=== PATIENT | female | born 1940 | race Caucasian/White ===

== ENCOUNTER → 2023-03-26 07:52 | Outpatient (REF) | payer MEDICARE, SELFPAY ==
[2023-03-26 10:21] LABS: ALT (SGPT) 13 U/L (0-35); AST (SGOT) 18 U/L (14-36); Albumin 3.9 g/dl (3.5-5.0); Alkaline Phosphatase 85 U/L (38-126); Blood Urea Nitrogen 24 mg/dl (7-17); Calcium 8.8 mg/dl (8.4-10.2); Carbon Dioxide 33 mmol/L (22-30); Chloride 98 mmol/L (98-107); Glucose 130 mg/dl (70-99); HDL Cholesterol 51 mg/dl; LDL Cholesterol, Calculated 50 mg/dl; Potassium 4.9 mmol/L (3.5-5.1); Sodium 137 mmol/L (135-145); Total Bilirubin 0.6 mg/dl (0.2-1.3); Total Cholesterol 125 mg/dl (50-199); Triglyceride 122 mg/dl (10-149); Very Low Density Lipoprotein 24 mg/dl (0-30); eGFR 45.48
[2023-03-26 11:03] LABS: Glycohemoglobin (HgbA1c) 6.5 % (4.0-5.6)
== END ==
LOC: REG 07:52
PROVIDERS: ATTENDING PHYSICIAN Family Medicine
DX: E11.59 Type 2 diabetes mellitus with other circulatory complications (principal); E78.2 Mixed hyperlipidemia
CPT/HCPCS: 36415; 80053; 80061; 83036

== ENCOUNTER → 2023-05-05 12:59 | Outpatient (REF) | payer MEDICARE, SELFPAY | LOC: WDC 12:59 | PROVIDERS: ATTENDING PHYSICIAN Family Medicine | DX: Z12.31 Encounter for screening mammogram for malignant neoplasm of breast (principal) | CPT/HCPCS: 77063; 77067 ==

== ENCOUNTER → 2023-08-13 08:18 | Outpatient (REF) | payer MEDICARE, SELFPAY ==
[2023-08-13 10:12] LABS: ALT (SGPT) 11 U/L (0-35); AST (SGOT) 15 U/L (14-36); Albumin 3.8 g/dl (3.5-5.0); Alkaline Phosphatase 75 U/L (38-126); Blood Urea Nitrogen 25 mg/dl (7-17); Calcium 9.4 mg/dl (8.4-10.2); Carbon Dioxide 33 mmol/L (22-30); Chloride 98 mmol/L (98-107); Glucose 112 mg/dl (70-99); Potassium 4.9 mmol/L (3.5-5.1); Sodium 140 mmol/L (135-145); Total Bilirubin 0.6 mg/dl (0.2-1.3); eGFR 41.31
[2023-08-13 12:00] LABS: Glycohemoglobin (HgbA1c) 6.6 % (4.0-5.6)
== END ==
LOC: REG 08:18
PROVIDERS: ATTENDING PHYSICIAN Family Medicine; REFERRING PHYSICIAN Internal Medicine Cardiovascular Disease
DX: E11.59 Type 2 diabetes mellitus with other circulatory complications (principal)
CPT/HCPCS: 36415; 80053; 83036

== ENCOUNTER → 2023-09-22 12:37 | Outpatient (REF) | payer MEDICARE, SELFPAY | LOC: WOUND 12:37 | PROVIDERS: ATTENDING PHYSICIAN Surgery; FAMILY PHYSICIAN Family Medicine | DX: L89.322 Pressure ulcer of left buttock, stage 2 (principal) | CPT/HCPCS: 99203 ==

== ENCOUNTER → 2023-09-29 13:23 | Outpatient (REF) | payer MEDICARE, SELFPAY | LOC: WOUND 13:23 | PROVIDERS: ATTENDING PHYSICIAN Surgery; FAMILY PHYSICIAN Family Medicine | DX: L89.322 Pressure ulcer of left buttock, stage 2 (principal); E11.59 Type 2 diabetes mellitus with other circulatory complications; N18.32 Chronic kidney disease, stage 3b; G89.4 Chronic pain syndrome; F11.20 Opioid dependence, uncomplicated; E66.01 Morbid (severe) obesity due to excess calories; I48.0 Paroxysmal atrial fibrillation; E11.29 Type 2 diabetes mellitus with other diabetic kidney complication | CPT/HCPCS: 97597 ==

== ENCOUNTER → 2023-10-06 13:24 | Outpatient (REF) | payer MEDICARE, SELFPAY | LOC: WOUND 13:24 | PROVIDERS: ATTENDING PHYSICIAN Surgery; FAMILY PHYSICIAN Family Medicine | DX: L89.322 Pressure ulcer of left buttock, stage 2 (principal); E11.59 Type 2 diabetes mellitus with other circulatory complications; N18.32 Chronic kidney disease, stage 3b; G89.4 Chronic pain syndrome; I50.32 Chronic diastolic (congestive) heart failure; F11.20 Opioid dependence, uncomplicated; E66.01 Morbid (severe) obesity due to excess calories; I48.0 Paroxysmal atrial fibrillation; E11.22 Type 2 diabetes mellitus with diabetic chronic kidney disease | CPT/HCPCS: 97597 ==

== ENCOUNTER → 2023-10-13 10:56 | Outpatient (REF) | payer MEDICARE, SELFPAY | LOC: WOUND 10:56 | PROVIDERS: ATTENDING PHYSICIAN Surgery; FAMILY PHYSICIAN Family Medicine | DX: L89.322 Pressure ulcer of left buttock, stage 2 (principal); E11.59 Type 2 diabetes mellitus with other circulatory complications; N18.32 Chronic kidney disease, stage 3b; G89.4 Chronic pain syndrome; I50.32 Chronic diastolic (congestive) heart failure; F11.20 Opioid dependence, uncomplicated; E66.01 Morbid (severe) obesity due to excess calories; I48.0 Paroxysmal atrial fibrillation | CPT/HCPCS: 97597 ==

== ENCOUNTER → 2023-10-27 13:24 | Outpatient (REF) | payer MEDICARE, SELFPAY | LOC: WOUND 13:24 | PROVIDERS: ATTENDING PHYSICIAN Surgery; FAMILY PHYSICIAN Family Medicine | DX: L89.322 Pressure ulcer of left buttock, stage 2 (principal); E11.59 Type 2 diabetes mellitus with other circulatory complications; N18.32 Chronic kidney disease, stage 3b; G89.4 Chronic pain syndrome; I50.32 Chronic diastolic (congestive) heart failure; F11.20 Opioid dependence, uncomplicated; E66.01 Morbid (severe) obesity due to excess calories; I48.0 Paroxysmal atrial fibrillation | CPT/HCPCS: 99212 ==

== ENCOUNTER 2023-12-08 21:40 | Inpatient (IN) | payer MEDICARE, SELFPAY ==
[2023-12-08 18:28] VITALS: BP 136/79
[2023-12-08 18:54] VITALS: BP 119/47
[2023-12-08 19:15] LABS: % Basophils 0.3 % (0-2); % Eosinophils 0.1 % (0-6); % Immature Granulocytes 0.3 % (0-0.5); % Lymphocytes 13.2 % (20.5-51.1); % Monocytes 13.2 % (1.7-9.3); % Neutrophils 72.9 % (42.2-75.2); Absolute Lymphocytes 1.2 10^3/uL (1.2-3.4); Absolute Monocytes 1.2 10^3/uL (0.1-0.6); Absolute Neutrophils 6.3 10^3/uL (1.4-6.5); Hematocrit 33.9 % (37.0-47.0); Mean Corp Hgb Conc. 32.4 g/dL (33.0-37.0); Mean Corpuscular Hgb 27.6 pg (27.0-31.0); Mean Platelet Volume 9.3 fL (7.4-10.4); Nucleated Red Blood Cells % 0 %; Platelet Count 228 10^3/uL (130-400); Red Blood Cell Count 3.99 10^6/uL (4.20-5.40); Red Cell Dist. Width 14.5 % (11.5-14.5); White Blood Cell Count 8.7 10^3/uL (4.8-10.8)
[2023-12-08 19:20] LABS: Urine Albumin Trace (Neg - Trace); Urine Bilirubin Negative (Negative); Urine Character Very Cloudy (Clear); Urine Color Yellow; Urine Glucose Negative (Negative); Urine Ketone Negative (Negative); Urine Leukocyte 2+ (Negative); Urine Nitrite Negative (Negative); Urine Occult Blood Trace (Negative); Urine Specific Gravity 1.005 (<1.030); Urine Urobilinogen 1+ (Neg - 1+)
[2023-12-08 19:30] LABS: Urine Bacteria Many (Negative); Urine Red Blood Cell 0-2 /HPF (0-2); Urine White Cell 21-25 /HPF (0-5)
--- NOTE | 2023-12-08 19:37 | ED.GENMED ---
History of Present Illness
General
Chief Complaint: Change in Mental Status
Source: patient, records, spouse and previous hospital records
Exam Limitations: none
Time Seen by Provider: 12/08/23 19:19
Nursing documentation reviewed up to this point in time: agreed with
History of Present Illness
History of Present Illness:
83-year-old female presents with agitation, urinary frequency, similar symptoms to when she had a UTI previously no fever no nausea vomiting she is a chronic pain syndrome, on fentanyl, oxycodone gabapentin immunosuppressed for dermatosis, followed
by dermatology uses oxygen at night, accompanied by her spouse
Past History
Past History
ED Past Medical History: CAD, CHF, COPD, GERD, HTN, Hypercholesterolemia, NIDDM, Psychiatric (Depression) and Other (DVT, morbid obesity, sleep apnea, iron deficiency anemia, spinal stenosis)
ED Past Surgical History: Appendectomy, Orthopedic, Tonsilectomy and Other (Cardiac catheterization with femoral arterial complications with both recent catheterization)
Social History
Tobacco: Former smoker
Alcohol: None
Drug: None
Personal:
Living: with family
Review of Systems
Review of Systems
All Other Systems: Not applicable
Constitutional: Reports sleep disturbance; Denies fever or fatigue
EENT: Reports no symptoms
Respiratory: Reports no symptoms
Cardiac: Reports no symptoms
ABD/GI: Denies abdominal pain or nausea
: Reports dysuria and frequency
Musculoskeletal: Reports muscle stiffness
Skin: Reports no symptoms
Neurological: Reports weakness
Hematologic/Lymphatic: Reports no symptoms
Psychiatric: Reports anxiety
Phy Exam
Physical Exam
Physical Exam:
Physical Exam
General: Agitated chronically ill female
Neck: Lips are dry
Heart: Regular
Lungs: no acute respiratory distress.
Abdomen: Nontender
Neuro: alert and oriented. no focal neurological deficits
Skin: no rash
Psychiatric: Agitated but cooperative
Extremities: no edema.
Course
Orders/Labs/Results
Orders:
Orders
12/08/23 18:57
CMP [Comprehensive Metabolic Panel] Urgent
Complete Blood Count/With Diff Urgent
Urinalysis Reflex To Culture Urgent
Date Specimen was Collected: 12/08/23
Time Specimen was Collected: 18:56
Urine Microscopic Reflex Cult Urgent
Urine Culture Urgent
JAMES Source: U
Specimen Description:
Date Specimen was Collected: 12/08/23
Time Specimen was Collected: 18:56
12/08/23 19:36
CefTRIAXone [Rocephin] 1,000 mg IV NOW STA
12/08/23 19:38
0.9% Sodium Chloride 1000 ml [Nss] 1,000 ml IV BOLUS
Oxycodone [Roxicodone] 20 mg PO NOW STA
Abnormal Lab Results
12/08/23
18:57
RBC 3.99 L 10^6/uL
(4.20-5.40)
Hgb 11.0 L g/dL
(12.0-16.0)
Hct 33.9 L %
(37.0-47.0)
MCHC 32.4 L g/dL
(33.0-37.0)
Absolute Monos (auto) 1.2 H 10^3/uL
(0.1-0.6)
Lymphocytes % 13.2 L %
(20.5-51.1)
Monocytes % 13.2 H %
(1.7-9.3)
Chloride 92 L mmol/L
(98-107)
Carbon Dioxide 34 H mmol/L
(22-30)
BUN 28 H mg/dl
(7-17)
Creatinine 1.1 H mg/dL
(0.6-1.0)
Glucose 130 H mg/dl
(70-99)
Ur Occult Blood Reflex Trace A
(Negative)
Leukocyte Esterase Rfl 2+ A
(Negative)
Urine WBC (Reflex) 21-25 A /HPF
(0-5)
Urine Bacteria (Reflex) Many A
(Negative)
12/08/23 18:57
12/08/23 18:57
Vital Signs
Initial and Last Documented VS:
Initial Vital Signs
Temp Pulse Resp BP Pulse Ox
98.3 F 81 16 136/79 92
12/08/23 18:28 12/08/23 18:28 12/08/23 18:28 12/08/23 18:28 12/08/23 18:28
Last Documented Vital Signs
Temp Pulse Resp BP Pulse Ox
98.3 F 81 16 119/47 96
12/08/23 18:28 12/08/23 18:28 12/08/23 18:28 12/08/23 18:54 12/08/23 19:15
MDM/Problems Addressed
Differential Diagnosis Includes:
UTI medication effect electrolyte abnormality
MDM/Problems Addressed:
Confusion agitation
Chronic conditions affecting care:
Immunosuppressed,
Acute Exacerbation and/or Progression of Chronic Illness:
Immunosuppressed chronic pain
*Pulse Oximetry
Patient hypoxic: no
*Utility Appraiser Interpretation
Rate: normal
Interpretation: normal
Heart Rate: 78
Rhythm: sinus
*Critical Care Note
Total Time (30-74mins, 75-104mins- exclusive of procedures): Not Applicable
Update Note
Update Note:
Update urine noted, patient is symptomatic prior culture noted prior records reviewed is allergic penicillin but tolerated cephalosporins previously reviewed this with nursing and patient and spouse, spouse was bonnie that he has been keeping care
for [place], think she needs to be admitted which is not unreasonable,
ED Attending Note
-
Portions of this chart may have been created with voice recognition software.� Occasional wrong word or��sound alike� substitutions may have occurred due to the inherent limitations of voice recognition software.
Discharge Plan
Departure
Patient Disposition: Admit
Date of Disposition: 12/08/23
Time of Disposition: 20:04
Presentation/result/management discussed w/ accepting MD/DO: Hospitalist
Patient with high blood pressure during this ER visit?: No
Condition: Fair
Discharge Problem:
Immunosuppressed status, Chronic pain syndrome, Toxic metabolic encephalopathy, Acute UTI
Prescriptions:
No Action
pantoprazole 40 MG tablet,delayed release (DR/EC)
40 mg PO HS
furosemide 40 MG tablet
40 mg PO DAILY
atorvastatin 40 MG tablet
80 mg PO HS
aspirin 81 MG tablet,delayed release (DR/EC)
81 mg PO DAILY
ketoconazole 1 APPLIC cream
1 applic topical BIDPRN PRN (Reason: groin/under breasts rash)
metformin 500 MG tablet extended release 24 hr
500 mg PO DAILY@0800
bupropion HCl 150 MG tablet extended release 24 hr
150 mg PO DAILY
duloxetine 60 MG capsule,delayed release(DR/EC)
60 mg PO DAILY
cholecalciferol (vitamin D3) 1,000 UNITS tablet
1,000 units PO DAILY
budesonide-formoterol [Symbicort] 1 PUFF HFA aerosol inhaler
2 puff inhalation R BID
gabapentin [Neurontin] 600 MG tablet
600 mg PO TID
albuterol sulfate 2.5 MG/3 ML solution for nebulization
2.5 mg inhalation R Q6HPRN PRN (Reason: sob/wheezing)
metoprolol succinate 25 MG tablet extended release 24 hr
25 mg PO DAILY
ticagrelor [Brilinta] 60 MG tablet
60 mg PO BID
oxycodone myristate [Xtampza ER] 13.5 MG cap,sprinkl,ER12hr(DONT CRUSH)
13.5 mg PO Q12H
Patient Comments:
07/10/2021: Taken w/ 36mg = 49.5mg; last filled 06/29/21, 60 tabs for 30 days from [facility]
oxycodone myristate [Xtampza ER] 36 MG cap,sprinkl,ER12hr(DONT CRUSH)
36 mg PO Q12H
Patient Comments:
07/10/2021: Taken w/ 13.5mg = 49.5mg; last filled 06/29/21, 60 tabs for 30 days from [facility]
oxycodone 10 MG tablet
20 mg PO Q6HPRN PRN (Reason: moderate pain)
Patient Comments:
07/10/2021: last filled 06/30/21, 240 tabs for 30 days from [facility]
polyethylene glycol 3350 17 GRAMS powder in packet
17 grams PO DAILY PRN (Reason: constipation) Qty: 30 0RF
cefdinir 300 MG capsule
300 mg PO Q12 Qty: 16 0RF
Interventions
Interventions:
*Risk Screen - Suicide Last Done: 12/08/23 19:11
*General Assessment Last Done: 12/08/23 19:10
*Neglect/Abuse Screening Last Done: 12/08/23 19:11
*ED COVID-19 Vaccine History Last Done: 12/08/23 19:10
ED- Neurological Assessment Last Done: 12/08/23 19:08
ED Swallowing Screen Last Done: 12/08/23 19:07
Discharge Date and Time
Print Language: PORTUGUESE
[2023-12-08 19:50] LABS: ALT (SGPT) 11 U/L (0-35); AST (SGOT) 19 U/L (14-36); Albumin 4.1 g/dl (3.5-5.0); Alkaline Phosphatase 91 U/L (38-126); Blood Urea Nitrogen 28 mg/dl (7-17); Calcium 9.2 mg/dl (8.4-10.2); Carbon Dioxide 34 mmol/L (22-30); Chloride 92 mmol/L (98-107); Glucose 130 mg/dl (70-99); Potassium 4.4 mmol/L (3.5-5.1); Sodium 137 mmol/L (135-145); Total Bilirubin 0.6 mg/dl (0.2-1.3); Total Protein 7.5 g/dl (6.3-8.2); eGFR 50.48
[2023-12-08] MEDS: ROXICODONE 20 MG PO (20:01)
[2023-12-08] MEDS: NSS 1000 IV (20:02)
[2023-12-08] MEDS: ROCEPHIN 1000 MG IV (20:03)
--- NOTE | 2023-12-08 20:30 | HPS.HSE ---
Addendum entered and electronically signed by Harley Mercer DO 12/08/23 21:44:
Patient seen and examined independently. Agree with findings and plan as set forth by Park Beckett PA-C.
Patient is an 83y F with PMH significant for HTN, DM and CAD who presents to ED for evaluation of increased confusion as reported by her . states that patient has seemed more confused than usual and has also been making 'strange
movements' mostly with her arms. These symptoms have been present for the past 2 days or so. states that she has had similar confusion in the past related to UTIs.
Ass:
Confusion / Acute TME
UTI
COPD
ASCVD
Chronic HFpEF
Benign Hypertension
Dyslipidemia
DM-II
CKD III
KEVAN not Tolerant of PAP Therapy
Lumbar Spinal Stenosis
Chronic Pain Syndrome
Chronic Opioid Dependence
Depression
Psoriasis
Plan:
Admit for further evaluation and treatment.
Continue IV abx for suspected UTI pending culture data.
Supportive care / follow for clinical improvement.
Continue current outpatient medication regimen.
Avoid new / increased sedating medications.
Efforts to decrease chronic narcotics would no doubt improve mental status.
Original Note:
Family Physician
-
Family Physician: Mir Estrada
Chief Complaint
-
Confusion
History of Present Illness
Patient is an 83 y/o female past medical history of CAD, HTN, DM, COPD, Chronic Pain and Psoriasis on immunosuppressive therapy who presents with confusion. Additional history is obtained from patient's at the bedside. He noted patient to
not quite be her usual self a few days ago, but today noted that she was more confused and she started making with odd movements with her arms. Patient herself complains of dysuria, and has noted frequency. Patient also reports cough that
is productive of green mucus which has been on going for a while, and notes she developed shortness of breath with activity. There are no reports of fevers, sweats or chills.
Medical History
Past Medical History
Past Medical History: Reports Other
Additional Past Medical History:
Coronary Artery Disease s/p Stent
Chronic HFpEF
Essential Hypertension
Hyperlipidemia
NIDDM
COPD
Sleep Apnea
Lumbar Stenosis
Chronic Pain with Opioid Dependence
GERD/PUD
Psoriasis
Depression
Past Surgical History: Reports Other
Additional Past Surgical History:
Laminectomy
Left Knee Arthroscopy
Appendectomy
Tonsillectomy
MOHs
Spinal Stimulator
Cardiac Stents
Social History
Tobacco: Former Smoker (Quit in 2000)
Alcohol: None
Personal:
Living: With Family
Family History
Family History: Not pertinent
Allergies / Home Medications
Allergies reflects when Allergies were last updated in [facility].
Home Medications with original date entered in [facility]
Allergy/Medication List:
Allergies
Allergy/AdvReac Type Severity Reaction Status Date / Time
Penicillins Allergy face Verified 10/18/22 11:43
swells,
pruritis,
difficulty,
anaphylaxis
Home Medications
pantoprazole 40 mg tablet,delayed release 40 mg PO HS Gastrointestinal issue 02/11/13
aspirin 81 mg tablet,delayed release 81 mg PO DAILY Blood clot prevention/tx 03/25/17
bupropion HCl 150 mg 24 hr tablet, extended release 150 mg PO DAILY Mental Health/Anxiety 03/25/17
duloxetine 60 mg capsule,delayed release 60 mg PO DAILY PAIN 03/25/17
furosemide 40 mg tablet 40 mg PO DAILY Fluid retention/Swelling 03/25/17
metformin 500 mg tablet,extended release 24 hr 500 mg PO QPM Diabetes 03/25/17
albuterol sulfate 2.5 mg/3 mL (0.083 %) solution for nebulization 2.5 mg inhalation R Q6HPRN PRN sob/wheezing 07/10/21
metoprolol succinate 25 mg tablet,extended release 24 hr 25 mg PO DAILY Heart disease/condition 07/10/21
oxycodone 10 mg tablet 10 - 20 mg PO Q6HPRN PRN moderate pain 07/10/21
ticagrelor 60 mg tablet (Brilinta) 60 mg PO BID Blood clot prevention/tx 07/10/21
Tremfya 1 dose SC Q8W 12/08/23
atorvastatin 80 mg tablet 80 mg PO HS 12/08/23
cholecalciferol (vitamin D3) 25 mcg (1,000 unit) tablet 25 mcg PO DAILY 12/08/23
fentanyl 100 mcg/hr transdermal patch 100 mcg transdermal Q3D 12/08/23
gabapentin 300 mg capsule 600 mg PO TID 12/08/23
Review of Systems
-
A 12 point ROS was completed and negative except as noted: Yes
Constitutional: Denies Fever or Chills
Respiratory: Reports Cough; Denies Trouble Breathing
Cardiac: Denies Chest Pain or Palpitations
Abdomen/GI: Reports See HPI
Physical Exam
Vital Signs
Vital Signs
Temp Pulse Resp BP Pulse Ox
98.3 F 81 16 119/47 97
12/08/23 18:28 12/08/23 18:28 12/08/23 18:28 12/08/23 18:54 12/08/23 20:00
Physical Exam
General: Comfortable and Conversant
HEENT: Anicteric, Moist mucous membranes and Oxygen (Nasal Cannula)
Respiratory: Non Labored Respirations and Other (Diffuse Wheezes / Rhonchi)
Cardiac: S1/S2 and Regular Rhythm
GI: Soft and Non Tender
Rectal: Deferred by Provider
Musculoskeletal: No Clubbing and No Cyanosis
Skin: Warm, Dry and Other (Dry scaly skin to bilateral lower extremities; Plaques noted on the right medical foot/ankle)
Neuro: Awake, Alert, Oriented (Correctly stated date as November 2023, location as [facility] and President as Chivo Arzola) and Other (Move all four extremities, but noted to be very restless with odd movements particular in the arms)
Psych: Calm
Laboratory Results
-
12/08/23 18:57
12/08/23 18:57
Laboratory Results
Total Bilirubin 0.6 mg/dl (0.2-1.3) 12/08/23 18:57
AST 19 U/L (14-36) 12/08/23 18:57
ALT 11 U/L (0-35) 12/08/23 18:57
Alkaline Phosphatase 91 U/L (38-126) 12/08/23 18:57
Impression/Plan
-
TME secondary to Urinary Tract Infection
-Continue Ceftriaxone
-Await urine culture
COPD
-Patient reports stopped Symbicort a while ago
-Check CXR and COVID in setting of diffuse wheeze
-Start Pulmicort Neb and DuoNeb
Coronary Artery Disease s/p Stent
-Continue Aspirin and Brilinta
Chronic HFpEF
-Continue furosemide
-Monitor Daily Weights
Essential Hypertension
-Continue Metoprolol
Hyperlipidemia
-Continue atorvastatin
NIDDM
-Hold metformin
-Monitor sugars and continue coverage insulin
CKD Stage IIIA
-Creatinine at baseline
Obstructive Sleep Apnea
-Patient is intolerable to CPAP
-Continue oxygen at bedtime
Lumbar Stenosis
Chronic Pain with Opioid Dependence
-Continue fentanyl patch and oxycodone as prior to admission
-Continue duloxetine and gabapentin
Depression
-Continue bupropion and duloxetine
GERD/PUD
-Continue Protonix
Psoriasis
-Patient maintained on Tremfya as outpatient
DVT proph: SC Heparin
Code Status: DNR
[2023-12-08 21:00] VITALS: BP 121/78
[2023-12-08 21:06] LABS: COVID-19 Antigen Negative (Negative)
[2023-12-08 22:00] VITALS: BP 114/69
[2023-12-08] MEDS: NEURONTIN PO (23:31)
[2023-12-08] MEDS: LIPITOR PO (23:31)
[2023-12-08] MEDS: PROTONIX PO (23:32)
[2023-12-09] MEDS: HEPARIN SC (01:07)
[2023-12-09 03:00] VITALS: BP 136/72
[2023-12-09] MEDS: ROXICODONE 20 MG PO ×3 (04:25→22:35)
[2023-12-09 05:41] LABS: Hematocrit 31.8 % (37.0-47.0); Hemoglobin 10.4 g/dL (12.0-16.0); Mean Corp Hgb Conc. 32.7 g/dL (33.0-37.0); Mean Corpuscular Hgb 27.6 pg (27.0-31.0); Mean Corpuscular Volume 84.4 fL (81.0-99.0); Mean Platelet Volume 9.4 fL (7.4-10.4); Platelet Count 200 10^3/uL (130-400); Red Blood Cell Count 3.77 10^6/uL (4.20-5.40); Red Cell Dist. Width 14.2 % (11.5-14.5)
[2023-12-09 06:00] LABS: Blood Urea Nitrogen 20 mg/dl (7-17); Calcium 8.9 mg/dl (8.4-10.2); Carbon Dioxide 31 mmol/L (22-30); Chloride 98 mmol/L (98-107); Estimated Creatinine Clearance 50 ml/min; Glucose 140 mg/dl (70-99); Sodium 140 mmol/L (135-145)
--- NOTE | 2023-12-09 08:11 | W.PN.HOSP.TC ---
Today's Communication/Plan
-
await Ur C&S
continue preadmit meds
Assessment / Plan
Assessment / Plan
TME secondary to Urinary Tract Infection
TME appears much improved when compared to presentation in ER
-Continue Ceftriaxone
-Await urine culture
In August 2022 had E.Coli, sens to Rocephin, resis to Amp
COPD
active wheeze, pt states has this all the time
-Patient reports stopped Symbicort a while ago
-Check CXR and COVID in setting of diffuse wheeze
-Start Pulmicort Neb and DuoNeb
Coronary Artery Disease s/p Stent
-Continue Aspirin and Brilinta
Chronic HFpEF
-Continue furosemide
-Monitor Daily Weights
Essential Hypertension
-Continue Metoprolol
Hyperlipidemia
-Continue atorvastatin
NIDDM
-Hold metformin
-Monitor sugars and continue coverage insulin
CKD Stage IIIA
-Creatinine at baseline
Obstructive Sleep Apnea
-Patient is intolerable to CPAP
-Continue oxygen at bedtime
Lumbar Stenosis
Chronic Pain with Opioid Dependence
-Continue fentanyl patch and oxycodone as prior to admission, pt is most concerned that she continue to receive
-Continue duloxetine and gabapentin
PT/OT
Depression
-Continue bupropion and duloxetine
GERD/PUD
-Continue Protonix
Psoriasis
-Patient maintained on Tremfya as outpatient
DVT proph: SC Heparin
Code Status: DNR
Anticipated Discharge: > 48 hours
Subjective/Interval History
-
Date of Service: December 09, 2023
Awake, alert, answering questions appropriately
Objective Data
-
Labs:
Laboratory Results
12/09/23
04:36
WBC 7.0
Hgb 10.4 L
Hct 31.8 L
Plt Count 200
Sodium 140
Potassium 4.0
Chloride 98
Carbon Dioxide 31 H
BUN 20 H
Creatinine 1.0
Glucose 140 H
Calcium 8.9
Vital Signs:
Vital Signs
Temp Pulse Resp BP Pulse Ox
97.7 F 77 18 136/72 95
12/09/23 03:00 12/09/23 03:00 12/09/23 03:00 12/09/23 03:00 12/09/23 03:00
Review of Systems
-
History Source: Patient and Coordinated Provider
Constitutional: Denies Fever
EENT: Reports No Symptoms Reported
Respiratory: Reports No Symptoms
Cardiac: Reports No Symptoms
Abdomen/GI: Reports No Symptoms
Genitourinary: Denies Dysuria
Physical Exam
-
General: Well Developed, Well Nourished and No Apparent Distress
HEENT: Normocephalic, Atraumatic and Moist Mucous Membranes
Respiratory: Wheezes (mid-end expiratory wheeze); Negative Rales or Rhonchi
Cardiac: Regular Rhythm and S1/S2
GI: Soft, Nontender and Nondistended
Genito-urinary: No Costovertebral Tender
Musculoskeletal: No Clubbing, No Cyanosis and No Edema
[2023-12-09] MEDS: DUONEB 3 ML INH ×4 (08:30→20:30)
[2023-12-09] MEDS: PULMICORT 0.5 MG INH ×2 (08:30→20:30)
[2023-12-09 08:39] LABS: Glucose - Point of Care 136 mg/dl (70-99)
[2023-12-09 09:00] VITALS: BP 123/51
[2023-12-09] MEDS: CYMBALTA DELAYED RELEASE 60 MG PO (09:06)
[2023-12-09] MEDS: NEURONTIN 600 MG PO ×3 (09:06→21:58)
[2023-12-09] MEDS: HEPARIN 5000 UNITS SC ×2 (09:06→15:36)
[2023-12-09] MEDS: WELLBUTRIN XL (24 hour extended release) 150 MG PO (09:07)
[2023-12-09] MEDS: VITAMIN D3 (cholecalciferol) 25 MCG PO (09:07)
[2023-12-09] MEDS: ASPIR LOW (ENTERIC COATED) 81 MG PO (09:07)
[2023-12-09] MEDS: TOPROL XL 25 MG PO (09:09)
[2023-12-09] MEDS: LASIX 40 MG PO (09:09)
[2023-12-09] MEDS: DURAGESIC 100 MCG/HR PATCH 1 PATCH TRANSDERM (09:50)
[2023-12-09 10:06] LABS: Glycohemoglobin (HgbA1c) 6.5 % (4.0-5.6)
--- NOTE | 2023-12-09 10:08 | WOUNDNOTE ---
LEFT LOWER LEG
--- NOTE | 2023-12-09 10:09 | WOUNDNOTE ---
LEFT BREAST FOLD
--- NOTE | 2023-12-09 10:09 | WOUNDNOTE ---
RIGHT BREAST FOLD
[2023-12-09] MEDS: BRILINTA 60 MG PO ×2 (10:16→22:00)
[2023-12-09] MEDS: ANTIFUNGAL CLEAR 1 APPLIC TOPICAL (11:46)
[2023-12-09] MEDS: DESENEX/MITRAZOL/ZEASORB 1 APPLIC TOPICAL (11:47)
--- NOTE | 2023-12-09 12:04 | WOUNDNOTE ---
[facility] RN note: Patient admitted with change in mental status
See H&P for complete history.
PMH: UTI,COPD, ASCVD, Chronic HFpEF, Benign Hypertension, Dyslipidemia, DM-II, CKD III, Lumbar Spinal Stenosis,Chronic Pain Syndrome
Chronic Opioid Dependence, Depression, Psoriasis
Wound Location and type/assessment: Patient admitted with friction appearing wound of left buttock, venous stasis changes to bilateral LE with venous appearing wounds to left posterior leg. Patient also has fungal appearing skin under breasts and
abdominal folds. Patient states she lives at home with her who helps with her care. She ambulates with walker at home. She denies wearing compression to LE. + palpable pulses. She said she was unaware of LE wounds. Her feet appear to have
fungal appearing skin vs psoriasis .
Appetite: States good appetite.
Pressure redistribution devices in place: Patient put on [employer] Accumax with static air overlay with assistance of PEYTON Moreno.
Plan: Local wound care as ordered to LE and areas of fungal appearing skin. Confirmed orders, including LE compression orders with Dr. Ivory. PEYTON Moreno given update. Care plan updated. Will follow as needed.
[2023-12-09 13:01] LABS: Glucose - Point of Care 182 mg/dl (70-99)
[2023-12-09 13:15] VITALS: BP 118/59
[2023-12-09 14:25] VITALS: BP 118/53
[2023-12-09 16:42] LABS: Glucose - Point of Care 124 mg/dl (70-99)
[2023-12-09 20:44] LABS: Glucose - Point of Care 161 mg/dl (70-99)
[2023-12-09] MEDS: ROCEPHIN 1000 MG IV (21:58)
[2023-12-09] MEDS: PROTONIX 40 MG PO (21:58)
[2023-12-09] MEDS: STERILE WATER FOR INJECTION 10 ML IV (21:59)
[2023-12-09] MEDS: LIPITOR 80 MG PO (22:00)
[2023-12-09 23:29] VITALS: BP 112/47
[2023-12-09] MEDS: DESENEX/MITRAZOL/ZEASORB TOPICAL (23:44)
[2023-12-10] MEDS: HEPARIN 5000 UNITS SC ×2 (01:04→09:21)
[2023-12-10 06:00] VITALS: BMI 43.2
[2023-12-10] MEDS: PULMICORT 0.5 MG INH (07:48)
[2023-12-10] MEDS: DUONEB 3 ML INH ×2 (07:48→11:15)
[2023-12-10 07:58] VITALS: BP 85/50
[2023-12-10 08:18] LABS: % Basophils 0.3 % (0-2); % Eosinophils 0.7 % (0-6); % Immature Granulocytes 0.5 % (0-0.5); % Lymphocytes 25.6 % (20.5-51.1); % Monocytes 12.2 % (1.7-9.3); % Neutrophils 60.7 % (42.2-75.2); Absolute Lymphocytes 1.5 10^3/uL (1.2-3.4); Absolute Monocytes 0.7 10^3/uL (0.1-0.6); Absolute Neutrophils 3.6 10^3/uL (1.4-6.5); Hematocrit 34.9 % (37.0-47.0); Hemoglobin 10.9 g/dL (12.0-16.0); Mean Corp Hgb Conc. 31.2 g/dL (33.0-37.0); Mean Corpuscular Hgb 27.3 pg (27.0-31.0); Mean Corpuscular Volume 87.5 fL (81.0-99.0); Mean Platelet Volume 8.8 fL (7.4-10.4); Nucleated Red Blood Cells % 0 %; Platelet Count 205 10^3/uL (130-400); Red Blood Cell Count 3.99 10^6/uL (4.20-5.40); Red Cell Dist. Width 14.6 % (11.5-14.5)
[2023-12-10 08:19] LABS: Glucose - Point of Care 143 mg/dl (70-99)
[2023-12-10 08:42] LABS: Blood Urea Nitrogen 19 mg/dl (7-17); Calcium 9.3 mg/dl (8.4-10.2); Carbon Dioxide 35 mmol/L (22-30); Chloride 95 mmol/L (98-107); Estimated Creatinine Clearance 45 ml/min; Glucose 154 mg/dl (70-99); Sodium 139 mmol/L (135-145); eGFR 50.48
[2023-12-10 09:06] VITALS: BP 117/63
[2023-12-10] MEDS: NEURONTIN 600 MG PO (09:20)
[2023-12-10] MEDS: VITAMIN D3 (cholecalciferol) 25 MCG PO (09:20)
[2023-12-10] MEDS: CYMBALTA DELAYED RELEASE 60 MG PO (09:20)
[2023-12-10] MEDS: WELLBUTRIN XL (24 hour extended release) 150 MG PO (09:20)
[2023-12-10] MEDS: BRILINTA 60 MG PO (09:20)
[2023-12-10] MEDS: ASPIR LOW (ENTERIC COATED) 81 MG PO (09:20)
[2023-12-10] MEDS: TOPROL XL PO (09:21)
[2023-12-10] MEDS: LASIX 40 MG PO (09:22)
[2023-12-10] MEDS: DESENEX/MITRAZOL/ZEASORB 1 APPLIC TOPICAL (09:54)
--- NOTE | 2023-12-10 10:01 | W.PN.HOSP.TC ---
Today's Communication/Plan
-
dc to home
Assessment / Plan
Assessment / Plan
TME secondary to Urinary Tract Infection
TME appears resolved when compared to presentation in ER
-Pt states had severe rxn to PCN years ago, will change to low dose Cipro at time of dc
-Await urine culture
In August 2022 had E.Coli, sens to Rocephin, resis to Amp
COPD
active wheeze, pt states has this all the time
-Patient reports stopped Symbicort a while ago
-CXR-NAPD and COVID-Neg
-Start Pulmicort Neb and DuoNeb
Coronary Artery Disease s/p Stent
-Continue Aspirin and Brilinta
Chronic HFpEF
-Continue furosemide
-Monitor Daily Weights
Essential Hypertension
-Continue Metoprolol
Hyperlipidemia
-Continue atorvastatin
NIDDM
-resume metformin
-Monitor sugars and continue coverage insulin
CKD Stage IIIA
-Creatinine at baseline
Obstructive Sleep Apnea
-Patient is intolerable to CPAP
-Continue oxygen at bedtime
Lumbar Stenosis
Chronic Pain with Opioid Dependence
-Continue fentanyl patch and oxycodone as prior to admission, pt is most concerned that she continue to receive
-Continue duloxetine and gabapentin
PT/OT
Depression
-Continue bupropion and duloxetine
GERD/PUD
-Continue Protonix
Psoriasis
-Patient maintained on Tremfya as outpatient
DVT proph: SC Heparin
Code Status: DNR
Anticipated Discharge: Today
Subjective/Interval History
-
Date of Service: December 10, 2023
Feels well, feels she can go home
Objective Data
-
Labs:
Laboratory Results
12/10/23
08:04
WBC 6.0
Hgb 10.9 L
Hct 34.9 L
Plt Count 205
Sodium 139
Potassium 4.0
Chloride 95 L
Carbon Dioxide 35 H
BUN 19 H
Creatinine 1.1 H
Glucose 154 H
Calcium 9.3
Vital Signs:
Vital Signs
Temp Pulse Resp BP Pulse Ox
98.6 F 83 16 117/63 96
12/10/23 07:58 12/10/23 07:58 12/10/23 07:58 12/10/23 09:06 12/10/23 09:06
I&O
12/09/23 12/10/23 12/11/23
06:59 06:59 06:59
Intake Total 720 / 720
Balance 720 / 720
Review of Systems
-
History Source: Patient and Coordinated Provider
Constitutional: Denies Fever
EENT: Reports No Symptoms Reported
Respiratory: Reports No Symptoms
Cardiac: Reports No Symptoms
Abdomen/GI: Reports No Symptoms
Genitourinary: Denies Dysuria
Physical Exam
-
General: Well Developed, Well Nourished and No Apparent Distress
HEENT: Normocephalic, Atraumatic and Moist Mucous Membranes
Respiratory: Wheezes (mid-end expiratory wheeze); Negative Rales or Rhonchi
Cardiac: Regular Rhythm and S1/S2
GI: Soft, Nontender and Nondistended
Genito-urinary: No Costovertebral Tender
Musculoskeletal: No Clubbing, No Cyanosis and No Edema
Neuro: Awake, Alert and Oriented (mentation is excellent)
--- NOTE | 2023-12-10 10:23 | W.DS.TRANS ---
DC Summary - Health Commissioner
-
Discharge Instructions:
Discharge Diagnosis/Procedures Toxic Metabolic Encephalopathy from UTI
Diet Low Sodium
Activity With assistance
Driving Restrictions No driving
Bathing Restrictions None
Blood Work CBC, BMP in 1-2 weeks
Other Services VN
Instructions:
Stand-Alone Forms:
Changes to Home Medications: Yes
Discharge Medications:
DC Medications w/original date entered in [employer]
pantoprazole 40 mg tablet,delayed release 40 mg PO HS Gastrointestinal issue 02/11/13
aspirin 81 mg tablet,delayed release 81 mg PO DAILY Blood clot prevention/tx 03/25/17
bupropion HCl 150 mg 24 hr tablet, extended release 150 mg PO DAILY Mental Health/Anxiety 03/25/17
duloxetine 60 mg capsule,delayed release 60 mg PO DAILY PAIN 03/25/17
furosemide 40 mg tablet 40 mg PO DAILY Fluid retention/Swelling 03/25/17
metformin 500 mg tablet,extended release 24 hr 500 mg PO QPM Diabetes 03/25/17
albuterol sulfate 2.5 mg/3 mL (0.083 %) solution for nebulization 2.5 mg inhalation R Q6HPRN PRN sob/wheezing 07/10/21
metoprolol succinate 25 mg tablet,extended release 24 hr 25 mg PO DAILY Heart disease/condition 07/10/21
oxycodone 10 mg tablet 10 - 20 mg PO Q6HPRN PRN moderate pain 07/10/21
ticagrelor 60 mg tablet (Brilinta) 60 mg PO BID Blood clot prevention/tx 07/10/21
Tremfya 1 dose SC Q8W 12/08/23
atorvastatin 80 mg tablet 80 mg PO HS 12/08/23
cholecalciferol (vitamin D3) 25 mcg (1,000 unit) tablet 25 mcg PO DAILY 12/08/23
fentanyl 100 mcg/hr transdermal patch 100 mcg transdermal Q3D 12/08/23
gabapentin 300 mg capsule 600 mg PO TID 12/08/23
cefuroxime axetil 250 mg tablet 250 mg PO BID 7 days #14 tabs 12/10/23
Home Medication Changes
Ceftin for 7 days
Pending Results: No
[2023-12-10 12:02] LABS: Glucose - Point of Care 171 mg/dl (70-99)
--- NOTE | 2023-12-10 12:23 | CM ---
met with patient who is stable for dc home with no needs.patient signed imm letter.family to transport home.
[2023-12-10 13:00] VITALS: BP 115/60
== END 2023-12-10 13:09 | disposition home or self-care (01) | DRG 689 ==
LOC: 3 WEST ACU 21:40
PROVIDERS: Emergency Medicine; Physician Assistant Medical; ADMITTING PHYSICIAN Hospitalist; ATTENDING PHYSICIAN Internal Medicine; EMERGENCY PHYSICIAN Emergency Medicine; FAMILY PHYSICIAN Family Medicine
DX: N39.0 Urinary tract infection, site not specified (principal); G92.8 Other toxic encephalopathy; F11.20 Opioid dependence, uncomplicated; I50.32 Chronic diastolic (congestive) heart failure; I13.0 Hypertensive heart and chronic kidney disease with heart failure and stage 1 through stage 4 chronic kidney disease, or unspecified chronic kidney disease; Z87.891 Personal history of nicotine dependence; J44.9 Chronic obstructive pulmonary disease, unspecified; I25.10 Atherosclerotic heart disease of native coronary artery without angina pectoris; N18.31 Chronic kidney disease, stage 3a; E11.22 Type 2 diabetes mellitus with diabetic chronic kidney disease; M48.061 Spinal stenosis, lumbar region without neurogenic claudication; G89.4 Chronic pain syndrome; F32.A Depression, unspecified; L40.9 Psoriasis, unspecified; E78.00 Pure hypercholesterolemia, unspecified; G47.33 Obstructive sleep apnea (adult) (pediatric); K21.9 Gastro-esophageal reflux disease without esophagitis; Z66 Do not resuscitate; K27.9 Peptic ulcer, site unspecified, unspecified as acute or chronic, without hemorrhage or perforation; Z11.52 Encounter for screening for COVID-19
CPT/HCPCS: 71046; 80048; 80053; 81003; 81015; 82962; 83036; 85025; 85027; 87071; 87086; 87186; 87811; 94640; 96361; 96374; 97162; 99285

== ENCOUNTER 2023-12-19 21:25 | Inpatient (IN) | payer MEDICARE, SELFPAY ==
[2023-12-19] VITALS (14 sets, daily range): BP systolic 81–115; BP diastolic 48–86; BMI 44.3; BMI 42.5
[2023-12-19 16:45] LABS: % Basophils 0.4 % (0-2); % Immature Granulocytes 0.4 % (0-0.5); % Lymphocytes 15.1 % (20.5-51.1); % Monocytes 7.6 % (1.7-9.3); % Neutrophils 76.5 % (42.2-75.2); Absolute Lymphocytes 1.6 10^3/uL (1.2-3.4); Absolute Monocytes 0.8 10^3/uL (0.1-0.6); Absolute Neutrophils 7.9 10^3/uL (1.4-6.5); Hematocrit 33.1 % (37.0-47.0); Hemoglobin 10.3 g/dL (12.0-16.0); Mean Corp Hgb Conc. 31.1 g/dL (33.0-37.0); Mean Corpuscular Hgb 27.8 pg (27.0-31.0); Mean Corpuscular Volume 89.2 fL (81.0-99.0); Mean Platelet Volume 9.3 fL (7.4-10.4); Nucleated Red Blood Cells % 0 %; Platelet Count 240 10^3/uL (130-400); Red Blood Cell Count 3.71 10^6/uL (4.20-5.40); Red Cell Dist. Width 14.9 % (11.5-14.5); White Blood Cell Count 10.3 10^3/uL (4.8-10.8)
--- NOTE | 2023-12-19 16:45 | ED.GENMED ---
History of Present Illness
General
Chief Complaint: Change in Mental Status
Source: patient, records and spouse
Time Seen by Provider: 12/19/23 16:30
History of Present Illness
History of Present Illness:
83yoF with a history of coronary artery disease, hypertension, hyperlipidemia, type 2 diabetes, CKD, COPD, chronic back pain presenting via EMS for evaluation of altered mental status. Patient was recently admitted for a UTI from 12/08/23-12/10/23.
She was discharged on Ceftin which she finished yesterday. She was previously maintained on fentanyl patches for chronic back pain. This was switched to morphine yesterday by her PCP due to a rash that was thought to be from the fentanyl patches.
states she was prescribed 4 tablets of 30mg morphine BID and she has had 3 doses thus far. She woke up this morning and was confused. states she was '[place]' and had difficulty responding to him. She also had a fall while
getting out of bed this morning and she is having difficulty walking today. states she is completely disoriented and he decided to call EMS. She denies any injuries from the fall. No fevers, vomiting, diarrhea, chest pain.
BP is 84/51 on arrival. states her blood pressure runs low but her systolic blood pressure is typically in the 110s.
Past History
Past History
ED Past Medical History: CAD, CHF, COPD, GERD, HTN, Hypercholesterolemia, NIDDM, Psychiatric (Depression) and Other (DVT, morbid obesity, sleep apnea, iron deficiency anemia, spinal stenosis)
ED Past Surgical History: Appendectomy, Orthopedic, Tonsilectomy and Other (Cardiac catheterization with femoral arterial complications with both recent catheterization)
Social History
Tobacco: Former smoker
Alcohol: None
Drug: None
Personal:
Living: with family
Phy Exam
General Physical Exam
General Presentation: no apparent distress
General age: appears stated age
General Skin: warm and dry
General Habitus: elderly
General Mental: alert
ENT Exam
ENT Exam: normocephalic
Eye Exam
Eye Exam: PERRL
Cardiovascular Exam
Cardiovascular Exam: regular rate/rhythm
Pulmonary Exam
Pulmonary Exam: no respiratory distress and generalized wheezing
Gastrointestinal Exam
Gastrointestinal Exam: soft, non distended and other (+Mild generalized tenderness. Abdomen soft, non-distended. No rebound or guarding.)
Neurological Exam
Neurological Exam: alert, no motor deficits and other (Patient is awake and fatigued. There is a delay in speech when responding to questions. She is able to state her and the year. Not oriented to place.)
Skin Exam
Skin Exam: normal color and warm/dry
Course
Orders/Labs/Results
Orders:
Orders
12/19/23 Dinner
1800 calorie (15 carb) Diabetic
At Your Request: Full Participation
Fluid Restriction: 1920 mL/day (64 oz)
12/19/23 16:25
Complete Blood Count/With Diff Urgent
Comprehensive Metabolic Panel Urgent
Lipase Urgent
Comment: LIPASE ADDED ON BY FLOOR 4:45PM 12-19-23
12/19/23 16:42
CT Cervical Spine W/o Iv Contr Urgent
Comment:
Reason For Exam: AMS, fall
CT Head W/o Iv Contrast Urgent
Comment:
Reason For Exam: AMS, fall
0.9% Sodium Chloride 500 ml [Nss] 500 ml IV BOLUS
12/19/23 16:43
Add On- LAB Urgent
Tests Added?: lipase
12/19/23 16:44
Electrocardiogram (*1) Urgent
Reason for Study: Fatigue / Weakness
EKG- Treatment ONCE
12/19/23 17:00
Lactate Level [Lactic Acid] Urgent
Troponin I Urgent
Albuterol Nebs [Ventolin Nebules] 5 mg INH R NOW STA
12/19/23 17:01
CT Abd/pel Without Iv Or Oral Urgent
Comment:
Reason For Exam: Abd pain, recent UTI, LISA
12/19/23 19:13
0.9% Sodium Chloride 500 ml [Nss] 500 ml IV BOLUS
12/19/23 20:45
Oxycodone [Roxicodone] 20 mg PO Q6HPRN PRN
12/19/23 20:47
Admit/Transfer Patient As Directed
Co-Sign Provider:
Level of Care: Inpatient admission
Assign to:: Telemetry
Physician / Group: Hospitalist
Diagnosis: Myocardial injury
Reason for Telemetry: Chest Pain syndromes
Date to Stop Telemetry: 12/21/23
Time to Stop Telemetry: 11:00
Reason for Hospitalization: Myocardial injury
Expected length of stay greater than two midnights?: Yes
ELOS- Estimated Length of Stay in days: 2
I certify the patient meets the requirements for IP care: Yes
PRN Pain Medication Management As Directed
May give lesser potent ordered pain med per pt: Yes
preference::
Protocol:: Medication orders for pain may be administered in a
manner that supports deferring to patient preference
when the pt is:
- Requesting an ordered lesser potent pain medication.
Least to most potent pain medications are defined
as: acetaminophen < NSAID < tramadol < opioids
(morphine, oxycodone, hydromorphone).
- Requesting a lesser dose of the same medication IF
ORDERED.
- Requesting a less intrusive route of administration
if both routes are prescribed by the provider (PO <
IV).
12/19/23 20:52
Code Status As Directed
Resuscitation Status: Do not resuscitate
Reached after discussion with pt or family/Healthcare POA: Yes
DNR Bracelet Application ONCE
12/19/23 20:59
Urinalysis Reflex To Culture Urgent
Date Specimen was Collected: 12/19/23
Time Specimen was Collected: 19:55
12/19/23 21:00
Albuterol Nebs [Ventolin Nebules] 2.5 mg INH R Q6HPRN PRN
12/19/23 21:03
Aspirin Chewable [Low Strength Aspirin] 162 mg PO NOW STA
12/19/23 21:04
Heparin Protocol- PTT Orders As Directed
PTT per Heparin protocol: -Obtain CBC and baseline PTT - if not already collected.
-Obtain PTT 6 hours from start of infusion. Then, every 6 hours until 2 consecutive
PTT's are therapeutic. Then, PTT Daily.
-With each rate change, obtain PTT every 6 hours until 2 consecutive PTT's are
therapeutic. Then, PTT Daily.
Notify MD As Directed
Notify physician if: PTT is greater than or equal to 200.
12/19/23 21:15
Heparin 67263 Units/250 ml 25,000 units in 250 ml IV PER PROTOCOL
Weight to be used for heparin protocol in kilograms (kg):: 106.2
Protocol:: Cardiac Tx/Acute Coronary
PTT Goal Range to be used:: PTT 73 to 111 seconds
Order type:: Initial
INITIAL Infusion Dose (UNITS/KG/hr) & then follow protocol:: 12 units/kg/hr
Infusion Dose in UNITS/hr & then follow protocol (UNITS/hr):: 1,000
INFUSION RATE in mL/hr & then follow protocol (mL/hr):: 10
PTT less than or equal to 64 seconds:: Increase rate by 200 units/hr (+ 2 mL/hr)
PTT 64.1 to 72.9 seconds:: Increase rate by 100 units/hr (+ 1 mL/hr)
PTT 73 to 111 seconds:: Target Range. No change in rate.
PTT 111.1 to 130.9 seconds:: Decrease rate by 100 units/hr (- 1 mL/hr)
PTT 131 to 199.9 seconds:: HOLD for 1 hr. Then decrease rate by 200 units/hr (- 2 mL/hr)
PTT greater than or equal to 200 seconds:: HOLD for 2 hrs & Notify Provider. Then decrease by 200 units/hr (-
2 mL/hr)
Lab follow-up:: Each change, PTT q6h until 2 consecutive are therapeutic. Then PTT
daily.
12/19/23 22:00
Atorvastatin [Lipitor] 80 mg PO HS
Gabapentin [Neurontin] 300 mg PO TID
Pantoprazole [Protonix] 40 mg PO HS
12/19/23 22:27
Complete Blood Count/No Diff Urgent
Comment: Obtain baseline before beginning heparin infusion if not already collected
PTT Urgent
Comment: Obtain baseline before beginning heparin infusion if not already collected
12/19/23 23:40
Troponin I Q3H
Comment: at admit & Q3H for 3 total including ED draws, obtain ECG with each level
Acetaminophen [Tylenol] 650 mg PO Q4HPRN PRN
Mag Hydrox/Al Hydrox/Simeth [Maalox] 30 ml PO Q4HPRN PRN
12/19/23 23:40
CARDIOLOGY CONSULT Routine
Consulting Provider: Johnathan Jaramillo
Was physician already notified: Yes
VTE Contraindication Routine
VTE Mechanical Device Contraindication: Medical Contraindication
Pharmocologic Contraindication: Medical Contraindication
Heparin Protocol- PTT Orders As Directed
PTT per Heparin protocol: -Obtain CBC and baseline PTT - if not already collected.
-Obtain PTT 6 hours from start of infusion. Then, every 6 hours until 2 consecutive
PTT's are therapeutic. Then, PTT Daily.
-With each rate change, obtain PTT every 6 hours until 2 consecutive PTT's are
therapeutic. Then, PTT Daily.
Activity As Directed
Activity Level: With Assistance
Bedside Glucose Monitoring As Directed
Frequency: AC&HS
INT (Intravenous Needle Therapy) As Directed
Comment: maintain peripheral IV access
Intake/ Output As Directed
Frequency: Per unit guidelines
Notify MD As Directed
Notify physician if: PTT is greater than or equal to 200.
Vital Signs As Directed
Frequency: q4h
Weight As Directed
Frequency: Daily
O2 Therapy [RESP] Routine
Nasal Cannula Liter Flow: 2 LPM
Titrate/Wean O2 to maintain O2 sat greater than (%): 90
Special Instructions: 2 liters/minute as needed for pulse oximetry less than 90%
12/20/23 04:10
Basic Metabolic Panel IN AM
Complete Blood Count/No Diff IN AM
Troponin I Q3H
Comment: at admit & Q3H for 3 total including ED draws, obtain ECG with each level
12/20/23 05:40
Electrocardiogram (*1) Q6H
Reason for Study: Chest Pain
Comment: at admission and Q3H for total of 3, to be done with each troponin
12/20/23 07:30
Insulin Aspart Corrective Low [Novolog Flexpen-Low Resistance] See Protocol SC AC
12/20/23 08:00
Aspirin Low Dose EC [Aspir Low (Enteric Coated)] 81 mg PO DAILY
Bupropion(24Hr)Extended Releas [WELLBUTRIN XL (24 hour extended release)] 150 mg PO DAILY
Duloxetine Delayed Release [Cymbalta Delayed Release] 60 mg PO DAILY
Famotidine [Pepcid] 10 mg PO DAILY
Metoprolol Xl [Toprol Xl] 50 mg PO DAILY
Ticagrelor [Brilinta] 60 mg PO BID
12/20/23 11:40
Electrocardiogram (*1) Q6H
Reason for Study: Chest Pain
Comment: at admission and Q3H for total of 3, to be done with each troponin
12/21/23 06:00
Complete Blood Count/No Diff Q2D
Comment: Notify MD if platelet count is <130,000 or decreases by 50% from baseline
12/23/23 06:00
Complete Blood Count/No Diff Q2D
Comment: Notify MD if platelet count is <130,000 or decreases by 50% from baseline
12/25/23 06:00
Complete Blood Count/No Diff Q2D
Comment: Notify MD if platelet count is <130,000 or decreases by 50% from baseline
12/27/23 06:00
Complete Blood Count/No Diff Q2D
Comment: Notify MD if platelet count is <130,000 or decreases by 50% from baseline
12/29/23 06:00
Complete Blood Count/No Diff Q2D
Comment: Notify MD if platelet count is <130,000 or decreases by 50% from baseline
12/31/23 06:00
Complete Blood Count/No Diff Q2D
Comment: Notify MD if platelet count is <130,000 or decreases by 50% from baseline
01/02/24 06:00
Complete Blood Count/No Diff Q2D
Comment: Notify MD if platelet count is <130,000 or decreases by 50% from baseline
01/04/24 06:00
Complete Blood Count/No Diff Q2D
Comment: Notify MD if platelet count is <130,000 or decreases by 50% from baseline
Abnormal Lab Results
12/19/23 12/19/23
16:25 17:00
RBC 3.71 L 10^6/uL
(4.20-5.40)
Hgb 10.3 L g/dL
(12.0-16.0)
Hct 33.1 L %
(37.0-47.0)
MCHC 31.1 L g/dL
(33.0-37.0)
RDW 14.9 H %
(11.5-14.5)
Absolute Neuts (auto) 7.9 H 10^3/uL
(1.4-6.5)
Absolute Monos (auto) 0.8 H 10^3/uL
(0.1-0.6)
Neutrophils % 76.5 H %
(42.2-75.2)
Lymphocytes % 15.1 L %
(20.5-51.1)
Potassium 5.5 H mmol/L
(3.5-5.1)
Chloride 93 L mmol/L
(98-107)
Carbon Dioxide 31 H mmol/L
(22-30)
BUN 31 H mg/dl
(7-17)
Creatinine 1.4 H mg/dL
(0.6-1.0)
Glucose 142 H mg/dl
(70-99)
Troponin I 1.360 H* ng/ml
12/19/23 16:25
12/19/23 16:25
Vital Signs
Initial and Last Documented VS:
Initial Vital Signs
Temp Pulse Resp Pulse Ox
98.8 F 68 17 94
12/19/23 16:14 12/19/23 16:14 12/19/23 16:14 12/19/23 16:14
Last Documented Vital Signs
Temp Pulse Resp BP Pulse Ox
97.5 F 64 20 154/78 97
12/20/23 07:30 12/20/23 07:30 12/20/23 07:30 12/20/23 07:30 12/20/23 07:30
MDM/Problems Addressed
Differential Diagnosis Includes:
83yoF here with AMS. Recently admitted for a UTI. She was switched from fentanyl patches to PO morphine for her chronic pain yesterday. Woke up with confusion and difficulty ambulating. Had a fall getting out of bed this morning. She is hypotensive
on arrival to 84/51. Remainder of vitals normal. She is fatigued and slow to answer questions. No focal neuro deficits. Differential diagnosis includes but is not limited to: medication side effect, UTI, TME, dehydration, intracranial hemorrhage
Initial ED plan: Check cardiac labs, lactate, UA, EKG, CT head, CT cervical spine, and CT abdomen. IV fluid bolus.
*EKG
Interpreted by ED Provider?: Yes
EKG Intrepretation Date: 12/19/23
Heart Rate: 70
Rate: normal
Rhythm: sinus
[place]: normal axis
Interval: normal interval
QRS Pattern: normal QRS
Ischemia: T-wave inversion (leads III and aVF)
*Critical Care Note
Total Time (30-74mins, 75-104mins- exclusive of procedures): Not Applicable
Update Note
Update Note:
Imaging negative for traumatic injuries. Troponin elevated at 1.3. EKG shows T wave inversions in inferior leads which were also present on prior EKG. She has no cardiac symptoms currently. White count and lactate WNL. BP improved with fluids.
Suspect symptoms are 2/2 morphine which she started yesterday. She was admitted for further evaluation and management.
ED Attending Note
-
Portions of this chart may have been created with voice recognition software.� Occasional wrong word or��sound alike� substitutions may have occurred due to the inherent limitations of voice recognition software.
Discharge Plan
Departure
Patient Disposition: Admit
Date of Disposition: 12/19/23
Time of Disposition: 19:52
Presentation/result/management discussed w/ accepting MD/DO: Hospitalist
Discharge Problem:
Altered mental status, Hypotension, Elevated troponin
Interventions
Interventions:
*Risk Screen - Suicide Last Done: 12/20/23 01:02
*General Assessment Last Done: 12/19/23 16:14
*Neglect/Abuse Screening Last Done: 12/19/23 16:14
ED- Fall Risk Assessment Last Done: 12/19/23 16:37
*ED COVID-19 Vaccine History Last Done: 12/20/23 00:56
*Nursing Disposition Last Done: 12/19/23 23:27
ED- Neurological Assessment Last Done: 12/19/23 16:37
ED- Cardiac Assessment Last Done: 12/19/23 22:38
ED Swallowing Screen Last Done: 12/19/23 22:09
Discharge Date and Time
Discharge Date/Time: 12/19/23 23:28
[2023-12-19 16:55] LABS: ALT (SGPT) 14 U/L (0-35); AST (SGOT) 25 U/L (14-36); Albumin 3.9 g/dl (3.5-5.0); Alkaline Phosphatase 83 U/L (38-126); Blood Urea Nitrogen 31 mg/dl (7-17); Calcium 8.8 mg/dl (8.4-10.2); Carbon Dioxide 31 mmol/L (22-30); Chloride 93 mmol/L (98-107); Estimated Creatinine Clearance 35 ml/min; Glucose 142 mg/dl (70-99); Potassium 5.5 mmol/L (3.5-5.1); Sodium 136 mmol/L (135-145); Total Bilirubin 0.4 mg/dl (0.2-1.3); Total Protein 7.2 g/dl (6.3-8.2)
[2023-12-19] MEDS: VENTOLIN NEBULES 5 MG INH (17:05)
[2023-12-19] MEDS: NSS 500 IV ×2 (17:05→19:55)
[2023-12-19 17:21] LABS: Lactic Acid 1.5 mmol/L (0.7-2.0)
[2023-12-19 17:55] LABS: Lipase 56 U/L (23-300)
--- NOTE | 2023-12-19 20:30 | HPS.HSE ---
Family Physician
-
Family Physician: Mir Estrada
Chief Complaint
-
Altered mental status
History of Present Illness
This is a 83-year-old female with past medical history of CAD status post PCI and stenting on Brilinta and aspirin, CHF with preserved EF, chronic pain on chronic opioid, GERD, morbid obesity, [id number] diabetes who presents to the
emergency department with episode of confusion at home and was found to be hypotensive in the emergency department.
Patient was recently discharged on the hospital about 9 days ago when she was admitted with a urinary tract infection and is treated with IV ceftriaxone. She was discharged on oral cephalosporin. Cultures were sensitive generally. Patient doing
well up until today. She reported that she had been developing a rash over the last few weeks that was thought to be secondary to fentanyl patch. He was on 100 mcg every 72 hours Fentanyl and this was discontinued. It is not clear exactly when it
was discontinued but she was then put on on 20 mg of morphine ER twice daily. She reportedly took a dose at least last night and a dose this morning. Last night the patient appeared to be doing well cortisols but was unsure whether she was
confused or not. She was clearly confused this morning and had a fall. Patient herself reports burning sensation with urination. She denied any other symptoms. She is currently not confused. She denied any shortness of breath dyspnea exertion
chest pain, coughing and wheezing, fevers or chills. She denies any changes in the swelling in the lower extremities. Patient denies any palpitations lightheadedness or dizziness.
On arrival in the emergency department the patient was hypotensive with a blood pressure of 84/51, pulse was 65, she was afebrile at 98.8. ECG shows normal sinus rhythm at a rate of 70 with morphology that is unchanged from prior. She has white
count of 10 hemoglobin of 10.3 unchanged and platelet count was 240. Chemistries are notable for a potassium of 5.3 bicarb of 31 BUN 31 and creatinine 1.4 which is up from a baseline of 1.0. She had a CT of the head which was nonacute. C-spine
shows no acute abnormalities. CT of the abdomen and pelvis also shows no acute abnormalities but a finding of an old MD, that has been previously documented. Lactate was negative. Troponin was elevated at 1.3.
Medical History
Past Medical History
Past Medical History: Reports CAD, CHF, HTN, Hypercholesterolemia and NIDDM
Additional Past Medical History:
Psoriasis,
Chronic stasis dermatitis
Morbid obesity
Past Surgical History: Reports Other
Social History
Tobacco: Non-smoker
Alcohol: None
Personal:
Living: With Family
Employment: Retired
Family History
Family History: Not pertinent
Allergies / Home Medications
Allergies reflects when Allergies were last updated in [facility].
Home Medications with original date entered in [facility]
Allergy/Medication List:
Allergies
Allergy/AdvReac Type Severity Reaction Status Date / Time
Penicillins Allergy face Verified 10/18/22 11:43
swells,
pruritis,
difficulty,
anaphylaxis
Home Medications
pantoprazole 40 mg tablet,delayed release 40 mg PO HS Gastrointestinal issue 02/11/13
aspirin 81 mg tablet,delayed release 81 mg PO DAILY Blood clot prevention/tx 03/25/17
bupropion HCl 150 mg 24 hr tablet, extended release 150 mg PO DAILY Mental Health/Anxiety 03/25/17
duloxetine 60 mg capsule,delayed release 60 mg PO DAILY PAIN 03/25/17
furosemide 40 mg tablet 40 mg PO DAILY Fluid retention/Swelling 03/25/17
metformin 500 mg tablet,extended release 24 hr 500 mg PO QPM Diabetes 03/25/17
albuterol sulfate 2.5 mg/3 mL (0.083 %) solution for nebulization 2.5 mg inhalation R Q6HPRN PRN sob/wheezing 07/10/21
oxycodone 10 mg tablet 20 mg PO Q6HPRN PRN moderate pain 07/10/21
ticagrelor 60 mg tablet (Brilinta) 60 mg PO BID Blood clot prevention/tx 07/10/21
Tremfya 1 dose SC Q8W 12/08/23
atorvastatin 80 mg tablet 80 mg PO HS 12/08/23
cholecalciferol (vitamin D3) 25 mcg (1,000 unit) tablet 25 mcg PO DAILY 12/08/23
gabapentin 300 mg capsule 600 mg PO TID 12/08/23
famotidine 20 mg tablet 20 mg PO DAILY 12/19/23
metoprolol succinate 50 mg tablet,extended release 24 hr 50 mg PO DAILY 12/19/23
morphine 30 mg tablet,extended release 60 mg PO Q12H 12/19/23
Review of Systems
-
History Source: Patient and Family
Constitutional: Reports No Symptoms
EENT: Reports No Symptoms
Respiratory: Reports No Symptoms
Cardiac: Reports No Symptoms
Abdomen/GI: Reports No Symptoms
: Reports Dysuria
Musculoskeletal: Reports No Symptoms
Skin: Reports No Symptoms
Neurological: Reports Other (confusion)
Endocrine: Reports No Symptoms
Hematologic/Lymphatic: Reports No Symptoms
Psych: Reports No Symptoms
Physical Exam
Vital Signs
Vital Signs
Temp Pulse Resp BP Pulse Ox
98.8 F 73 13 115/71 61
12/19/23 16:14 12/19/23 20:15 12/19/23 20:15 12/19/23 19:40 12/19/23 18:55
Physical Exam
General: No Apparent Distress
HEENT: NormoCephalic, Anicteric, Moist mucous membranes and Atraumatic
Respiratory: Clear
Cardiac: S1/S2 and Regular Rhythm
Breast: Deferred by me
GI: Soft, Non Tender, Non Distended and Normal Bowel Sounds
Rectal: Deferred by Provider
Genito-urinary: Deferred by me
Musculoskeletal: No Clubbing, No Cyanosis, Edema, Left Lower Extremity (2+) and Edema, Right Lower Extremity (1+)
Skin: Lesions (superficial stasis ulcers on the left lower extremity, weeping, no significant erythema, )
Neuro: AO x 3
Hematologic/Lymphatic: No Lymphadenopathy
Psych: Anxious
Laboratory Results
-
12/19/23 16:25
12/19/23 16:25
Laboratory Results
Lactic Acid 1.5 mmol/L (0.7-2.0) 12/19/23 17:00
Total Bilirubin 0.4 mg/dl (0.2-1.3) 12/19/23 16:25
AST 25 U/L (14-36) 12/19/23 16:25
ALT 14 U/L (0-35) 12/19/23 16:25
Alkaline Phosphatase 83 U/L (38-126) 12/19/23 16:25
Troponin I 1.360 ng/ml H* 12/19/23 17:00
Lipase 56 U/L (23-300) 12/19/23 16:25
Data Reviewed
-
CT Scan: Report Reviewed by me
Medical Tests (Nuc Med, Echo, EKG etc): Image Personally Visualized and interpreted
Lab Data: Labs Reviewed by me
Old Records: Reviewed
Impression/Plan
-
IMPRESSION:
83 y.o female with altered mental status. Came in for confusion and diminished state of arousal with a fall in setting of starting MS-ER 120 mg bid after 2 doses due to transitioning from fentanyl 100 mcg. Hypotensive on arrival and Trop of 1.3.
ECG is unchanged from prior. Had no chest pain. BP recoverred after 500 ml bolus. She is a&o x 3 now but anxious. Imaging shows nothing acute. No fevers or leukocytosis but endorsed some dysuria.
PLAN:
1. AMS - metabolic in setting of hypotension or uti vs toxic from opioid changes. Non-focal neurological exam. She is currently a&o x 3 and answering appropriately with reasonable insight
- admit to imu
- obtain u/a, urine cultures
- hold morphine for now, prn oxycodone
- maintain map > 60
- neurochecks q 6 hours
2. Non-ischemic M injury - Suspect non-ischemic myocardial injury from hypotension or possibly drug induced
- trop 1.3, known CAD, no ECG changes and no chest pain
- telemetry
- cycle enzymes
- heparin gtt
- continue brillanta and aspirin
- continue statin
- echo, cards consult
3. CHF - Euvolemic
- hold lasix today
- fluid restricition and i/o
- continue metoprolol as bp tolerates
4. DM II
- insulin sliding scale, hold metformin x 48 h
5. skin - dermatitis changes, unlikley cellulitis
- wound care
DVT PPX - on hep
Code Status - DNR
[2023-12-19 21:14] LABS: Urine Albumin Negative (Neg - Trace); Urine Bilirubin Negative (Negative); Urine Character Clear (Clear); Urine Color Yellow; Urine Glucose Negative (Negative); Urine Ketone Negative (Negative); Urine Leukocyte Negative (Negative); Urine Nitrite Negative (Negative); Urine Occult Blood Negative (Negative); Urine Specific Gravity 1.015 (<1.030); Urine Urobilinogen Negative (Neg - 1+)
[2023-12-19] MEDS: LOW STRENGTH ASPIRIN 162 MG PO (22:11)
[2023-12-19] MEDS: PROTONIX 40 MG PO (22:19)
[2023-12-19] MEDS: LIPITOR 80 MG PO (22:19)
[2023-12-19] MEDS: NEURONTIN 300 MG PO (22:19)
[2023-12-19] MEDS: HEPARIN 25000 UNITS/250 ML IV (22:29)
[2023-12-19 22:40] LABS: Hematocrit 29.3 % (37.0-47.0); Hemoglobin 9.2 g/dL (12.0-16.0); Mean Corp Hgb Conc. 31.4 g/dL (33.0-37.0); Mean Corpuscular Volume 89.3 fL (81.0-99.0); Mean Platelet Volume 9.3 fL (7.4-10.4); Platelet Count 211 10^3/uL (130-400); Red Blood Cell Count 3.28 10^6/uL (4.20-5.40); Red Cell Dist. Width 14.7 % (11.5-14.5); White Blood Cell Count 10.2 10^3/uL (4.8-10.8)
[2023-12-19 22:51] LABS: APTT 27.1 Sec (23.4-35.0)
[2023-12-20] VITALS (7 sets, daily range): BP systolic 97–154; BP diastolic 56–85; O2SAT 94; BMI 42.5; BMI 42.7
--- NOTE | 2023-12-20 01:21 | TRANSFER ---
pt arrived from ED via stretcher. pt was a pullover from bed to stretcher. VSS, AAOx3, can be forgetful at times. pt arrived on heparin gtt running at 1000 units, 10 mL/hr. of note, pt had stents placed so she takes aspirin daily and brillinta 60mg
BID. NUCLEAR SPECTROSCOPIST notified of oral anticoagulants as well as heparin gtt orders. no new orders at this time. pt oriented to room, call fitch within reach. plan of care ongoing.
[2023-12-20 01:33] LABS: Troponin I 0.866 ng/ml
[2023-12-20 04:28] LABS: Hematocrit 30.4 % (37.0-47.0); Hemoglobin 9.8 g/dL (12.0-16.0); Mean Corp Hgb Conc. 32.2 g/dL (33.0-37.0); Mean Corpuscular Hgb 28.5 pg (27.0-31.0); Mean Corpuscular Volume 88.4 fL (81.0-99.0); Mean Platelet Volume 9.2 fL (7.4-10.4); Platelet Count 186 10^3/uL (130-400); Red Blood Cell Count 3.44 10^6/uL (4.20-5.40); Red Cell Dist. Width 14.6 % (11.5-14.5); White Blood Cell Count 9.2 10^3/uL (4.8-10.8)
[2023-12-20 04:49] LABS: Blood Urea Nitrogen 34 mg/dl (7-17); Calcium 8.7 mg/dl (8.4-10.2); Carbon Dioxide 29 mmol/L (22-30); Chloride 98 mmol/L (98-107); Estimated Creatinine Clearance 39 ml/min; Glucose 109 mg/dl (70-99); Potassium 5.4 mmol/L (3.5-5.1); Sodium 135 mmol/L (135-145); eGFR 41.31
[2023-12-20 04:51] LABS: Troponin I 0.972 ng/ml
[2023-12-20 07:38] LABS: Glucose - Point of Care 124 mg/dl (70-99)
[2023-12-20] MEDS: NOVOLOG FLEXPEN-LOW RESISTANCE SC ×2 (07:41→17:23)
--- NOTE | 2023-12-20 08:01 | W.PN.HOSP.TC ---
Today's Communication/Plan
-
Repeat echo in a.m.
Stop heparin gtt.
SCDs for DVT PPx
Assessment / Plan
Assessment / Plan
IMPRESSION: 83-year-old with PMH of CAD with multivessel stents (2018) complicated with right APPLICATION DEVELOPMENT TEAM LEAD perforation, paroxysmal A-fib (not on AC due to significant groin bleed), chronic diastolic CHF, ILD, COPD, restrictive lung disease, severe KEVAN with
morbid obesity, DM type II, chronic back pain (on chronic opioid), who presented to ED on 12/19/2023 with altered mental status and diminished arousal after a fall. She has chronic back pain on chronic OxyContin with recent addition of 60 mg
morphine twice daily. On arrival, she was hypotensive with troponin of 1.3.
Assessment/plan:
#Presentation with AMS
-Volume status improved, currently AAO x 3.
-Metabolic encephalopathy most likely toxic encephalopathy from excessive opioid use.
-Head CT, cervical CT, abdominal CT all negative.
-Lactate normal.
-Elevated troponin noted at 1.3., Trend
-Cardiology following.
-Continue home PRN oxycodone, reduce morphine to 15 mg Q12H for back pain.
#Hypotension.
-Volume status improved with IVF bolus.
-Suspect drug-induced.
-Morphine dose decreased.
#Non-ischemic myocardial injury.
-Suspect nonischemic myocardial injury from [id number]-[id number]-[id number]
-ECG 12/18 unchanged from previous.
-IV heparin discontinued
-Continue managing on telemetry.
-Echo in a.m.
-Cardiology following.
#HFpEF
-Echo 07/13/2021 with EF 20%
-Patient is euvolemic.
-Continue Toprol, Lasix.
-Ramon wrap's for chronic LE edema
#DM type II
-Insulin sliding scale.
-Hold metformin.
#Skin rash
-From fentanyl patch
-Benadryl PO as needed.
DVT PPx
-SCDs
Code Status - DNR
Data:
Abdominal/pelvis CT 12/19/2023:
Coronary artery calcifications and/or stents. Please correlate with symptoms of and risk factors for coronary artery disease, with further workup as clinically appropriate.
Mild bronchiectasis in the right lower lobe of the lung.
Mild to moderate fatty infiltration of the pancreas. 2 small dystrophic calcifications within the pancreatic head.
Mass within the right anterior pelvic wall, present on multiple previous examinations. Correlating with examination from 2018, this is likely an old hematoma.
Bony degenerative changes as described. No evidence for acute compression fracture.
Head CT 12/19/2023:
No evidence of acute intracranial abnormality.
Cervical spine CT 12/19/2023:
No evidence of acute fracture or dislocation.
Anticipated Discharge: 24 - 48 hours
Subjective/Interval History
-
Date of Service: December 20, 2023
Patient seen and examined. Reports chronic back pain controlled on multiple pain medications. She had diffuse rash from fentanyl patch which was since changed to morphine. She reports mild itching around the rash, and reports that she was
straight cathed this a.m. for urinary retention. She also had bilateral wheezing but reports that she stopped taking her albuterol inhaler because she was tired of using it. She denies chest pain, shortness of breath, palpitations, nausea,
vomiting, constipation.
Objective Data
-
Labs:
Laboratory Results
12/19/23 12/20/23 12/20/23
22:27 04:10 10:50
WBC 10.2 9.2
Hgb 9.2 L 9.8 L
Hct 29.3 L 30.4 L
Plt Count 211 186
APTT 27.1 30.0 Pending
Sodium 135
Potassium 5.4 H
Chloride 98
Carbon Dioxide 29
BUN 34 H
Creatinine 1.3 H
Glucose 109 H
Calcium 8.7
Vital Signs:
Vital Signs
Temp Pulse Resp BP Pulse Ox
98.9 F 63 18 119/66 95
12/20/23 03:24 12/20/23 03:24 12/20/23 03:24 12/20/23 03:24 12/20/23 03:24
I&O
12/19/23 12/20/23 12/21/23
06:59 06:59 06:59
Intake Total 240 / 240
Balance 240 / 240
Review of Systems
-
History Source: Patient and Coordinated Provider
Constitutional: Reports No Symptoms; Denies Fever
EENT: Reports No Symptoms Reported
Respiratory: Reports Wheezing
Cardiac: Reports No Symptoms; Denies Chest Pain, Palpitations or Syncope
Abdomen/GI: Reports No Symptoms
Genitourinary: Denies Dysuria
Skin: Reports Itching and Rash; Denies Sores
Neuro: Reports No Symptoms; Denies Dizzy, Headache or Lightheadedness
Physical Exam
-
General: Well Developed, Well Nourished, No Apparent Distress and Comfortable
HEENT: Normocephalic, Atraumatic and Moist Mucous Membranes
Respiratory: Wheezes (Bilateral end expiratory wheezes R >L); Negative Rales or Rhonchi
Cardiac: Regular Rhythm and S1/S2
GI: Soft, Nontender and Nondistended
Musculoskeletal: No Clubbing, No Cyanosis and No Edema
Skin: Warm and Rash (Diffuse erythematous rash)
Neuro: Awake, Alert and Oriented (mentation is excellent)
Psych: Calm and Intact Judgement/Insight
Data Reviewed
-
CT Scan: Report Reviewed by me and Discussed with Physician
Labs: Labs Reviewed by me and Discussed with Physician
Old Records: Reviewed
[2023-12-20] MEDS: BRILINTA 60 MG PO ×2 (08:19→22:10)
[2023-12-20] MEDS: WELLBUTRIN XL (24 hour extended release) 150 MG PO (08:19)
[2023-12-20] MEDS: ASPIR LOW (ENTERIC COATED) 81 MG PO (08:19)
[2023-12-20] MEDS: CYMBALTA DELAYED RELEASE 60 MG PO (08:19)
[2023-12-20] MEDS: NEURONTIN 300 MG PO ×3 (08:19→22:14)
[2023-12-20] MEDS: PEPCID 10 MG PO (08:19)
[2023-12-20] MEDS: TOPROL XL 50 MG PO (09:22)
--- NOTE | 2023-12-20 09:48 | CM ---
Pt seen bedside. Pt lives w/ spouse and adult son in a 1STH- 4 steps to enter.
Prev. independent w/ walker. Has shower chair and rails for additional support. Per pt spouse assists w/ wound care
Home O2/4L at night and during sleeping hours (nap during the day) or when laying down- Supplied thru [employer]
Prev. at [facility] after knee replacement
[facility] in the past
Address, point of contact and insurance verified
PCP: Dr. Mir Estrada
Pharmacy: [facility]
Plan: Home w/ VN anticipated
CM will cont. following for d/c needs
--- NOTE | 2023-12-20 11:10 | WOUNDNOTE ---
R ANTERIOR LOWER LEG
--- NOTE | 2023-12-20 11:10 | WOUNDNOTE ---
L LATERAL LOWER LEG
--- NOTE | 2023-12-20 11:10 | WOUNDNOTE ---
L POSTERIOR LOWER LEG
--- NOTE | 2023-12-20 11:10 | WOUNDNOTE ---
BUTTOCKS WITH FLASH
--- NOTE | 2023-12-20 11:12 | WOUNDNOTE ---
UPPER BACK RASH
--- NOTE | 2023-12-20 11:15 | WOUNDNOTE ---
WON RN note: Patient admitted with hypotension, elevated troponin.
See H&P for complete history. Lives with who helps patient with wound care.
PMH: Obesity, NIDDM, home oxygen, squamous cell cancer-Moh's, Angioplasty with stents, back operation, spinal stimulator implant. chronic pain, venous leg ulcers-went to [facility] last 10/27/23 and multiple ortho surgeries.
Wound Location and type/assessment: Patient admitted with: Venous leg ulcers, one shallow pink ulcer on R leg and multiple scattered ulcers on L lateral and posterior leg, mostly pink, some light yellow and dry. Heels are intact, skin on legs and
feet very dry and flaky, + palpable pedal pulses. Patient states her does wound care daily and uses Tubigrip for compression. Patient can't recall what topical medicine is being used for wounds. When she went to wound center they were only
looking at buttock ulcer not legs, states patient. Has diffuse itchy rash on back patient feels is a reaction to a recent fentanyl patch. Healing ulcer on L buttock due to friction vs stage 2 PI, now scabbed.
Appetite: Good.
Pressure redistribution devices in place: On Accumax, turns self, pillow under calves. Ambulates with walker.
Plan: Local wound care and damon wraps to legs. Applied Vaseline today to dry skin will order mineral oil. L buttock applied skin prep and Exuderm thin. Will confirm orders with hospitalist and update nurse.
Updated care plan and will follow as needed.
Note to case management of equipment requested for discharge: None.
Recommend follow up at wound care center upon discharge.
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
[2023-12-20 11:42] LABS: Glucose - Point of Care 173 mg/dl (70-99)
[2023-12-20] MEDS: NOVOLOG FLEXPEN-LOW RESISTANCE 1 UNITS SC (12:03)
[2023-12-20] MEDS: LASIX 40 MG PO (12:04)
[2023-12-20 12:11] LABS: Troponin I 0.895 ng/ml
[2023-12-20] MEDS: MORPHINE SULFATE 15 MG PO (13:22)
[2023-12-20 17:01] LABS: Glucose - Point of Care 118 mg/dl (70-99)
[2023-12-20] MEDS: KENALOG/TRIAMCINOLONE 0.1% LOTION 1 APPLIC TOPICAL ×2 (17:26→22:11)
[2023-12-20 21:51] LABS: Glucose - Point of Care 134 mg/dl (70-99)
[2023-12-20] MEDS: DESENEX/MITRAZOL/ZEASORB 1 APPLIC TOPICAL (22:10)
[2023-12-20] MEDS: LIPITOR 80 MG PO (22:11)
[2023-12-20] MEDS: PROTONIX 40 MG PO (22:11)
[2023-12-21] MEDS: MORPHINE SULFATE 15 MG PO ×2 (01:20→13:39)
[2023-12-21 03:31] VITALS: BP 141/68
[2023-12-21 06:00] VITALS: BMI 42.9
--- NOTE | 2023-12-21 07:28 | W.PN.HOSP.TC ---
Today's Communication/Plan
-
Discharge today
Assessment / Plan
Assessment / Plan
IMPRESSION: 83-year-old with PMH of CAD with multivessel stents (2018) complicated with right MIDDLE STITCHER perforation, paroxysmal A-fib (not on AC due to significant groin bleed), chronic diastolic CHF, ILD, COPD, restrictive lung disease, severe KEVAN with
morbid obesity, DM type II, chronic back pain (on chronic opioid), who presented to ED on 12/19/2023 with altered mental status and diminished arousal after a fall. She has chronic back pain on chronic OxyContin with recent addition of 60 mg
morphine twice daily. On arrival, she was hypotensive with troponin of 1.3.
Assessment/plan:
# TME secondary to excessive opioid use
-Currently AAO x 3.
-Head CT, cervical CT, abdominal CT all negative.
-Lactate normal.
-Elevated troponin noted at 1.3., Trend
-Continue neurochecks.
-Cardiology following.
-Continue home PRN oxycodone, reduce morphine to 15 mg Q12H for back pain.
#Hypotension.
-Resolved with IVF bolus.
-Suspect drug-induced.
-Morphine dose decreased.
#Non-ischemic myocardial injury.
-Suspect nonischemic myocardial injury from asiklboyviw-uica-augzpyq
-ECG 12/18 unchanged from previous.
-IV heparin discontinued
-Continue managing on telemetry.
-Echo 12/20/2023 with EF 50%, unchanged from echo 07/13/2021.
-Cardiology following.
#HFpEF
-Echo 07/13/2021 with EF 50%.
-Patient is euvolemic.
-Continue Toprol, Lasix.
-Ramon wrap's for chronic LE edema
#DM type II
-Insulin sliding scale.
-Hold metformin.
#Skin rash
-From fentanyl patch
-Benadryl PO as needed.
DVT PPx
-SCDs
Code Status - DNR
Data:
Echo 12/20/2023:
1. Left ventricle: Normal size and function with a visually estimated ejection
fraction of 50%. Mild concentric LVH
2. Right ventricle: Visually appears dilated
3. Atria: Mild left atrial dilation
4. Mitral valve: Mild mitral regurgitation
5. Aortic valve: Sclerotic. Trileaflet. No aortic stenosis
6. Tricuspid valve: Mild tricuspid regurgitation. Estimated pulmonary artery
systolic pressures are 25-30 mmHg
7. When compared to most recent echocardiogram from 07/13/2021, there have been
no significant changes. The right ventricle was felt to be mildly dilated on
the prior study in remained so in some views in the current study. Mild rather
than moderate mitral regurgitation is now noted. Estimated pulmonary artery
systolic pressures are 25-30 mmHg rather than 45-50 mmHg is noted on the prior
study
Abdominal/pelvis CT 12/19/2023:
Coronary artery calcifications and/or stents. Please correlate with symptoms of and risk factors for coronary artery disease, with further workup as clinically appropriate.
Mild bronchiectasis in the right lower lobe of the lung.
Mild to moderate fatty infiltration of the pancreas. 2 small dystrophic calcifications within the pancreatic head.
Mass within the right anterior pelvic wall, present on multiple previous examinations. Correlating with examination from 2018, this is likely an old hematoma.
Bony degenerative changes as described. No evidence for acute compression fracture.
Head CT 12/19/2023:
No evidence of acute intracranial abnormality.
Cervical spine CT 12/19/2023:
No evidence of acute fracture or dislocation.
Anticipated Discharge: Today
Subjective/Interval History
-
Date of Service: December 21, 2023.
I have seen and examined this patient today at bedside. She reports feeling better today, her pain is well-controlled and her itching has gotten a lot better with miconazole nitrate application. Patient was breathing comfortably on 2 L NC O2 (uses
4 L at home) and saturating at 97%. She denies chest pain, shortness of breath, abdominal pain, nausea, vomiting, diarrhea, palpitations, fever, chills. She otherwise feels better and ready to go home.
Objective Data
-
Labs:
Laboratory Results
12/21/23
07:25
WBC Pending
Hgb Pending
Hct Pending
Plt Count Pending
Sodium Pending
Potassium Pending
Chloride Pending
Carbon Dioxide Pending
BUN Pending
Creatinine Pending
Glucose Pending
Calcium Pending
Vital Signs:
Vital Signs
Temp Pulse Resp BP Pulse Ox
97.6 F 61 18 141/68 94
12/21/23 03:31 12/21/23 03:31 12/21/23 03:31 12/21/23 03:31 12/21/23 03:31
I&O
12/20/23 12/21/23 12/22/23
06:59 06:59 06:59
Intake Total 240 / 240 960 / 960
Output Total 2450 / 2450
Balance 240 / 240 -1490 / -1490
Review of Systems
-
History Source: Patient and Coordinated Provider
Constitutional: Reports No Symptoms; Denies Fever
EENT: Reports No Symptoms Reported
Respiratory: Reports Wheezing
Cardiac: Reports No Symptoms; Denies Chest Pain, Palpitations or Syncope
Abdomen/GI: Reports No Symptoms
Genitourinary: Denies Dysuria
Skin: Reports Itching and Rash; Denies Sores
Neuro: Reports No Symptoms; Denies Dizzy, Headache or Lightheadedness
Physical Exam
-
General: Well Developed, Well Nourished, No Apparent Distress and Comfortable
HEENT: Normocephalic, Atraumatic and Moist Mucous Membranes
Respiratory: Wheezes (Bilateral end expiratory wheezes R >L); Negative Rales or Rhonchi
Cardiac: Regular Rhythm and S1/S2
GI: Soft, Nontender and Nondistended
Musculoskeletal: No Clubbing, No Cyanosis and No Edema
Skin: Warm and Rash (Diffuse erythematous rash)
Neuro: Awake, Alert and Oriented (mentation is excellent)
Psych: Calm and Intact Judgement/Insight
Data Reviewed
-
CT Scan: Report Reviewed by me and Discussed with Physician
Medical Tests (Nuc Med, Echo etc): Report Reviewed by me and Discussed with Physician
Labs: Labs Reviewed by me and Discussed with Physician
Old Records: Reviewed
[2023-12-21 08:07] VITALS: BP 116/58
[2023-12-21 08:22] LABS: Hemoglobin 10.1 g/dL (12.0-16.0); Mean Corp Hgb Conc. 32.6 g/dL (33.0-37.0); Mean Corpuscular Hgb 28.1 pg (27.0-31.0); Mean Corpuscular Volume 86.1 fL (81.0-99.0); Mean Platelet Volume 9.3 fL (7.4-10.4); Platelet Count 210 10^3/uL (130-400); Red Cell Dist. Width 14.3 % (11.5-14.5)
[2023-12-21 08:40] LABS: Glucose - Point of Care 143 mg/dl (70-99)
[2023-12-21] MEDS: NOVOLOG FLEXPEN-LOW RESISTANCE SC (08:46)
[2023-12-21] MEDS: BRILINTA 60 MG PO (08:48)
[2023-12-21] MEDS: ASPIR LOW (ENTERIC COATED) 81 MG PO (08:48)
[2023-12-21] MEDS: CYMBALTA DELAYED RELEASE 60 MG PO (08:48)
[2023-12-21] MEDS: LASIX 40 MG PO (08:48)
[2023-12-21] MEDS: PEPCID 10 MG PO (08:48)
[2023-12-21] MEDS: NEURONTIN 300 MG PO (08:48)
[2023-12-21] MEDS: WELLBUTRIN XL (24 hour extended release) 150 MG PO (08:48)
[2023-12-21] MEDS: TOPROL XL 50 MG PO (08:49)
[2023-12-21] MEDS: HYDROPHOR 1 APPLIC TOPICAL (08:50)
[2023-12-21] MEDS: DESENEX/MITRAZOL/ZEASORB 1 APPLIC TOPICAL (08:50)
[2023-12-21] MEDS: KENALOG/TRIAMCINOLONE 0.1% LOTION 1 APPLIC TOPICAL (08:50)
[2023-12-21 08:53] LABS: Blood Urea Nitrogen 33 mg/dl (7-17); Calcium 9.4 mg/dl (8.4-10.2); Carbon Dioxide 35 mmol/L (22-30); Chloride 94 mmol/L (98-107); Estimated Creatinine Clearance 42 ml/min; Glucose 140 mg/dl (70-99); Potassium 4.8 mmol/L (3.5-5.1); Sodium 138 mmol/L (135-145); eGFR 45.48
--- NOTE | 2023-12-21 09:23 | PN.CDI ---
CDI
- -
CDI:
Physician Documentation Request
Admit Date: 12/19/23 21:25
Dear Doctor Khadar,
Please review the following and provide your response in the progress notes.
Clinical Indicators:
12/20/23 11:15 (created 12/20/23 11:22) - Wound Note
#Wound Location and type/assessment:
#...Healing ulcer on L buttock due to friction vs stage 2 PI, now scabbed.
Physician documentation of the type and location of wounds is required for compliant documentation. Based on the above clinical findings and your assessment, please provide the following in your progress note:
Left buttock, healing stage 2 pressure injury, POA
Other (please specify)
1. Location of the ulcer/wound, including laterality.
2. Type (etiology) of ulcer/wound:
- Diabetic ulcer
- Arterial (ischemic) ulcer
- Traumatic wound
- Venous stasis ulcer
- Pressure (decubitus) ulcer
3. If a pressure ulcer, please also include the stage* of the ulcer:
- Stage 1 - Skin intact, non-blanchable redness
- Stage 2 - Partial thickness loss of dermis, includes intact or open blister
- Stage 3 - Full thickness tissue not including bone, tendon or muscle
- Stage 4 - Full thickness tissue loss, including exposed bone, tendon or muscle
- Unstageable - Full thickness loss in which the base of the ulcer is covered by slough (yellow, myers, fish, green or brown) and/or eschar (myers, brown or black) in the wound bed.
Use of terms such as suspected, likely, concern for, or probable (associated with a specific diagnosis that is being evaluated, monitored, or treated as if it exists) are acceptable and can be coded in the inpatient setting, when documented at the
time of discharge.
Thank you,
Destiny Alves RN BSN CCDS
CDI Specialist
please contact via tiger text
Please use your independent medical judgment in providing your response.
*Source: National Pressure Ulcer Advisory Panel (NPUAP)
[2023-12-21 10:13] VITALS: BP 119/57; PULSE 71; O2SAT 88
[2023-12-21 10:26] VITALS: BMI 42.9
[2023-12-21 11:57] LABS: Glucose - Point of Care 172 mg/dl (70-99)
[2023-12-21 12:00] VITALS: BP 106/59
[2023-12-21] MEDS: NOVOLOG FLEXPEN-LOW RESISTANCE 1 UNITS SC (12:12)
--- NOTE | 2023-12-21 12:57 | CM ---
Pt seen bedside. Pt is agreeable to PT rec. of . She denies the need for SNF and is comfortable going home
Per physician resident, pt is poss ready for d/c today. CM requested VN/PT orders
Pt agreeable to [facility], referral completed in [facility], liaison aware via TT
IMM reviewed, pt given copy. Copy placed in chart
Per pt, her son will transport her home
Plan: Home w/ [facility]
--- NOTE | 2023-12-21 13:51 | VNURNOTE ---
Home Health Liaison met with patient's spouse to discuss [facility] nurse/therapy, visits, schedule and homebound status. Patient was in the bathroom. Patient's spouse stated pt has had [facility] several times in the past. He is agreeable and understands that
visits at home will be 2-3 x per week to assess and teach medical management. [facility] brochure provided with contact information. Patient is aware that [facility] will contact them for start of care in 1-2 days after discharge from . [facility] referral placed
in [facility].
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
--- NOTE | 2023-12-21 16:38 | W.DCSUMMARY ---
Documented by User: Rajinder Fong MD, Resident 12/21/23 16:54
Discharge Summary
Discharge Data
Date of Admission: 12/19/23
Date of Discharge: 12/21/23
-
Pending Results: No
Hospital Course
Discharging Physician : Tavo Rubalcava DO ; Rajinder Fong MD
Disposition : Home with VN/PT
Primary care physician : Mir Estrada
Principal Discharge diagnosis :Toxic metabolic encephalopathy, hypotension, nonischemic myocardial injury, HFpEF, DM type II, patch induced skin rash.
Hospital Course : 83-year-old female with PMH of CAD (multivessel stents 2017) complicated with right CONTRACT ATTORNEY perforation, paroxysmal A-fib (not on AC due to significant groin bleed), chronic diastolic CHF, ILD, COPD, restrictive lung disease, severe
KEVAN with morbid obesity, DM type II, chronic back pain (on chronic opioid), who presented to ED on 12/19/2023 with altered mental status and diminished arousal after a fall. She has chronic back pain on chronic OxyContin with recent addition of
60 mg morphine twice daily. On arrival, she was hypotensive with troponin of 1.3. EKG on admission was suspicious for lateral infarct however reports normal sinus rhythm. She was further evaluated with cervical spine CT, head CT, abdominal/pelvis
CT which all came back negative. Patient was further evaluated with echocardiography which reports no significant changes from prior echo 07/13/2021. Her troponin peaked at 0.972 and she remained without any chest pain, palpitations or abdominal
pains.
While in the hospital, patient was seen in conjunction with cardiology. She received IV fluid and her volume status improved. She was also treated with IV Lasix, and her morphine was decreased to 15 mg twice daily. At baseline, patient requires a
5 L NC O2 at home, however her oxygen requirements was decreased to 2 L prior to discharge and she was saturating at 97%.
Condition on discharge: Awake, alert and oriented x3, answer question properly, able to make own decision and take care of activities of daily living, speech clear and comprehensive, continent of the bowel and bladder, ambulate without periodicals library assistant.
She has been evaluated and deemed medically stable for discharge to go home where lives with independently. Patient will be receiving the services of [facility] visiting nurses and PT at home. She has been also instructed to follow-up with
her primary care physician in less than 1 week and her marketing administrative assistant.
Important imaging findings :
Echo 12/20/2023:
1. Left ventricle: Normal size and function with a visually estimated ejection
fraction of 50%. Mild concentric LVH
2. Right ventricle: Visually appears dilated
3. Atria: Mild left atrial dilation
4. Mitral valve: Mild mitral regurgitation
5. Aortic valve: Sclerotic. Trileaflet. No aortic stenosis
6. Tricuspid valve: Mild tricuspid regurgitation. Estimated pulmonary artery
systolic pressures are 25-30 mmHg
7. When compared to most recent echocardiogram from 07/13/2021, there have been
no significant changes. The right ventricle was felt to be mildly dilated on
the prior study in remained so in some views in the current study. Mild rather
than moderate mitral regurgitation is now noted. Estimated pulmonary artery
systolic pressures are 25-30 mmHg rather than 45-50 mmHg is noted on the prior
study
Procedure findings :
Discharge Plan
-
Patient Disposition: Home with Home Care
Discharge Diagnosis/Procedures: Toxic metabolic encephalopathy, hypotension, nonischemic myocardial injury, HFpEF, DM type II, patch induced skin rash
Condition: Fair
Diet: Low Fat, Low Cholesterol and Low Sodium
Activity: As tolerated
Driving Restrictions: As prior to admission
Bathing Restrictions: None
Other Services: VN and PT
Activity Restrictions/Additional Instructions:
Wound Care Instructions
L buttock: clean with soap and water, skin prep and Exuderm thin(hydrocolloid) change q 2-3 days and prn soilage.
Legs: Mineral oil to legs and feet daily after washing with soap and water.
R leg: adaptic and silicone foam change q other day and prn drainage.
L leg: adaptic, (alginate for increased drainage), abd pad and janny change daily and prn drainage.
Fungal powder to skin folds bid
Resume compression tubigrip at home, leg elevation when sitting
offloading cushion when sitting
Follow up at wound care center call for an appointment.
Referrals:
Mir Estrada MD [Family Provider] - in less than 1 week
Additional Discharge Medication Instructions: Continue with morphine 15 mg every 12 hours. 7-day prescription provided. Contact paintings restorer or family doctor for refills
Prescriptions:
New
miconazole nitrate [Miconazorb AF] 2 % Powder
1 applic topical BID Qty: 85 0RF
white petrolatum [Hydrophor] 42 % Ointment
1 applic topical DAILY Qty: 100 0RF
triamcinolone acetonide 0.1 % Lotion
1 applic topical TID Qty: 60 0RF
morphine 15 mg tablet
15 mg PO Q12H 7 Days Qty: 14 0RF
Rx Instructions:
Call paintings restorer or PCP for refill
Continued
pantoprazole 40 MG tablet,delayed release (DR/EC)
40 mg PO HS
furosemide 40 MG tablet
40 mg PO DAILY
aspirin 81 MG tablet,delayed release (DR/EC)
81 mg PO DAILY
metformin 500 MG tablet extended release 24 hr
500 mg PO QPM
bupropion HCl 150 MG tablet extended release 24 hr
150 mg PO DAILY
duloxetine 60 MG capsule,delayed release(DR/EC)
60 mg PO DAILY
albuterol sulfate 2.5 MG/3 ML solution for nebulization
2.5 mg inhalation R Q6HPRN PRN (Reason: sob/wheezing)
Brilinta 60 MG tablet
60 mg PO BID
oxycodone 10 MG tablet
20 mg PO Q6HPRN PRN (Reason: moderate pain)
Patient Comments:
12/19/2023: last filled 11/24/23, 240 tabs for 30 days from [id number]
atorvastatin 80 mg tablet
80 mg PO HS
gabapentin 300 mg capsule
600 mg PO TID
cholecalciferol (vitamin D3) 25 mcg (1,000 unit) Tablet
25 mcg PO DAILY
Tremfya
1 dose SC Q8W
metoprolol succinate 50 mg Tablet Extended Release 24 Hr
50 mg PO DAILY
morphine 30 mg Tablet Extended Release
60 mg PO Q12H
Patient Comments:
12/19/23: Dosage is still getting adjusted by doctor to find suitable dose.
famotidine 20 mg Tablet
20 mg PO DAILY
Discharge Orders:
Discharge Patient (As Directed); Ordered 12/21/23
Ordered By: Rajinder Fong
Discharge Date and Time
Discharge Date/Time: 12/21/23 14:31
Print Language: AUSTRIAN

Documented by User: Tavo Rubalcava DO 12/22/23 08:41
Discharge Summary
Discharge Data
Date of Admission: 12/19/23
Date of Discharge: 12/22/23
Discharge Plan
-
Patient Disposition: Home with Home Care
Discharge Diagnosis/Procedures: Toxic metabolic encephalopathy, hypotension, nonischemic myocardial injury, HFpEF, DM type II, patch induced skin rash
Condition: Fair
Diet: Low Fat, Low Cholesterol and Low Sodium
Activity: As tolerated
Driving Restrictions: As prior to admission
Bathing Restrictions: None
Other Services: VN and PT
Activity Restrictions/Additional Instructions:
Wound Care Instructions
L buttock: clean with soap and water, skin prep and Exuderm thin(hydrocolloid) change q 2-3 days and prn soilage.
Legs: Mineral oil to legs and feet daily after washing with soap and water.
R leg: adaptic and silicone foam change q other day and prn drainage.
L leg: adaptic, (alginate for increased drainage), abd pad and janny change daily and prn drainage.
Fungal powder to skin folds bid
Resume compression tubigrip at home, leg elevation when sitting
offloading cushion when sitting
Follow up at wound care center call for an appointment.
Referrals:
Mir Estrada MD [Family Provider] - in less than 1 week
Additional Discharge Medication Instructions: Continue with morphine 15 mg every 12 hours. 7-day prescription provided. Contact paintings restorer or family doctor for refills
Prescriptions:
New
miconazole nitrate [Miconazorb AF] 2 % Powder
1 applic topical BID Qty: 85 0RF
white petrolatum [Hydrophor] 42 % Ointment
1 applic topical DAILY Qty: 100 0RF
triamcinolone acetonide 0.1 % Lotion
1 applic topical TID Qty: 60 0RF
morphine 15 mg tablet
15 mg PO Q12H 7 Days Qty: 14 0RF
Rx Instructions:
Call paintings restorer or PCP for refill
Continued
pantoprazole 40 MG tablet,delayed release (DR/EC)
40 mg PO HS
furosemide 40 MG tablet
40 mg PO DAILY
aspirin 81 MG tablet,delayed release (DR/EC)
81 mg PO DAILY
metformin 500 MG tablet extended release 24 hr
500 mg PO QPM
bupropion HCl 150 MG tablet extended release 24 hr
150 mg PO DAILY
duloxetine 60 MG capsule,delayed release(DR/EC)
60 mg PO DAILY
albuterol sulfate 2.5 MG/3 ML solution for nebulization
2.5 mg inhalation R Q6HPRN PRN (Reason: sob/wheezing)
Brilinta 60 MG tablet
60 mg PO BID
oxycodone 10 MG tablet
20 mg PO Q6HPRN PRN (Reason: moderate pain)
Patient Comments:
12/19/2023: last filled 11/24/23, 240 tabs for 30 days from [id number]
atorvastatin 80 mg tablet
80 mg PO HS
gabapentin 300 mg capsule
600 mg PO TID
cholecalciferol (vitamin D3) 25 mcg (1,000 unit) Tablet
25 mcg PO DAILY
Tremfya
1 dose SC Q8W
metoprolol succinate 50 mg Tablet Extended Release 24 Hr
50 mg PO DAILY
morphine 30 mg Tablet Extended Release
60 mg PO Q12H
Patient Comments:
12/19/23: Dosage is still getting adjusted by doctor to find suitable dose.
famotidine 20 mg Tablet
20 mg PO DAILY
Discharge Orders:
Discharge Patient (As Directed); Ordered 12/21/23
Ordered By: Rajinder Fong
Discharge Date and Time
Discharge Date/Time: 12/21/23 14:31
Print Language: AUSTRIAN
== END 2023-12-21 14:31 | disposition home health service (06) | DRG 92 ==
LOC: 4 EAST ACU 21:25
PROVIDERS: Emergency Medicine; Physician Assistant; Student in an Organized Health Care Education/Training Program; ADMITTING PHYSICIAN Internal Medicine; ATTENDING PHYSICIAN Internal Medicine; EMERGENCY PHYSICIAN Student in an Organized Health Care Education/Training Program; FAMILY PHYSICIAN Family Medicine; OTHER PHYSICIAN Internal Medicine Cardiovascular Disease
DX: G92.8 Other toxic encephalopathy (principal); I50.32 Chronic diastolic (congestive) heart failure; I5A Non-ischemic myocardial injury (non-traumatic); Z68.41 Body mass index [BMI] 40.0-44.9, adult; Z87.891 Personal history of nicotine dependence; I48.0 Paroxysmal atrial fibrillation; I95.9 Hypotension, unspecified; T40.2X5A Adverse effect of other opioids, initial encounter; E11.9 Type 2 diabetes mellitus without complications; L27.0 Generalized skin eruption due to drugs and medicaments taken internally; T40.415A Adverse effect of fentanyl or fentanyl analogs, initial encounter; E66.9 Obesity, unspecified; L89.322 Pressure ulcer of left buttock, stage 2
CPT/HCPCS: 70450; 72125; 74176; 80048; 80053; 81003; 82962; 83605; 83690; 84484; 85025; 85027; 85730; 87070; 93005; 93306; 94640; 96360; 96361; 97162; 97166; 99285

== ENCOUNTER 2023-12-25 14:23 | Inpatient (IN) | payer MEDICARE, SELFPAY ==
[2023-12-25] VITALS (21 sets, daily range): BP systolic 84–186; BP diastolic 50–131; PULSE 2–60; BMI 42.9; BMI 42.8
[2023-12-25 11:44] LABS: % Basophils 0.4 % (0-2); % Immature Granulocytes 0.5 % (0-0.5); % Monocytes 8.8 % (1.7-9.3); % Neutrophils 81.3 % (42.2-75.2); Absolute Basophils 0.1 10^3/uL (0-0.2); Absolute Immature Granulocytes 0.1 10^3/uL (0-0.05); Absolute Lymphocytes 1.6 10^3/uL (1.2-3.4); Absolute Monocytes 1.6 10^3/uL (0.1-0.6); Absolute Neutrophils 14.8 10^3/uL (1.4-6.5); Hematocrit 33.7 % (37.0-47.0); Hemoglobin 10.7 g/dL (12.0-16.0); Mean Corp Hgb Conc. 31.8 g/dL (33.0-37.0); Mean Corpuscular Hgb 27.4 pg (27.0-31.0); Mean Corpuscular Volume 86.4 fL (81.0-99.0); Mean Platelet Volume 9.6 fL (7.4-10.4); Nucleated Red Blood Cells % 0 %; Platelet Count 243 10^3/uL (130-400); Red Cell Dist. Width 14.8 % (11.5-14.5); White Blood Cell Count 18.2 10^3/uL (4.8-10.8)
[2023-12-25 11:54] LABS: Venous Blood Gas B.E. 4.3 mmol/L (-4 to +4); Venous Blood Gas HCO3 32.2 mmol/L (22-27); Venous Blood Gas O2 Sat % 63.8 %; Venous Blood Gas pCO2 64 mmHg (35-48); Venous Blood Gas pH 7.31 (7.32-7.43); Venous Blood Gas pO2 41 mmHg (30-50)
--- NOTE | 2023-12-25 11:59 | ED.GENMED ---
History of Present Illness
General
Chief Complaint: Change in Mental Status
Source: spouse and ambulance crew
Exam Limitations: clinical condition
Time Seen by Provider: 12/25/23 11:18
History of Present Illness
History of Present Illness:
83-year-old female discharged 2 days ago after a admission for encephalopathy and a complicated medical stay. Was doing okay. This morning was lethargic. Family was able to get her meds and her. However with the lethargy they called for the
ambulance. Ambulance arrived she was hypoxic. En route they gave her Narcan. She became agitated after this and agitated throughout her ER stay.
Past History
Past History
ED Past Medical History: CAD, CHF, COPD, GERD, HTN, Hypercholesterolemia, NIDDM, Psychiatric (Depression) and Other (DVT, morbid obesity, sleep apnea, iron deficiency anemia, spinal stenosis)
ED Past Surgical History: Appendectomy, Orthopedic, Tonsilectomy and Other (Cardiac catheterization with femoral arterial complications with both recent catheterization)
Social History
Tobacco: Former smoker
Alcohol: None
Drug: None
Personal:
Living: with family
Review of Systems
Review of Systems
Unable to obtain full review of systems at this time due to: due to acuity
All Other Systems: Not applicable
Phy Exam
Physical Exam
Physical Exam:
GENERAL: Lethargic. Agitated. Nonpurposeful movements. Will not follow commands. No signs of head trauma.
EYE: Orbits normal.
NECK: Supple, no significant adenopathy.
ENT: Small amount of blood in her oropharynx secondary to a lip lack. This occurred during transfer.
CARDIAC: Regular rate and rhythm without any obvious murmurs.
LUNGS: Appears to be moving air reasonably well. Mild expiratory wheezing.
ABDOMEN: Soft, without focal tenderness or distention
NEUROLOGICAL: Lethargic. Nonpurposeful movements. Agitated.
SKIN: Warm and dry, areas of ecchymosis on both arms.
PSYCH: Normal and appropriate interaction.
Course
Orders/Labs/Results
Orders:
Orders
12/25/23 11:36
Electrocardiogram (*1) Stat
Reason for Study: Other
Other Reason for Exam: neuro symptoms
CT Head W/o Iv Contrast Urgent
Comment:
Reason For Exam: Change in mental status
Cardiac Monitoring- Treatment ONCE
EKG- Treatment ONCE
IV Insert/Care/Rem.- Treatment PRN
CXR Port [CR Chest Portable - 1 View] Urgent
Comment:
Reason For Exam: sob
Reason Study Needs to be Portable: Patient Unstable
O2 Therapy [RESP] Stat
Titrate/Wean O2 to maintain O2 sat greater than (%): 93
12/25/23 11:39
Basic Metabolic Panel Urgent
Complete Blood Count/With Diff Urgent
Prolactin Urgent
Comment: ADD ON
12/25/23 11:47
Venous Blood Gas Urgent
%Oxygen/Room Air: 4 l
12/25/23 12:10
Lorazepam [Ativan] 0.5 mg PO NOW STA
12/25/23 12:11
Lorazepam [Ativan] 2 mg .ROUTE .STK-MED ONE
12/25/23 12:13
Lorazepam [Ativan] 0.5 mg IV NOW STA
12/25/23 12:21
Lactic Acid Q4H
Comment: CANCEL 2nd LACTIC ACID IF 1st LACTIC ACID IS LESS THAN 2
Blood Culture Q30M
JAMES Source: Blood/Venous
Specimen Description:
12/25/23 12:22
Urinalysis Reflex To Culture Urgent
Date Specimen was Collected: 12/25/23
Time Specimen was Collected: 12:21
Urine Microscopic Reflex Cult Urgent
Urine Culture Urgent
JAMES Source: U
Specimen Description:
Date Specimen was Collected: 12/25/23
Time Specimen was Collected: 12:21
12/25/23 12:32
Blood Culture Q30M
JAMES Source: Blood/Venous
Specimen Description:
12/25/23 13:46
Vancomycin [Vancocin] 2,000 mg 0.9% Sodium Chloride 500 ml [Nss] 500 ml IV NOW
12/25/23 13:50
0.9% Sodium Chloride 1000 ml [Nss] 1,000 ml IV BOLUS
12/25/23 13:52
Admit/Transfer Patient As Directed
Co-Sign Provider:
Level of Care: Inpatient admission
Assign to:: Telemetry
Physician / Group: Hospitalist
Diagnosis: Severe sepsis
Reason for Telemetry: Arrhythmia
Date to Stop Telemetry: 12/28/23
Time to Stop Telemetry: 11:00
Reason for Hospitalization: Severe sepsis
Expected length of stay greater than two midnights?: Yes
ELOS- Estimated Length of Stay in days: 3
I certify the patient meets the requirements for IP care: Yes
PRN Pain Medication Management As Directed
May give lesser potent ordered pain med per pt: Yes
preference::
Protocol:: Medication orders for pain may be administered in a
manner that supports deferring to patient preference
when the pt is:
- Requesting an ordered lesser potent pain medication.
Least to most potent pain medications are defined
as: acetaminophen < NSAID < tramadol < opioids
(morphine, oxycodone, hydromorphone).
- Requesting a lesser dose of the same medication IF
ORDERED.
- Requesting a less intrusive route of administration
if both routes are prescribed by the provider (PO <
IV).
12/25/23 13:55
Code Status As Directed
Resuscitation Status: Do not resuscitate
Reached after discussion with pt or family/Healthcare POA: Yes
12/25/23 13:58
DNR Bracelet Application ONCE
12/25/23 14:00
Cefepime HCl [Maxipime] 2,000 mg IV Q12H
Sterile Water [Sterile Water For Injection] 10 ml IV Q12H
12/25/23 14:15
Code Status As Directed
Resuscitation Status: Full Code
12/25/23 14:16
Add On- LAB Routine
Tests Added?: Prolactin
EKG [Electrocardiogram (*1)] Urgent
Reason for Study: Atrial Fibrillation
12/25/23 14:21
MRSA Screen R STAT
JAMES Source: Other-Please Specify
Specimen Description: Other
Comment: Right lower extremity wound
12/25/23 16:00
MetroNIDAZOLE 500 MG/100 ML [Flagyl 500 mg] 100 ml IV Q8H
12/25/23 16:15
Lactic Acid Q4H
Comment: CANCEL 2nd LACTIC ACID IF 1st LACTIC ACID IS LESS THAN 2
12/26/23 06:00
Venous Blood Gas IN AM
%Oxygen/Room Air: 88
12/28/23 11:00
DC Protocol for Telemetry ONCE
Abnormal Lab Results
12/25/23 12/25/23 12/25/23
11:39 11:47 12:21
WBC 18.2 H 10^3/uL
(4.8-10.8)
RBC 3.90 L 10^6/uL
(4.20-5.40)
Hgb 10.7 L g/dL
(12.0-16.0)
Hct 33.7 L %
(37.0-47.0)
MCHC 31.8 L g/dL
(33.0-37.0)
RDW 14.8 H %
(11.5-14.5)
Abs Immat Gran (auto) 0.1 H 10^3/uL
(0-0.05)
Absolute Neuts (auto) 14.8 H 10^3/uL
(1.4-6.5)
Absolute Monos (auto) 1.6 H 10^3/uL
(0.1-0.6)
Neutrophils % 81.3 H %
(42.2-75.2)
Lymphocytes % 9.0 L %
(20.5-51.1)
VBG pH 7.31 L
(7.32-7.43)
VBG pCO2 64 H mmHg
(35-48)
VBG HCO3 32.2 H mmol/L
(22-27)
Sodium 134 L mmol/L
(135-145)
Chloride 94 L mmol/L
(98-107)
BUN 47 H mg/dl
(7-17)
Creatinine 1.7 H mg/dL
(0.6-1.0)
Glucose 161 H mg/dl
(70-99)
Lactic Acid 2.8 H mmol/L
(0.7-2.0)
Leukocyte Esterase Rfl
Urine Bacteria (Reflex)
12/25/23
12:22
WBC
RBC
Hgb
Hct
MCHC
RDW
Abs Immat Gran (auto)
Absolute Neuts (auto)
Absolute Monos (auto)
Neutrophils %
Lymphocytes %
VBG pH
VBG pCO2
VBG HCO3
Sodium
Chloride
BUN
Creatinine
Glucose
Lactic Acid
Leukocyte Esterase Rfl Trace A
(Negative)
Urine Bacteria (Reflex) Moderate A
(Negative)
12/25/23 11:39
12/25/23 11:39
Vital Signs
Initial and Last Documented VS:
Initial Vital Signs
Temp Pulse Resp BP Pulse Ox
97.9 F 81 24 133/112 93
12/25/23 11:10 12/25/23 11:10 12/25/23 11:10 12/25/23 11:10 12/25/23 11:10
Last Documented Vital Signs
Temp Pulse Resp BP Pulse Ox
97.9 F 65 18 117/97 98
12/25/23 11:10 12/25/23 15:00 12/25/23 15:00 12/25/23 14:30 12/25/23 15:00
MDM/Problems Addressed
Differential Diagnosis Includes:
Patient with lethargy and hypoxia this morning. Most suspicious of medication issues. She then became severely agitated after Narcan. Some of this is likely some opioid withdrawal. Largest short-term issue is the need or not to intubate. She
appears to be oxygenating reasonably well. VBG is reasonable. Would like to hold off on intubation if at all possible. Discussed with patient and with his son. However we will need to get a CT of her head. May give a small dose of Ativan to try
to get her over to CT.
*Critical Care Note
Total Time (30-74mins, 75-104mins- exclusive of procedures): 45
Data Reviewed
Review of Other/Old Records Reveals: Labs, Records, Radiology Studies and Discharge Summary
Update Note
Update Note:
Patient is been rechecked multiple times. Currently in CT. She has tolerated it well. I took a quick look at the CT and see nothing acute. She is referred for admission.
1250... Patient is maintaining her oxygenation. She appears to be ventilating. Pulse ox is 93 to 94% on 4 L. My quick look at CT looked okay. Referred to hospitalist. Family updated.
Patient was previously referred to hospitalist. Has remained relatively stable here. No indication for intubation. Patient has a leukocytosis and elevated lactic acid. Likely all reactive. Nothing to support infectious etiology.
ED Attending Note
-
Portions of this chart may have been created with voice recognition software.� Occasional wrong word or��sound alike� substitutions may have occurred due to the inherent limitations of voice recognition software.
Discharge Plan
Departure
Patient Disposition: Admit
Date of Disposition: 12/25/23
Time of Disposition: 12:43
Presentation/result/management discussed w/ accepting MD/DO: Hospitalist
Discharge Problem:
Altered mental status/encephalopathy, Suspect at least in part secondary to de, Depressed respiratory status, Suspect opioid withdrawal secondary to N, Narcan, Leukocytosis/elevated lactic acid
Interventions
Interventions:
*Risk Screen - Suicide Last Done: 12/25/23 11:10
*General Assessment Last Done: 12/25/23 11:10
*Neglect/Abuse Screening Last Done: 12/25/23 11:10
ED- Fall Risk Assessment Last Done: 12/25/23 11:10
ED- Neurological Assessment Last Done: 12/25/23 11:34
ED Swallowing Screen Last Done: 12/25/23 11:34
[2023-12-25 12:02] LABS: Blood Urea Nitrogen 47 mg/dl (7-17); Calcium 8.5 mg/dl (8.4-10.2); Carbon Dioxide 28 mmol/L (22-30); Chloride 94 mmol/L (98-107); Estimated Creatinine Clearance 29 ml/min; Glucose 161 mg/dl (70-99); Sodium 134 mmol/L (135-145); eGFR 29.94
[2023-12-25] MEDS: ATIVAN 0.5 MG IV (12:13)
[2023-12-25 12:49] LABS: Lactic Acid 2.8 mmol/L (0.7-2.0)
[2023-12-25 13:00] LABS: Urine Albumin Negative (Neg - Trace); Urine Bilirubin Negative (Negative); Urine Character Clear (Clear); Urine Color Yellow; Urine Glucose Negative (Negative); Urine Ketone Negative (Negative); Urine Leukocyte Trace (Negative); Urine Nitrite Negative (Negative); Urine Occult Blood Negative (Negative); Urine Urobilinogen 1+ (Neg - 1+)
[2023-12-25 13:18] LABS: Urine Mucus Few; Urine Squamous Cell >30 /LPF (Few)
[2023-12-25 13:20] LABS: Urine Bacteria Moderate (Negative); Urine Red Blood Cell 0-2 /HPF (0-2)
[2023-12-25] MEDS: MAXIPIME 2000 MG IV (14:10)
[2023-12-25] MEDS: NSS 1000 IV (14:10)
[2023-12-25] MEDS: VANCOCIN 540 MG IV (14:11)
[2023-12-25] MEDS: STERILE WATER FOR INJECTION 10 ML IV (14:11)
--- NOTE | 2023-12-25 16:47 | HPS.HSE ---
Family Physician
<Linda Valdez MD, Resident - Last Filed: 12/25/23 17:41>
-
Family Physician: Mir Estrada
Chief Complaint
<Linda Valdez MD, Resident - Last Filed: 12/25/23 17:41>
-
Altered mental status, lethargy
History of Present Illness
83-year-old female with past medical history of CAD status post PCI and stenting on Brilinta and aspirin, CHF with preserved EF, chronic pain on chronic opioid, GERD, morbid obesity, ema-whmkmxp-bwxijjdxw diabetes who presents to the emergency
department after family found her growing increasingly confused and lethargic at home. According to patient's , she woke up very early arousable, but by breakfast she grew increasingly confused and lethargic. This was prior to taking any of
her medications. After taking her medications, patient's confusion and lethargy lethargy grew worse. Patient's family's neighbor is a visiting nurse. Visiting nurse found patient to be extremely hypotensive and called EMS. EMS found O2 saturation
in the 70s. Patient on chronic opioid pain management, and given dose of Narcan while in ambulance. Patient grew increasingly arousable and agitated on ride over.
Of note, patient was recently admitted on 12/19/2023 with a similar presentation.
In the ED, patient was given total of 1 mg of lorazepam to calm patient and get diagnostic imaging done. On physical exam she was found to have a right lower leg wound with increased warmth and area of erythema outside the bandage consistent with
cellulitis. WBC 18.2, lactate 2.8, respiratory rate 25, VBG pH 7.31, pCO2 64. Patient was admitted with severe sepsis secondary to cellulitis. Patient started on IV metronidazole and vancomycin. Metronidazole was chosen as patient has severe
penicillin allergy.
Medical History
<Linda Valdez MD, Resident - Last Filed: 12/25/23 17:41>
Past Medical History
Past Medical History: Reports Other
Additional Past Medical History:
CAD�multi vessel stents 2018 complicated with right TUBE BENDER HAND perforation, paroxysmal A-fib, chronic diastolic CHF, interstitial lung disease, COPD, restrictive lung disease, severe KEVAN with morbid obesity, type 2 diabetes mellitus, chronic back pain with
chronic opioid pain management, chronic stasis dermatitis, hyperlipidemia, hypertension, depression, psoriatic arthritis, vitamin D deficiency
Past Surgical History: Reports Other (Laminectomy, left knee arthroscopy, appendectomy, tonsillectomy, Mohs, spinal stimulator, cardiac stents)
Social History
Tobacco: Non-smoker
Alcohol: None
Drug: None
Personal:
Living: With Family
Employment: Not Employed
Family History
Family History: Not pertinent
Allergies / Home Medications
Allergies reflects when Allergies were last updated in [employer]
Home Medications with original date entered in [employer]
Allergy/Medication List:
Allergies
Allergy/AdvReac Type Severity Reaction Status Date / Time
Penicillins Allergy face Verified 12/25/23 11:25
swells,
pruritis,
difficulty,
anaphylaxis
Home Medications
pantoprazole 40 mg tablet,delayed release 40 mg PO HS Gastrointestinal issue 02/11/13
aspirin 81 mg tablet,delayed release 81 mg PO DAILY Blood clot prevention/tx 03/25/17
bupropion HCl 150 mg 24 hr tablet, extended release 150 mg PO DAILY Mental Health/Anxiety 03/25/17
duloxetine 60 mg capsule,delayed release 60 mg PO DAILY PAIN 03/25/17
furosemide 40 mg tablet 40 mg PO DAILY Fluid retention/Swelling 03/25/17
metformin 500 mg tablet,extended release 24 hr 500 mg PO QPM Diabetes 03/25/17
albuterol sulfate 2.5 mg/3 mL (0.083 %) solution for nebulization 2.5 mg inhalation R Q6HPRN PRN sob/wheezing 07/10/21
oxycodone 10 mg tablet 20 mg PO TID 07/10/21
ticagrelor 60 mg tablet (Brilinta) 60 mg PO BID Blood clot prevention/tx 07/10/21
Tremfya 1 dose SC Q8W Autoimmune Disorder 12/08/23
atorvastatin 80 mg tablet 80 mg PO HS High Cholesterol 12/08/23
cholecalciferol (vitamin D3) 25 mcg (1,000 unit) tablet 25 mcg PO DAILY Supplement 12/08/23
gabapentin 300 mg capsule 600 mg PO BID@0800,2000 Neurological Condition 12/08/23
famotidine 20 mg tablet 20 mg PO DAILY Gastrointestinal Issue 12/19/23
metoprolol succinate 50 mg tablet,extended release 24 hr 50 mg PO DAILY Heart Disease/Condition 12/19/23
morphine 30 mg tablet,extended release 30 mg PO Q12H Pain 12/19/23
miconazole nitrate 2 % topical powder (Miconazorb AF) 1 applic topical BID Skin issues #85 grams 12/21/23
triamcinolone acetonide 0.1 % lotion 1 applic topical TID Skin issues #60 mL 12/21/23
gabapentin 300 mg capsule 300 mg PO NOON 12/25/23
Review of Systems
<Linda Valdez MD, Resident - Last Filed: 12/25/23 17:41>
-
Unable to obtain full review of systems at this time due to: Acuity
Physical Exam
<Linda Valdez MD, Resident - Last Filed: 12/25/23 17:41>
Vital Signs
Vital Signs
Temp Pulse Resp BP Pulse Ox
99.4 F 67 18 129/100 93
12/25/23 15:56 12/25/23 15:56 12/25/23 15:56 12/25/23 15:56 12/25/23 15:56
Physical Exam
General: Other (unresponsive)
HEENT: NormoCephalic
Respiratory: Clear
Cardiac: S1/S2 and Regular Rhythm
GI: Soft, Non Tender and Normal Bowel Sounds
Genito-urinary: Deferred by me
Musculoskeletal: No Edema, Left Lower Extremity or Edema, Right Lower Extremity
Skin: Warm and Lesions (Right lower extremity wound. Increased erythema and warmth around skin lesion.)
Neuro: Sedated
Laboratory Results
<Linda Valdez MD, Resident - Last Filed: 12/25/23 17:41>
-
12/25/23 11:39
12/25/23 11:39
Laboratory Results
pH Cancelled 12/25/23 12:06
pCO2 Cancelled 12/25/23 12:06
pO2 Cancelled 12/25/23 12:06
HCO3 Cancelled 12/25/23 12:06
Lactic Acid 2.8 mmol/L (0.7-2.0) H 12/25/23 12:21
Total Bilirubin Cancelled 12/25/23 11:39
AST Cancelled 12/25/23 11:39
ALT Cancelled 12/25/23 11:39
Alkaline Phosphatase Cancelled 12/25/23 11:39
Impression/Plan
<Linda Valdez MD, Resident - Last Filed: 12/25/23 17:41>
-
IMPRESSION:
83-year-old female with past medical history of CAD status post PCI and stenting on Brilinta, aspirin, CHF with preserved EF, chronic pain on opioids, GERD, morbid obesity, ovo-ndfqslg-fseruybwx diabetes presented to the ED with increased confusion
and lethargy. Elevated WBC, lactic acid, tachycardic. Severe sepsis secondary to cellulitis, however increased lethergy and fatigue associated with morphine and hypoventilation due to increased body habitus and underlying respiratory issues could
be the cause as well. WBC could be reactionary.
PLAN:
#Severe sepsis secondary cellulitis
WBC 18.2, tachypneic, lactic acid 2.8, source right lower extremity cellulitis
Vancomycin and metronidazole IV (as patient has severe penicillin allergy) within first 2 hours
Moderate fluids versus aggressive as patient has history of HFrEF
Blood cultures pending
O2 as needed
Consult wound care
# Acute hypoxic respiratory failure
Likely secondary to opioid overdose
Previously discharged on 12/21/2023 with instructions for 15 mg morphine twice daily 7 days
Patient returned to ED stating on 30 mg twice daily
Could be contributing to altered mental status and lethargy
Resolved with Narcan leading to agitation
Now satting well on room air
Hold morphine to evaluate confusion off of opioids
# COPD/interstitial lung disease/KEVAN
DuoNebs as needed
Continue home albuterol
Exacerbated by increase morphine dose
Hold morphine until improved mental status
#Opioid dependence associated with chronic back pain
Previously discharged on 15 mg BID for 7 days
Patient came in stating on 30 mg BID
Continue oxy 20 mg TID
Hold morphine to evaluate confusion off of opioids
Continue gabapentin
#HFpEF
Last echo 12/20/23 EF 50%
Daily weights
I's and O's
Continue home furosemide 40 mg daily
#Paroxysmal A-fib
Currently in sinus rhythm
Continue aspirin and Brilinta for anticoagulation
Eliquis discontinued due to prior bleed
#Type 2 diabetes mellitus
Hold metformin acutely
Sliding scale insulin
Last hemoglobin A1c 12/09/2023 6.5
#CAD status post multiple stents
Continue atorvastatin 80
Continue aspirin ASA 81
# Depression
Continue bupropion and duloxetine
#GERD
Continue pantoprazole and famotidine
# Psoriatic arthritis
On Tremfya SQ every 8 weeks
Triamcinolone cream for affected psoriatic areas
On hold
# Vitamin D deficiency
Continue with supplement
#Obesity due to excess calories
DVT heparin subcu
Diabetic diet
Full code
,
<Tavo Rublacava, DO - Last Filed: 12/25/23 17:54>
-
IMPRESSION:
83-year-old female with past medical history of CAD status post PCI and stenting on Brilinta, aspirin, CHF with preserved EF, chronic pain on opioids, GERD, morbid obesity, ihj-dvvyuzr-jutaygktn diabetes presented to the ED with increased confusion
and lethargy. Elevated WBC, lactic acid, tachycardic. Severe sepsis secondary to cellulitis, however increased lethergy and fatigue associated with morphine and hypoventilation due to increased body habitus and underlying respiratory issues could
be the cause as well. WBC could be reactionary.
PLAN:
#Sepsis secondary cellulitis
WBC 18.2, tachypneic, lactic acid 2.8, source right lower extremity cellulitis
Vancomycin and metronidazole IV (as patient has severe penicillin allergy) within first 2 hours
Moderate fluids versus aggressive as patient has history of HFrEF
Blood cultures pending
O2 as needed
Consult wound care
# Acute hypoxic and hypercapneic respiratory failure
Likely secondary to opioid overdose
Previously discharged on 12/21/2023 with instructions for 15 mg morphine twice daily 7 days
Patient returned to ED stating on 30 mg twice daily
Could be contributing to altered mental status and lethargy
Resolved with Narcan leading to agitation
Now satting well on room air
Hold morphine to evaluate confusion off of opioids
# COPD/interstitial lung disease/KEVAN
DuoNebs as needed
Continue home albuterol
Exacerbated by increase morphine dose
Hold morphine until improved mental status
#Opioid dependence associated with chronic back pain
Previously discharged on 15 mg BID for 7 days
Patient came in stating on 30 mg BID
Continue oxy 20 mg TID
Hold morphine to evaluate confusion off of opioids
Continue gabapentin
#HFpEF
Last echo 12/20/23 EF 50%
Daily weights
I's and O's
Continue home furosemide 40 mg daily
#Paroxysmal A-fib
Currently in sinus rhythm
Continue aspirin and Brilinta for anticoagulation
Eliquis discontinued due to prior bleed
#Type 2 diabetes mellitus
Hold metformin acutely
Sliding scale insulin
Last hemoglobin A1c 12/09/2023 6.5
#CAD status post multiple stents
Continue atorvastatin 80
Continue aspirin ASA 81
# Depression
Continue bupropion and duloxetine
#GERD
Continue pantoprazole and famotidine
# Psoriatic arthritis
On Tremfya SQ every 8 weeks
Triamcinolone cream for affected psoriatic areas
On hold
# Vitamin D deficiency
Continue with supplement
#Obesity due to excess calories
DVT heparin subcu
Diabetic diet
Full code
,
[2023-12-25] MEDS: FLAGYL 500 MG 100 IV (17:27)
[2023-12-25 17:53] LABS: Glucose - Point of Care 139 mg/dl (70-99)
[2023-12-25 18:04] LABS: Lactic Acid 1.5 mmol/L (0.7-2.0)
[2023-12-25 20:20] LABS: Glucose - Point of Care 133 mg/dl (70-99)
--- NOTE | 2023-12-25 20:34 | W.PN.UPDATE ---
Update Note
Progress Note Update
-Called to the patient`s room to assess, patient is lethargic.
-No wheezing or crackle was noted on lung exam.
-Head CT and chest x-ray done during the day and are neg.
-Lactic acid 2.8 on admission trended down to 1.5. Blood culture is pending. Patient received one dose on cefepime and Vanco in ER.
-Patient with medical history of COPD and KEVAN. last VBG that was done (PH 7.31, PCO2 64, PO2 41, HCO3 32.2 )
-will start CPAP and recheck blood gas.
-Will transfer the patient to IMU level.
[2023-12-25] MEDS: HEPARIN 5000 UNITS SC (21:41)
[2023-12-25] MEDS: BRILINTA PO (22:12)
[2023-12-25] MEDS: DESENEX/MITRAZOL/ZEASORB 1 APPLIC TOPICAL (22:30)
[2023-12-25] MEDS: LIPITOR PO (22:30)
[2023-12-25] MEDS: PROTONIX PO (22:31)
--- NOTE | 2023-12-25 22:56 | PTCARENOTE ---
Received pt from 4th floor. On arrival, pt minimally responsive but responsive to tactile/deep pain. Will moan and say one word answers. Oriented only to self. Does not keep eyes open for more than a couple seconds. On 6L NC on arrival. RT to
bedside and placed on bipap 01/25 with 6L bled through. Pt. desatted to 70%- increased to 10L then 15L and pt. quickly recovered. Now on 10L bled through bipap. Spo2 94%. Lungs diminished and coarse gives poor effort. Weak, moist cough. Suctioned
orally for small amt thick clear sputum. ABG and labs ordered by WONG. NSR/SB on tele, HR 50s-60s. BP 114/61. Afebrile. LE wound dressings c/d/i. Scattered bruising to UEs. Purewick placed for incontinence. Mouth care provided. Coordinating with
STRATEGIC PLANNING SPECIALIST and RT. Monitoring
[2023-12-25 23:07] LABS: B.E. 8.3 mmol/L; HCO3 33.4 mmol/L (21-28); O2 Saturation % 96.6 % (94-98); PCO2 48 mmHg (32-35); PO2 71 mmHg (83-108); pH 7.45 (7.35-7.45)
[2023-12-25] MEDS: LEVOPHED 250 IV (23:25)
--- NOTE | 2023-12-25 23:36 | W.PN.UPDATE ---
Update Note
Progress Note Update
Patient transferred from telemetry floor to IMU due to increasing obtundedness. Bipap started. ABG completed on 15 L. She is compensated and CO 2 is slowly improving. low dose levophed started for systolic 80s. updated and would like her
intubated if necessary. Will monitor in IMU for now and repeat ABG at 0300.
--- NOTE | 2023-12-25 23:44 | PTCARENOTE ---
BP dropped 80s/50s. WONG Devries at bedside. Levophed ordered and started. Discussed plan with WONG.. will continue bipap and levophed in IMU and monitor closely. was notified of status.
[2023-12-25 23:45] LABS: Blood Urea Nitrogen 44 mg/dl (7-17); Calcium 8.7 mg/dl (8.4-10.2); Carbon Dioxide 28 mmol/L (22-30); Chloride 94 mmol/L (98-107); Estimated Creatinine Clearance 32 ml/min; Glucose 141 mg/dl (70-99); Potassium 4.8 mmol/L (3.5-5.1); Sodium 138 mmol/L (135-145); eGFR 34.79
[2023-12-26] VITALS (51 sets, daily range): BP systolic 85–134; BP diastolic 35–95; PULSE 2–68; BMI 42.6
[2023-12-26] MEDS: FLAGYL 500 MG 100 IV ×2 (00:32→10:03)
--- NOTE | 2023-12-26 01:42 | PTCARENOTE ---
No void since pt arrived to IMU (was saturated with urine upon arrival). Bladder scan = 951ml. DRAFTING LAYOUT WORKER notified. Hutchins cath ordered for acute retention. Inserted and drained 1000ml- yellow urine with sediment.
[2023-12-26 03:22] LABS: B.E. 7.6 mmol/L; HCO3 33.1 mmol/L (21-28); O2 Saturation % 97.2 % (94-98); PCO2 51 mmHg (32-35); PO2 76 mmHg (83-108); pH 7.42 (7.35-7.45)
--- NOTE | 2023-12-26 05:11 | PTCARENOTE ---
Pt. somewhat more awake this morning, more easily arousable and she was able to mildly assist with turning herself in bed. Eyes open for longer periods and nodding yes/no appropriately. Bipap settings increased to 16/8 with 10L per RT and [employer]OR [employer]ICATIONS after
morning ABG results. Tolerating, spo2 97%.
[2023-12-26 05:30] LABS: % Basophils 0.2 % (0-2); % Eosinophils 0.1 % (0-6); % Immature Granulocytes 0.4 % (0-0.5); % Lymphocytes 10.8 % (20.5-51.1); % Monocytes 8.5 % (1.7-9.3); Absolute Monocytes 0.8 10^3/uL (0.1-0.6); Absolute Neutrophils 7.3 10^3/uL (1.4-6.5); Hematocrit 29.5 % (37.0-47.0); Hemoglobin 9.5 g/dL (12.0-16.0); Mean Corp Hgb Conc. 32.2 g/dL (33.0-37.0); Mean Corpuscular Hgb 27.2 pg (27.0-31.0); Mean Corpuscular Volume 84.5 fL (81.0-99.0); Mean Platelet Volume 9.6 fL (7.4-10.4); Nucleated Red Blood Cells % 0 %; Platelet Count 182 10^3/uL (130-400); Red Blood Cell Count 3.49 10^6/uL (4.20-5.40); Red Cell Dist. Width 14.8 % (11.5-14.5); White Blood Cell Count 9.2 10^3/uL (4.8-10.8)
[2023-12-26 05:38] LABS: Vancomycin Random 14.5 ug/ml
[2023-12-26 05:42] LABS: ALT (SGPT) 19 U/L (0-35); AST (SGOT) 17 U/L (14-36); Albumin 3.2 g/dl (3.5-5.0); Alkaline Phosphatase 78 U/L (38-126); Blood Urea Nitrogen 43 mg/dl (7-17); Calcium 8.7 mg/dl (8.4-10.2); Carbon Dioxide 31 mmol/L (22-30); Chloride 95 mmol/L (98-107); Estimated Creatinine Clearance 35 ml/min; Glucose 125 mg/dl (70-99); Potassium 4.4 mmol/L (3.5-5.1); Sodium 136 mmol/L (135-145); Total Bilirubin 0.7 mg/dl (0.2-1.3); Total Protein 6.2 g/dl (6.3-8.2)
--- NOTE | 2023-12-26 08:42 | W.PN.HOSP.TC ---
Addendum entered and electronically signed by David Eagle MD 12/26/23 16:29:
Toxic metabolic encephalopathy which could be drug-induced from opioids versus CO2 narcosis versus infectious.
-Continue BiPAP per settings
-- If becomes more lethargic will require intubation
-Wean BiPAP as tolerated
-Continue IV antibiotics to cover for right lower extremity nonpurulent cellulitis
-Avoid sedatives and any further opioid use
Acute on chronic hypoxemic hypercapnic respiratory failure
-In the setting of likely KEVAN/OHS
-Without evidence of active wheezing on exam
-On BiPAP wean as tolerated if lethargic intubate
Right lower extremity cellulitis
-ID following
-Convert vancomycin/metronidazole to Ancef per ID
Paroxysmal atrial fibrillation
Currently in sinus rhythm Eliquis discontinued due to previous bleed
On aspirin
CAD continue statin aspirin Brilinta
Original Note:
Today's Communication/Plan
-
Continue antibiotics and fluids, Levophed, EEG pending, ID consulted, attempt to wean off BiPAP
Assessment / Plan
Assessment / Plan
83-year-old female with past medical history of CAD status post PCI and stenting on Brilinta, aspirin, CHF with preserved EF, chronic pain on opioids, GERD, morbid obesity, akf-igwuvlo-kmjrwzwow diabetes presented to the ED with increased confusion
and lethargy. Elevated WBC, lactic acid, tachycardic. Severe sepsis secondary to cellulitis, however increased lethergy and fatigue associated with morphine and hypoventilation due to increased body habitus and underlying respiratory issues could
be the cause as well. WBC could be reactionary.
#Septic shock secondary cellulitis
WBC 18.2, tachypneic, lactic acid 2.8, source right lower extremity cellulitis
Vancomycin and metronidazole IV (as patient has severe penicillin allergy)
Moderate fluids versus aggressive as patient has history of HFrEF
Blood cultures pending
Wound culture pending
WBC 9.2, lactic acid 1.5, downtrending
Infectious disease consulted
Right lower extremity venous doppler for increased swelling/erythema
Became hypoxemic and hypotensive overnight ->IMU on Bipap and Levophed
Wound care dressed wound
#Acute hypoxic respiratory failure
Likely secondary to opioid overdose vs sepsis
Previously discharged on 12/21/2023 with instructions for 15 mg morphine BID 7 days
In ED stated on 30 mg BID with additional 15 mg BID
Could be contributing to altered mental status and lethargy
Resolved with Narcan leading to agitation
On 4 L of O2 at night at home
Now satting well on room air -> open the patient grew increasingly felt lethargic overnight with hypotension and hypoxemia, started on CPAP and Levophed, transferred to IMU -> VBG revealed CO2 retention -> Bipap -> increasingly arousable
Stat ABG -> PCO2 53, PO2 56
Rn [facility] consulted, believe hypoxemic hypercapnia compensated -> monitor closely
#Altered mental status/lethergy/confusion/metabolic encephalopathy
Increased confusion lethargy
Previously discharged on 12/21/2023 with instructions for 15 mg morphine BID 7 days
In ED stated on 30 mg BID with additional 15 mg BID
Likely secondary to opioids
Did bite tongue in ED after Narcan given with agitation
EEG pending
Prolactin wnl
#LISA
Cr 1.7, baseline 1.1 -> 1.4
Likely pre-renal due to hypotension
Fluids
Hold lasix, gabapentin
Monitor
# COPD/interstitial lung disease/KEVAN
DuoNebs as needed
Continue home albuterol
Exacerbated by increase morphine dose
Hold morphine until improved mental status
#Opioid dependence associated with chronic back pain
Previously discharged on 15 mg morphine BID for 7 days
Patient came in stating on 30 mg morphine BID and additional 15mg BID
Continue oxy 20 mg TID
Hold morphine to evaluate confusion off of opioids
Hold gabapentin
#HFpEF
Last echo 10/29/24 EF 50%
Daily weights
I's and O's
Hold furosimide for LISA
#Paroxysmal A-fib
Currently in sinus rhythm
Continue aspirin and Brilinta for anticoagulation
Eliquis discontinued due to prior bleed
#Type 2 diabetes mellitus
Hold metformin acutely
Sliding scale insulin
Last hemoglobin A1c 12/08 6.5
#CAD status post multiple stents
Continue atorvastatin 80
Continue aspirin ASA 81
# Depression
Continue bupropion
Hold duloxetine for AMS
#GERD
Continue pantoprazole and famotidine
# Psoriatic arthritis
On Tremfya SQ every 8 weeks
Triamcinolone cream for affected psoriatic areas
# Vitamin D deficiency
Continue with supplement
#Obesity due to excess calories
DVT heparin subcu
NPO while on bipap
Full code
Anticipated Discharge: > 48 hours
Subjective/Interval History
-
Date of Service: December 26, 2023
Objective Data
-
Labs:
Laboratory Results
12/25/23 12/25/23 12/26/23
23:01 23:17 03:12
WBC
Hgb
Hct
Plt Count
HCO3 33.4 H 33.1 H
Sodium 138
Potassium 4.8
Chloride 94 L
Carbon Dioxide 28
BUN 44 H
Creatinine 1.5 H
Glucose 141 H
Calcium 8.7
Total Bilirubin
AST
ALT
Alkaline Phosphatase
12/26/23
04:57
WBC 9.2
Hgb 9.5 L
Hct 29.5 L
Plt Count 182 D
HCO3
Sodium 136
Potassium 4.4
Chloride 95 L
Carbon Dioxide 31 H
BUN 43 H
Creatinine 1.4 H
Glucose 125 H
Calcium 8.7
Total Bilirubin 0.7
AST 17
ALT 19
Alkaline Phosphatase 78
Vital Signs:
Vital Signs
Temp Pulse Resp BP Pulse Ox
99.6 F 59 16 105/55 99
12/26/23 04:43 12/26/23 06:45 12/26/23 06:45 12/26/23 06:30 12/26/23 06:45
I&O
12/25/23 12/26/23 12/27/23
06:59 06:59 06:59
Intake Total 7.5 / 7.5
Output Total 1200 / 1200
Balance -1192.5 / -1192.5
Review of Systems
-
Unable to obtain full review of systems at this time due to: Acuity
Physical Exam
-
Respiratory: Clear to Auscultation
Cardiac: Regular Rhythm and S1/S2
GI: Soft, Nondistended and Normal Bowel Sounds
Musculoskeletal: Edema, Right Lower Extrem
Skin: Warm
Neuro: Negative AO x 3
--- NOTE | 2023-12-26 09:05 | VNURNOTE ---
Chart reviewed. Patient is current with [facility] nursing. Will continue to follow hospital course and DC plans.
[2023-12-26] MEDS: BRILINTA PO (09:53)
[2023-12-26] MEDS: CYMBALTA DELAYED RELEASE PO (09:53)
[2023-12-26] MEDS: ASPIR LOW (ENTERIC COATED) PO (09:53)
[2023-12-26] MEDS: TOPROL XL PO (09:54)
[2023-12-26] MEDS: PEPCID PO (09:54)
[2023-12-26] MEDS: VITAMIN D3 (cholecalciferol) PO (09:54)
[2023-12-26] MEDS: WELLBUTRIN XL (24 hour extended release) PO (09:54)
--- NOTE | 2023-12-26 09:58 | PHA.VAN.FU ---
Vancomycin Assessment / Plan
- Assessment
Renal Function: SCR Decreasing (1.7->1.5->1.4)
WBC's are: WNL
In the past 24 hrs, patient has been: Afebrile
Concomitant Antimicrobials: metronidazole
- Assessment - Therapeutic Drug Monitoring
Random Level: 14.5 ~ 13 hours post 2000 mg LD yesterday
- Dosing Plan
Continue: dosing by random level for now due to elevated SCr and BUN
Dosing by Level: Re-dose today (( ~ 15 mg/kg))
- Monitoring Plan
Random Level: repeat random level AM 12/26
- Follow Up
Pharmacy will continue to follow.
Vancomycin Follow UP
- -
Patient Age: 83
Patient Sex: Female (2)
Vancomycin Day #: 2
Indication: Skin And Soft Tissue
Requesting Provider: Khadar
Pertinent Antimicrobial Allergies:
penicillins -> face swells, pruritus, difficulty, anaphylaxis
Height / Weight:
Height 5 ft 1 in
Actual Weight 102.2 kg
- Vital Signs / Lab Results
Temp Pulse Resp BP Pulse Ox
99 F 59 16 105/55 99
12/26/23 07:04 12/26/23 06:45 12/26/23 06:45 12/26/23 06:30 12/26/23 06:45
Lab Results - Hematology
12/25/23 12/26/23
11:39 04:57
WBC 18.2 H 9.2
Lab Results - Chemistry
12/25/23 12/25/23 12/26/23
11:39 23:17 04:57
BUN 47 H 44 H 43 H
Creatinine 1.7 H 1.5 H 1.4 H
Estimated Creat Clear 29 32 35
Albumin Cancelled 3.2 L
12/25/23 12/25/23 12/25/23
12:21 16:15 17:41
Lactic Acid 2.8 H Cancelled 1.5
12/25/23 12/25/23 12/25/23
19:30 19:45 23:30
Lactic Acid Cancelled Cancelled Cancelled
Lab Results - Urine
12/25/23
12:22
Urine Nitrite (Reflex) Negative
Leukocyte Esterase Rfl Trace A
Ur Squamous Epith Cells >30
Microbiology Results
12/25/23 12:22 Urine Culture - Final
Urine No Significant Growth
Therapeutic Drug Monitoring
Random Vancomycin 14.5 ug/ml 12/26/23 04:57
[2023-12-26] MEDS: DESENEX/MITRAZOL/ZEASORB 1 APPLIC TOPICAL ×2 (10:02→22:03)
[2023-12-26] MEDS: NSS 1000 IV ×2 (10:03→22:07)
[2023-12-26] MEDS: HEPARIN 5000 UNITS SC ×2 (10:03→19:43)
[2023-12-26 10:04] LABS: Glucose - Point of Care 139 mg/dl (70-99)
[2023-12-26 10:09] LABS: B.E. 8.7 mmol/L; HCO3 34.4 mmol/L (21-28); O2 Saturation % 89.5 % (94-98); PCO2 53 mmHg (32-35); pH 7.42 (7.35-7.45)
[2023-12-26 10:12] LABS: PO2 56 mmHg (83-108)
--- NOTE | 2023-12-26 10:27 | CON.PUL ---
Consultation
Consultation Request
Date/Time Consultation Requested: 12/26/2023921
Date/Time Consultation Performed: 12/26/20231004
Requesting Provider: Dr. Valdez
Performing Provider: Dr. Mcghee
Reason for Consultation: AMS/Hypercapnia
Medical History
-
Chief Complaint: Lethargic and low oxygen on room air
History of Present Illness:
83-year-old obese female with a past medical history of KEVAN noncompliant with CPAP, suspected OHS, chronic opioid use, chronic pain syndrome, chronic fatigue syndrome, CAD s/p coronary stents with history of OH, history of RLE DVT previously on
Coumadin, hypercholesterolemia, chronic back pain, chronic HFpEF, GERD, history of pneumonia, history of COVID-19 and history of skin cancer who presents with altered mental status. Patient's found the patient this morning to be lethargic
while he was trying to give her medications. Saturations were 80% on room air. 911 called and when they arrived they administered 0.5 mg of Narcan and she was flailing and yelling afterwards. Arrived to the ER twitching and appeared to be in a
manic state, as per ER documentation. She was 94% on room air on arrival but unable to stop her limb movements. Initial ER vitals showed she was afebrile to 97.9 �F via rectal temperature, heart rate 81, breathing at 24 breaths/min, and BP
133/112. Initial labs showed anemia to 10.7, leukocytosis to 18.2, initial venous blood gas showed acute on chronic hypercapnic respiratory failure with pH 7.31, pCO2 64. Serum sodium 134, creatinine 1.7, lactate 2.8, prolactin was WNL at 13.2,
and urinalysis showed trace leukocyte esterase with moderate urine bacteria. Blood cultures were collected in addition to urine culture. CT cervical spine showed no evidence of fracture or dislocation, CT head showed no acute intracranial
abnormality. CT A/P showed mild bronchiectasis in the right lower lobe. CXR showed no acute cardiopulmonary abnormality. She was started on antibiotics in the ER with cefepime/vancomycin and given IVF with NS at 0.9% x1L. She was initially mid
to telemetry for further management. On the evening of 12/24 patient was lethargic, and she was placed onto BiPAP and subsequent blood gas was noncontributory (7.45/48/71). She continues to have periods of somnolence and now pulmonary service
consulted for additional management/recommendations.
When I saw the patient she was resting in bed in no acute distress. She was on BiPAP 16/8 blood with 6 L/min saturating 96%. Heart rate 113 and she was now in A-fib. BP 115/68. VTe was variable between 220�610 with average around 450 cc, with
PIP: 19 cmH2O. Although she was lethargic she was easily arousable and answer my questions appropriately. She currently denies nausea, chest pain, abdominal pain, fevers or chills. She says that the BiPAP mask is making it better for her to
breathe but only a little bit. She is in no acute distress and is compliant with using the mask.
Of note, patient follows with us in the office with last visit on 07/02/[address] Smith. She has a history of KEVAN but refused CPAP and was advised to continue 4 L/min at night. She has a history of restrictive lung disease and ILD. She has
history of stable pulmonary nodules. She follows with cardiology for history of CAD with stents + chronic HFpEF. She does have chronic prescription opioid use and understands the risk for hypercapnic respiratory failure. Her last PFT was in
September 2021 showing mild COPD with moderately reduced gas exchange capacity (DLco: 46%). She was advised to follow-up with us in the office again in 1 year but she has not been seen in the office yet.
PMHx: CAD with history of OH, history of RLE DVT, hypercholesterolemia, osteopenia, back pain, arthritis, chronic diastolic heart failure, obesity, KEVAN noncompliant with CPAP, squamous cell carcinoma of the skin s/p Mohs procedure (2012), history of
basal carcinoma, history of pulmonary nodule, chronic pain syndrome, GERD, history of pneumonia, history of COVID-19, chronic fatigue syndrome
PSHx: Bilateral cataracts, coronary stent, appendectomy, hemorrhoidectomy, T&A, knee replacement, hysterectomy with D&C, arthroscopy, laminectomy, electric stimulator in the back, foramentotomy, Mohs surgery (multiple) including right wrist Mohs
Past Medical History
Past Medical History: Other (Above as per HPI)
Past Surgical History: Other (Above as per HPI)
Social History
Tobacco: Former Smoker (Quit smoking in 2000 with 20-shsh-jjeo history)
Alcohol: None
Drug: None
Family History
Family History: CAD (Sister), Cancer (Daughter: Endometrial cancer; mother: Bladder cancer) and Other (Brother: Alzheimer's dementia; Sister: Passed from a cerebral hemorrhage)
Allergies / Home Medications
Allergies
Allergy/AdvReac Type Severity Reaction Status Date / Time
Penicillins Allergy face Verified 12/25/23 11:25
swells,
pruritis,
difficulty,
anaphylaxis
Home Medications
�Medication �Instructions �Recorded �Confirmed �Last Taken �Type
pantoprazole 40 mg tablet,delayed 40 mg PO HS Gastrointestinal issue 02/11/13 12/25/23 12/25/23 History
release
aspirin 81 mg tablet,delayed 81 mg PO DAILY Blood clot 03/25/17 12/25/23 12/25/23 History
release prevention/tx
bupropion HCl 150 mg 24 hr tablet, 150 mg PO DAILY Mental 03/25/17 12/25/23 12/25/23 History
extended release Health/Anxiety
duloxetine 60 mg capsule,delayed 60 mg PO DAILY PAIN 03/25/17 12/25/23 12/25/23 History
release
furosemide 40 mg tablet 40 mg PO DAILY Fluid 03/25/17 12/25/23 12/25/23 History
retention/Swelling
metformin 500 mg tablet,extended 500 mg PO QPM Diabetes 03/25/17 12/25/23 12/11/20 History
release 24 hr
albuterol sulfate 2.5 mg/3 mL 2.5 mg inhalation R Q6HPRN PRN 07/10/21 12/25/23 Unknown History
(0.083 %) solution for nebulization sob/wheezing
oxycodone 10 mg tablet 20 mg PO TID Pain 07/10/21 12/25/23 12/25/23 History
10 mg
ticagrelor 60 mg tablet (Brilinta) 60 mg PO BID Blood clot 07/10/21 12/25/23 12/25/23 History
prevention/tx
Tremfya 1 dose SC Q8W Autoimmune Disorder 12/08/23 12/25/23 Unknown History
atorvastatin 80 mg tablet 80 mg PO HS High Cholesterol 12/08/23 12/25/23 Unknown History
cholecalciferol (vitamin D3) 25 25 mcg PO DAILY Supplement 12/08/23 12/25/23 12/25/23 History
mcg (1,000 unit) tablet
gabapentin 300 mg capsule 600 mg PO BID@0800,2000 12/08/23 12/25/23 12/25/23 History
Neurological Condition
famotidine 20 mg tablet 20 mg PO DAILY Gastrointestinal 12/19/23 12/25/23 12/25/23 History
Issue
metoprolol succinate 50 mg 50 mg PO DAILY Heart 12/19/23 12/25/23 12/25/23 History
tablet,extended release 24 hr Disease/Condition
morphine 30 mg tablet,extended 30 mg PO Q12H Pain 12/19/23 12/25/23 12/25/23 History
release
miconazole nitrate 2 % topical 1 applic topical BID Skin issues 12/21/23 12/25/23 Unknown Rx
powder (Miconazorb AF) #85 grams
triamcinolone acetonide 0.1 % 1 applic topical TID Skin issues 12/21/23 12/25/23 Unknown Rx
lotion #60 mL
gabapentin 300 mg capsule 300 mg PO NOON Pain 12/25/23 12/25/23 Unknown History
Review of Systems
-
History Source: Patient
All other systems: Negative unless noted
Vitals / Labs / Diagnostic Testing
Vital Signs
Temp Pulse Resp BP Pulse Ox
98.4 F 55 13 89/48 98
12/26/23 11:05 12/26/23 13:00 12/26/23 13:00 12/26/23 13:00 12/26/23 13:23
Lab Data
12/26/23 04:57
12/26/23 04:57
Laboratory Results
12/25/23 12/26/23 12/26/23
23:01 03:12 10:01
pH 7.45 7.42 7.42
pCO2 48 H 51 H 53 H
pO2 71 L 76 L 56 L*
HCO3 33.4 H 33.1 H 34.4 H
O2 Delivery Level
Microbiology
12/25/23 12:21 Blood/Venous Blood Culture - Preliminary
No Growth in 24 hours- Final report to follow
12/25/23 12:32 Blood/Venous Blood Culture - Preliminary
No Growth in 24 hours- Final report to follow
12/25/23 12:22 Urine Urine Culture - Final
No Significant Growth
Diagnostic Testing:
Physical Exam
-
HEENT: Normocephalic, Anicteric and Other (thick neck)
Cardiovascular: Irregular Rhythm (Irregularly irregular) and Peripheral Edema (Trace lower extremity edema bilaterally)
Respiratory: Wheeze (negative), Rhonchi (negative), Non-Labored Respirations and Other (Diminished breath sounds bilaterally)
GI: Soft, Distended (Abdominal obesity), Non Tender and Normal Bowel Sounds
Skin: Warm and Other (Bandages covering both lower extremities)
General: Respiratory Distress (negative), Comfortable, Fever (negative) and Chills (negative)
Assessment
-
Assessment: 83-year-old obese female with a PMHx of KEVAN noncompliant with CPAP, suspected OHS, chronic opioid use, chronic pain syndrome, chronic fatigue syndrome, CAD s/p coronary stents with history of OH, history of RLE DVT previously on
Coumadin, hypercholesterolemia, chronic back pain, chronic HFpEF, GERD, history of pneumonia, history of COVID-19 and history of skin cancer who presents with altered mental status. Patient's found the patient on the morning [employer], and
patient was lethargic while he was trying to give her medications. Now once was called and EMS administered Narcan with her resulting weight becoming agitated with flailing and yelling and she was brought to the ER and found to be in a manic state.
Initial labs showed leukocytosis with lactate 2.8 and negative prolactin level. Urinalysis showed trace leukocyte esterase with moderate urine bacteria. Blood cultures collected. Trauma workup showed no evidence for cervical spine fracture and
no acute intracranial abnormality. Further imaging with CT A/P showed mild bronchiectasis in the right lower lobe. Antibiotics were started in the ER and she was also given fluids and admitted to telemetry. She became lethargic on 12/25/2023 and
transferred to the IMU for use of continuous BiPAP. Blood gas showed compensated hypercapnia. Due to continued somnolence, pulmonary service consulted for additional management/recommendations.
Chronic conditions [employer]: CAD with history of OH, history of RLE DVT, hypercholesterolemia, osteopenia, back pain, arthritis, chronic diastolic heart failure, obesity, KEVAN noncompliant with CPAP, squamous cell carcinoma of the skin s/p Mohs procedure
(2012), history of basal carcinoma, history of pulmonary nodule, chronic pain syndrome, GERD, history of pneumonia, history of COVID-19, chronic fatigue syndrome
Impression:
#Chronic hypercapnic respiratory failure likely due to obesity hypoventilation syndrome in the setting of chronic opioid use
#LISA (baseline creatinine 1�1.3)
#KEVAN noncompliant to CPAP
#RLL cellulitis
#Hypotensive now on levophed
#History of mild COPD (post-bronchodilator FEV1: 83% predicted/1.51 L via PFT from 09/2021)
#History of moderate gas exchange capacity defect (DLco: 46% predicted via PFT from 09/2021)
#Chronic anemia (baseline Hb 10-11.5g/L)
#CAD s/p coronary stents with history of OH
#History of RLE DVT previously on Coumadin
#Chronic HFpEF
#Obesity
Plan:
- Appears at her baseline pCO2 is approximately 50mmHg and she is currently at or near level as of this morning
- Hence this is not causing any additional altered mental status
- Would continue with BiPAP with sleep and prn naps but if she is obtunded and non-arousable, then PAP is a contraindication given aspiration risk and she would need to be intubated
- Although she is currently lethargic, she is easily arousable, following all commands and is able to hold a conversation before she slowly dozes off again
- She remains at high risk for intubation
- Continue to trend pCO2 with serial VBG
- Continue aspiration precautions, keeping HOB >30-45�
- Maintain SpO2 >90-94% with supplemental O2 as needed
- Continue levophed with goal MAP>65; wean as tolerated
- Lactate has normalized
- Hold anti-HTN for now
- If mentation improves then start midodrine in attempt to wean off pressors
- Check random cortisol to assess for CIRCI
- Incentive spirometer encouraged once off BiPAP and assuming pt is able to maintain mentation
- Continue to trend H/H and if <7g/dL then transfuse PRBC; keep pplt>20k, unless concern for bleeding then goal >50k
- Initially her WBC was 18.2, but this normalized - likely due to acute stress s/p narcan. Continue to monitor - although she is already on Abx (IV vanc/flagyl) for RLE cellulitis
- Renally dose all Abx/meds
- Trend UOP, I/O and sCr; if Cr rises further then would consult nephrology
- Replete electrolytes with K>4, Mg>2
- Maintain euglycemia with goal BG >100 and <180
- prn nebulized bronchodilators
- DVT ppx: HSQ --> change to q8hr
Pulmonary service will continue to follow along. Recommend to continue follow-up with us in the office as last visit was on 07/02/[address] Smith
Data:
CXR 12/25/2023:
No acute cardiopulmonary abnormality.
Unchanged cardiomegaly with left basilar atelectasis/scarring.
TTE 12/20/2023:
1. Left ventricle: Normal size and function with a visually estimated ejection
fraction of 50%. Mild concentric LVH
2. Right ventricle: Visually appears dilated
3. Atria: Mild left atrial dilation
4. Mitral valve: Mild mitral regurgitation
5. Aortic valve: Sclerotic. Trileaflet. No aortic stenosis
6. Tricuspid valve: Mild tricuspid regurgitation. Estimated pulmonary artery
systolic pressures are 25-30 mmHg
7. When compared to most recent echocardiogram from 07/13/2021, there have been
no significant changes. The right ventricle was felt to be mildly dilated on
the prior study in remained so in some views in the current study. Mild rather
than moderate mitral regurgitation is now noted. Estimated pulmonary artery
systolic pressures are 25-30 mmHg rather than 45-50 mmHg is noted on the prior
study
Total time spent today was 77 minutes for this encounter. Time includes reviewing laboratory test/imaging results, reviewing pertinent medical records, obtaining and reviewing medical history, performing an appropriate exam, ordering medications,
tests and procedures. Time also includes documentation of this encounter, coordinating patient care and communicating with other healthcare professionals. Total time does not include separately billed tests performed on this date of service.
--- NOTE | 2023-12-26 11:03 | PTCARENOTE ---
report received, assessments per work list. patient lethargic but arouses and converses. follows simple commands. levophed per work list. VAT Rn notified of additional needs for access. EEG completed. Dr Rojas in to assess, updated on abg results.
multiple wounds per work list documentation. veras draining yellow urine. patient spouse at bedside, updated with plan of care
[2023-12-26] MEDS: VANCOCIN 530 MG IV (11:21)
--- NOTE | 2023-12-26 11:44 | PTCARENOTE ---
wound care completed by wound/chief of vital statistics
--- NOTE | 2023-12-26 11:46 | WOUNDNOTE ---
L CALF (ANTERIOR LATERAL)
--- NOTE | 2023-12-26 11:47 | WOUNDNOTE ---
Joseph LAST (LOWER)
--- NOTE | 2023-12-26 11:49 | WOUNDNOTE ---
L ABDOMEN (LOWER OUTER)
--- NOTE | 2023-12-26 11:51 | WOUNDNOTE ---
SACRUM (with photo flash)
--- NOTE | 2023-12-26 12:00 | WOUNDNOTE ---
[facility] RN note: Patient admitted with severe sepsis, cellulitis, possible unintentional opioid overdose. Patient lives with her .
See H&P for complete history.
PMH: CHF, CAD with stents, NIDDM, HTN, psoriatic arthritis, opioid use for back pain, laminectomy, Moh's procedure for skin cancer, spinal stimulator, COPD, obesity.
Wound Location and type/assessment: Patient admitted with: dermal venous ulcers Le's. Dermal linear ulcer R lower abdominal fold r/t moisture. L buttocks stage 2 pressure injury. Sacral crease linear dermal ulcer suspect r/t moisture and pressure.
Bruise L posterior elbow and R medial thigh. Dry scab on upper abdomen, arms. Patches of psoriasis on back and feet.
Appetite: NPO currently. She is on a continual Bipap mask currently. Discussed with PEYTON Foster and RT Yoselyn. RT Yoselyn to consider under the nose Bipap mask if continual Bipap is needed after today.
Pressure redistribution devices in place: Centrella Max air bed. Air chair cushion.
Plan: Le dressings changed with help from PEYTON Rivas. L buttocks silicone border foam maintained. Silicone border foam applied to sacrum. Protective foam applied to heels. Heels off bed with air chair cushion. Patient turned to R semi side lying
position with help from PEYTON Rivas. stated she [place] [facility] And he uses Triamcinolone lotion TID to back, arms, shoulder and Triamcinolone cream to legs daily and Aquaphor daily.
Confirm orders with Hospitalist resident Linda Valdez; defer to resident/hospitalist if LE venous Doppler indicated (last venous Doppler Le's in 2020 which was negative for DVT; reports Le edema is improved. Discussed with PEYTON Rivas.
Care plan to be updated and will follow as needed.
Note to case management of equipment requested for discharge: Air mattress.
Recommend follow up at wound care center upon discharge.
[2023-12-26 12:40] LABS: Glucose - Point of Care 119 mg/dl (70-99)
[2023-12-26 12:54] LABS: Prolactin 13.2 ng/ml (3.0-18.6)
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
--- NOTE | 2023-12-26 16:52 | CM ---
Patient with Dx TME, Acute on chronic hypoxemic hypercapnic respiratory failure, Sepsis secondary to RLE cellulitis. O2 6L/BiPAP. Receiving Levophed gtt, IV Abx. NPO. Cuong. Seen by wound care nurse; recommendation air mattress. Per nursing;
lethargic, drowsy, bedrest.
Met with patient and ;
the patient resides with her and son Freddy in a 1 story house with 3 KVNG.
She is assisted by her son Freddy, who is her primary caregiver, with ADLs.
The patient has been ambulating with her W.
She has fallen 3x recently, by slipping out of bed while trying to get up.
Family has recently added a lift chair to help mobilize the patient.
DME - RW, shower chair, w/c, O2 concentrator 4L HS, has O2 POC shoulder tank but not using
Current with [facility] for SN
Prior [facility].
PCP - Mir Estrada
Pharmacy - [facility]
The says he has been doing her wound care to her legs and sacrum.
The patient has also been going to the wound care center.
If patient needs SNF for rehab, would like [facility] again.
Patient will need PT/OT Evals once stabilized/less acute.
Plan follow patient's mentation, diet, O2, wound care and mobility needs.
Plan TBD.
--- NOTE | 2023-12-26 17:05 | PTCARENOTE ---
assessments unchanged. patient remains very drowsy, but arouses and follows commands. oriented to person and place. remains on bipap, oxygen weaned to 6 liters. coarse diminished breath sounds bilaterally. coughing occasionally, orally suctioned for
white secretions. frequent oral care
[2023-12-26 17:15] LABS: Glucose - Point of Care 114 mg/dl (70-99)
--- NOTE | 2023-12-26 18:24 | PTCARENOTE ---
patient in afib, confirmed by ekg. rate 100, systolic BP 121. tiger text to hospitalist cross coverage to update, Dr Eagle states he will forward message to teaching team
[2023-12-26] MEDS: LOPRESSOR 5 MG IV (19:42)
[2023-12-26] MEDS: PROTONIX 40 MG PO (21:47)
[2023-12-26] MEDS: BRILINTA 60 MG PO (21:47)
[2023-12-26] MEDS: LIPITOR 80 MG PO (21:47)
[2023-12-26] MEDS: ANCEF 10 IV (21:47)
[2023-12-26 23:42] LABS: Glucose - Point of Care 122 mg/dl (70-99)
[2023-12-27] VITALS (25 sets, daily range): BP systolic 107–149; BP diastolic 59–94; PULSE 2–108; O2SAT 97–99; BMI 42.4
[2023-12-27] MEDS: ROXICODONE 20 MG PO ×4 (00:18→23:58)
[2023-12-27] MEDS: HEPARIN 5000 UNITS SC ×4 (03:10→23:46)
[2023-12-27 05:43] LABS: Glucose - Point of Care 116 mg/dl (70-99)
[2023-12-27] MEDS: LOPRESSOR 5 MG IV (06:01)
[2023-12-27 06:15] LABS: % Basophils 0.2 % (0-2); % Eosinophils 0.1 % (0-6); % Immature Granulocytes 0.4 % (0-0.5); % Lymphocytes 10.3 % (20.5-51.1); % Monocytes 9.5 % (1.7-9.3); % Neutrophils 79.5 % (42.2-75.2); Absolute Lymphocytes 0.9 10^3/uL (1.2-3.4); Absolute Monocytes 0.8 10^3/uL (0.1-0.6); Absolute Neutrophils 6.7 10^3/uL (1.4-6.5); Hematocrit 30.3 % (37.0-47.0); Hemoglobin 9.7 g/dL (12.0-16.0); Mean Corpuscular Hgb 28.3 pg (27.0-31.0); Mean Corpuscular Volume 88.3 fL (81.0-99.0); Mean Platelet Volume 9.5 fL (7.4-10.4); Nucleated Red Blood Cells % 0 %; Platelet Count 183 10^3/uL (130-400); Red Blood Cell Count 3.43 10^6/uL (4.20-5.40); Red Cell Dist. Width 14.9 % (11.5-14.5); White Blood Cell Count 8.4 10^3/uL (4.8-10.8)
[2023-12-27 06:34] LABS: ALT (SGPT) 15 U/L (0-35); AST (SGOT) 17 U/L (14-36); Albumin 2.9 g/dl (3.5-5.0); Alkaline Phosphatase 68 U/L (38-126); Blood Urea Nitrogen 24 mg/dl (7-17); Calcium 8.5 mg/dl (8.4-10.2); Carbon Dioxide 27 mmol/L (22-30); Chloride 102 mmol/L (98-107); Estimated Creatinine Clearance 60 ml/min; Glucose 124 mg/dl (70-99); Potassium 4.4 mmol/L (3.5-5.1); Sodium 140 mmol/L (135-145); Total Bilirubin 0.6 mg/dl (0.2-1.3); Total Protein 5.9 g/dl (6.3-8.2); eGFR > 60.00
[2023-12-27 06:43] LABS: Venous Blood Gas B.E. 4.4 mmol/L (-4 to +4); Venous Blood Gas HCO3 29.2 mmol/L (22-27); Venous Blood Gas O2 Sat % 99.6 %; Venous Blood Gas pCO2 44 mmHg (35-48); Venous Blood Gas pH 7.43 (7.32-7.43); Venous Blood Gas pO2 207 mmHg (30-50)
[2023-12-27] MEDS: NSS 1000 IV ×2 (08:14→17:12)
[2023-12-27] MEDS: ANCEF 10 IV ×3 (08:15→23:46)
[2023-12-27] MEDS: VITAMIN D3 (cholecalciferol) 25 MCG PO (08:17)
[2023-12-27] MEDS: BRILINTA 60 MG PO ×2 (08:17→20:26)
[2023-12-27] MEDS: WELLBUTRIN XL (24 hour extended release) 150 MG PO (08:17)
[2023-12-27] MEDS: ASPIR LOW (ENTERIC COATED) 81 MG PO (08:17)
[2023-12-27] MEDS: PEPCID 20 MG PO (08:17)
[2023-12-27] MEDS: TOPROL XL 50 MG PO (08:18)
[2023-12-27 08:24] LABS: NT-proBNP 8770 pg/ml
[2023-12-27 08:43] LABS: Cortisol, Random 24.9 ug/dl
--- NOTE | 2023-12-27 09:24 | W.PN.PUL3 ---
Today's Communication / Plan
-
Continue with BiPAP with sleep
Occasionally trend CO2 + pH with VBG
Outpatient pulmonary follow-up with possible ENT evaluation to discuss inspire device as she is openly honest that she will not use PAP with sleep once discharged
Pulmonary service will continue to briefly follow along
Assessment
-
Assessment: 83-year-old obese female with a PMHx of KEVAN noncompliant with CPAP, suspected OHS, chronic opioid use, chronic pain syndrome, chronic fatigue syndrome, CAD s/p coronary stents with history of ME, history of RLE DVT previously on
Coumadin, hypercholesterolemia, chronic back pain, chronic HFpEF, GERD, history of pneumonia, history of COVID-19 and history of skin cancer who presents with altered mental status. Patient's found the patient on the morning ECHO VASC TECH, and
patient was lethargic while he was trying to give her medications. Now once was called and EMS administered Narcan with her resulting weight becoming agitated with flailing and yelling and she was brought to the ER and found to be in a manic state.
Initial labs showed leukocytosis with lactate 2.8 and negative prolactin level. Urinalysis showed trace leukocyte esterase with moderate urine bacteria. Blood cultures collected. Trauma workup showed no evidence for cervical spine fracture and
no acute intracranial abnormality. Further imaging with CT A/P showed mild bronchiectasis in the right lower lobe. Antibiotics were started in the ER and she was also given fluids and admitted to telemetry. She became lethargic on 12/25/2023 and
transferred to the IMU for use of continuous BiPAP. Blood gas showed compensated hypercapnia. Due to continued somnolence, pulmonary service consulted for additional management/recommendations.
Chronic conditions ECHO VASC TECH: CAD with history of ME, history of RLE DVT, hypercholesterolemia, osteopenia, back pain, arthritis, chronic diastolic heart failure, obesity, KEVAN noncompliant with CPAP, squamous cell carcinoma of the skin s/p Mohs procedure
(2012), history of basal carcinoma, history of pulmonary nodule, chronic pain syndrome, GERD, history of pneumonia, history of COVID-19, chronic fatigue syndrome
Impression:
#Chronic hypercapnic respiratory failure likely due to obesity hypoventilation syndrome in the setting of chronic opioid use
#LISA (baseline creatinine 1�1.3) --> resolved
#KEVAN/OHS noncompliant to CPAP
#RLL cellulitis
#Hypotensive requiring levophed
#History of mild COPD (post-bronchodilator FEV1: 83% predicted/1.51 L via PFT from 09/2021)
#History of moderate gas exchange capacity defect (DLco: 46% predicted via PFT from 09/2021)
#Chronic anemia (baseline Hb 10-11.5g/L)
#CAD s/p coronary stents with history of ME
#History of RLE DVT previously on Coumadin
#Chronic HFpEF
#Obesity
Plan:
- Appears that her baseline pCO2 is approximately 50mmHg and she is currently at or near this level --> repeat blood gas this AM shows stable hypercapnia
- Hence this is not causing any additional altered mental status
- Would continue with BiPAP with sleep and prn naps but if she is obtunded and non-arousable, then PAP is a contraindication given aspiration risk and she would need to be intubated
- Although she is currently lethargic, she is easily arousable, following all commands and is able to hold a conversation before she slowly dozes off again --> she is much more awake today than she was yesterday (12/26/2023)
- Continue to trend pCO2 with occasional serial VBG
- Continue aspiration precautions, keeping HOB >30-45�
- She was strongly encouraged to continue with PAP therapy once she is discharged home but she is not thrilled with this idea and admits that she likely will not use it. We discussed the Inspire device and I recommended her to see ENT as an
outpatient, although her risk of this procedure is also intermediate/high given her comorbidities and age
- She says that normally she uses 4 L/min nasal cannula at home with sleep --> unfortunately this will not treat her hypercapnia or KEVAN
- Maintain SpO2 >90-94% with supplemental O2 as needed
- Continue levophed with goal MAP>65; wean as tolerated
- Lactate normalized
- Hold anti-HTN for now
- If mentation improves then start midodrine in attempt to wean off pressors
- Random cortisol >19 so no concern for CIRCI, and no need for stress dose steroids
- Incentive spirometer encouraged once off BiPAP and assuming pt is able to maintain mentation
- Continue to trend H/H and if <7g/dL then transfuse PRBC; keep plt>20k, unless concern for bleeding then goal >50k
- Initially her WBC was 18.2, but this normalized - likely due to acute stress s/p narcan. Continue to monitor - although she is already on Abx ancef s/p IV vanc/flagyl for RLE cellulitis
- Renally dose all Abx/meds
- Trend UOP, I/O and sCr; if Cr rises further then would consult nephrology
- Replete electrolytes with K>4, Mg>2
- Maintain euglycemia with goal BG >100 and <180
- prn nebulized bronchodilators - not currently bronchospastic
- DVT ppx: HSQ
Pulmonary service will continue to follow along. Recommend to continue follow-up with us in the office as last visit was on 07/02/[address] Smith.
Data:
CXR 12/25/2023:
No acute cardiopulmonary abnormality.
Unchanged cardiomegaly with left basilar atelectasis/scarring.
TTE 12/20/2023:
1. Left ventricle: Normal size and function with a visually estimated ejection
fraction of 50%. Mild concentric LVH
2. Right ventricle: Visually appears dilated
3. Atria: Mild left atrial dilation
4. Mitral valve: Mild mitral regurgitation
5. Aortic valve: Sclerotic. Trileaflet. No aortic stenosis
6. Tricuspid valve: Mild tricuspid regurgitation. Estimated pulmonary artery
systolic pressures are 25-30 mmHg
7. When compared to most recent echocardiogram from 07/13/2021, there have been
no significant changes. The right ventricle was felt to be mildly dilated on
the prior study in remained so in some views in the current study. Mild rather
than moderate mitral regurgitation is now noted. Estimated pulmonary artery
systolic pressures are 25-30 mmHg rather than 45-50 mmHg is noted on the prior
study
Total time spent today was 36 minutes for this encounter. Time includes reviewing laboratory test/imaging results, reviewing pertinent medical records, obtaining and reviewing medical history, performing an appropriate exam, ordering medications,
tests and procedures. Time also includes documentation of this encounter, coordinating patient care and communicating with other healthcare professionals. Total time does not include separately billed tests performed on this date of service.
Subjective Data
-
Date of Service:
Date of Service: December 27, 2023
Chief Complaint: Pulmonary Follow Up
Subjective:
Patient seen at bedside. , Morro, at bedside as well. Wore BiPAP overnight at 16/8 cmH2O bled with 6 L/min. She does not like wearing the BiPAP and is not sure if she plans on wearing it when she gets home. She normally only wears 4 L/min
nasal cannula at home with sleep. She feels very sleepy today and fatigued. Currently, heart rate 74, saturating 92% on room air, and BP 128/85. She has no current respiratory complaints - denies SOB, cough, or chest pain; also denies BUCKNER,
abdominal pain, nausea, fevers or chills.
Review of Systems
General: Other (Negative unless mentioned above)
Objective Data
Data Reviewed
Vital Signs / I&O / Oxygen:
Vital Signs
Temp Pulse Resp BP Pulse Ox
97.9 F 69 18 133/60 98
12/27/23 07:10 12/27/23 09:15 12/27/23 09:15 12/27/23 09:00 12/27/23 09:26
Intake and Output
12/26/23 12/27/23 12/28/23
06:59 06:59 06:59
Intake Total 7.5 / 7.5 2625 / 2625
Output Total 1200 / 1200 1575 / 1575
Balance -1192.5 / -1192.5 1050 / 1050
SaO2 98
Nasal Cannula flow liters per 4
minute
Physical Exam
General: Respiratory Distress (negative), Comfortable, Chills (negative) and Sweats (negative)
HEENT: Normocephalic and Anicteric
Cardiovascular: S1-S2, Rub (negative) and Peripheral Edema (negative)
Respiratory: Wheeze (negative), Crackles (Bibasilar), Rhonchi (negative) and Non-Labored Respirations
GI: Soft, Distended (Abdominal obesity), Non Tender and Normal Bowel Sounds
Neurology: Awake, Tremors (negative) and Lethargic (Easily arousable and answering questions appropriately)
Skin: Warm, Dry, Cyanosis (negative) and Jaundice (negative)
Labs/Micro/Reports
Lab Data
12/27/23 05:46
12/27/23 05:46
Microbiology
12/25/23 17:21 Other-Please specify - Other MRSA Screen - Final
No Methicillin Resistant Staphylococcus aureus isolated.
12/25/23 18:19 Blood/Venous Blood Culture - Preliminary
No Growth in 24 hours- Final report to follow
12/25/23 17:41 Blood/Venous Blood Culture - Preliminary
No Growth in 24 hours- Final report to follow
12/25/23 12:21 Blood/Venous Blood Culture - Preliminary
No Growth in 24 hours- Final report to follow
12/25/23 12:32 Blood/Venous Blood Culture - Preliminary
No Growth in 24 hours- Final report to follow
12/25/23 12:22 Urine Urine Culture - Final
No Significant Growth
--- NOTE | 2023-12-27 10:15 | EEG.RPT ---
Electroencephalogram Report
Report
LESS THAN 1 HOUR EEG REPORT
LESS THAN 1 HOUR EEG INTERPRETATION:
Moderately abnormal study for age based on low amplitude even for age, generalized slowing demonstrated bihemispherically equally
CLINICAL CORRELATION:
Although normative values not been established for a person of this advanced age the patient�s symmetry of the background suggests that this study was suggestive of moderate bihemispheric cortical dysfunction. No epileptiform features were
demonstrated.
If concerns remain regarding epilepsy, prolonged monitoring may be of assistance.
Clinical correlation is advised.
METHODS:
A 21-channel digital electroencephalogram (EEG) was performed at the bedside in the IMU. The 10/20 international system of electrode placement was used with ECG and lateral/vertical eye movements recorded. The [employer] quantitative EEG analysis
system was performed
IMPRESSION(S):
Quality of study
Fair due to muscle artifact
Background
Low amplitude
Anterior-posterior voltage gradient differentiation: Fair
Theta frequency maximal background demonstrated, usually delta
Sleep
Drowsiness present
Hyperventilation
Not performed
Photic Stimulation
Failed to activate the record
ECG
Normal rhythm
Abnormal Activity
None
[2023-12-27 11:42] LABS: Glucose - Point of Care 142 mg/dl (70-99)
[2023-12-27] MEDS: MAGIC OR MIRACLE MOUTHWASH 10 ML PO ×3 (11:43→23:59)
[2023-12-27] MEDS: DESENEX/MITRAZOL/ZEASORB 1 APPLIC TOPICAL ×2 (11:44→20:25)
[2023-12-27] MEDS: HYDROPHOR 1 APPLIC TOPICAL (11:44)
[2023-12-27] MEDS: SENOKOT-S 1 TABLET PO (11:44)
--- NOTE | 2023-12-27 13:13 | W.PN.HOSP.TC ---
Today's Communication/Plan
-
Continue cefazolin, transfer to telemetry
Restart home gabapentin, duloxetine as LISA resolved and mental status improved
Assessment / Plan
Assessment / Plan
83-year-old female with past medical history of CAD status post PCI and stenting on Brilinta, aspirin, CHF with preserved EF, chronic pain on opioids, GERD, morbid obesity, [id number] diabetes presented to the ED with increased confusion
and lethargy. Elevated WBC, lactic acid, tachycardic. Severe sepsis secondary to cellulitis, however increased lethergy and fatigue associated with morphine and hypoventilation due to increased body habitus and underlying respiratory issues could
be the cause as well. WBC could be reactionary.
#Septic shock secondary cellulitis
WBC 18.2, tachypneic, lactic acid 2.8, source right lower extremity cellulitis
Vancomycin and metronidazole IV (as patient has severe penicillin allergy)
Moderate fluids versus aggressive as patient has history of HFrEF
Blood cultures (-)
Wound culture no MRSA
WBC normal
Lactic acid resolved
Infectious disease consulted -> switched antibiotics to cefazolin -> day 2
US no DVT
Weaned off levophed and comfortable on 4L O2 -> downgrade to telemetry
Wound care dressed wound
#Paroxysmal A-fib
Went into A-fib last night
Two 5mg Lopressor push
Currently rate controlled <110
Transfer to telemetry
t/c cardiology consult if a. fib with RVR > 110
Continue aspirin and Brilinta for anticoagulation
Not OAC candidate given significant groin bleeding post cath 2016
#Acute hypoxic respiratory failure
Likely secondary to opioid overdose vs sepsis
Previously discharged on 12/21/2023 with instructions for 15 mg morphine BID 7 days
In ED stated on 30 mg BID with additional 15 mg BID
On 4 L of O2 at night at home
Wean off Levophed, on 4 L oxygen comfortable -> transferred to telemetry
VBG pCO2 44, not retaining
BiPAP with sleep unless increased confusion which is a contraindication
Maintain SpO2 greater 90% with supplemental O2 as needed
#Altered mental status/lethergy/confusion/metabolic encephalopathy
Previously discharged on 12/21/2023 with instructions for 15 mg morphine BID 7 days
In ED stated on 30 mg BID with additional 15 mg BID
Likely secondary to opioids
Did bite tongue in ED after Narcan given with agitation
EEG normal
Prolactin wnl
Today significantly improved, AAOx3
Restart Cymbalta and gabapentin
#LISA
Resolved
Restart gabapentin, cont. to hold lasix until off fluids
Monitor
# COPD/interstitial lung disease/KEVAN
DuoNebs as needed
Continue home albuterol
Exacerbated by increase morphine dose
Hold morphine until improved mental status
#Opioid dependence associated with chronic back pain
Previously discharged on 15 mg morphine BID for 7 days
Patient came in stating on 30 mg morphine BID and additional 15mg BID
Continue oxy 20 mg TID
Re-introduce slowly as mental status improves
Hold morphine to evaluate confusion off of opioids
Hold gabapentin
#HFpEF
Last echo 12/20/23 EF 50%
Daily weights
I's and O's
Cont. to hold lasix until off fluid
#L buttocks stage 2 pressure injury/wound
Wound care seeing
#Type 2 diabetes mellitus
Hold metformin acutely
Sliding scale insulin
Last hemoglobin A1c 12/08 6.5
#CAD status post multiple stents
Continue atorvastatin 80
Continue aspirin ASA 81
# Depression
Continue bupropion
Restart duloxetine as mental status improves
#GERD
Continue pantoprazole and famotidine
# Psoriatic arthritis
On Tremfya SQ every 8 weeks
Triamcinolone cream for affected psoriatic areas
# Vitamin D deficiency
Continue with supplement
#Obesity due to excess calories
DVT heparin subQ q8hr
low sodium diabetic diet
Full code
Anticipated Discharge: 24 - 48 hours
Subjective/Interval History
-
Date of Service: December 27, 2023
Objective Data
-
Labs:
Laboratory Results
12/27/23
05:46
WBC 8.4
Hgb 9.7 L
Hct 30.3 L
Plt Count 183
Sodium 140
Potassium 4.4
Chloride 102
Carbon Dioxide 27
BUN 24 H
Creatinine 0.8
Glucose 124 H
Calcium 8.5
Total Bilirubin 0.6
AST 17
ALT 15
Alkaline Phosphatase 68
Vital Signs:
Vital Signs
Temp Pulse Resp BP Pulse Ox
98.0 F 72 17 136/82 92
12/27/23 11:24 12/27/23 11:45 12/27/23 11:45 12/27/23 11:00 12/27/23 11:59
I&O
12/26/23 12/27/23 12/28/23
06:59 06:59 06:59
Intake Total 7.5 / 7.5 2625 / 2625
Output Total 1200 / 1200 1575 / 1575
Balance -1192.5 / -1192.5 1050 / 1050
Review of Systems
-
History Source: Patient
EENT: Reports Other (Tongue pain)
Respiratory: Reports No Symptoms
Cardiac: Reports No Symptoms
Abdomen/GI: Reports Constipated
Genitourinary: Reports No Symptoms
Neuro: Reports No Symptoms
Physical Exam
-
Respiratory: Clear to Auscultation
Cardiac: Irregular Rhythm; Negative Murmur or Rub
GI: Soft, Normal Bowel Sounds and Tender (Tender with palpation)
Musculoskeletal: Edema, Right Lower Extrem (Currently bandaged)
Skin: Warm
Neuro: AO x 3
Psych: Calm
--- NOTE | 2023-12-27 13:37 | W.PN.ID1 ---
Addendum entered and electronically signed by David Eagle MD 12/27/23 17:58:
Toxic metabolic encephalopathy which could be drug-induced from opioids versus CO2 narcosis versus infectious.
-Resolved
Acute on chronic hypoxemic hypercapnic respiratory failure
-In the setting of likely KEVAN/OHS
-Without evidence of active wheezing on exam
-On BiPAP HS prn
Right lower extremity cellulitis
-ID following
-Continue ancef, plan to transition to PO in the next 24-48hrs
Paroxysmal atrial fibrillation
Currently in sinus rhythm Eliquis discontinued due to previous bleed
On aspirin
CAD continue statin aspirin Brilinta
Downgrade to Tele
Original Note:
Date of Service
Date of Service: December 27, 2023
Today's Communication
Continue antibiotics.
Assessment / Plan
RLE cellulitis
Acute Hypoxic Respiratory Failure Likely Secondary to Opioid Overdose
- improved
Paroxsymal A-fib
HFpEF
CAD
DM
HTN
Dyslipidemia
Psoriasis
Chronic pain syndrome
Recommendations:
Continue with cefazolin for today.
Monitor white count temperature curve.
With continued improvement, may be able to transition to an oral regimen in the next 24 to 48 hours
����������������������������������������������������������
Chief Complaint
-: Cellulitis
Subjective / Review of Systems
Review of Systems: No Fever and No Chills
Vital Signs / Physical Exam
Vital Signs
Vital Signs
Temp Pulse Resp BP Pulse Ox
98.0 F 72 17 136/82 92
12/27/23 11:24 12/27/23 11:45 12/27/23 11:45 12/27/23 11:00 12/27/23 11:59
Physical Exam
Constitutional: No Acute Distress, Comfortable, Chronically Ill and Non-toxic
Eyes: Sclera Anicteric
Cardiovascular: S1/S2; Negative S3/S4
Pulmonary: Non Labored
Gastrointestinal: Soft and Non Tender
Extremities: Edema and Erythema (RLE)
Neurological: Awake and Alert
Psychological: Calm
Objective Data
Lab Data
Lab Results
12/27/23 05:46
12/27/23 05:46
Estimated Creat Clear 60 ml/min 12/27/23 05:46
Lactic Acid Cancelled 12/25/23 23:30
Total Bilirubin 0.6 mg/dl (0.2-1.3) 12/27/23 05:46
AST 17 U/L (14-36) 12/27/23 05:46
ALT 15 U/L (0-35) 12/27/23 05:46
Alkaline Phosphatase 68 U/L (38-126) 12/27/23 05:46
Most recent labs reviewed.
Micro Results:
12/25/23 12:21 Blood Culture - Preliminary
Blood/Venous No Growth in 48 hours- Final report to follow
12/25/23 12:32 Blood Culture - Preliminary
Blood/Venous No Growth in 48 hours- Final report to follow
12/25/23 17:21 MRSA Screen - Final
Other-Please specify - Other No Methicillin Resistant Staphylococcus aureus isolated.
12/25/23 18:19 Blood Culture - Preliminary
Blood/Venous No Growth in 24 hours- Final report to follow
12/25/23 17:41 Blood Culture - Preliminary
Blood/Venous No Growth in 24 hours- Final report to follow
12/25/23 12:22 Urine Culture - Final
Urine No Significant Growth
--- NOTE | 2023-12-27 15:11 | PTCARENOTE ---
Patient out of bed to chair with mod assist, rolling walker. Had a bowel movement on the commode. Ate majority of her meals today. Pain treated with Oxycodone 20mg. Wound care provided to bilateral legs. Pulse ox 90% on room air, 95% on 2 liters.
--- NOTE | 2023-12-27 15:28 | PTCARENOTE ---
Patient was in afib last night, EKG completed and patient is now in Normal Sinus. Dr. José Miguel roldan.
--- NOTE | 2023-12-27 16:09 | CM ---
Addendum entered by Serena Bethea RN 12/27/23 16:28:
Per Resident; no need for BiPAP at SNF, patient will have pulmonary follow up as outpatient.
Original Note:
Patient with Dx TME, Acute on chronic hypoxemic hypercapnic respiratory failure, Sepsis secondary to RLE cellulitis. O2 4L. BiPAP HS. Receiving IV Abx. Diet advanced. Seen by wound care nurse; recommendation air mattress. PT recommend skilled
rehab. O2 recommends SNF vs HH.
Met with patient, and son; patient A/O & conversant. All agree to d/c to [facility] for rehab - CM agrees to make referral. The patient and family wish to discuss code status - spoke with resident Scar Glasgow who will speak with them.
Spoke with Karyn Marc re; referral. Informed her unsure if patient will need BiPAP after d/c.
Plan follow up with [facility], follow up re; BiPAP needs for d/c.
--- NOTE | 2023-12-27 16:38 | PN.CDI ---
CDI
- -
CDI:
Physician Documentation Request
Admit Date: 12/25/23 14:23
Dear Doctor Fco/Resident,
Please review the following and provide your response in the progress notes.
Clinical Indicators:
Pt admitted with sepsis 2/2 Right lower extremity/ Acute on Chronic Resp failure /TME
Documented per WOCN note 12/25, '... L buttocks stage 2 pressure injury. Sacral crease linear dermal ulcer suspect r/t moisture and pressure....L buttocks silicone border foam maintained. ...'
Physician documentation of the type and location of wounds is required for compliant documentation. Based on the above clinical findings and your assessment, please provide the following in your progress note:
1. Location of the ulcer/wound, including laterality.
2. Type (etiology) of ulcer/wound:
- Pressure (decubitus) ulcer
- Non-pressure ulcer
- Other
Use of terms such as suspected, likely, concern for, or probable (associated with a specific diagnosis that is being evaluated, monitored, or treated as if it exists) are acceptable and can be coded in the inpatient setting, when documented at the
time of discharge.
Thank you,
Pamella Hobson RN
CDI Specialist
Alexander Text
Please use your independent medical judgment in providing your response.
*Source: National Pressure Ulcer Advisory Panel (NPUAP)
[2023-12-27 16:57] LABS: Glucose - Point of Care 162 mg/dl (70-99)
[2023-12-27] MEDS: NEURONTIN 300 MG PO (17:11)
--- NOTE | 2023-12-27 17:25 | PTCARENOTE ---
Patient had an episode of anxiety and severe pain. Contacted hospitalist to come see patient. Gabapentin restarted on patient. Patient is now calm and eating dinner.
[2023-12-27] MEDS: NOVOLOG FLEXPEN-LOW RESISTANCE 1 UNITS SC (18:00)
[2023-12-27] MEDS: NEURONTIN 600 MG PO (20:26)
[2023-12-27] MEDS: LIPITOR 80 MG PO (20:26)
[2023-12-27] MEDS: PROTONIX 40 MG PO (20:26)
[2023-12-27 22:49] LABS: Glucose - Point of Care 158 mg/dl (70-99)
[2023-12-28] VITALS: BP 141/74
[2023-12-28] MEDS: NSS 1000 IV (03:38)
[2023-12-28 03:53] VITALS: BMI 43.7
[2023-12-28 04:06] VITALS: BP 152/84
[2023-12-28 04:06] LABS: Venous Blood Gas B.E. 1.2 mmol/L (-4 to +4); Venous Blood Gas HCO3 27.1 mmol/L (22-27); Venous Blood Gas O2 Sat % 98.2 %; Venous Blood Gas pCO2 48 mmHg (35-48); Venous Blood Gas pH 7.36 (7.32-7.43); Venous Blood Gas pO2 99 mmHg (30-50)
[2023-12-28 04:08] LABS: Hematocrit 30.3 % (37.0-47.0); Hemoglobin 9.6 g/dL (12.0-16.0); Mean Corp Hgb Conc. 31.7 g/dL (33.0-37.0); Mean Corpuscular Volume 88.3 fL (81.0-99.0); Mean Platelet Volume 9.5 fL (7.4-10.4); Platelet Count 214 10^3/uL (130-400); Red Blood Cell Count 3.43 10^6/uL (4.20-5.40); White Blood Cell Count 9.7 10^3/uL (4.8-10.8)
--- NOTE | 2023-12-28 04:25 | PTCARENOTE ---
Patient refused bipap HS, 2L NC on while sleeping. did not appear anxious, only fatigued. Prn oxycodone and magic mouthwash provided for discomfort/pain. swallowed pills one at a time w/ water, no s/s of aspiration. NSR/ST on tele with short
episodes of parox. afib while sleeping. she was mostly in NSR. Hutchins remains in place, clear yellow output. IVF incontinue. Repositioned throughout the night, heels floated. call fitch and tray table within reach.
[2023-12-28 05:04] LABS: ALT (SGPT) 11 U/L (0-35); AST (SGOT) 17 U/L (14-36); Alkaline Phosphatase 73 U/L (38-126); Blood Urea Nitrogen 18 mg/dl (7-17); Calcium 8.6 mg/dl (8.4-10.2); Carbon Dioxide 22 mmol/L (22-30); Chloride 104 mmol/L (98-107); Estimated Creatinine Clearance 62 ml/min; Glucose 129 mg/dl (70-99); Sodium 140 mmol/L (135-145); Total Bilirubin 0.5 mg/dl (0.2-1.3); Total Protein 6.1 g/dl (6.3-8.2); eGFR > 60.00
[2023-12-28] MEDS: ROXICODONE 20 MG PO ×2 (06:29→14:41)
[2023-12-28 08:00] VITALS: BP 149/84
[2023-12-28 08:24] VITALS: BP 143/78
[2023-12-28] MEDS: PEPCID 20 MG PO (08:25)
[2023-12-28] MEDS: NEURONTIN 600 MG PO (08:25)
[2023-12-28] MEDS: ASPIR LOW (ENTERIC COATED) 81 MG PO (08:25)
[2023-12-28] MEDS: BRILINTA 60 MG PO (08:25)
[2023-12-28] MEDS: HYDROPHOR 1 APPLIC TOPICAL (08:26)
[2023-12-28] MEDS: CYMBALTA DELAYED RELEASE 60 MG PO (08:26)
[2023-12-28] MEDS: TOPROL XL 50 MG PO (08:26)
[2023-12-28] MEDS: WELLBUTRIN XL (24 hour extended release) 150 MG PO (08:26)
[2023-12-28] MEDS: MIRALAX 17 GRAMS PO (08:26)
[2023-12-28] MEDS: VITAMIN D3 (cholecalciferol) 25 MCG PO (08:26)
[2023-12-28] MEDS: HEPARIN 5000 UNITS SC (08:27)
[2023-12-28] MEDS: DESENEX/MITRAZOL/ZEASORB 1 APPLIC TOPICAL (08:27)
[2023-12-28] MEDS: TRIAMCINOLONE ACETONIDE 0.1% CREAM 1 APPLIC TOPICAL (08:28)
[2023-12-28] MEDS: NOVOLOG FLEXPEN-LOW RESISTANCE SC (08:39)
[2023-12-28 08:50] LABS: Glucose - Point of Care 145 mg/dl (70-99)
[2023-12-28] MEDS: ANCEF 10 IV (09:13)
--- NOTE | 2023-12-28 09:28 | W.PN.PUL3 ---
Today's Communication / Plan
-
Recommend to continue BiPAP with sleep
Blood gas shows stable hypercapnia
Outpatient pulmonary follow-up with possible ENT evaluation to discuss inspire device as she is openly honest that she will not use PAP with sleep once discharged
Patient being prepared for discharge to SNF - no additional pulmonary recommendations at this time. Recommend to follow-up with us in the office as last visit was on 07/02/[address] Smith. Pulmonary service will now sign off. Please
reconsult if there are any additional questions/concerns, or if patient's respiratory status deteriorates.
Assessment
-
Assessment: 83-year-old obese female with a PMHx of KEVAN noncompliant with CPAP, suspected OHS, chronic opioid use, chronic pain syndrome, chronic fatigue syndrome, CAD s/p coronary stents with history of TX, history of RLE DVT previously on
Coumadin, hypercholesterolemia, chronic back pain, chronic HFpEF, GERD, history of pneumonia, history of COVID-19 and history of skin cancer who presents with altered mental status. 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
patient was lethargic while he was trying to give her medications. Now once was called and EMS administered Narcan with her resulting weight becoming agitated with flailing and yelling and she was brought to the ER and found to be in a manic state.
Initial labs showed leukocytosis with lactate 2.8 and negative prolactin level. Urinalysis showed trace leukocyte esterase with moderate urine bacteria. Blood cultures collected. Trauma workup showed no evidence for cervical spine fracture and
no acute intracranial abnormality. Further imaging with CT A/P showed mild bronchiectasis in the right lower lobe. Antibiotics were started in the ER and she was also given fluids and admitted to telemetry. She became lethargic on 12/25/2023 and
transferred to the IMU for use of continuous BiPAP. Blood gas showed compensated hypercapnia. Due to continued somnolence, pulmonary service consulted for additional management/recommendations.
Chronic conditions TELEPHONE OPERATOR: CAD with history of TX, history of RLE DVT, hypercholesterolemia, osteopenia, back pain, arthritis, chronic diastolic heart failure, obesity, KEVAN noncompliant with CPAP, squamous cell carcinoma of the skin s/p Mohs procedure
(2012), history of basal carcinoma, history of pulmonary nodule, chronic pain syndrome, GERD, history of pneumonia, history of COVID-19, chronic fatigue syndrome
Impression:
#Chronic hypercapnic respiratory failure due to obesity hypoventilation syndrome in the setting of chronic opioid use
#LISA (baseline creatinine 1�1.3) --> resolved
#KEVAN/OHS noncompliant to CPAP
#RLL cellulitis
#Hypotensive requiring levophed - resolved
#History of mild COPD (post-bronchodilator FEV1: 83% predicted/1.51 L via PFT from 09/2021)
#History of moderate gas exchange capacity defect (DLco: 46% predicted via PFT from 09/2021)
#Chronic anemia (baseline Hb 10-11.5g/L)
#CAD s/p coronary stents with history of TX
#History of RLE DVT previously on Coumadin
#Chronic HFpEF
#Obesity
Plan:
- Appears that her baseline pCO2 is approximately 50mmHg and she is currently at or near this level --> repeat blood gas this AM shows stable hypercapnia
- Hence this is not causing any additional altered mental status
- Would continue with BiPAP with sleep and prn naps but if she is obtunded and non-arousable, then PAP is a contraindication given aspiration risk and she would need to be intubated
- Continue to trend pCO2 with occasional serial VBG
- Blood gas today is stable
- Continue aspiration precautions, keeping HOB >30-45�
- She was strongly encouraged to continue with PAP therapy once she is discharged home but she is not thrilled with this idea and admits that she likely will not use it. We discussed the Inspire device and I recommended her to see ENT as an
outpatient, although her risk of this procedure is also intermediate/high given her comorbidities and age
- She says that normally she uses 4 L/min nasal cannula at home with sleep --> unfortunately this will not treat her hypercapnia or KEVAN
- Maintain SpO2 >90-94% with supplemental O2 as needed
- Goal MAP>65; wean as tolerated
- Lactate normalized
- Continue with metoprolol with holding parameters
- Random cortisol >19 so no concern for CIRCI, and no need for stress dose steroids
- Incentive spirometer encouraged once off BiPAP and assuming pt is able to maintain mentation
- Continue to trend H/H and if <7g/dL then transfuse PRBC; keep plt>20k, unless concern for bleeding then goal >50k
- Initially her WBC was 18.2, but this normalized - likely due to acute stress s/p narcan. Continue to monitor - although she is already on Abx w/ ancef s/p IV vanc/flagyl for RLE cellulitis
- Defer Abx course to primary team
- Renally dose all Abx/meds
- Trend UOP, I/O and sCr
- Replete electrolytes with K>4, Mg>2
- Maintain euglycemia with goal BG >100 and <180
- prn nebulized bronchodilators - not currently bronchospastic
- DVT ppx: HSQ
Patient being prepared for discharge to SNF - no additional pulmonary recommendations at this time. Recommend to follow-up with us in the office as last visit was on 07/02/[address] Smith. Pulmonary service will now sign off. Thank you for
allowing us to be involved in the care of this patient. Please reconsult if there are any additional questions/concerns, or if patient's respiratory status deteriorates.
Data:
CXR 12/25/2023:
No acute cardiopulmonary abnormality.
Unchanged cardiomegaly with left basilar atelectasis/scarring.
TTE 12/20/2023:
1. Left ventricle: Normal size and function with a visually estimated ejection
fraction of 50%. Mild concentric LVH
2. Right ventricle: Visually appears dilated
3. Atria: Mild left atrial dilation
4. Mitral valve: Mild mitral regurgitation
5. Aortic valve: Sclerotic. Trileaflet. No aortic stenosis
6. Tricuspid valve: Mild tricuspid regurgitation. Estimated pulmonary artery
systolic pressures are 25-30 mmHg
7. When compared to most recent echocardiogram from 07/13/2021, there have been
no significant changes. The right ventricle was felt to be mildly dilated on
the prior study in remained so in some views in the current study. Mild rather
than moderate mitral regurgitation is now noted. Estimated pulmonary artery
systolic pressures are 25-30 mmHg rather than 45-50 mmHg is noted on the prior
study
Total time spent today was 38 minutes for this encounter. Time includes reviewing laboratory test/imaging results, reviewing pertinent medical records, obtaining and reviewing medical history, performing an appropriate exam, ordering medications,
tests and procedures. Time also includes documentation of this encounter, coordinating patient care and communicating with other healthcare professionals. Total time does not include separately billed tests performed on this date of service.
Subjective Data
-
Date of Service:
Date of Service: December 28, 2023
Chief Complaint: Pulmonary Follow Up
Subjective:
Patient seen and evaluated today at bedside. No acute events reported from overnight. She is eager to be discharged. Currently denies SOB, chest pain, BUCKNER, nausea, fevers or chills.
Review of Systems
General: Other (Negative unless mentioned above)
Objective Data
Data Reviewed
Vital Signs / I&O / Oxygen:
Vital Signs
Temp Pulse Resp BP Pulse Ox
98.6 F 67 20 143/78 93
12/28/23 07:32 12/28/23 08:26 12/27/23 14:45 12/28/23 08:26 12/28/23 06:15
Intake and Output
12/27/23 12/28/23 12/29/23
06:59 06:59 06:59
Intake Total 2625 / 2625 2541 / 2541
Output Total 1575 / 1575 1050 / 1050
Balance 1050 / 1050 1491 / 1491
SaO2 93
Nasal Cannula flow liters per 2
minute
Physical Exam
General: Respiratory Distress (negative), Comfortable, Chills (negative) and Sweats (negative)
HEENT: Normocephalic and Anicteric
Cardiovascular: S1-S2, Rub (negative) and Peripheral Edema (negative)
Respiratory: Wheeze (negative), Crackles (Bibasilar), Rhonchi (negative) and Non-Labored Respirations
GI: Soft, Distended (Abdominal obesity), Non Tender and Normal Bowel Sounds
Neurology: Awake, Alert and Tremors (negative)
Skin: Warm, Dry, Cyanosis (negative) and Jaundice (negative)
Labs/Micro/Reports
Lab Data
12/28/23 03:58
12/28/23 03:58
Microbiology
12/25/23 18:19 Blood/Venous Blood Culture - Preliminary
No Growth in 48 hours- Final report to follow
12/25/23 17:41 Blood/Venous Blood Culture - Preliminary
No Growth in 48 hours- Final report to follow
12/25/23 12:21 Blood/Venous Blood Culture - Preliminary
No Growth in 48 hours- Final report to follow
12/25/23 12:32 Blood/Venous Blood Culture - Preliminary
No Growth in 48 hours- Final report to follow
12/25/23 17:21 Other-Please specify - Other MRSA Screen - Final
No Methicillin Resistant Staphylococcus aureus isolated.
12/25/23 12:22 Urine Urine Culture - Final
No Significant Growth
[2023-12-28] MEDS: LOPRESSOR 25 MG PO (10:07)
[2023-12-28] MEDS: NEURONTIN 300 MG PO (11:55)
--- NOTE | 2023-12-28 12:03 | PTCARENOTE ---
Received report from nightshift RN. Normal sinus on tele hx of paroxysmal a-fib. Pt AAOx3 drowsy. Pt 96% on 2L NC. Dyspneic on exertion. Expiratory wheeze auscultated. Pt able to tolerate oral meds one at a time with no s/s of aspiration. Order to
remove veras pt is due to void by 1750. Wound care of bilateral legs. Sacral foam applied. Pt tolerating Q2 turns. Pt up to the bedside commode with assist of 2 using rolling walker. Magic mouthwash and oral care done. Desenex applied to bilateral
breasts and abdomen. Pt to be transported to [facility]. Called to give report to RN. Call fitch is within reach.
--- NOTE | 2023-12-28 12:10 | W.PN.HOSP.TC ---
Today's Communication/Plan
-
Switch to p.o. antibiotics, discontinue fluids, increase metoprolol to 75 daily (may change pending cardiology input), discharge to SNF today pending bed
Assessment / Plan
Assessment / Plan
83-year-old female with past medical history of CAD status post PCI and stenting on Brilinta, aspirin, CHF with preserved EF, chronic pain on opioids, GERD, morbid obesity, hre-mvkbvwp-jlufsdwbw diabetes presented to the ED with increased confusion
and lethargy. Elevated WBC, lactic acid, tachycardic. Severe sepsis secondary to cellulitis, however increased lethergy and fatigue associated with morphine and hypoventilation due to increased body habitus and underlying respiratory issues could
be the cause as well. WBC could be reactionary.
#Septic shock secondary cellulitis
WBC 18.2, tachypneic, lactic acid 2.8, source right lower extremity cellulitis
Vancomycin and metronidazole IV (as patient has severe penicillin allergy)
Moderate fluids versus aggressive as patient has history of HFrEF
Blood cultures (-)
Wound culture no MRSA
WBC normal
Lactic acid resolved
Infectious disease consulted -> switched antibiotics to cefazolin IV -> day 3 -> switch to PO cephalexin 500 mg
US no DVT
Comfortable on 2L O2
Wound care dressed wound
Discharged today pending bed at SNF
#Paroxysmal A-fib
In and out of a.fib
130s in A-fib, 60s in sinus rhythm
Increased metoprolol from 50 to 75
Cardiology appreciated
Continue aspirin and Brilinta for anticoagulation
Not OAC candidate given significant groin bleeding post cath 2016
#Acute hypoxic respiratory failure
Likely secondary to opioid overdose vs sepsis
Previously discharged on 12/21/2023 with instructions for 15 mg morphine BID 7 days
In ED stated on 30 mg BID with additional 15 mg BID
On 4 L of O2 at night at home
Wean off Levophed, on 2 L oxygen comfortable -> transferred to telemetry
VBG pCO2 48, not retaining
BiPAP with sleep unless increased confusion which is a contraindication
Maintain SpO2 greater 90% with supplemental O2 as needed
#Altered mental status/lethergy/confusion/metabolic encephalopathy
Previously discharged on 12/21/2023 with instructions for 15 mg morphine BID 7 days
In ED stated on 30 mg BID with additional 15 mg BID
Likely secondary to opioids
Did bite tongue in ED after Narcan given with agitation
EEG normal
Prolactin wnl
Today significantly improved, AAOx3
Restart Cymbalta and gabapentin
#LISA
Resolved
Restart gabapentin,
d/c fluids, restart lasix at discharge
Monitor
#Tongue bite/pain
Magic mouthwash
# COPD/interstitial lung disease/KEVAN
DuoNebs as needed
Continue home albuterol
Exacerbated by increase morphine dose
Hold morphine until improved mental status
#Opioid dependence associated with chronic back pain
Previously discharged on 15 mg morphine BID for 7 days
Patient came in stating on 30 mg morphine BID and additional 15mg BID
Continue oxy 20 mg TID
Patient states pain is well-controlled on oxy
Discontinue morphine
Hold gabapentin
#HFpEF
Last echo 12/20/23 EF 50%
Daily weights
I's and O's
Cont. to hold lasix until off fluid
#L buttocks stage 2 pressure injury/wound
Wound care seeing
#Type 2 diabetes mellitus
Hold metformin acutely
Sliding scale insulin
Last hemoglobin A1c 12/08 6.5
#CAD status post multiple stents
Continue atorvastatin 80
Continue aspirin ASA 81
# Depression
Continue bupropion and duloxetine
#GERD
Continue pantoprazole and famotidine
# Psoriatic arthritis
On Tremfya SQ every 8 weeks
Next dose due 01/09
Triamcinolone cream for affected psoriatic areas
# Vitamin D deficiency
Continue with supplement
#Obesity due to excess calories
DVT heparin subQ q8hr
low sodium diabetic diet
Full code
Anticipated Discharge: Within 24 hours
Subjective/Interval History
-
Date of Service: December 28, 2023
Objective Data
-
Labs:
Laboratory Results
12/28/23
03:58
WBC 9.7
Hgb 9.6 L
Hct 30.3 L
Plt Count 214
Sodium 140
Potassium 4.0
Chloride 104
Carbon Dioxide 22
BUN 18 H
Creatinine 0.8
Glucose 129 H
Calcium 8.6
Total Bilirubin 0.5
AST 17
ALT 11
Alkaline Phosphatase 73
Vital Signs:
Vital Signs
Temp Pulse Resp BP Pulse Ox
98.2 F 80 20 143/78 94
12/28/23 11:15 12/28/23 10:30 12/27/23 14:45 12/28/23 10:07 12/28/23 10:54
I&O
12/27/23 12/28/23 12/29/23
06:59 06:59 06:59
Intake Total 2625 / 2625 2541 / 2541
Output Total 1575 / 1575 1050 / 1050
Balance 1050 / 1050 1491 / 1491
Review of Systems
-
History Source: Patient
EENT: Reports Other (Tongue pain)
Respiratory: Reports No Symptoms
Cardiac: Reports No Symptoms
Abdomen/GI: Reports No Symptoms
Neuro: Reports No Symptoms
Allergy / Immunology: Reports No Symptoms
Physical Exam
-
General: Comfortable
HEENT: Other (Tongue wound )
Respiratory: Clear to Auscultation
Cardiac: Regular Rhythm and S1/S2
GI: Soft, Nontender, Nondistended and Normal Bowel Sounds
Musculoskeletal: No Edema
Neuro: AO x 3
Psych: Calm
[2023-12-28] MEDS: NSS IV (12:25)
[2023-12-28] MEDS: NOVOLOG FLEXPEN-LOW RESISTANCE 1 UNITS SC (12:31)
[2023-12-28 12:41] LABS: Glucose - Point of Care 192 mg/dl (70-99)
--- NOTE | 2023-12-28 13:04 | W.PN.ID1 ---
Date of Service
Date of Service: December 28, 2023
Today's Communication
Continue Ancef for today.
Assessment / Plan
RLE cellulitis
Acute Hypoxic Respiratory Failure Likely Secondary to Opioid Overdose
- improved
Paroxsymal A-fib
HFpEF
CAD
DM
HTN
Dyslipidemia
Psoriasis
Chronic pain syndrome
Recommendations:
Continue with cefazolin for today.
Monitor white count temperature curve.
With continued improvement, may be able to transition to an oral regimen in the next 24 hours
����������������������������������������������������������
Chief Complaint
-: Cellulitis
Subjective / Review of Systems
Patient seen and examined. Reports leg is feeling improved. Denies fevers or chills.
Review of Systems: No Fever and No Chills
Vital Signs / Physical Exam
Vital Signs
Vital Signs
Temp Pulse Resp BP Pulse Ox
98.2 F 80 20 143/78 94
12/28/23 11:15 12/28/23 10:30 12/27/23 14:45 12/28/23 10:07 12/28/23 10:54
Physical Exam
Constitutional: No Acute Distress, Comfortable, Chronically Ill and Non-toxic
Eyes: Sclera Anicteric
Cardiovascular: S1/S2; Negative S3/S4
Pulmonary: Non Labored
Gastrointestinal: Soft and Non Tender
Extremities: Edema and Erythema (RLE; diminished. Tenderness of right lower extremity also diminished.)
Neurological: Awake and Alert
Psychological: Calm
Objective Data
Lab Data
Lab Results
12/28/23 03:58
12/28/23 03:58
Estimated Creat Clear 62 ml/min 12/28/23 03:58
Lactic Acid Cancelled 12/25/23 23:30
Total Bilirubin 0.5 mg/dl (0.2-1.3) 12/28/23 03:58
AST 17 U/L (14-36) 12/28/23 03:58
ALT 11 U/L (0-35) 12/28/23 03:58
Alkaline Phosphatase 73 U/L (38-126) 12/28/23 03:58
Most recent labs reviewed.
Micro Results:
12/25/23 12:21 Blood Culture - Preliminary
Blood/Venous No Growth in 72 hours- Final report to follow
12/25/23 12:32 Blood Culture - Preliminary
Blood/Venous No Growth in 72 hours- Final report to follow
12/25/23 18:19 Blood Culture - Preliminary
Blood/Venous No Growth in 48 hours- Final report to follow
12/25/23 17:41 Blood Culture - Preliminary
Blood/Venous No Growth in 48 hours- Final report to follow
12/25/23 17:21 MRSA Screen - Final
Other-Please specify - Other No Methicillin Resistant Staphylococcus aureus isolated.
12/25/23 12:22 Urine Culture - Final
Urine No Significant Growth
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
[2023-12-28 13:29] VITALS: BP 137/73
[2023-12-28] MEDS: KEFLEX 500 MG PO (13:37)
--- NOTE | 2023-12-28 13:59 | W.DCSUMMARY ---
Discharge Summary
Discharge Data
Date of Admission: 12/25/23
Date of Discharge: 12/28/23
-
Pending Results: No
Hospital Course
Primary diagnosis:
Severe septic shock secondary to cellulitis
Toxic metabolic encephalopathy
Paroxysmal atrial fibrillation
Acute hypoxic respiratory failure
Acute kidney injury
Secondary diagnosis:
COPD
KEVAN
Chronic opioid dependence associated with chronic back pain
HFpEF
Left buttock stage II pressure injury
Type 2 diabetes mellitus
CAD status post multiple stents
Depression
GERD
Psoriatic arthritis
Vitamin D deficiency
Hospital course:
83-year-old female with past medical history of HFpEF, CAD status post PCI, COPD, eko-edkyhry-wphofpths diabetes mellitus, hypertension, hyperlipidemia, psoriatic arthritis, chronic pain/opioid use due to back pain, paroxysmal A-fib presented to the
ED on 12/25/2023 with increased confusion, lethargy, respiratory distress. Patient was brought in by EMS. And route, patient given Narcan and woke up extremely agitated. Upon arrival to the ED, patient given lorazepam to calm down. Initially,
confusion and respiratory distress suspected to be secondary to polypharmacy with chronic opioid use as upon prior discharge, patient was discharged on 15 mg morphine twice daily. Upon arrival to ED, patient's family stated she was getting 30 mg
twice daily in addition to 15 mg twice daily. However, lactic acid came back 2.8, patient was tachycardic, WBC 18.2 and cellulitis was noticed on right lower extremity. She also had an LISA creatinine 1.7. Nephrotoxic medications and medications
that could contribute to altered mental status were held. Patient was admitted for severe sepsis secondary to cellulitis and started on broad-spectrum antibiotics, fluids, and admitted. Right lower extremity DVT was ruled out on US. During the
night, patient's blood pressure dropped and became increasingly hypoxemic. Started on Levophed, BiPAP and transferred to IMU. Matching Machine Operator team was consulted for potential intubation, however in the morning, patients mental status and lethargy
improved. An EEG was done and no seizure activity was detected. Infectious disease was consulted and antibiotics changed to cefazolin. Wound care dressed wounds. LISA resolved. On 12/25, patient went into A-fib. 2 doses of 5 mg Lopressor IV was
given. Patient went back into sinus rhythm. For duration of stay, patient continued to improved however went in and out of atrial fibrillation asymptomatic. Cardiology was consulted and recommended starting on Eliquis and continue on 50 mg
metoprolol as patient is asymptomatic. Patient previously not on Eliquis due to significant groin bleeding post cath 2016. Cardiology reevaluated paperwork and decided it was okay to restart Eliquis. Of note, patient's back pain was
well-controlled on oxy 20 3 times daily. She did not need morphine while in the hospital to manage pain. Discharging patient without morphine.
Today, patient is stable for discharge. PT recommended SNF. Has been also agreeable. Being discharged on 7 days p.o. cephalexin 500 mg 4 times daily.
Discharge Plan
-
Patient Disposition: DC SNF/Hospital
Discharge Diagnosis/Procedures: Severe septic shock secondary to cellulitis
Condition: Fair
Diet: 2 Gram Sodium, Diabetic, Carb Controlled and Restrict fluids to 64 oz
Activity: As tolerated
Driving Restrictions: As prior to admission
Bathing Restrictions: None
Activity Restrictions/Additional Instructions:
Wound Care Instructions
LE wounds-clean with saline, honey gel prn yellow fibrin, adaptic, ABD pad, secure with Kerlix.
Abdominal/breast folds-clean and dry skin, apply miconazole powder to intact red skin folds bid, apply antifungal ointent to open areas bid. Tuck abd pad or non woven gauze in skin folds.
L buttocks and sacral ulcers-clean with saline or soap and water, silicone border foam, change q 3 days and prn loosened dressing.
Follow up at wound care center call for an appointment.
Referrals:
Sandy Smith MD [Active] - in two to four weeks
Tavo Constantino MD [Active] - 01/10/24 12:40 pm (You have an appt to see Dr. Constantino's physician assistant account manager, Isabel, at the [place] office on 01/10/24 at 12:40 PM. Please call [phone] if you need to reschedule.)
Mir Estrada MD [Family Provider] - in less than 1 week
Additional Discharge Medication Instructions: -STOP taking Brilinta (ticagrelor)
-Start taking Eliquis 5 mg twice a day
-Continue taking aspirin 81 mg daily
-Continue taking Toprol XL (metoprolol succinate) 50 mg once daily
Prescriptions:
New
cephalexin 500 mg Capsule
500 mg PO QID 7 Days Qty: 28 0RF
Eliquis 5 mg tablet
5 mg PO BID Qty: 60 0RF
Continued
pantoprazole 40 MG tablet,delayed release (DR/EC)
40 mg PO HS
furosemide 40 MG tablet
40 mg PO DAILY
aspirin 81 MG tablet,delayed release (DR/EC)
81 mg PO DAILY
metformin 500 MG tablet extended release 24 hr
500 mg PO QPM
bupropion HCl 150 MG tablet extended release 24 hr
150 mg PO DAILY
duloxetine 60 MG capsule,delayed release(DR/EC)
60 mg PO DAILY
albuterol sulfate 2.5 MG/3 ML solution for nebulization
2.5 mg inhalation R Q6HPRN PRN (Reason: sob/wheezing)
oxycodone 10 MG tablet
20 mg PO TID
Patient Comments:
12/19/2023: last filled 11/24/23, 240 tabs for 30 days from [id number]
atorvastatin 80 mg tablet
80 mg PO HS
gabapentin 300 mg capsule
600 mg PO BID@0800,2000
cholecalciferol (vitamin D3) 25 mcg (1,000 unit) Tablet
25 mcg PO DAILY
metoprolol succinate 50 mg Tablet Extended Release 24 Hr
50 mg PO DAILY
famotidine 20 mg Tablet
20 mg PO DAILY
miconazole nitrate [Miconazorb AF] 2 % Powder
1 applic topical BID Qty: 85 0RF
triamcinolone acetonide 0.1 % Lotion
1 applic topical TID Qty: 60 0RF
gabapentin 300 mg Capsule
300 mg PO NOON
Held
Tremfya
1 dose SC Q8W
Hold Instructions: Resume on 01/10/24. Last dose Nov 14. Restart Jan 09 for next dose.
Discontinued
Brilinta 60 MG tablet
60 mg PO BID
morphine 30 mg Tablet Extended Release
30 mg PO Q12H
Patient Comments:
Dosage is still getting adjusted by doctor to find suitable dose.
Discharge Orders:
Discharge Patient (As Directed); Ordered 12/28/23
Ordered By: Linda Valdez
Discharge Date and Time
Print Language: TAJIK
[2023-12-28] MEDS: HEPARIN SC (16:23)
--- NOTE | 2023-12-28 16:24 | PTCARENOTE ---
Patient discharged to [facility] rehab. Transported by EMS via stretcher. Called report to Lynne at [facility] Discharged instructions reviewed with patient and significant other. All belongings collected and sent with the patient.
== END 2023-12-28 16:34 | DRG 871 ==
LOC: IMU 14:23
PROVIDERS: Registered Nurse; ADMITTING PHYSICIAN Internal Medicine; ATTENDING PHYSICIAN Hospitalist; CONSULT PHYSICIAN Internal Medicine Cardiovascular Disease; CONSULT PHYSICIAN Student in an Organized Health Care Education/Training Program; EMERGENCY PHYSICIAN Emergency Medicine; FAMILY PHYSICIAN Family Medicine; OTHER PHYSICIAN Internal Medicine Critical Care Medicine
PROC: 5A09357 Assistance with Respiratory Ventilation, Less than 24 Consecutive Hours, Continuous Positive Airway Pressure (ICD-10-PCS; 2023-12-25)
DX: A41.9 Sepsis, unspecified organism (principal); G92.8 Other toxic encephalopathy; R65.21 Severe sepsis with septic shock; J96.21 Acute and chronic respiratory failure with hypoxia; J96.22 Acute and chronic respiratory failure with hypercapnia; L03.115 Cellulitis of right lower limb; E66.2 Morbid (severe) obesity with alveolar hypoventilation; Z68.41 Body mass index [BMI] 40.0-44.9, adult; F11.20 Opioid dependence, uncomplicated; F30.9 Manic episode, unspecified; I50.32 Chronic diastolic (congestive) heart failure; J84.9 Interstitial pulmonary disease, unspecified; N17.9 Acute kidney failure, unspecified; I48.0 Paroxysmal atrial fibrillation; Z79.82 Long term (current) use of aspirin; Z79.899 Other long term (current) drug therapy; D50.9 Iron deficiency anemia, unspecified; E11.36 Type 2 diabetes mellitus with diabetic cataract; E55.9 Vitamin D deficiency, unspecified; E78.00 Pure hypercholesterolemia, unspecified; D72.829 Elevated white blood cell count, unspecified; F41.9 Anxiety disorder, unspecified; I11.0 Hypertensive heart disease with heart failure; G89.4 Chronic pain syndrome; Z79.84 Long term (current) use of oral hypoglycemic drugs; Z95.5 Presence of coronary angioplasty implant and graft; J47.9 Bronchiectasis, uncomplicated; L40.50 Arthropathic psoriasis, unspecified; Z87.892 Personal history of anaphylaxis; M54.9 Dorsalgia, unspecified; Z88.0 Allergy status to penicillin; I25.2 Old myocardial infarction; L89.322 Pressure ulcer of left buttock, stage 2; Z79.02 Long term (current) use of antithrombotics/antiplatelets; Z86.16 Personal history of COVID-19; Z87.891 Personal history of nicotine dependence; Z90.710 Acquired absence of both cervix and uterus; Z91.199 Patient's noncompliance with other medical treatment and regimen due to unspecified reason; Z96.659 Presence of unspecified artificial knee joint; I25.10 Atherosclerotic heart disease of native coronary artery without angina pectoris; Z86.718 Personal history of other venous thrombosis and embolism; Z87.01 Personal history of pneumonia (recurrent); K21.9 Gastro-esophageal reflux disease without esophagitis; Z80.9 Family history of malignant neoplasm, unspecified; Z82.0 Family history of epilepsy and other diseases of the nervous system; Z82.49 Family history of ischemic heart disease and other diseases of the circulatory system; Z85.828 Personal history of other malignant neoplasm of skin; M81.0 Age-related osteoporosis without current pathological fracture; M48.00 Spinal stenosis, site unspecified; M19.90 Unspecified osteoarthritis, unspecified site; Z66 Do not resuscitate
CPT/HCPCS: 36600; 70450; 71045; 80048; 80053; 80202; 81003; 81015; 82533; 82805; 82962; 83605; 83880; 84146; 85025; 85027; 87040; 87070; 87086; 93005; 93971; 94660; 95812; 96374; 97163; 97166; 99291

== ENCOUNTER → 2023-12-30 10:11 | Outpatient (REF) | payer MEDICARE, SELFPAY ==
[2023-12-30 10:43] LABS: % Basophils 0.6 % (0-2); % Eosinophils 0.3 % (0-6); % Immature Granulocytes 0.2 % (0-0.5); % Lymphocytes 16.7 % (20.5-51.1); % Monocytes 11.5 % (1.7-9.3); % Neutrophils 70.7 % (42.2-75.2); Absolute Basophils 0.1 10^3/uL (0-0.2); Absolute Lymphocytes 1.5 10^3/uL (1.2-3.4); Absolute Neutrophils 6.3 10^3/uL (1.4-6.5); Hematocrit 28.5 % (37.0-47.0); Hemoglobin 9.3 g/dL (12.0-16.0); Mean Corp Hgb Conc. 32.6 g/dL (33.0-37.0); Mean Corpuscular Hgb 28.4 pg (27.0-31.0); Mean Corpuscular Volume 87.2 fL (81.0-99.0); Mean Platelet Volume 10.4 fL (7.4-10.4); Nucleated Red Blood Cells % 0 %; Platelet Count 206 10^3/uL (130-400); Red Blood Cell Count 3.27 10^6/uL (4.20-5.40); White Blood Cell Count 8.9 10^3/uL (4.8-10.8)
== END ==
LOC: OLABP 10:11
PROVIDERS: ATTENDING PHYSICIAN Family Medicine
DX: L03.115 Cellulitis of right lower limb (principal); I48.0 Paroxysmal atrial fibrillation; E66.01 Morbid (severe) obesity due to excess calories; F32.9 Major depressive disorder, single episode, unspecified; A17.9 Tuberculosis of nervous system, unspecified; J44.9 Chronic obstructive pulmonary disease, unspecified; J84.9 Interstitial pulmonary disease, unspecified; G47.33 Obstructive sleep apnea (adult) (pediatric); L40.50 Arthropathic psoriasis, unspecified; E55.9 Vitamin D deficiency, unspecified; I25.10 Atherosclerotic heart disease of native coronary artery without angina pectoris; I50.32 Chronic diastolic (congestive) heart failure; I10 Essential (primary) hypertension; E11.9 Type 2 diabetes mellitus without complications; L89.322 Pressure ulcer of left buttock, stage 2; F11.20 Opioid dependence, uncomplicated; M54.50 Low back pain, unspecified; K21.9 Gastro-esophageal reflux disease without esophagitis
CPT/HCPCS: 36415; 85025

== ENCOUNTER → 2024-01-02 11:12 | Outpatient (REF) | payer OTHER, MEDICARE, SELFPAY ==
[2024-01-02 12:33] LABS: Blood Urea Nitrogen 18 mg/dl (7-17); Calcium 8.8 mg/dl (8.4-10.2); Carbon Dioxide 32 mmol/L (22-30); Glucose 154 mg/dl (70-99); Potassium 3.8 mmol/L (3.5-5.1); Sodium 142 mmol/L (135-145); eGFR > 60.00
[2024-01-02 12:43] LABS: Chloride 100 mmol/L (98-107)
== END ==
LOC: OLABP 11:12
PROVIDERS: ATTENDING PHYSICIAN Family Medicine
DX: L03.115 Cellulitis of right lower limb (principal); I48.0 Paroxysmal atrial fibrillation; E66.01 Morbid (severe) obesity due to excess calories; A17.9 Tuberculosis of nervous system, unspecified; J84.9 Interstitial pulmonary disease, unspecified; G47.33 Obstructive sleep apnea (adult) (pediatric); I25.10 Atherosclerotic heart disease of native coronary artery without angina pectoris; I50.32 Chronic diastolic (congestive) heart failure; I10 Essential (primary) hypertension; K21.9 Gastro-esophageal reflux disease without esophagitis; M54.50 Low back pain, unspecified; F11.20 Opioid dependence, uncomplicated; L89.322 Pressure ulcer of left buttock, stage 2
CPT/HCPCS: 36415; 80048

== ENCOUNTER 2024-01-18 05:32 | Emergency (ER) | payer MEDICARE, SELFPAY ==
[2024-01-18] VITALS (15 sets, daily range): BP systolic 92–148; BP diastolic 47–85; PULSE 76; O2SAT 99
[2024-01-18 06:21] LABS: % Basophils 0.4 % (0-2); % Eosinophils 0.5 % (0-6); % Immature Granulocytes 0.3 % (0-0.5); % Lymphocytes 8.6 % (20.5-51.1); % Monocytes 7.4 % (1.7-9.3); % Neutrophils 82.8 % (42.2-75.2); Absolute Eosinophils 0.1 10^3/uL (0-0.7); Absolute Lymphocytes 0.9 10^3/uL (1.2-3.4); Absolute Monocytes 0.7 10^3/uL (0.1-0.6); Absolute Neutrophils 8.3 10^3/uL (1.4-6.5); Hematocrit 34.3 % (37.0-47.0); Hemoglobin 10.5 g/dL (12.0-16.0); Mean Corp Hgb Conc. 30.6 g/dL (33.0-37.0); Mean Corpuscular Hgb 27.4 pg (27.0-31.0); Mean Corpuscular Volume 89.6 fL (81.0-99.0); Mean Platelet Volume 10.2 fL (7.4-10.4); Nucleated Red Blood Cells % 0 %; Platelet Count 237 10^3/uL (130-400); Red Blood Cell Count 3.83 10^6/uL (4.20-5.40); Red Cell Dist. Width 15.3 % (11.5-14.5)
--- NOTE | 2024-01-18 06:32 | ED.GENMED ---
History of Present Illness
General
Chief Complaint: Weakness
Source: patient, records and spouse
Exam Limitations: clinical condition and altered mental status
Time Seen by Provider: 01/18/24 06:07
Nursing documentation reviewed up to this point in time: agreed with
History of Present Illness
History of Present Illness:
83-year-old female accompanied by her spouse is a chronic pain syndrome, chronic wounds on her legs, recently admitted with a UTI treated with antibiotics sent to rehab, has been home saw her PCP yesterday she walks with a cane and walker had a
COVID shot, been being weaned off her chronic narcotics oxycodone 20-15 twice daily, apparently fell getting out of bed today she has been confused, tremulous
Past History
Past History
ED Past Medical History: CAD, CHF, COPD, GERD, HTN, Hypercholesterolemia, NIDDM, Psychiatric (Depression) and Other (DVT, morbid obesity, sleep apnea, iron deficiency anemia, spinal stenosis)
ED Past Surgical History: Appendectomy, Orthopedic, Tonsilectomy and Other (Cardiac catheterization with femoral arterial complications with both recent catheterization)
Social History
Tobacco: Former smoker
Alcohol: None
Drug: None
Personal:
Living: with family
Employment: Not employed
Review of Systems
Review of Systems
Other source history: family
All Other Systems: Not applicable
Phy Exam
Physical Exam
Physical Exam:
Physical Exam
General: Chronically ill-appearing female tremor
Neck: No tongue bite
Heart: Regular
Lungs: Crackles at the base
Abdomen: Obese not tender
Neuro: Opens eyes to voice moves all extremities
Skin: no rash
Psychiatric: Flat affect
Extremities: Edema is present venous stasis changes
Course
Orders/Labs/Results
Orders:
Orders
01/18/24 05:34
Electrocardiogram (*1) Urgent
Reason for Study: Atrial Fibrillation
EKG- Treatment ONCE
01/18/24 05:58
Complete Blood Count/With Diff Urgent
01/18/24 06:04
Portable Chest Xray [CR Chest Portable - 1 View] Urgent
Comment:
Reason For Exam: SOB
Reason Study Needs to be Portable: Unable to Transport
01/18/24 06:23
CT Cervical Spine W/o Iv Contr Urgent
Comment:
Reason For Exam: fall
CT Head W/o Iv Contrast Urgent
Comment:
Reason For Exam: fall ocnfusion
Straight cath- Treatment ONCE
Urinalysis Reflex To Culture Urgent
Date Specimen was Collected: 01/18/24
Time Specimen was Collected: 06:25
01/18/24 06:26
Add On- LAB Urgent
Tests Added?: urine
01/18/24 06:33
Comprehensive Metabolic Panel Urgent
Comment: REDRAW
NT-proBNP Urgent
Troponin I Urgent
Comment: REDRAW
01/18/24 08:01
Oxycodone [Roxicodone] 15 mg PO NOW STA
01/18/24 08:17
Case Management Consult ONCE
Case Management Consult: Discharge Planning
Physical Therapy Consult [Pt Eval And Treat] Urgent
Activity Level: Out of Bed-Early Mobility
01/18/24 11:28
Furosemide [Lasix] 40 mg IV NOW STA
Abnormal Lab Results
01/18/24 01/18/24
05:58 06:33
RBC 3.83 L 10^6/uL
(4.20-5.40)
Hgb 10.5 L g/dL
(12.0-16.0)
Hct 34.3 L %
(37.0-47.0)
MCHC 30.6 L g/dL
(33.0-37.0)
RDW 15.3 H %
(11.5-14.5)
Absolute Neuts (auto) 8.3 H 10^3/uL
(1.4-6.5)
Absolute Lymphs (auto) 0.9 L 10^3/uL
(1.2-3.4)
Absolute Monos (auto) 0.7 H 10^3/uL
(0.1-0.6)
Neutrophils % 82.8 H %
(42.2-75.2)
Lymphocytes % 8.6 L %
(20.5-51.1)
Potassium 5.6 H mmol/L
(3.5-5.1)
Chloride 96 L mmol/L
(98-107)
Carbon Dioxide 34 H mmol/L
(22-30)
BUN 25 H mg/dl
(7-17)
Creatinine 1.4 H mg/dL
(0.6-1.0)
Glucose 137 H mg/dl
(70-99)
01/18/24 05:58
01/18/24 06:33
Vital Signs
Initial and Last Documented VS:
Initial Vital Signs
Temp Pulse Resp BP Pulse Ox
98.4 F 81 24 148/74 95
01/18/24 05:45 01/18/24 05:45 01/18/24 05:45 01/18/24 05:45 01/18/24 05:45
Last Documented Vital Signs
Temp Pulse Resp BP Pulse Ox
98.7 F 75 25 121/67 92
01/18/24 07:08 01/18/24 13:30 01/18/24 13:30 01/18/24 13:30 01/18/24 13:30
MDM/Problems Addressed
Differential Diagnosis Includes:
Infection heart failure electrolyte abnormality deconditioning trauma anemia other
MDM/Problems Addressed:
Weakness fatigue
Chronic conditions affecting care: DM, Cardiomyopathy, Arrhythmia and Neurological disorder
Acute Exacerbation and/or Progression of Chronic Illness: DM, Cardiomyopathy, Arrhythmia and Neurological disorder
*Radiology
Radiology exam reviewed: radiology read reviewed
*Pulse Oximetry
Patient hypoxic: no
*EKG
Interpreted by ED Provider?: Yes
Interpretation: abnormal
Comparison EKG: no comparison EKG present
Heart Rate: 88
Rate: normal
Rhythm: sinus
Ischemia: non-specific ST changes
*Senior Analyst Developer Interpretation
Rate: normal
Interpretation: normal
Rhythm: sinus
*Critical Care Note
Total Time (30-74mins, 75-104mins- exclusive of procedures): Not Applicable
Update Note
Update Note:
Update, patient more alert, will give her her morning dose of pain meds at the reduced dose from her PCP 15 mg of Oxy, urine noted CT head cervical spine noted, chest x-ray noted labs noted volume status not entirely clear will wait for her chest
x-ray report, in the meantime we will ask PT case management to see the patient, certified take her home states she is fallen multiple times for the past few days previously at [facility]
ED Attending Note
-
Portions of this chart may have been created with voice recognition software.� Occasional wrong word or��sound alike� substitutions may have occurred due to the inherent limitations of voice recognition software.
Discharge Plan
Departure
Patient Disposition: Intermediate/SNF
Patient with high blood pressure during this ER visit?: No
Condition: Good
Covid-19: Not Applicable
Discharge Problem:
Weakness
Prescriptions:
No Action
pantoprazole 40 MG tablet,delayed release (DR/EC)
40 mg PO HS
furosemide 40 MG tablet
40 mg PO DAILY
aspirin 81 MG tablet,delayed release (DR/EC)
81 mg PO DAILY
metformin 500 MG tablet extended release 24 hr
500 mg PO QPM
bupropion HCl 150 MG tablet extended release 24 hr
150 mg PO DAILY
duloxetine 60 MG capsule,delayed release(DR/EC)
60 mg PO DAILY
albuterol sulfate 2.5 MG/3 ML solution for nebulization
2.5 mg inhalation R Q6HPRN PRN (Reason: sob/wheezing)
oxycodone 10 MG tablet
15 mg PO TID
atorvastatin 80 mg tablet
80 mg PO HS
gabapentin 300 mg capsule
600 mg PO BID@0800,2000
cholecalciferol (vitamin D3) 25 mcg (1,000 unit) Tablet
25 mcg PO DAILY
Tremfya 100 mg/mL Syringe
0 mg SC Q8W Qty: 0
metoprolol succinate 50 mg Tablet Extended Release 24 Hr
50 mg PO DAILY
famotidine 20 mg Tablet
20 mg PO DAILY
miconazole nitrate [Miconazorb AF] 2 % Powder
1 applic topical BID Qty: 85 0RF
triamcinolone acetonide 0.1 % Lotion
1 applic topical TID Qty: 60 0RF
gabapentin 300 mg Capsule
300 mg PO DAILY@1330
Eliquis 5 mg tablet
5 mg PO BID Qty: 60 0RF
diphenhydramine HCl [Benadryl] 25 mg Capsule
25 mg PO HSPRN PRN (Reason: ALLERGIES)
Referrals:
Mir Estrada MD [Family Provider] -
Interventions
Interventions:
*Risk Screen - Suicide Last Done: 01/18/24 05:45
*General Assessment Last Done: 01/18/24 05:45
*Neglect/Abuse Screening Last Done: 01/18/24 05:45
ED- Fall Risk Assessment Last Done: 01/18/24 13:43
*Nursing Disposition Last Done: 01/18/24 13:43
ED- Pulmonary Assessment Last Done: 01/18/24 06:28
ED- Neurological Assessment Last Done: 01/18/24 06:28
ED- Cardiac Assessment Last Done: 01/18/24 06:28
Discharge Date and Time
Discharge Date/Time: 01/18/24 13:56
Print Language: LATVIAN
[2024-01-18 07:04] LABS: Glucose 137 mg/dl (70-99)
[2024-01-18 07:05] LABS: ALT (SGPT) 17 U/L (0-35); AST (SGOT) 17 U/L (14-36); Albumin 3.8 g/dl (3.5-5.0); Alkaline Phosphatase 89 U/L (38-126); Blood Urea Nitrogen 25 mg/dl (7-17); Calcium 9.2 mg/dl (8.4-10.2); Carbon Dioxide 34 mmol/L (22-30); Chloride 96 mmol/L (98-107); Potassium 5.6 mmol/L (3.5-5.1); Sodium 139 mmol/L (135-145); Total Bilirubin 0.7 mg/dl (0.2-1.3); Total Protein 7.3 g/dl (6.3-8.2)
[2024-01-18 07:06] LABS: Urine Albumin Trace (Neg - Trace); Urine Bilirubin Negative (Negative); Urine Character Clear (Clear); Urine Color Yellow; Urine Glucose Negative (Negative); Urine Ketone Negative (Negative); Urine Leukocyte Negative (Negative); Urine Nitrite Negative (Negative); Urine Occult Blood Negative (Negative); Urine Urobilinogen Negative (Neg - 1+)
[2024-01-18 07:14] LABS: NT-proBNP 11900 pg/ml; Troponin I 0.024 ng/ml
[2024-01-18] MEDS: ROXICODONE 15 MG PO (08:16)
--- NOTE | 2024-01-18 11:18 | CM ---
Addendum entered by Savi Conn 01/18/24 13:27:
Anjali from [facility] confirmed she would be able to take patient today. Transport time set up for 2PM. Attending physician and bedside RN made aware.
Original Note:
Case management consult placed for STR placement. CM reviewed PT's recommendations for STR. Patient has a recent [facility] [place] stay. shared that Elayne was just discharged last from [facility]. CM reached out to Anjali Carvajal, who did not answer her
phone. She is in charged of admissions today. CM left a .
Will place referral via [facility] to [facility] as well.
[2024-01-18] MEDS: LASIX 40 MG IV (12:14)
== END 2024-01-18 13:56 ==
LOC: EMR 05:32
PROVIDERS: Emergency Medicine; EMERGENCY PHYSICIAN Emergency Medicine; FAMILY PHYSICIAN Family Medicine
DX: R53.1 Weakness (principal); I25.10 Atherosclerotic heart disease of native coronary artery without angina pectoris; J44.9 Chronic obstructive pulmonary disease, unspecified; K21.9 Gastro-esophageal reflux disease without esophagitis; E11.9 Type 2 diabetes mellitus without complications; E78.00 Pure hypercholesterolemia, unspecified; G47.30 Sleep apnea, unspecified; I11.0 Hypertensive heart disease with heart failure; I50.9 Heart failure, unspecified; Z86.718 Personal history of other venous thrombosis and embolism; Z87.891 Personal history of nicotine dependence; Z90.49 Acquired absence of other specified parts of digestive tract; W19.XXXA Unspecified fall, initial encounter
CPT/HCPCS: 96374; 99285; 70450; 71045; 72125; 80053; 81003; 83880; 84484; 85025; 93005

== ENCOUNTER → 2024-01-24 10:51 | Outpatient (REF) | payer OTHER, MEDICARE, SELFPAY ==
[2024-01-24 11:19] LABS: Blood Urea Nitrogen 23 mg/dl (7-17); Calcium 8.3 mg/dl (8.4-10.2); Carbon Dioxide 36 mmol/L (22-30); Chloride 97 mmol/L (98-107); Glucose 126 mg/dl (70-99); Potassium 4.4 mmol/L (3.5-5.1); Sodium 141 mmol/L (135-145); eGFR 50.17
== END ==
LOC: OLABP 10:51
PROVIDERS: ATTENDING PHYSICIAN Family Medicine
DX: I50.32 Chronic diastolic (congestive) heart failure (principal); J84.9 Interstitial pulmonary disease, unspecified; J96.22 Acute and chronic respiratory failure with hypercapnia; D84.9 Immunodeficiency, unspecified; D64.9 Anemia, unspecified; I10 Essential (primary) hypertension; J44.1 Chronic obstructive pulmonary disease with (acute) exacerbation; I48.0 Paroxysmal atrial fibrillation; I25.10 Atherosclerotic heart disease of native coronary artery without angina pectoris; A41.9 Sepsis, unspecified organism; E11.9 Type 2 diabetes mellitus without complications; G47.33 Obstructive sleep apnea (adult) (pediatric); M48.061 Spinal stenosis, lumbar region without neurogenic claudication; R91.1 Solitary pulmonary nodule; E11.59 Type 2 diabetes mellitus with other circulatory complications
CPT/HCPCS: 36415; 80048

== ENCOUNTER → 2024-02-28 12:42 | Outpatient (REF) | payer OTHER, MEDICARE, SELFPAY | LOC: WOUND 12:42 | PROVIDERS: ATTENDING PHYSICIAN Surgery; FAMILY PHYSICIAN Family Medicine | DX: L97.222 Non-pressure chronic ulcer of left calf with fat layer exposed (principal); L89.329 Pressure ulcer of left buttock, unspecified stage; L97.211 Non-pressure chronic ulcer of right calf limited to breakdown of skin; L40.0 Psoriasis vulgaris | CPT/HCPCS: 99214 ==

== ENCOUNTER → 2024-03-13 13:59 | Outpatient (REF) | payer OTHER, MEDICARE, SELFPAY | LOC: WOUND 13:59 | PROVIDERS: ATTENDING PHYSICIAN Surgery; FAMILY PHYSICIAN Family Medicine | DX: L97.222 Non-pressure chronic ulcer of left calf with fat layer exposed (principal); L89.329 Pressure ulcer of left buttock, unspecified stage; L97.211 Non-pressure chronic ulcer of right calf limited to breakdown of skin; L40.0 Psoriasis vulgaris | CPT/HCPCS: 99213 ==

== ENCOUNTER 2024-03-17 10:06 | Emergency (ER) | payer OTHER, MEDICARE, SELFPAY ==
[2024-03-17 10:21] VITALS: BP 98/54
--- NOTE | 2024-03-17 11:15 | ED.GENMED ---
History of Present Illness
General
Chief Complaint: Skin Problem
Source: patient
Exam Limitations: none
Time Seen by Provider: 03/17/24 11:06
History of Present Illness
History of Present Illness:
See MDM
Past History
Past History
ED Past Medical History: CAD, CHF, COPD, GERD, HTN, Hypercholesterolemia, NIDDM, Psychiatric (Depression) and Other (DVT, morbid obesity, sleep apnea, iron deficiency anemia, spinal stenosis)
ED Past Surgical History: Appendectomy, Orthopedic, Tonsilectomy and Other (Cardiac catheterization with femoral arterial complications with both recent catheterization)
Social History
Tobacco: Former smoker
Alcohol: None
Drug: None
Personal:
Living: with family
Employment: Not employed
Phy Exam
Physical Exam
Physical Exam:
See MDM
Course
Orders/Labs/Results
Orders:
Orders
03/17/24 11:12
Oxycodone [Roxicodone] 20 mg PO NOW STA
03/17/24 11:17
Clindamycin 600 mg/50 ml [Cleocin] 600 mg in 50 ml IV NOW
03/17/24 11:21
CRP [C-Reactive Protein] Urgent
Complete Blood Count/With Diff Urgent
Comprehensive Metabolic Panel Urgent
ESR [Erythrocyte Sed Rate] Urgent
PTT Urgent
Prothrombin Time Urgent
03/17/24 11:38
Clindamycin 600 mg/50 ml [Cleocin] 600 mg in 50 ml IV NOW
03/17/24 13:43
HydrOXYzine [Vistaril] 50 mg IM NOW STA
03/17/24 14:45
0.9% Sodium Chloride 1000 ml [Nss] 1,000 ml IV BOLUS
Abnormal Lab Results
03/17/24
11:21
WBC 11.2 H 10^3/uL
(4.8-10.8)
RBC 3.32 L 10^6/uL
(4.20-5.40)
Hgb 8.6 L g/dL
(12.0-16.0)
Hct 29.0 L %
(37.0-47.0)
MCH 25.9 L pg
(27.0-31.0)
MCHC 29.7 L g/dL
(33.0-37.0)
RDW 15.9 H %
(11.5-14.5)
Absolute Neuts (auto) 8.3 H 10^3/uL
(1.4-6.5)
Absolute Monos (auto) 1.0 H 10^3/uL
(0.1-0.6)
Lymphocytes % 16.0 L %
(20.5-51.1)
ESR 88 H mm/hour
(0-20)
PT 22.0 H Sec
(11.4-14.6)
APTT 37.2 H Sec
(23.4-35.0)
Chloride 96 L mmol/L
(98-107)
Carbon Dioxide 33 H mmol/L
(22-30)
BUN 22 H mg/dl
(7-17)
Glucose 168 H mg/dl
(70-99)
C-Reactive Protein 48.10 H mg/L
(0.0-10.00)
Albumin 3.1 L g/dl
(3.5-5.0)
03/17/24 11:21
03/17/24 11:21
Vital Signs
Initial and Last Documented VS:
Initial Vital Signs
Temp Pulse Resp BP Pulse Ox
98.1 F 62 18 98/54 92
03/17/24 10:21 03/17/24 10:21 03/17/24 10:21 03/17/24 10:21 03/17/24 10:21
Last Documented Vital Signs
Temp Pulse Resp BP Pulse Ox
98.1 F 62 16 98/54 92
03/17/24 10:21 03/17/24 10:21 03/17/24 13:15 03/17/24 10:21 03/17/24 10:21
MDM/Problems Addressed
Differential Diagnosis Includes:
HPI and MDM Narrative:
84-year-old female presenting for evaluation of painful blisters all over her body. She was at wound care and they thought it could be related to gabapentin. Over the past few days, her PCP is weaning gabapentin. Patient states the blisters are
becoming worse and are more painful. On exam, she has blisters all over her extremities. Some are filled with clear fluid and some are filled with blood. Patient is on Eliquis for A-fib. Although patient denies pain with urination or any concern
for blisters in her mouth, I did notice some aphthous ulcers and small blisters in her mouth.
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 Patient is on high-dose narcotics at home. Will give dose of oxycodone. She wants to refrain from IV pain medicine. Her left arm appears to show
early signs of cellulitis from irritation of the blisters. Given her penicillin allergy, will give dose of clindamycin. Will ultimately admit
Physical exam
General: Mildly uncomfortable
HEENT: protecting airway. Small sores noted under her tongue and left buccal mucous
Neck: supple
CV: No evidence of cyanosis
Resp: No accessory muscle use
Abd: Non-distended
Extremities: Lymphedema to bilateral lower extremities
Neuro: alert
Psych: Normal affect
Skin: Clear fluid and bloody blisters to extremities and ears
Problems Addressed including Acute and Chronic Conditions affecting care:
1. Painful blistering
Acuity: acute
Prognosis: stable
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 Will control pain and altered
2. Left arm cellulitis
Acuity: acute
Prognosis: stable
Details: Related to open blisters. Will give clindamycin
Updates
1:28 PM has been indicating that wound care was placing silver sulfadiazine cream on her legs. It is possible that this is the source. Given the concern for Arce-Mehdi syndrome, will discuss case with burn center. Dermatology is currently
not on-call at this hospital.
1:50 PM Case discussed with [facility] Dr. Lopez. Based on the description of the burn, it could potentially be pemphigoid. He recommends admitting to [facility] service where they can consult dermatology for biopsy and burn for
evaluation
2:27 PM Case discussed with [facility]ist Dr. Amin who accepted patient
Differential Diagnosis (but not limited to): Arce-Mehdi syndrome, TEN, dress syndrome
Testing considered: Lactic acid
Drug therapy (if applicable): OTC meds, please see d/c instruction regarding Rx drugs
Amount and/or Complexity of Data Reviewed
Clinical info obtained from: Patient
External data reviewed: N/A
Labs I independently reviewed (but not limited to): Chronic anemia, mild leukocytosis
Radiology: N/A
Pulse Ox: not hypoxic
EKG independently reviewed: N/A
Gas Station Manager: N/A
Critical Care: N/A
Risk of Complication:
Social Determinants of health: Good social support
Discussed with other providers: Burn center
Escalation of Care includes Admit/Obs: Given the painful rash and cellulitis, will admit
Occasional wrong word or 'sound a like' substitutions may have occurred due to the inherent limitations of voice recognition software. Read the chart carefully and recognize, using context, where substitutions have occurred.
*Critical Care Note
Total Time (30-74mins, 75-104mins- exclusive of procedures): Not Applicable
ED Attending Note
-
Portions of this chart may have been created with voice recognition software.� Occasional wrong word or��sound alike� substitutions may have occurred due to the inherent limitations of voice recognition software.
Discharge Plan
Departure
Patient Disposition: Acute Care Hospital
Date of Disposition: 03/17/24
Time of Disposition: 12:33
Presentation/result/management discussed w/ accepting MD/DO: Hospitalist
Discharge Problem:
Rash, Cellulitis
Prescriptions:
No Action
pantoprazole 40 MG tablet,delayed release (DR/EC)
40 mg PO QPM
furosemide 40 MG tablet
40 mg PO DAILY
aspirin 81 MG tablet,delayed release (DR/EC)
81 mg PO DAILY
metformin 500 MG tablet extended release 24 hr
500 mg PO QPM
bupropion HCl 150 MG tablet extended release 24 hr
150 mg PO DAILY
duloxetine 60 MG capsule,delayed release(DR/EC)
60 mg PO DAILY
oxycodone 10 MG tablet
10 mg PO TID
atorvastatin 80 mg tablet
80 mg PO HS
gabapentin 300 mg capsule
600 mg PO UD
Rx Instructions:
starting 03/16/24 take 600mg bid and 300mg in the after noon, then 03/17/24 take 600mg daily 300mg afternoon and 300mg hs, then on 03/18/24 take 300mg tid
metoprolol succinate 50 mg Tablet Extended Release 24 Hr
50 mg PO DAILY
famotidine 20 mg Tablet
20 mg PO DAILY
Eliquis 5 mg tablet
5 mg PO BID Qty: 60 0RF
triamcinolone acetonide 0.1 % lotion
1 applic topical TIDPRN PRN (Reason: arms and legs)
Referrals:
Mir Estrada MD [Family Provider] -
Hospital Transfer
Other hospital: [facility]
I certify that the patient requires transfer: Yes
Discussed case with accepting physician: Dr. Amin
Reason for transfer: availability of service and specialties available
Interventions
Interventions:
*Risk Screen - Suicide Last Done: 03/17/24 10:21
*General Assessment Last Done: 03/17/24 10:21
*Neglect/Abuse Screening Last Done: 03/17/24 10:21
*ED COVID-19 Vaccine History Last Done: 03/17/24 11:29
ED-Skin Assessment Last Done: 03/17/24 13:18
Discharge Date and Time
Print Language: HAITIAN
[2024-03-17] MEDS: ROXICODONE 20 MG PO (11:29)
[2024-03-17 11:30] VITALS: BMI 40.5
[2024-03-17 11:36] LABS: % Basophils 0.4 % (0-2); % Eosinophils 0.4 % (0-6); % Immature Granulocytes 0.3 % (0-0.5); % Monocytes 8.6 % (1.7-9.3); % Neutrophils 74.3 % (42.2-75.2); Absolute Eosinophils 0.1 10^3/uL (0-0.7); Absolute Lymphocytes 1.8 10^3/uL (1.2-3.4); Absolute Neutrophils 8.3 10^3/uL (1.4-6.5); Hemoglobin 8.6 g/dL (12.0-16.0); Mean Corp Hgb Conc. 29.7 g/dL (33.0-37.0); Mean Corpuscular Hgb 25.9 pg (27.0-31.0); Mean Corpuscular Volume 87.3 fL (81.0-99.0); Mean Platelet Volume 8.5 fL (7.4-10.4); Nucleated Red Blood Cells % 0 %; Platelet Count 290 10^3/uL (130-400); Red Blood Cell Count 3.32 10^6/uL (4.20-5.40); Red Cell Dist. Width 15.9 % (11.5-14.5); White Blood Cell Count 11.2 10^3/uL (4.8-10.8)
[2024-03-17 11:43] LABS: APTT 37.2 Sec (23.4-35.0)
[2024-03-17 11:44] LABS: ALT (SGPT) < 10 U/L (0-35); AST (SGOT) 16 U/L (14-36); Albumin 3.1 g/dl (3.5-5.0); Alkaline Phosphatase 77 U/L (38-126); Blood Urea Nitrogen 22 mg/dl (7-17); Calcium 8.7 mg/dl (8.4-10.2); Carbon Dioxide 33 mmol/L (22-30); Chloride 96 mmol/L (98-107); Estimated Creatinine Clearance 50 ml/min; Glucose 168 mg/dl (70-99); Potassium 5.1 mmol/L (3.5-5.1); Sodium 136 mmol/L (135-145); Total Bilirubin 0.3 mg/dl (0.2-1.3); Total Protein 6.6 g/dl (6.3-8.2); eGFR 56.25
[2024-03-17 12:36] LABS: Erythrocyte Sed Rate 88 mm/hour (0-20)
[2024-03-17] MEDS: CLEOCIN 50 IV (13:06)
[2024-03-17] MEDS: VISTARIL 50 MG IM (15:09)
[2024-03-17] MEDS: NSS 1000 IV (15:10)
[2024-03-17 15:37] VITALS: BP 126/64
[2024-03-17 17:41] VITALS: BP 126/63
== END 2024-03-17 19:19 | disposition short-term general hospital (02) ==
LOC: EMR 10:06
PROVIDERS: EMERGENCY PHYSICIAN Student in an Organized Health Care Education/Training Program; FAMILY PHYSICIAN Family Medicine
DX: L03.114 Cellulitis of left upper limb (principal); K12.0 Recurrent oral aphthae; I25.10 Atherosclerotic heart disease of native coronary artery without angina pectoris; I11.0 Hypertensive heart disease with heart failure; I50.9 Heart failure, unspecified; E11.9 Type 2 diabetes mellitus without complications; E78.00 Pure hypercholesterolemia, unspecified; G47.30 Sleep apnea, unspecified; I48.91 Unspecified atrial fibrillation; J44.9 Chronic obstructive pulmonary disease, unspecified; K21.9 Gastro-esophageal reflux disease without esophagitis; Z87.891 Personal history of nicotine dependence; Z86.718 Personal history of other venous thrombosis and embolism; Z90.49 Acquired absence of other specified parts of digestive tract; Z79.01 Long term (current) use of anticoagulants; Z88.0 Allergy status to penicillin
CPT/HCPCS: 96365; 96372; 96361; 99284; 80053; 85025; 85610; 85652; 85730; 86140

== ENCOUNTER → 2024-03-21 11:18 | Outpatient (REF) | payer MEDICARE, SELFPAY ==
[2024-03-21 12:09] LABS: % Basophils 0.1 % (0-2); % Immature Granulocytes 0.4 % (0-0.5); % Lymphocytes 8.8 % (20.5-51.1); % Monocytes 13.5 % (1.7-9.3); % Neutrophils 77.2 % (42.2-75.2); Absolute Lymphocytes 0.9 10^3/uL (1.2-3.4); Absolute Monocytes 1.3 10^3/uL (0.1-0.6); Absolute Neutrophils 7.6 10^3/uL (1.4-6.5); Hematocrit 29.8 % (37.0-47.0); Mean Corp Hgb Conc. 30.2 g/dL (33.0-37.0); Mean Corpuscular Hgb 26.1 pg (27.0-31.0); Mean Corpuscular Volume 86.4 fL (81.0-99.0); Mean Platelet Volume 9.4 fL (7.4-10.4); Nucleated Red Blood Cells % 0 %; Platelet Count 291 10^3/uL (130-400); Red Blood Cell Count 3.45 10^6/uL (4.20-5.40); Red Cell Dist. Width 16.1 % (11.5-14.5); White Blood Cell Count 9.8 10^3/uL (4.8-10.8)
[2024-03-21 17:47] LABS: ALT (SGPT) 13 U/L (0-35); AST (SGOT) 19 U/L (14-36); Albumin 3.4 g/dl (3.5-5.0); Alkaline Phosphatase 79 U/L (38-126); Blood Urea Nitrogen 24 mg/dl (7-17); Calcium 8.4 mg/dl (8.4-10.2); Carbon Dioxide 32 mmol/L (22-30); Chloride 95 mmol/L (98-107); Direct Bilirubin 0.1 mg/dl (0.0-0.4); Glucose 175 mg/dl (70-99); Potassium 4.3 mmol/L (3.5-5.1); Sodium 138 mmol/L (135-145); Total Bilirubin 0.1 mg/dl (0.2-1.3); Total Protein 6.7 g/dl (6.3-8.2); eGFR 50.17
[2024-03-22 18:50] LABS: Hepatitis B Surface Antigen Negative (Negative)
[2024-03-22 19:06] LABS: Hepatitis B Core Ab, Total Negative (Negative); Hepatitis B Surface Antibody Negative; Hepatitis C Antibody Negative (Negative)
[2024-03-23 06:43] LABS: Quantiferon Mitogen minus NIL 2.98 IU/mL; Quantiferon NIL 0.03 IU/mL; Quantiferon TB Gold Plus Negative (Negative)
== END ==
LOC: REG 11:18
PROVIDERS: ATTENDING PHYSICIAN Physician Assistant Medical
DX: L40.0 Psoriasis vulgaris (principal); L12.0 Bullous pemphigoid
CPT/HCPCS: 36415; 80053; 82248; 85025; 86480; 86704; 86706; 86803; 87340

== ENCOUNTER → 2024-03-28 08:58 | Outpatient (REF) | payer MEDICARE, SELFPAY ==
[2024-03-28 10:20] LABS: HDL Cholesterol 55 mg/dl; Total Cholesterol 137 mg/dl (50-199)
[2024-03-28 11:12] LABS: LDL Cholesterol, Calculated 56 mg/dl; Triglyceride 130 mg/dl (10-149); Very Low Density Lipoprotein 26 mg/dl (0-30)
== END ==
LOC: REG 08:58
PROVIDERS: ATTENDING PHYSICIAN Physician Assistant Medical; FAMILY PHYSICIAN Family Medicine
DX: L40.0 Psoriasis vulgaris (principal)
CPT/HCPCS: 36415; 80061

== ENCOUNTER → 2024-04-09 11:26 | Outpatient (REF) | payer MEDICARE, SELFPAY | LOC: WOUND 11:26 | PROVIDERS: ATTENDING PHYSICIAN Surgery; FAMILY PHYSICIAN Family Medicine | DX: L97.222 Non-pressure chronic ulcer of left calf with fat layer exposed (principal); L89.329 Pressure ulcer of left buttock, unspecified stage; L97.211 Non-pressure chronic ulcer of right calf limited to breakdown of skin; L12.0 Bullous pemphigoid; L40.0 Psoriasis vulgaris | CPT/HCPCS: 99213 ==

== ENCOUNTER → 2024-05-08 13:25 | Outpatient (REF) | payer MEDICARE, SELFPAY | LOC: WOUND 13:25 | PROVIDERS: ATTENDING PHYSICIAN Surgery; FAMILY PHYSICIAN Family Medicine | DX: L89.329 Pressure ulcer of left buttock, unspecified stage (principal); L97.211 Non-pressure chronic ulcer of right calf limited to breakdown of skin; L12.0 Bullous pemphigoid; L40.0 Psoriasis vulgaris | CPT/HCPCS: 97597 ==

== ENCOUNTER 2024-05-09 15:05 | Emergency (ER) | payer MEDICARE, SELFPAY ==
[2024-05-09 15:15] VITALS: BP 131/54
--- NOTE | 2024-05-09 15:32 | ED.GENMED ---
History of Present Illness
General
Chief Complaint: Fall
Source: patient
Exam Limitations: none
Time Seen by Provider: 05/09/24 15:29
Nursing documentation reviewed up to this point in time: agreed with
History of Present Illness
History of Present Illness:
pt is a 84 y/o F chron cpain on opiates, copd on o2 chronically, AF on eliquis
was trying to step down from a sidewalk to hold onto her walker and she misjudged and fell, landing partially on grass and partially on a curb
pain in the L hip an flank
she didn't try to get up other than seated position. she has a little sob more than usual and feels pain in her L lateral hip
she did hit her head but on the grass
2 days ago she fell and hit her head on the gruond and has a lump there; didn't get checked out
no headache, vomiting, confusion, focal weakness/numbness
Past History
Past History
ED Past Medical History: CAD, CHF, COPD, GERD, HTN, Hypercholesterolemia, NIDDM, Psychiatric (Depression) and Other (DVT, morbid obesity, sleep apnea, iron deficiency anemia, spinal stenosis)
ED Past Surgical History: Appendectomy, Orthopedic, Tonsilectomy and Other (Cardiac catheterization with femoral arterial complications with both recent catheterization)
Social History
Tobacco: Former smoker
Alcohol: None
Drug: None
Personal:
Living: with family
Employment: Not employed
Review of Systems
Review of Systems
Allergies reviewed?: Yes
All Other Systems: Not applicable
Phy Exam
Physical Exam
Physical Exam:
GENERAL: Alert , in no apparent distress
HEAD: Nontender lump at the back of the head
NECK: no midline tenderness, active ROM intact, no paraspinal muscle tenderness;
EYE: pupils equal and reactive, EOMs intact. Pale conjunctiva
ENT: o/p clr, mmm. no hemotympanum
CARDIAC: Regular rate and rhythm, no edema
LUNGS: Clear breath sounds bilaterally, no acute respiratory distress, no wheezes/rales/rhonchi
ABDOMEN: Soft, without focal tenderness, no r/g, no cvat
NEUROLOGICAL: Alert and oriented, no focal neuro deficits, CN intact, 5/5 strength, sensation intact
SKIN: Warm and dry, bullous pemphigoid, some popped bullae on her lower legs, lymphedema, thin skin
MUSCULOSKELETAL: N, I am able to rotate the hip and flex the hip, no obvious bruising but there is tenderness to the left lateral hip, the legs are not shortened
PSYCH: Normal and appropriate interaction.
Course
Orders/Labs/Results
Orders:
Orders
05/09/24 15:43
CT Chest/abd/pel W Iv Cont Urgent
Reason For Exam: fall copd, a little SOB
CT Head W/o Iv Contrast Urgent
Comment:
Reason For Exam: fall hit head on xarelto
Cardiac Monitoring- Treatment ONCE
Acetaminophen [Tylenol] 650 mg PO NOW STA
05/09/24 15:44
CT Cervical Spine W/o Iv Contr Urgent
Comment:
Reason For Exam: fall
05/09/24 16:01
Complete Blood Count/With Diff Urgent
Comprehensive Metabolic Panel Urgent
05/09/24 17:00
Electrocardiogram (*1) Urgent
Reason for Study: Other
Other Reason for Exam: hyperkalemia
Abnormal Lab Results
05/09/24
16:01
WBC 10.9 H 10^3/uL
(4.8-10.8)
RBC 3.18 L 10^6/uL
(4.20-5.40)
Hgb 8.5 L g/dL
(12.0-16.0)
Hct 28.0 L %
(37.0-47.0)
MCH 26.7 L pg
(27.0-31.0)
MCHC 30.4 L g/dL
(33.0-37.0)
RDW 16.1 H %
(11.5-14.5)
Abs Immat Gran (auto) 0.1 H 10^3/uL
(0-0.05)
Absolute Neuts (auto) 7.5 H 10^3/uL
(1.4-6.5)
Absolute Monos (auto) 1.4 H 10^3/uL
(0.1-0.6)
Lymphocytes % 17.5 L %
(20.5-51.1)
Monocytes % 12.7 H %
(1.7-9.3)
Sodium 134 L mmol/L
(135-145)
Potassium 5.4 H mmol/L
(3.5-5.1)
Carbon Dioxide 31 H mmol/L
(22-30)
BUN 29 H mg/dl
(7-17)
Creatinine 1.2 H mg/dL
(0.6-1.0)
Glucose 123 H mg/dl
(70-99)
Albumin 3.4 L g/dl
(3.5-5.0)
05/09/24 16:01
05/09/24 16:01
Vital Signs
Initial and Last Documented VS:
Initial Vital Signs
Temp Pulse Resp BP Pulse Ox
36.9 C 64 18 131/54 96
05/09/24 15:15 05/09/24 15:15 05/09/24 15:15 05/09/24 15:15 05/09/24 15:15
Last Documented Vital Signs
Temp Pulse Resp BP Pulse Ox
36.9 C 63 18 101/51 96
05/09/24 15:15 05/09/24 21:15 05/09/24 21:15 05/09/24 21:15 05/09/24 21:15
MDM/Problems Addressed
Differential Diagnosis Includes:
hip fracture, contusion, kidney injury, concussion,
MDM/Problems Addressed:
84-year-old female, COPD on oxygen, A-fib on Eliquis, bullous pemphigoid, chronic pain, mechanical trip and fall down 1 step from a curb onto the ground and misjudged landing on her left side, hitting her head on the grass without loss of
consciousness, mostly complaining of left hip and flank pain. She was not able to ambulate but did not attempt to. Her leg is not shortened or rotated. She is able to range her hip. She had some tenderness into her abdomen on exam without any
bruising. Given her blood thinner use decided to do a trauma scan on her. She did hit her head 2 days ago with a lump that is slightly tender in the back of her head, will include her head and imaging though I doubt she has any significant head
trauma. Note that the patient's potassium is elevated 5.4.
pt refused ruiz EKG becuse her skin peels off with event he slightest adhesive
pt is not on any exogenous potassium
she is asking to have her K level rechecked next week
avoid potassium rich foods
on lasix
feel it is reasonable
cts show no trauma
some chronic findnigs d/w pt
copies of reports given
pt able to ambulate with walker steadily
d/c home
*Critical Care Note
Total Time (30-74mins, 75-104mins- exclusive of procedures): Not Applicable
ED Attending Note
-
Portions of this chart may have been created with voice recognition software.� Occasional wrong word or��sound alike� substitutions may have occurred due to the inherent limitations of voice recognition software.
Discharge Plan
Departure
Patient Disposition: Home (Routine Discharge)
Date of Disposition: 05/09/24
Time of Disposition: 19:06
Patient with high blood pressure during this ER visit?: No
Condition: Fair
Covid-19: Not Applicable
Discharge Problem:
Acute hip pain, Fall, Acute hyperkalemia
Instructions: Contusion (DC), Hyperkalemia
Prescriptions:
No Action
pantoprazole 40 MG tablet,delayed release (DR/EC)
40 mg PO QPM
furosemide 40 MG tablet
40 mg PO DAILY
aspirin 81 MG tablet,delayed release (DR/EC)
81 mg PO DAILY
metformin 500 MG tablet extended release 24 hr
500 mg PO QPM
bupropion HCl 150 MG tablet extended release 24 hr
150 mg PO DAILY
duloxetine 60 MG capsule,delayed release(DR/EC)
60 mg PO DAILY
oxycodone 10 MG tablet
10 mg PO TID
atorvastatin 80 mg tablet
80 mg PO HS
gabapentin 300 mg capsule
600 mg PO UD
Rx Instructions:
starting 03/16/24 take 600mg bid and 300mg in the after noon, then 03/17/24 take 600mg daily 300mg afternoon and 300mg hs, then on 03/18/24 take 300mg tid
metoprolol succinate 50 mg Tablet Extended Release 24 Hr
50 mg PO DAILY
famotidine 20 mg Tablet
20 mg PO DAILY
Eliquis 5 mg tablet
5 mg PO BID Qty: 60 0RF
triamcinolone acetonide 0.1 % lotion
1 applic topical TIDPRN PRN (Reason: arms and legs)
Referrals:
Mir Estrada MD [Family Provider] -
Activity Restrictions/Additional Instructions:
Your CAT scans did not show any signs of any acute trauma. There are some stable findings. I printed out the reports for you. Your potassium was a little bit high. You are not on any oral supplements or potassium. Please try to avoid foods high
in potassium and have this repeated over the next week or so by your family doctor. Return for any concerns. Take Tylenol and your chronic pain medication as needed for your hip pain. Make sure to use your walker. Return for any concerns
Interventions
Interventions:
*Risk Screen - Suicide Last Done: 05/09/24 15:15
*General Assessment Last Done: 05/09/24 15:15
*Neglect/Abuse Screening Last Done: 05/09/24 15:15
*ED COVID-19 Vaccine History Last Done: 05/09/24 15:31
*Nursing Disposition Last Done: 05/09/24 21:15
ED-Musculoskeletal Assessment Last Done: 05/09/24 15:32
ED- Neurological Assessment Last Done: 05/09/24 15:32
ED-Skin Assessment Last Done: 05/09/24 15:32
Discharge Date and Time
Discharge Date/Time: 05/09/24 21:16
Print Language: HONG KONGER
[2024-05-09 16:07] LABS: % Basophils 0.3 % (0-2); % Eosinophils 0.3 % (0-6); % Immature Granulocytes 0.5 % (0-0.5); % Lymphocytes 17.5 % (20.5-51.1); % Monocytes 12.7 % (1.7-9.3); % Neutrophils 68.7 % (42.2-75.2); Absolute Immature Granulocytes 0.1 10^3/uL (0-0.05); Absolute Lymphocytes 1.9 10^3/uL (1.2-3.4); Absolute Monocytes 1.4 10^3/uL (0.1-0.6); Absolute Neutrophils 7.5 10^3/uL (1.4-6.5); Hemoglobin 8.5 g/dL (12.0-16.0); Mean Corp Hgb Conc. 30.4 g/dL (33.0-37.0); Mean Corpuscular Hgb 26.7 pg (27.0-31.0); Mean Corpuscular Volume 88.1 fL (81.0-99.0); Mean Platelet Volume 9.1 fL (7.4-10.4); Nucleated Red Blood Cells % 0 %; Platelet Count 252 10^3/uL (130-400); Red Blood Cell Count 3.18 10^6/uL (4.20-5.40); Red Cell Dist. Width 16.1 % (11.5-14.5); White Blood Cell Count 10.9 10^3/uL (4.8-10.8)
[2024-05-09] MEDS: TYLENOL 650 MG PO (16:16)
[2024-05-09 16:23] LABS: ALT (SGPT) 11 U/L (0-35); AST (SGOT) 18 U/L (14-36); Albumin 3.4 g/dl (3.5-5.0); Alkaline Phosphatase 61 U/L (38-126); Blood Urea Nitrogen 29 mg/dl (7-17); Calcium 8.7 mg/dl (8.4-10.2); Carbon Dioxide 31 mmol/L (22-30); Chloride 98 mmol/L (98-107); Glucose 123 mg/dl (70-99); Potassium 5.4 mmol/L (3.5-5.1); Sodium 134 mmol/L (135-145); Total Bilirubin 0.6 mg/dl (0.2-1.3); Total Protein 6.6 g/dl (6.3-8.2); eGFR 45.19
[2024-05-09 18:48] VITALS: BP 101/51
[2024-05-09 21:15] VITALS: BP 101/51
== END 2024-05-09 21:16 | disposition home or self-care (01) ==
LOC: EMR 15:05
PROVIDERS: Physician Assistant; EMERGENCY PHYSICIAN Emergency Medicine; FAMILY PHYSICIAN Family Medicine
DX: M25.552 Pain in left hip (principal); E87.5 Hyperkalemia; W10.9XXA Fall (on) (from) unspecified stairs and steps, initial encounter; E11.9 Type 2 diabetes mellitus without complications; E78.00 Pure hypercholesterolemia, unspecified; E66.01 Morbid (severe) obesity due to excess calories; F32.A Depression, unspecified; G47.30 Sleep apnea, unspecified; I11.0 Hypertensive heart disease with heart failure; I50.9 Heart failure, unspecified; I25.10 Atherosclerotic heart disease of native coronary artery without angina pectoris; I48.91 Unspecified atrial fibrillation; J44.9 Chronic obstructive pulmonary disease, unspecified; Z79.01 Long term (current) use of anticoagulants; Z86.718 Personal history of other venous thrombosis and embolism; Z87.891 Personal history of nicotine dependence; Z90.49 Acquired absence of other specified parts of digestive tract; Z99.81 Dependence on supplemental oxygen
CPT/HCPCS: 99284; 70450; 71260; 72125; 74177; 80053; 85025; Q9967

== ENCOUNTER → 2024-05-22 14:18 | Outpatient (REF) | payer MEDICARE, SELFPAY ==
[2024-05-22 15:31] LABS: Urine Albumin Negative (Neg - Trace); Urine Bilirubin Negative (Negative); Urine Character Clear (Clear); Urine Color Yellow; Urine Glucose Negative (Negative); Urine Ketone Negative (Negative); Urine Leukocyte 1+ (Negative); Urine Nitrite Positive (Negative); Urine Occult Blood Negative (Negative); Urine Urobilinogen Negative (Neg - 1+)
[2024-05-22 16:01] LABS: Urine Red Blood Cell 0-2 /HPF (0-2); Urine Squamous Cell 0-2 /LPF (Few)
[2024-05-22 16:02] LABS: Urine Bacteria Many (Negative)
== END ==
LOC: REG 14:18
PROVIDERS: ATTENDING PHYSICIAN Family Medicine; REFERRING PHYSICIAN Dermatology MOHS-Micrographic Surgery
DX: N30.90 Cystitis, unspecified without hematuria (principal)
CPT/HCPCS: 81003; 81015; 87077; 87086

== ENCOUNTER → 2024-05-25 12:21 | Outpatient (REF) | payer MEDICARE, SELFPAY ==
[2024-05-25 13:29] LABS: % Basophils 0.1 % (0-2); % Immature Granulocytes 0.6 % (0-0.5); % Lymphocytes 6.3 % (20.5-51.1); Absolute Immature Granulocytes 0.1 10^3/uL (0-0.05); Absolute Monocytes 0.9 10^3/uL (0.1-0.6); Absolute Neutrophils 13.6 10^3/uL (1.4-6.5); Hematocrit 31.3 % (37.0-47.0); Hemoglobin 9.7 g/dL (12.0-16.0); Mean Corpuscular Hgb 26.4 pg (27.0-31.0); Mean Corpuscular Volume 85.3 fL (81.0-99.0); Mean Platelet Volume 9.2 fL (7.4-10.4); Nucleated Red Blood Cells % 0 %; Platelet Count 287 10^3/uL (130-400); Red Blood Cell Count 3.67 10^6/uL (4.20-5.40); Red Cell Dist. Width 15.6 % (11.5-14.5); White Blood Cell Count 15.7 10^3/uL (4.8-10.8)
[2024-05-25 13:59] LABS: ALT (SGPT) 14 U/L (0-35); AST (SGOT) 14 U/L (14-36); Alkaline Phosphatase 80 U/L (38-126); Blood Urea Nitrogen 35 mg/dl (7-17); Calcium 9.6 mg/dl (8.4-10.2); Carbon Dioxide 31 mmol/L (22-30); Chloride 96 mmol/L (98-107); Glucose 182 mg/dl (70-99); Potassium 5.1 mmol/L (3.5-5.1); Sodium 139 mmol/L (135-145); Total Bilirubin 0.6 mg/dl (0.2-1.3); eGFR 45.19
== END ==
LOC: REG 12:21
PROVIDERS: ATTENDING PHYSICIAN Dermatology MOHS-Micrographic Surgery; FAMILY PHYSICIAN Family Medicine
DX: E87.5 Hyperkalemia (principal); L12.0 Bullous pemphigoid
CPT/HCPCS: 36415; 80053; 85025

== ENCOUNTER → 2024-06-29 13:24 | Outpatient (REF) | payer MEDICARE, SELFPAY | LOC: WOUND 13:24 | PROVIDERS: ATTENDING PHYSICIAN Surgery; FAMILY PHYSICIAN Family Medicine | DX: L89.329 Pressure ulcer of left buttock, unspecified stage (principal); L97.211 Non-pressure chronic ulcer of right calf limited to breakdown of skin; L12.0 Bullous pemphigoid; L40.0 Psoriasis vulgaris | CPT/HCPCS: 99213 ==

== ENCOUNTER → 2024-07-24 08:37 | Outpatient (REF) | payer MEDICARE, SELFPAY ==
[2024-07-24 09:49] LABS: % Basophils 0.5 % (0-2); % Eosinophils 0.4 % (0-6); % Immature Granulocytes 0.3 % (0-0.5); % Lymphocytes 24.8 % (20.5-51.1); % Monocytes 11.4 % (1.7-9.3); % Neutrophils 62.6 % (42.2-75.2); Absolute Basophils 0.1 10^3/uL (0-0.2); Absolute Lymphocytes 2.3 10^3/uL (1.2-3.4); Absolute Monocytes 1.1 10^3/uL (0.1-0.6); Absolute Neutrophils 5.8 10^3/uL (1.4-6.5); Hematocrit 29.1 % (37.0-47.0); Hemoglobin 8.9 g/dL (12.0-16.0); Mean Corp Hgb Conc. 30.6 g/dL (33.0-37.0); Mean Corpuscular Hgb 28.3 pg (27.0-31.0); Mean Corpuscular Volume 92.4 fL (81.0-99.0); Mean Platelet Volume 9.7 fL (7.4-10.4); Nucleated Red Blood Cells % 0 %; Platelet Count 240 10^3/uL (130-400); Red Blood Cell Count 3.15 10^6/uL (4.20-5.40); White Blood Cell Count 9.3 10^3/uL (4.8-10.8)
[2024-07-24 11:16] LABS: ALT (SGPT) 14 U/L (0-35); AST (SGOT) 17 U/L (14-36); Albumin 3.3 g/dl (3.5-5.0); Glycohemoglobin (HgbA1c) 6.3 % (4.0-5.6)
[2024-07-24 11:18] LABS: ALT (SGPT) 14 U/L (0-35); AST (SGOT) 18 U/L (14-36); Albumin 3.4 g/dl (3.5-5.0); Alkaline Phosphatase 72 U/L (38-126); Blood Urea Nitrogen 24 mg/dl (7-17); Calcium 9.2 mg/dl (8.4-10.2); Carbon Dioxide 25 mmol/L (22-30); Chloride 104 mmol/L (98-107); Glucose 116 mg/dl (70-99); HDL Cholesterol 62 mg/dl; LDL Cholesterol, Calculated 44 mg/dl; Potassium 5.4 mmol/L (3.5-5.1); Sodium 136 mmol/L (135-145); Total Bilirubin 0.5 mg/dl (0.2-1.3); Total Cholesterol 122 mg/dl (50-199); Total Protein 5.9 g/dl (6.3-8.2); Triglyceride 84 mg/dl (10-149); Very Low Density Lipoprotein 16 mg/dl (0-30); eGFR 45.19
== END ==
LOC: REG 08:37
PROVIDERS: ATTENDING PHYSICIAN Dermatology; FAMILY PHYSICIAN Family Medicine
DX: I50.30 Unspecified diastolic (congestive) heart failure (principal); E11.59 Type 2 diabetes mellitus with other circulatory complications
CPT/HCPCS: 36415; 80053; 80061; 82040; 83036; 84450; 84460; 85025

== ENCOUNTER 2024-09-22 10:09 | Emergency (ER) | payer MEDICARE, SELFPAY ==
[2024-09-22] VITALS (8 sets, daily range): BP systolic 99–130; BP diastolic 31–80; PULSE 68; O2SAT 100; BMI 36.4
[2024-09-22 10:47] LABS: Hematocrit 29.6 % (37.0-47.0); Hemoglobin 9.4 g/dL (12.0-16.0); Mean Corp Hgb Conc. 31.8 g/dL (33.0-37.0); Mean Corpuscular Volume 92.5 fL (81.0-99.0); Nucleated Red Blood Cells % 0 %; Red Cell Dist. Width 13.3 % (11.5-14.5)
--- NOTE | 2024-09-22 10:53 | ED.GENMED ---
History of Present Illness
General
Chief Complaint: Weakness
Source: patient
Exam Limitations: none
Time Seen by Provider: 09/22/24 10:11
Nursing documentation reviewed up to this point in time: agreed with
History of Present Illness
History of Present Illness:
84-year-old female oxygen dependent COPD presents with fatigue, chronic shortness of breath decubiti at her buttock, via EMS she had decreased p.o. intake, concern for dehydration chronic pain patient, came by EMS apparently not on her oxygen
hypoxic on room air not hypoxic on her baseline oxygen here she is cooperative easily arousable moves all extremities
12:20 PM at baseline he called the ambulance today because patient has had 3 to 4 weeks of fatigue inability to ambulate cannot walk even with her walker is afraid she is going to fall, she does have a chronic wound that they have been
caring for decubiti is on doxycycline also some swelling bruising on the right hand most pronounced at the right small finger has been using her oxygen as prescribed
Past History
Past History
ED Past Medical History: CAD, CHF, COPD, GERD, HTN, Hypercholesterolemia, NIDDM, Psychiatric (Depression) and Other (DVT, morbid obesity, sleep apnea, iron deficiency anemia, spinal stenosis)
ED Past Surgical History: Appendectomy, Orthopedic, Tonsilectomy and Other (Cardiac catheterization with femoral arterial complications with both recent catheterization)
Social History
Tobacco: Former smoker
Alcohol: None
Drug: None
Personal:
Living: with family
Employment: Not employed
Review of Systems
Review of Systems
All Other Systems: Not applicable
Phy Exam
Physical Exam
Physical Exam:
Physical Exam
General: Chronically ill-appearing female nontoxic cooperative
Neck: No jaundice
Heart: Regular
Lungs: Wheeze left greater than
Abdomen: Not tender
Neuro: alert and oriented. no focal neurological deficits
Skin: no rash
Psychiatric: cooperative
Extremities: Nonpitting edema venous stasis changes
Course
Orders/Labs/Results
Orders:
Orders
09/22/24 10:27
Basic Metabolic Panel Urgent
Complete Blood Count/With Diff Urgent
Urinalysis Reflex To Culture Urgent
Date Specimen was Collected: 09/22/24
Time Specimen was Collected: 10:25
09/22/24 10:28
Electrocardiogram (*1) Urgent
Reason for Study: Vertigo / Dizzy
EKG- Treatment ONCE
09/22/24 10:33
CR Chest - 2 Views Urgent
Comment:
Reason For Exam: sob
09/22/24 10:47
Ipratropium/Albuterol Sulfate [Duoneb] 3 ml INH R NOW STA
09/22/24 11:22
0.9% Sodium Chloride 500 ml [Nss] 500 ml IV BOLUS
09/22/24 12:30
CT Head W/o Iv Contrast Urgent
Comment:
Reason For Exam: ataxia
Case Management Consult ONCE
Case Management Consult: Discharge Planning
CR Hand - Right Min 3 Views Urgent
Comment:
Reason For Exam: sweollen small finter
09/22/24 12:31
Physical Therapy Consult [Pt Eval And Treat] Urgent
Activity Level: Ambulate
09/22/24 15:16
Case Management Consult ONCE
Case Management Consult: VN/Home Care
09/22/24 15:17
Case Management Consult ONCE
Case Management Consult: VN/Home Care
Abnormal Lab Results
09/22/24
10:27
RBC 3.20 L 10^6/uL
(4.20-5.40)
Hgb 9.4 L g/dL
(12.0-16.0)
Hct 29.6 L %
(37.0-47.0)
MCHC 31.8 L g/dL
(33.0-37.0)
MPV 10.7 H fL
(7.4-10.4)
Absolute Neuts (auto) 6.9 H 10^3/uL
(1.4-6.5)
Absolute Monos (auto) 1.2 H 10^3/uL
(0.1-0.6)
Lymphocytes % 19.2 L %
(20.5-51.1)
Monocytes % 11.4 H %
(1.7-9.3)
Sodium 134 L mmol/L
(135-145)
Carbon Dioxide 32 H mmol/L
(22-30)
BUN 39 H mg/dl
(7-17)
Creatinine 1.5 H mg/dL
(0.6-1.0)
Glucose 113 H mg/dl
(70-99)
09/22/24 10:27
09/22/24 10:27
Vital Signs
Initial and Last Documented VS:
Initial Vital Signs
Temp Pulse Resp BP Pulse Ox
98.2 F 65 16 114/51 75
09/22/24 10:29 09/22/24 10:29 09/22/24 10:29 09/22/24 10:29 09/22/24 10:29
Last Documented Vital Signs
Temp Pulse Resp BP Pulse Ox
98.2 F 74 23 130/54 92
09/22/24 10:29 09/22/24 15:00 09/22/24 15:00 09/22/24 14:00 09/22/24 10:55
MDM/Problems Addressed
Differential Diagnosis Includes:
Dehydration infection electrolyte abnormality deconditioning
MDM/Problems Addressed:
Weakness
Chronic conditions affecting care: COPD
Acute Exacerbation and/or Progression of Chronic Illness: COPD
*Pulse Oximetry
SaO2: 92
Nasal Cannula flow liters per minute: 3
Oxygen Mode of Delivery: Room air
Patient hypoxic: yes
*EKG
Interpreted by ED Provider?: Yes
Interpretation: normal
Comparison EKG: no comparison EKG present
Heart Rate: 78
Rate: normal
Rhythm: sinus
Ischemia: non-specific ST changes
*Telesales Agent Interpretation
Rate: normal
Interpretation: normal
Heart Rate: 78
Rhythm: sinus
*Critical Care Note
Total Time (30-74mins, 75-104mins- exclusive of procedures): Not Applicable
Update Note
Update Note:
Update further information from spouse will check CT of the head right hand x-ray case management PT
3:15 PM reviewed with case management reviewed with PT multiple updates to , patient will be discharged home with home services [facility] etc.
ED Attending Note
-
Portions of this chart may have been created with voice recognition software.� Occasional wrong word or��sound alike� substitutions may have occurred due to the inherent limitations of voice recognition software.
Discharge Plan
Departure
Patient Disposition: Home (Routine Discharge)
Date of Disposition: 09/22/24
Time of Disposition: 15:17
Patient with high blood pressure during this ER visit?: No
Condition: Good
Discharge Problem:
Weakness
Instructions: Generalized Weakness (DC)
Prescriptions:
No Action
pantoprazole 40 MG tablet,delayed release (DR/EC)
40 mg PO QPM
furosemide 40 MG tablet
40 mg PO DAILY
aspirin 81 MG tablet,delayed release (DR/EC)
81 mg PO DAILY
metformin 500 MG tablet extended release 24 hr
500 mg PO QPM
bupropion HCl 150 MG tablet extended release 24 hr
150 mg PO DAILY
duloxetine 60 MG capsule,delayed release(DR/EC)
60 mg PO DAILY
oxycodone 10 MG tablet
10 mg PO TID
atorvastatin 80 mg tablet
80 mg PO HS
gabapentin 300 mg capsule
600 mg PO UD
Rx Instructions:
starting 03/16/24 take 600mg bid and 300mg in the after noon, then 03/17/24 take 600mg daily 300mg afternoon and 300mg hs, then on 03/18/24 take 300mg tid
metoprolol succinate 50 mg Tablet Extended Release 24 Hr
50 mg PO DAILY
famotidine 20 mg Tablet
20 mg PO DAILY
Eliquis 5 mg tablet
5 mg PO BID Qty: 60 0RF
triamcinolone acetonide 0.1 % lotion
1 applic topical TIDPRN PRN (Reason: arms and legs)
Referrals:
UNKNOWN,NO INTERVIEW [Family Provider]
Interventions
Interventions:
*Risk Screen - Suicide Last Done: 09/22/24 10:32
*General Assessment Last Done: 09/22/24 10:32
*Neglect/Abuse Screening Last Done: 09/22/24 10:32
*ED- Fall Risk Assessment Last Done: 09/22/24 10:32
*ED COVID-19 Vaccine History Last Done: 09/22/24 10:32
ED- Cardiac Assessment Last Done: 09/22/24 10:42
ED- Neurological Assessment Last Done: 09/22/24 10:42
ED- Pulmonary Assessment Last Done: 09/22/24 10:42
Discharge Date and Time
Print Language: ARMENIAN
[2024-09-22 10:58] LABS: Urine Character Clear (Clear)
[2024-09-22] MEDS: DUONEB 3 ML INH (10:58)
[2024-09-22 11:11] LABS: Platelet Count 216 10^3/uL (130-400)
[2024-09-22 11:15] LABS: Blood Urea Nitrogen 39 mg/dl (7-17); Calcium 8.9 mg/dl (8.4-10.2); Carbon Dioxide 32 mmol/L (22-30); Chloride 99 mmol/L (98-107); Estimated Creatinine Clearance 30 ml/min; Glucose 113 mg/dl (70-99); Sodium 134 mmol/L (135-145); eGFR 34.58
[2024-09-22] MEDS: NSS 500 IV (12:26)
--- NOTE | 2024-09-22 14:19 | CM ---
Addendum entered by Florinda Burger RN 09/22/24 15:24:
Discuss with the patient and her spouse that if they were interested in SNF it would need to be an [id number] cost. Discuss having VN come to the home. Patient and spouse agreeable to VN/PT/OT/TAR HEEL. Referral place in [facility]. Discussed
possibly have [facility] evaluate for possible resources in the home. They had done this in the past, but were not eligible. Spouse agreeable to reaching back out to the [facility] since finances are much lower at this point. Spouse has contact information.
Original Note:
Reviewed the chart notes and spoke with the patient and spouse at the bedside. CM consult for discharge planning received. The patient resides with spouse in a one story home with four steps to enter. The patient has a rolling walker, w/c, shower
chair, home O2 through [employer], and [employer]. The patient has had VN in the past and been to [facility]. The patient confirmed [facility] [address] [place] is pharmacy of choice. CM continues to be available to patient/family and is monitoring medical
plan for needs at discharge.
Plan: PT evaluation pending.
== END 2024-09-22 17:08 | disposition home or self-care (01) ==
LOC: EMR 10:09
PROVIDERS: EMERGENCY PHYSICIAN Emergency Medicine; FAMILY PHYSICIAN Family Medicine
DX: R53.1 Weakness (principal); J44.9 Chronic obstructive pulmonary disease, unspecified; R53.83 Other fatigue; I25.10 Atherosclerotic heart disease of native coronary artery without angina pectoris; I11.0 Hypertensive heart disease with heart failure; I50.9 Heart failure, unspecified; E11.9 Type 2 diabetes mellitus without complications; E66.01 Morbid (severe) obesity due to excess calories; E78.00 Pure hypercholesterolemia, unspecified; F32.A Depression, unspecified; G47.30 Sleep apnea, unspecified; Z86.718 Personal history of other venous thrombosis and embolism; Z87.891 Personal history of nicotine dependence; Z90.49 Acquired absence of other specified parts of digestive tract; Z99.81 Dependence on supplemental oxygen
CPT/HCPCS: 99284; 94640; 96360; 70450; 71046; 73130; 80048; 81003; 85025; 93005

== ENCOUNTER → 2024-10-06 09:45 | Outpatient (REF) | payer MEDICARE, SELFPAY ==
[2024-10-06 10:30] LABS: Hematocrit 28.8 % (37.0-47.0); Hemoglobin 8.9 g/dL (12.0-16.0); Mean Corp Hgb Conc. 30.9 g/dL (33.0-37.0); Mean Corpuscular Volume 95.7 fL (81.0-99.0); Nucleated Red Blood Cells % 0 %; Platelet Count 245 10^3/uL (130-400); Red Cell Dist. Width 13.5 % (11.5-14.5)
[2024-10-06 11:37] LABS: Blood Urea Nitrogen 33 mg/dl (7-17); Calcium 9.0 mg/dl (8.4-10.2); Carbon Dioxide 30 mmol/L (22-30); Chloride 101 mmol/L (98-107); Glucose 163 mg/dl (70-99); Iron 54 ug/dl (37-170); Potassium 4.8 mmol/L (3.5-5.1); Sodium 136 mmol/L (135-145); eGFR 34.58
[2024-10-06 11:45] LABS: Total Iron Binding Capacity 234 ug/dl (265-497)
[2024-10-06 12:30] LABS: Vitamin B12 > 1000 pg/ml (239-931)
== END ==
LOC: REG 09:45
PROVIDERS: ATTENDING PHYSICIAN Family Medicine; OTHER PHYSICIAN Internal Medicine Critical Care Medicine; REFERRING PHYSICIAN Internal Medicine Cardiovascular Disease
DX: I50.9 Heart failure, unspecified (principal); I50.32 Chronic diastolic (congestive) heart failure; E53.8 Deficiency of other specified B group vitamins; E61.1 Iron deficiency
CPT/HCPCS: 36415; 80048; 82607; 83540; 83550; 83880; 85025

== ENCOUNTER 2024-10-19 07:30 | Inpatient (IN) | payer MEDICARE, SELFPAY ==
[2024-10-17] VITALS (11 sets, daily range): BP systolic 95–151; BP diastolic 49–112; BMI 37.0; BMI 36.9
[2024-10-17] MEDS: OFIRMEV 100 IV (12:40)
[2024-10-17] MEDS: DILAUDID 0.5 MG IV (12:43)
[2024-10-17 12:58] LABS: Hematocrit 28.5 % (37.0-47.0); Hemoglobin 8.9 g/dL (12.0-16.0); Mean Corp Hgb Conc. 31.2 g/dL (33.0-37.0); Mean Corpuscular Volume 94.4 fL (81.0-99.0); Nucleated Red Blood Cells % 0 %; Platelet Count 235 10^3/uL (130-400); Red Cell Dist. Width 13.4 % (11.5-14.5)
[2024-10-17 13:17] LABS: Blood Urea Nitrogen 29 mg/dl (7-17); Calcium 9.2 mg/dl (8.4-10.2); Carbon Dioxide 31 mmol/L (22-30); Chloride 101 mmol/L (98-107); Estimated Creatinine Clearance 36 ml/min; Glucose 106 mg/dl (70-99); Lipase 136 U/L (23-300); Sodium 135 mmol/L (135-145); eGFR 41.06
--- NOTE | 2024-10-17 14:33 | ED.GENMED ---
History of Present Illness
General
Chief Complaint: Generalized Pain
Source: patient
Exam Limitations: none
Time Seen by Provider: 10/17/24 12:10
History of Present Illness
History of Present Illness:
84-year-old female progressive right-sided flank pain with some pain shooting down the right leg. No fever or chills. No weakness no bowel or bladder issues. No urinary symptoms.
Past History
Past History
ED Past Medical History: CAD, CHF, COPD, GERD, HTN, Hypercholesterolemia, NIDDM, Psychiatric (Depression) and Other (DVT, morbid obesity, sleep apnea, iron deficiency anemia, spinal stenosis)
ED Past Surgical History: Appendectomy, Orthopedic, Tonsilectomy and Other (Cardiac catheterization with femoral arterial complications with both recent catheterization)
Social History
Tobacco: Former smoker
Alcohol: None
Drug: None
Personal:
Living: with family
Employment: Not employed
Review of Systems
Review of Systems
All Other Systems: Not applicable
Constitutional: Denies fever or chills
Respiratory: Reports no symptoms
Cardiac: Reports no symptoms
ABD/GI: Denies abdominal pain
: Reports no symptoms
Phy Exam
Physical Exam
Physical Exam:
GENERAL: Alert and oriented in no apparent distress
EYE: Orbits normal.
NECK: Supple, no significant adenopathy.
ENT: Pharynx without erythema
CARDIAC: Regular rate and rhythm without any obvious murmurs.
LUNGS: Clear breath sounds,normal
ABDOMEN: Soft, without focal tenderness or distention. Old deep nontender hematoma right lower abdominal pannus
NEUROLOGICAL: Alert and oriented , grossly non-focal. Good distal strength. Plantar dorsiflexion. Tenderness over the greater trochanter. Some lower spinal tenderness no pain with hip rotation
SKIN: Warm and dry, no rash or lesion, no discoloration, skin intact.
MUSCULOSKELETAL: No edema,no deformity.Good color
PSYCH: Normal and appropriate interaction.
Course
Orders/Labs/Results
Orders:
Orders
10/17/24 12:25
CT Abd/pel Without Iv Or Oral Urgent
Comment:
Reason For Exam: Right flank and pelvic pain
IV Insert/Care/Rem.- Treatment PRN
Acetaminophen 1000MG/100Ml [Ofirmev] 1,000 mg in 100 ml IV ONCE
Acetaminophen IV Indication:: ED Narcotic History-ONCE
HYDROmorphone [Dilaudid] 0.5 mg IV NOW STA
10/17/24 12:36
Basic Metabolic Panel Urgent
Complete Blood Count/With Diff Urgent
Lipase Urgent
Abnormal Lab Results
10/17/24
12:36
RBC 3.02 L 10^6/uL
(4.20-5.40)
Hgb 8.9 L g/dL
(12.0-16.0)
Hct 28.5 L %
(37.0-47.0)
MCHC 31.2 L g/dL
(33.0-37.0)
Absolute Neuts (auto) 6.9 H 10^3/uL
(1.4-6.5)
Absolute Monos (auto) 1.3 H 10^3/uL
(0.1-0.6)
Monocytes % 11.8 H %
(1.7-9.3)
Carbon Dioxide 31 H mmol/L
(22-30)
BUN 29 H mg/dl
(7-17)
Creatinine 1.3 H mg/dL
(0.6-1.0)
Glucose 106 H mg/dl
(70-99)
10/17/24 12:36
10/17/24 12:36
Vital Signs
Initial and Last Documented VS:
Initial Vital Signs
Temp Pulse Resp BP Pulse Ox
97.8 F 80 20 95/49 97
10/17/24 11:22 10/17/24 11:22 10/17/24 11:22 10/17/24 11:22 10/17/24 11:22
Last Documented Vital Signs
Temp Pulse Resp BP Pulse Ox
97.8 F 61 13 111/57 88
10/17/24 11:22 10/17/24 12:45 10/17/24 12:45 10/17/24 12:34 10/17/24 14:36
MDM/Problems Addressed
Differential Diagnosis Includes:
No obvious explanation. Clinically very musculoskeletal in nature. No acute abdominal process. No obvious neurologic issues no numbness tingling weakness bowel or bladder issues. No infectious issues. Discussed options with patient and family
of admission versus outpatient management. They are discussing it now. Admission was offered however pain management and ADL issues
*Radiology
Radiology exam reviewed: radiology read reviewed (Abdominal wall mass. Stable.)
*Pulse Oximetry
SaO2: 88
Oxygen Mode of Delivery: Room air
Patient hypoxic: no
*Critical Care Note
Total Time (30-74mins, 75-104mins- exclusive of procedures): Not Applicable
Update Note
Update Note:
CT stable. Intractable pain. ADL issues. Will admit for further care
ED Attending Note
-
Portions of this chart may have been created with voice recognition software.� Occasional wrong word or��sound alike� substitutions may have occurred due to the inherent limitations of voice recognition software.
Discharge Plan
Departure
Patient Disposition: Admit
Date of Disposition: 10/17/24
Time of Disposition: 15:03
Presentation/result/management discussed w/ accepting MD/DO: Hospitalist
Discharge Problem:
Intractable right flank and back pain, ADL issues
Prescriptions:
No Action
pantoprazole 40 MG tablet,delayed release (DR/EC)
40 mg PO QPM
furosemide 40 MG tablet
40 mg PO DAILY
aspirin 81 MG tablet,delayed release (DR/EC)
81 mg PO DAILY
metformin 500 MG tablet extended release 24 hr
500 mg PO QPM
bupropion HCl 150 MG tablet extended release 24 hr
150 mg PO DAILY
duloxetine 60 MG capsule,delayed release(DR/EC)
60 mg PO DAILY
oxycodone 10 MG tablet
10 mg PO TID
atorvastatin 80 mg tablet
80 mg PO HS
gabapentin 300 mg capsule
600 mg PO UD
Rx Instructions:
starting 03/16/24 take 600mg bid and 300mg in the after noon, then 03/17/24 take 600mg daily 300mg afternoon and 300mg hs, then on 03/18/24 take 300mg tid
metoprolol succinate 50 mg Tablet Extended Release 24 Hr
50 mg PO DAILY
famotidine 20 mg Tablet
20 mg PO DAILY
Eliquis 5 mg tablet
5 mg PO BID Qty: 60 0RF
triamcinolone acetonide 0.1 % lotion
1 applic topical TIDPRN PRN (Reason: arms and legs)
Referrals:
Mir Estrada MD [Family Provider, Family Practice]
Interventions
Interventions:
*Risk Screen - Suicide Last Done: 10/17/24 12:24
*General Assessment Last Done: 10/17/24 11:22
*Neglect/Abuse Screening Last Done: 10/17/24 12:22
*ED- Fall Risk Assessment Last Done: 10/17/24 12:21
*ED COVID-19 Vaccine History Last Done: 10/17/24 12:21
Discharge Date and Time
Print Language: MOROCCAN
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
[2024-10-17] MEDS: TYLENOL 1000 MG PO (19:17)
--- NOTE | 2024-10-17 20:35 | PTCARENOTE ---
Rn Flow assistant producer- Patient's admission assessment completed. Patient indicated that she is on 4 liter o2 at night. Patient denies cpap use. Informed Letiita Villegas who states that she will order o2 - 4liters
[2024-10-17] MEDS: VIBRAMYCIN 100 MG PO (21:22)
[2024-10-17] MEDS: ELIQUIS 5 MG PO (21:22)
[2024-10-17] MEDS: LIPITOR 80 MG PO (21:22)
[2024-10-17] MEDS: ROXICODONE 20 MG PO (21:23)
--- NOTE | 2024-10-17 21:25 | PTCARENOTE ---
Received patient from ED via stretcher. Patient ambulated from stretcher to bed x1 assist with rolling walker. Patient tearful reporting 10/10 pain to right lower abdomen radiating to right lower back. Scheduled edward given as ordered. Oriented
patient to room and placed call fitch within reach.
[2024-10-17] MEDS: DILAUDID 1 MG IV (22:49)
[2024-10-17] MEDS: TYLENOL PO (23:28)
[2024-10-18 07:16] VITALS: BP 126/67
[2024-10-18] MEDS: DESENEX/MITRAZOL/ZEASORB 1 APPLIC TOPICAL ×2 (07:36→19:56)
[2024-10-18] MEDS: NIZORAL 2% CREAM 1 APPLIC TOPICAL (07:37)
[2024-10-18] MEDS: VIBRAMYCIN 100 MG PO ×2 (07:38→19:56)
[2024-10-18] MEDS: ROXICODONE 20 MG PO ×3 (07:38→21:29)
[2024-10-18] MEDS: ELIQUIS 5 MG PO (07:38)
[2024-10-18] MEDS: PROTONIX 40 MG PO (07:38)
[2024-10-18] MEDS: NEURONTIN 300 MG PO ×3 (07:38→17:14)
[2024-10-18] MEDS: WELLBUTRIN XL (24 hour extended release) 150 MG PO (07:38)
[2024-10-18] MEDS: ASPIR LOW (ENTERIC COATED) 81 MG PO (07:39)
[2024-10-18] MEDS: CELLCEPT 500 MG PO (07:39)
[2024-10-18] MEDS: CYMBALTA DELAYED RELEASE 60 MG PO (07:39)
[2024-10-18] MEDS: TYLENOL 650 MG PO ×2 (07:39→19:56)
[2024-10-18] MEDS: LASIX 40 MG PO (07:41)
[2024-10-18] MEDS: TOPROL XL 50 MG PO (07:57)
--- NOTE | 2024-10-18 08:20 | VNURNOTE ---
Chart reviewed. Patient is current with [facility]. Will continue to follow hospital course and DC plans.
[2024-10-18 08:44] LABS: Hematocrit 28.5 % (37.0-47.0); Hemoglobin 8.8 g/dL (12.0-16.0); Mean Corp Hgb Conc. 30.9 g/dL (33.0-37.0); Mean Corpuscular Volume 93.4 fL (81.0-99.0); Platelet Count 229 10^3/uL (130-400); Red Cell Dist. Width 13.5 % (11.5-14.5)
[2024-10-18 08:55] LABS: Blood Urea Nitrogen 23 mg/dl (7-17); Calcium 9.2 mg/dl (8.4-10.2); Carbon Dioxide 29 mmol/L (22-30); Chloride 104 mmol/L (98-107); Estimated Creatinine Clearance 38 ml/min; Glucose 94 mg/dl (70-99); Magnesium 1.4 mg/dl (1.6-2.3); Potassium 4.4 mmol/L (3.5-5.1); Sodium 136 mmol/L (135-145); eGFR 45.19
[2024-10-18] MEDS: GLUCOPHAGE XR EXTENDED RELEASE 500 MG PO (09:26)
[2024-10-18] MEDS: DILAUDID 1 MG IV (11:44)
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
--- NOTE | 2024-10-18 14:18 | WOUNDNOTE ---
LEFT BUTTOCK POA
--- NOTE | 2024-10-18 14:25 | CM ---
Patient seen at bedside with physician and nurse present. Patient on . Patient stated that she lives with and son in a one story home with 3 steps to enter. Patient stated that she has a walker, cane, wheelchair at home. Patient sleeps
in her recliner chair. Patient PCP is Dr. Mir Estrada. Patient is current with [facility], and CM will update Liaison. [facility] uses [facility]. Patient currently is OBS/GRANT and form reviewed and patient wanted to review with
, copy placed on chart with time of form reviewal. Patient stated that she is concerned about the OBS status due to costs of care. CM will continue to follow for discharge planning needs.
Plan;pending medical treatment plan; home with [facility]N vs snf
[2024-10-18 15:08] VITALS: BP 97/56
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
[2024-10-18] MEDS: FIRVANQ 125 MG PO (17:28)
[2024-10-18] MEDS: LIPITOR 80 MG PO (21:29)
[2024-10-18 23:05] VITALS: BP 109/56
[2024-10-19] MEDS: FIRVANQ 125 MG PO ×4 (00:52→17:15)
[2024-10-19] MEDS: DILAUDID 1 MG IV (05:54)
[2024-10-19 06:00] VITALS: BMI 36.1
[2024-10-19 07:29] VITALS: BP 106/53
[2024-10-19 07:38] LABS: Hematocrit 26.8 % (37.0-47.0); Hemoglobin 8.6 g/dL (12.0-16.0); Mean Corp Hgb Conc. 32.1 g/dL (33.0-37.0); Mean Corpuscular Volume 90.5 fL (81.0-99.0); Platelet Count 198 10^3/uL (130-400); Red Cell Dist. Width 13.2 % (11.5-14.5)
[2024-10-19 08:05] LABS: Blood Urea Nitrogen 22 mg/dl (7-17); Calcium 9.0 mg/dl (8.4-10.2); Carbon Dioxide 32 mmol/L (22-30); Chloride 102 mmol/L (98-107); Estimated Creatinine Clearance 41 ml/min; Glucose 102 mg/dl (70-99); Magnesium 1.3 mg/dl (1.6-2.3); Potassium 4.5 mmol/L (3.5-5.1); Sodium 135 mmol/L (135-145); eGFR 50.17
[2024-10-19] MEDS: ROXICODONE 20 MG PO ×3 (08:18→21:16)
[2024-10-19] MEDS: CELLCEPT 500 MG PO (08:23)
[2024-10-19] MEDS: CYMBALTA DELAYED RELEASE 60 MG PO (08:23)
[2024-10-19] MEDS: GLUCOPHAGE XR EXTENDED RELEASE 500 MG PO (08:24)
[2024-10-19] MEDS: NEURONTIN 300 MG PO ×3 (08:24→17:15)
[2024-10-19] MEDS: ASPIR LOW (ENTERIC COATED) 81 MG PO (08:24)
[2024-10-19] MEDS: TYLENOL 650 MG PO ×2 (08:24→19:43)
[2024-10-19] MEDS: PROTONIX 40 MG PO (08:25)
[2024-10-19] MEDS: NIZORAL 2% CREAM 1 APPLIC TOPICAL (08:25)
[2024-10-19] MEDS: WELLBUTRIN XL (24 hour extended release) 150 MG PO (08:25)
[2024-10-19] MEDS: VIBRAMYCIN 100 MG PO ×2 (08:25→19:43)
[2024-10-19] MEDS: DESENEX/MITRAZOL/ZEASORB 1 APPLIC TOPICAL ×2 (08:26→19:43)
[2024-10-19] MEDS: LASIX 40 MG PO (08:30)
[2024-10-19] MEDS: MAGNESIUM SULFATE 100 IV (08:30)
[2024-10-19] MEDS: TOPROL XL 50 MG PO (08:30)
--- NOTE | 2024-10-19 08:49 | PN.CDI ---
CDI
- -
CDI:
Physician Documentation Request
Admit Date: 10/19/24 07:30
Dear Doctor,
Please review the following and provide your response in the progress notes.
Clinical Indicators:
Pt admitted for Abdominal and thigh pain.
10/18 [facility] RN: 'Patient admitted with DTI to buttocks L>R.' Noted in wound care panel to be a pressure injury.
Physician documentation of the type and location of wounds is required for compliant documentation. Based on the above clinical findings and your assessment, please provide the following in your progress note:
1. Location of the ulcer/wound, including laterality.
2. Type (etiology) of ulcer/wound:
Bilateral buttock DTI, pressure injury POA
Bilateral buttock non-pressure injury POA
Other
Use of terms such as suspected, likely, concern for, or probable (associated with a specific diagnosis that is being evaluated, monitored, or treated as if it exists) are acceptable and can be coded in the inpatient setting, when documented at the
time of discharge.
Thank you,
May Echols RN, BSN
CDI Specialist
[place] [facility]
Please use your independent medical judgment in providing your response.
*Source: National Pressure Ulcer Advisory Panel (NPUAP)
[2024-10-19 14:50] VITALS: BMI 36.1
[2024-10-19 15:09] VITALS: BP 137/61
[2024-10-19 15:45] VITALS: BP 113/66; BP_SYST 58
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
--- NOTE | 2024-10-19 16:29 | CM ---
Patient seen at bedside with physician and patient . Patient updated that she is now INP status. IMM provided to patient for her to review. Patient for IR today per physician. Patient plan is home with [facility] and family supports. CM will
continue to follow for discharge planning needs.
Plan; home with [facility]; watch for further SNF needs.
[2024-10-19 16:45] VITALS: BP 135/76
--- NOTE | 2024-10-19 17:22 | PTCARENOTE ---
pt rec'd from IR s/p R pelvic mass drainage. VSS. bandaid CDI RLQ abdomen. plan of care ongoing.
[2024-10-19] MEDS: LIPITOR 80 MG PO (21:16)
[2024-10-19 23:53] VITALS: BP 135/70
[2024-10-20] MEDS: FIRVANQ 125 MG PO ×5 (00:02→23:24)
[2024-10-20 06:00] VITALS: BMI 35.2
[2024-10-20 07:30] VITALS: BP 140/72
[2024-10-20 07:53] LABS: Hematocrit 28.8 % (37.0-47.0); Hemoglobin 9.4 g/dL (12.0-16.0); Mean Corp Hgb Conc. 32.6 g/dL (33.0-37.0); Mean Corpuscular Volume 91.4 fL (81.0-99.0); Platelet Count 239 10^3/uL (130-400); Red Cell Dist. Width 13.3 % (11.5-14.5)
[2024-10-20] MEDS: GLUCOPHAGE XR EXTENDED RELEASE 500 MG PO (08:40)
[2024-10-20] MEDS: ASPIR LOW (ENTERIC COATED) 81 MG PO (08:40)
[2024-10-20] MEDS: CYMBALTA DELAYED RELEASE 60 MG PO (08:40)
[2024-10-20] MEDS: TYLENOL 650 MG PO ×2 (08:41→20:01)
[2024-10-20] MEDS: VIBRAMYCIN 100 MG PO ×2 (08:41→20:01)
[2024-10-20] MEDS: PROTONIX 40 MG PO (08:41)
[2024-10-20] MEDS: CELLCEPT 500 MG PO (08:41)
[2024-10-20] MEDS: TOPROL XL 50 MG PO (08:42)
[2024-10-20] MEDS: WELLBUTRIN XL (24 hour extended release) 150 MG PO (08:42)
[2024-10-20] MEDS: NEURONTIN 300 MG PO ×3 (08:42→17:13)
[2024-10-20] MEDS: LASIX 40 MG PO (08:42)
[2024-10-20] MEDS: NIZORAL 2% CREAM 1 APPLIC TOPICAL (08:42)
[2024-10-20] MEDS: DESENEX/MITRAZOL/ZEASORB 1 APPLIC TOPICAL ×2 (08:43→20:02)
[2024-10-20] MEDS: ROXICODONE 20 MG PO (08:44)
[2024-10-20 11:54] LABS: Blood Urea Nitrogen 19 mg/dl (7-17); Calcium 8.6 mg/dl (8.4-10.2); Carbon Dioxide 37 mmol/L (22-30); Chloride 99 mmol/L (98-107); Estimated Creatinine Clearance 37 ml/min; Glucose 112 mg/dl (70-99); Potassium 4.3 mmol/L (3.5-5.1); Sodium 135 mmol/L (135-145); eGFR 45.19
[2024-10-20] MEDS: LIDOCAINE 4% PATCH 1 PATCH TOPICAL (13:41)
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
[2024-10-20 15:48] VITALS: BP 86/40
[2024-10-20 16:08] LABS: Magnesium 1.9 mg/dl (1.6-2.3)
[2024-10-20] MEDS: DILAUDID 2 MG PO ×2 (17:12→23:24)
[2024-10-20 18:39] VITALS: BP 103/65
[2024-10-20] MEDS: ELIQUIS 5 MG PO (20:01)
[2024-10-20] MEDS: REMOVE LIDOCAINE PATCH 1 PATCH REMOVE (20:02)
[2024-10-20] MEDS: LIPITOR 80 MG PO (21:00)
[2024-10-20 23:49] VITALS: BP 104/68
[2024-10-21] MEDS: FIRVANQ 125 MG PO ×4 (05:00→23:12)
[2024-10-21 06:00] VITALS: BMI 35.2
[2024-10-21] MEDS: DILAUDID 2 MG PO (06:34)
[2024-10-21 07:37] LABS: Hematocrit 27.2 % (37.0-47.0); Hemoglobin 9.0 g/dL (12.0-16.0); Mean Corp Hgb Conc. 33.1 g/dL (33.0-37.0); Mean Corpuscular Volume 88.6 fL (81.0-99.0); Platelet Count 164 10^3/uL (130-400); Red Cell Dist. Width 13.1 % (11.5-14.5)
[2024-10-21 08:05] LABS: Blood Urea Nitrogen 22 mg/dl (7-17); Calcium 8.8 mg/dl (8.4-10.2); Carbon Dioxide 31 mmol/L (22-30); Chloride 100 mmol/L (98-107); Estimated Creatinine Clearance 40 ml/min; Glucose 102 mg/dl (70-99); Magnesium 1.8 mg/dl (1.6-2.3); Potassium 4.3 mmol/L (3.5-5.1); Sodium 133 mmol/L (135-145); eGFR 50.17
[2024-10-21 08:32] VITALS: BP 90/56
[2024-10-21] MEDS: ASPIR LOW (ENTERIC COATED) 81 MG PO (08:55)
[2024-10-21] MEDS: CELLCEPT 500 MG PO (08:56)
[2024-10-21] MEDS: VIBRAMYCIN 100 MG PO ×2 (08:56→21:24)
[2024-10-21] MEDS: CYMBALTA DELAYED RELEASE 60 MG PO (08:56)
[2024-10-21] MEDS: TYLENOL 650 MG PO ×2 (08:57→21:24)
[2024-10-21] MEDS: GLUCOPHAGE XR EXTENDED RELEASE 500 MG PO (08:57)
[2024-10-21] MEDS: PROTONIX 40 MG PO (08:57)
[2024-10-21] MEDS: ELIQUIS 5 MG PO ×2 (08:57→21:24)
[2024-10-21] MEDS: WELLBUTRIN XL (24 hour extended release) 150 MG PO (08:59)
[2024-10-21] MEDS: LIDOCAINE 4% PATCH 1 PATCH TOPICAL (08:59)
[2024-10-21] MEDS: DESENEX/MITRAZOL/ZEASORB 1 APPLIC TOPICAL ×2 (09:00→21:29)
[2024-10-21] MEDS: NEURONTIN 300 MG PO ×3 (09:00→17:31)
[2024-10-21] MEDS: NIZORAL 2% CREAM 1 APPLIC TOPICAL (09:06)
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
[2024-10-21] MEDS: ROXICODONE 20 MG PO ×3 (10:13→21:26)
[2024-10-21 10:15] VITALS: BP 114/59
[2024-10-21] MEDS: TOPROL XL 50 MG PO (10:16)
[2024-10-21] MEDS: LASIX 40 MG PO (10:16)
[2024-10-21 15:45] VITALS: BP 84/40
[2024-10-21 15:56] VITALS: BP 120/54
[2024-10-21] MEDS: REMOVE LIDOCAINE PATCH 1 PATCH REMOVE (21:24)
[2024-10-21] MEDS: LIPITOR 80 MG PO (21:25)
[2024-10-21 23:26] VITALS: BP 104/47
[2024-10-22] MEDS: FIRVANQ 125 MG PO (05:28)
[2024-10-22 06:00] VITALS: BMI 35.2
[2024-10-22 07:31] VITALS: BP 144/63
[2024-10-22 08:49] LABS: Blood Urea Nitrogen 24 mg/dl (7-17); Calcium 8.8 mg/dl (8.4-10.2); Carbon Dioxide 35 mmol/L (22-30); Chloride 100 mmol/L (98-107); Estimated Creatinine Clearance 32 ml/min; Glucose 91 mg/dl (70-99); Magnesium 1.8 mg/dl (1.6-2.3); Potassium 4.9 mmol/L (3.5-5.1); Sodium 136 mmol/L (135-145); eGFR 37.56
[2024-10-22] MEDS: VIBRAMYCIN 100 MG PO (09:12)
[2024-10-22] MEDS: TOPROL XL 50 MG PO (09:13)
[2024-10-22] MEDS: TYLENOL 650 MG PO (09:13)
[2024-10-22] MEDS: NEURONTIN 300 MG PO (09:13)
[2024-10-22] MEDS: PROTONIX 40 MG PO (09:13)
[2024-10-22] MEDS: ASPIR LOW (ENTERIC COATED) 81 MG PO (09:13)
[2024-10-22] MEDS: CYMBALTA DELAYED RELEASE 60 MG PO (09:13)
[2024-10-22] MEDS: CELLCEPT 500 MG PO (09:13)
[2024-10-22] MEDS: LIDOCAINE 4% PATCH 1 PATCH TOPICAL (09:13)
[2024-10-22] MEDS: WELLBUTRIN XL (24 hour extended release) 150 MG PO (09:13)
[2024-10-22] MEDS: ELIQUIS 5 MG PO (09:13)
[2024-10-22] MEDS: NIZORAL 2% CREAM 1 APPLIC TOPICAL (09:14)
[2024-10-22] MEDS: DESENEX/MITRAZOL/ZEASORB 1 APPLIC TOPICAL (09:14)
[2024-10-22] MEDS: ROXICODONE 20 MG PO (09:18)
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
--- NOTE | 2024-10-22 11:42 | W.DCSUMMARY ---
Discharge Summary
Discharge Data
Date of Admission: 10/19/24
Date of Discharge: 10/22/24
-
Pending Results: Yes
Additional Pending Results:
fluid aspiration results
Hospital Course
Primary care physician : Mir Estrada
Principal Discharge diagnosis : Abdominal and thigh pain from 'hematoma', diarrhea
Chronic Discharge diagnosis : Deep tissue pressure injury to bilateral buttocks, chronic hypoxemic respiratory failure from chronic obstructive pulmonary disease, bullous pemphigoid, chronic skin pain, iron deficiency anemia, chronic kidney disease
stage IIIa, intertrigo, gastroesophageal reflux disease, type 2 diabetes mellitus, essential hypertension, chronic pain syndrome with chronic opioid dependence, hyperlipidemia, depression, history of coronary artery disease, paroxysmal atrial
fibrillation, heart failure with preserved ejection fraction no exacerbation, morbid obesity
Hospital Course : Patient is an 84-year-old female who had a stent attempted to be placed via femoral access back in 2017 or 2018 after which she developed a 'abdominal wall hematoma' that has been there for years. Patient states that she is on
chronic narcotic therapy for this pain. She presented with acute intractable right abdominal and right upper thigh pain after she woke from her nap. She states that occasionally this will flare and does depend on position. She was given IV
Dilaudid and IV acetaminophen in the emergency department with improvement. Patient was admitted.
Problem #1: Abdominal and thigh pain from 'hematoma'. This is highly unlikely that a hematoma could last for 5 to 7 years. CAT scan done in the emergency department showed grossly stable cystic mass in the right anterolateral pelvic wall. Eliquis
was held and interventional radiology was consulted for biopsy/aspiration. Ten mL of very thick dark yellow fluid were aspirated. These were sent for analysis with cell count, Gram stain, and cytology. These results are pending at this time..
Additional fluid could likely be evacuated as per interventional radiology via large bore percutaneous drainage. Given the chronicity and the thickness however it is unclear if it would be fully evacuated in this manner. Since IV Dilaudid did work
for the patient, we attempted to transition from her oral oxycodone to oral Dilaudid for better pain control. That did not work. She was transition back to her oxycodone with better relief. Lidoderm patch was placed on top of the area to assist
with topical pain control. Our recommendation is for her to follow-up with surgery for possible excision of this area since it is been 5 to 7 years now and giving her ongoing pain. Surgical names were provided to the patient at discharge. Eliquis
was restarted.
Problem #2: Diarrhea. Patient was found to be C. difficile antigen positive but toxin negative. Nevertheless, empiric treatment with oral vancomycin was started. Diarrhea has resolved.
Problem #3: All other medical issues. These include Deep tissue pressure injury to bilateral buttocks, chronic hypoxemic respiratory failure from chronic obstructive pulmonary disease, bullous pemphigoid, chronic skin pain, iron deficiency anemia,
chronic kidney disease stage IIIa, intertrigo, gastroesophageal reflux disease, type 2 diabetes mellitus, essential hypertension, chronic pain syndrome with chronic opioid dependence, hyperlipidemia, depression, history of coronary artery disease,
paroxysmal atrial fibrillation, heart failure with preserved ejection fraction no exacerbation, morbid obesity. These medical issues were stable during her hospitalization. Medications were continued as able.
Patient is stable for discharge home at this time. If there are any questions regarding this dictation or her hospital stay, please do not hesitate to call. Our office number is [phone].
Time for discharge 31 minutes.
Important imaging findings :
CT SCAN ABDOMEN/PELVIS IMPRESSION:
1. No significant acute abnormality identified in the abdomen or pelvis, within the limits of unenhanced CT, as described above.
2. Grossly stable cystic mass in the right anterolateral pelvic wall, present on multiple prior exams and likely reflects residual hematoma/seroma.
Discharge Plan
-
Patient Disposition: Home (Routine Discharge)
Discharge Diagnosis/Procedures: Abdominal and thigh pain due to firm lower abdominal mass noted, diarrhea, deep tissue pressure injury to bilateral buttock, chronic hypoxemic respiratory failure from chronic obstructive pulmonary disease, bullous
pemphigoid, chronic pain, iron deficiency anemia, chronic kidney disease stage IIIa, intertrigo, gastroesophageal reflux disease, type 2 diabetes mellitus, essential hypertension, chronic pain syndrome with chronic opioid dependence, hyperlipidemia,
depression, history of coronary artery disease, paroxysmal atrial fibrillation, heart failure with preserved ejection fraction without any exacerbation, morbid obesity
Condition: Good
Diet: As tolerated
Activity: As tolerated
Driving Restrictions: As prior to admission
Bathing Restrictions: None
Activity Restrictions/Additional Instructions:
Wound Care Instructions Deep tissue injury to buttocks- Change position frequently and apply barrier ointment to buttocks as needed.
Add air or gel cushion to recliner
Keep heels off-loaded with pillow or air cushion under calves
Referrals:
Freedom Alford MD [Active, Surgical] - in four to six weeks
Referral Note: or anyone in the group
Mir Estrada MD [Family Provider, Family Practice] - in less than 1 week
Prescriptions:
New
lidocaine 4 % Adhesive Patch,Medicated
1 patch topical DAILY Qty: 10 0RF
Continued
pantoprazole 40 MG tablet,delayed release (DR/EC)
40 mg PO DAILY
furosemide 40 MG tablet
40 mg PO DAILY
aspirin 81 MG tablet,delayed release (DR/EC)
81 mg PO DAILY
metformin 500 MG tablet extended release 24 hr
500 mg PO DAILY
bupropion HCl 150 MG tablet extended release 24 hr
150 mg PO DAILY
duloxetine 60 MG capsule,delayed release(DR/EC)
60 mg PO DAILY
oxycodone 10 MG tablet
20 mg PO TID
atorvastatin 80 mg tablet
80 mg PO HS
gabapentin 300 mg capsule
600 mg PO BID@0800,1800
metoprolol succinate 50 mg Tablet Extended Release 24 Hr
50 mg PO DAILY
famotidine 20 mg Tablet
20 mg PO QPM
Eliquis 5 mg tablet
5 mg PO BID Qty: 60 0RF
acetaminophen [Tylenol] 325 mg Tablet
650 mg PO BID
doxycycline hyclate 100 mg Capsule
100 mg PO BID
mycophenolate mofetil 500 mg Tablet
500 mg PO DAILY
gabapentin 300 mg Capsule
300 mg PO DAILY@1200
ketoconazole 2 % Cream
1 applic TOPICAL DAILY
cholecalciferol (vitamin D3) [Vitamin D3] 25 mcg (1,000 unit) Tablet
25 mcg PO DAILY
cyanocobalamin (vitamin B-12) 1,000 mcg Capsule
1,000 mcg PO DAILY
Dupixent Pen 200 mg/1.14 mL Pen Injector
0 mg SC Q2W
Discharge Orders:
Discharge Patient (As Directed); Ordered 10/22/24
Ordered By: Destiny Vasquez
Discharge Date and Time
Print Language: SLOVENIAN
[2024-10-22] MEDS: GLUCOPHAGE XR EXTENDED RELEASE 500 MG PO (11:43)
[2024-10-22] MEDS: LASIX 40 MG PO (11:43)
[2024-10-22 12:08] LABS: Hematocrit 29.1 % (37.0-47.0); Hemoglobin 9.2 g/dL (12.0-16.0); Mean Corp Hgb Conc. 31.6 g/dL (33.0-37.0); Mean Corpuscular Volume 94.2 fL (81.0-99.0); Platelet Count 198 10^3/uL (130-400); Red Cell Dist. Width 13.4 % (11.5-14.5)
== END 2024-10-22 13:04 | disposition home health service (06) | DRG 357 ==
LOC: 4 EAST ACU 07:30
PROVIDERS: Radiology Vascular & Interventional Radiology; Student in an Organized Health Care Education/Training Program; ADMITTING PHYSICIAN Hospitalist; ATTENDING PHYSICIAN Internal Medicine; EMERGENCY PHYSICIAN Emergency Medicine; FAMILY PHYSICIAN Family Medicine
PROC: 0W9F3ZX Drainage of Abdominal Wall, Percutaneous Approach, Diagnostic (ICD-10-PCS; 2024-10-19)
DX: R19.03 Right lower quadrant abdominal swelling, mass and lump (principal); A04.72 Enterocolitis due to Clostridium difficile, not specified as recurrent; F11.20 Opioid dependence, uncomplicated; I50.32 Chronic diastolic (congestive) heart failure; I13.0 Hypertensive heart and chronic kidney disease with heart failure and stage 1 through stage 4 chronic kidney disease, or unspecified chronic kidney disease; J96.11 Chronic respiratory failure with hypoxia; L12.0 Bullous pemphigoid; M79.81 Nontraumatic hematoma of soft tissue; E11.22 Type 2 diabetes mellitus with diabetic chronic kidney disease; E66.01 Morbid (severe) obesity due to excess calories; E78.00 Pure hypercholesterolemia, unspecified; F32.A Depression, unspecified; G47.30 Sleep apnea, unspecified; N18.31 Chronic kidney disease, stage 3a; I25.10 Atherosclerotic heart disease of native coronary artery without angina pectoris; J44.9 Chronic obstructive pulmonary disease, unspecified; K21.9 Gastro-esophageal reflux disease without esophagitis; I48.0 Paroxysmal atrial fibrillation; D50.8 Other iron deficiency anemias; L30.4 Erythema intertrigo; L89.329 Pressure ulcer of left buttock, unspecified stage; L89.319 Pressure ulcer of right buttock, unspecified stage; G89.4 Chronic pain syndrome; M48.00 Spinal stenosis, site unspecified; D63.8 Anemia in other chronic diseases classified elsewhere; V89.2XXS Person injured in unspecified motor-vehicle accident, traffic, sequela; Z66 Do not resuscitate; Z95.5 Presence of coronary angioplasty implant and graft; Z88.0 Allergy status to penicillin; Z99.81 Dependence on supplemental oxygen; Z68.35 Body mass index [BMI] 35.0-35.9, adult; Z86.718 Personal history of other venous thrombosis and embolism; Z79.82 Long term (current) use of aspirin; Z79.84 Long term (current) use of oral hypoglycemic drugs; Z79.01 Long term (current) use of anticoagulants; Z87.891 Personal history of nicotine dependence; Z90.49 Acquired absence of other specified parts of digestive tract
CPT/HCPCS: 10160; 74176; 76942; 80048; 83690; 83735; 85025; 85027; 87015; 87045; 87046; 87070; 87205; 87324; 87427; 87449; 88173; 88305; 96374; 96375; 99285

== ENCOUNTER 2024-10-28 17:48 | Inpatient (IN) | payer MEDICARE, SELFPAY ==
[2024-10-28] VITALS (9 sets, daily range): BP systolic 98–128; BP diastolic 52–69; BMI 34.6; BMI 34.0
[2024-10-28 13:30] LABS: Hematocrit 28.5 % (37.0-47.0); Hemoglobin 9.1 g/dL (12.0-16.0); Mean Corp Hgb Conc. 31.9 g/dL (33.0-37.0); Mean Corpuscular Volume 95.6 fL (81.0-99.0); Nucleated Red Blood Cells % 0 %; Platelet Count 232 10^3/uL (130-400); Red Cell Dist. Width 13.5 % (11.5-14.5)
[2024-10-28 13:43] LABS: INR 1.59; PT 19.2 Sec (11.4-14.6)
[2024-10-28 13:44] LABS: ALT (SGPT) 16 U/L (0-35); APTT 30.4 Sec (23.4-35.0); AST (SGOT) 21 U/L (14-36); Albumin 2.9 g/dl (3.5-5.0); Alkaline Phosphatase 79 U/L (38-126); Blood Urea Nitrogen 22 mg/dl (7-17); Calcium 9.0 mg/dl (8.4-10.2); Carbon Dioxide 33 mmol/L (22-30); Chloride 102 mmol/L (98-107); Estimated Creatinine Clearance 35 ml/min; Glucose 132 mg/dl (70-99); Potassium 4.2 mmol/L (3.5-5.1); Sodium 136 mmol/L (135-145); Total Protein 5.5 g/dl (6.3-8.2); eGFR 41.06
[2024-10-28 13:56] LABS: Troponin I 0.012 ng/ml
--- NOTE | 2024-10-28 14:26 | ED.GENMED ---
History of Present Illness
General
Chief Complaint: Abdominal Pain
Source: patient
Exam Limitations: none
Time Seen by Provider: 10/28/24 13:56
Nursing documentation reviewed up to this point in time: agreed with
History of Present Illness
History of Present Illness:
Patient is an 84-year-old female with history of pressure injury to buttocks chronic respiratory failure, COPD bullous pemphigoid chronic skin pain anemia chronic kidney disease stage III reflux diabetes hypertension chronic pain syndrome with
chronic opiates hyperlipidemia depression CAD paroxysmal A-fib. Pt has a chronic' hematoma' in her rlq of abdomen which has been there for years since having a stent attempted via femoral access in 2018. She and family report that this hematoma
has not caused her pain until the past month. She has chronic pain but not from this hematoma this is all new.
She was recently admitted October 19 and discharged 6 days ago for pain to the site. She did have an aspiration by interventional radiology which showed a very dark yellow fluid. She was managed with pain medicine and was discharged home she was
instructed to follow-up with general surgery for possible excision of this area.
Since she has been home pain has become increasingly worse the point where she cannot even walk because of the pain. She has chronic narcotic medicine for her normal chronic pain however this is not helping her symptoms. They do have an
appointment with Dr. Bazzi surgery this Tuesday.
Past History
Past History
ED Past Medical History: CAD, CHF, COPD, GERD, HTN, Hypercholesterolemia, NIDDM, Psychiatric (Depression) and Other (DVT, morbid obesity, sleep apnea, iron deficiency anemia, spinal stenosis)
ED Past Surgical History: Appendectomy, Orthopedic, Tonsilectomy and Other (Cardiac catheterization with femoral arterial complications with both recent catheterization)
Social History
Tobacco: Former smoker
Alcohol: None
Drug: None
Personal:
Living: with family
Employment: Not employed
Phy Exam
General Physical Exam
General Presentation: no apparent distress
General age: appears stated age
General Skin: warm and dry
General Habitus: elderly
General Mental: alert
General Hydration: appears well hydrated
Eye Exam
Eye Exam: PERRL and EOMI
Eye Exam General: PERRL: bilateral and EOM intact: bilateral
Pupil Exam: Bilateral: round and reactive
Cardiovascular Exam
Cardiovascular Exam: regular rate/rhythm, no murmur and normal peripheral pulses
Pulmonary Exam
Pulmonary Exam: lungs clear and no respiratory distress
Gastrointestinal Exam
Gastrointestinal Exam: other (palpable mass to right lower abdomen no erythema or ecchymosis )
Neurological Exam
Neurological Exam: alert and oriented x3
Musculoskeletal Exam
Musculoskeletal Exam: full ROM
Skin Exam
Skin Exam: normal color and warm/dry
Psychiatric Exam
Psychiatric Exam: normal mood/affect
Course
Orders/Labs/Results
Orders:
Orders
10/28/24 13:18
CMP [Comprehensive Metabolic Panel] Urgent
Complete Blood Count/With Diff Urgent
PT/INR [Prothrombin Time] Urgent
PTT Urgent
Troponin I Urgent
10/28/24 Dinner
1800 calorie (15 carb) Diabetic
At Your Request: Full Participation
10/28/24 16:50
Gabapentin [Neurontin] 600 mg PO NOW STA
Oxycodone [Roxicodone] 20 mg PO NOW STA
10/28/24 16:52
SURGICAL CONSULT Routine
Consulting Provider: Mac Mann
Was physician already notified: Yes
Reason for consult: seroma right lower abdomen with pain
10/28/24 17:19
Admit/Transfer Patient As Directed
Co-Sign Provider:
Level of Care: Inpatient admission
Assign to:: Medical/Surgical
Physician / Group: marie prieto
Diagnosis: abd pain 2/2 lg old seroma RL abd
Reason for Hospitalization: abd pain 2/2 lg old seroma RL abd
Expected length of stay greater than two midnights?: Yes
ELOS- Estimated Length of Stay in days: 4
I certify the patient meets the requirements for IP care: Yes
Code Status As Directed
Resuscitation Status: Full Code
10/28/24 17:23
PRN Pain Medication Management As Directed
May give lesser potent ordered pain med per pt: Yes
preference::
Protocol:: Medication orders for pain may be administered in a
manner that supports deferring to patient preference
when the pt is:
- Requesting an ordered lesser potent pain medication.
Least to most potent pain medications are defined
as: acetaminophen < NSAID < tramadol < opioids
(morphine, oxycodone, hydromorphone).
- Requesting a lesser dose of the same medication IF
ORDERED.
- Requesting a less intrusive route of administration
if both routes are prescribed by the provider (PO <
IV).
10/28/24 18:15
Bisacodyl [Dulcolax] 10 mg RECTAL [id number] PRN
Dextrose 50%-Water [Dextrose 50% Syringe] 12.5 grams IV [id number] PRN
Docusate W/Senna [Senokot-S] 1 tablet PO BIDPRN PRN
Famotidine [Pepcid] 20 mg PO QPM
Glucagon [GlucaGen] 1 mg IM PRN PRN
Polyethylene Glycol Powder [Miralax] 17 grams PO DAILYPRN PRN
10/28/24 18:15
VTE Contraindication Routine
VTE Mechanical Device Contraindication: Medical Contraindication
Pharmocologic Contraindication: Medical Contraindication
Comment: Mariposa Uribe
Activity As Directed
Activity Level: As Tolerated
Bedside Glucose Monitoring As Directed
Frequency: AC&HS
Additional Instructions:: Change to q6h if pt on TPN, tube feeding or not eating
Intake/ Output As Directed
Frequency: Per unit guidelines
Vital Signs As Directed
Frequency: Per unit guidelines
Weight As Directed
Frequency: Daily
Pt Eval And Treat Routine
Activity Level: With Assistance
10/28/24 20:00
Doxycycline [Vibramycin] 100 mg PO BID
10/28/24 22:00
Atorvastatin [Lipitor] 80 mg PO HS
Oxycodone [Roxicodone] 20 mg PO TID
10/29/24 06:00
Complete Blood Count/With Diff IN AM
Comprehensive Metabolic Panel IN AM
10/29/24 07:30
Insulin Aspart Corrective Low [Novolog Flexpen-Low Resistance] See Protocol SC AC
10/29/24 08:00
Aspirin Low Dose EC [Aspir Low (Enteric Coated)] 81 mg PO DAILY
Bupropion(24Hr)Extended Releas [WELLBUTRIN XL (24 hour extended release)] 150 mg PO DAILY
Duloxetine Delayed Release [Cymbalta Delayed Release] 60 mg PO DAILY
Furosemide [Lasix] 40 mg PO DAILY
Gabapentin [Neurontin] 600 mg PO BID@0800,1800
Ketoconazole [Nizoral 2% Cream] 1 applic TOPICAL DAILY
Lidocaine [Lidocaine 4% Patch] 1 patch TOPICAL DAILY
Apply Lidocaine patch(s) to:: Right lower abdomen
Metoprolol Xl [Toprol Xl] 50 mg PO DAILY
Mycophenolate Mofetil 500 mg PO DAILY
Pantoprazole [Protonix] 40 mg PO DAILY
cyanocobalamin (vitamin B-12) 1,000 mcg PO DAILY
10/29/24 12:00
Gabapentin [Neurontin] 300 mg PO DAILY@1200
10/30/24 06:00
Complete Blood Count/With Diff IN AM
Comprehensive Metabolic Panel IN AM
10/31/24 06:00
Complete Blood Count/With Diff IN AM
Comprehensive Metabolic Panel IN AM
Abnormal Lab Results
10/28/24
13:18
RBC 2.98 L 10^6/uL
(4.20-5.40)
Hgb 9.1 L g/dL
(12.0-16.0)
Hct 28.5 L %
(37.0-47.0)
MCHC 31.9 L g/dL
(33.0-37.0)
Absolute Monos (auto) 1.2 H 10^3/uL
(0.1-0.6)
Monocytes % 12.1 H %
(1.7-9.3)
PT 19.2 H Sec
(11.4-14.6)
Carbon Dioxide 33 H mmol/L
(22-30)
BUN 22 H mg/dl
(7-17)
Creatinine 1.3 H mg/dL
(0.6-1.0)
Glucose 132 H mg/dl
(70-99)
Total Protein 5.5 L g/dl
(6.3-8.2)
Albumin 2.9 L g/dl
(3.5-5.0)
10/28/24 13:18
10/28/24 13:18
Vital Signs
Initial and Last Documented VS:
Initial Vital Signs
BP
98/55
10/28/24 12:57
Last Documented Vital Signs
Temp Pulse Resp BP Pulse Ox
98.3 F 66 20 109/57 99
10/28/24 18:24 10/28/24 18:24 10/28/24 18:24 10/28/24 18:24 10/28/24 18:24
MDM/Problems Addressed
MDM/Problems Addressed:
As documented patient is an 84-year-old female presents for pain to the right lower abdomen. She has a chronic 'hematoma' collection to the right lower abdomen for the past 5 to 7 years.
She was admitted recently and this was drained with thick yellow fluid and recommended to follow-up with surgery for outpatient possible excision. Patient presents with continued pain. She is on chronic pain medicine for other chronic pain issues
and this is not relieving her symptoms. Today infection was unable to walk because of discomfort. She is obvious palpable firm mass to the right lower abdomen no obvious bruising.
Case discussed admitting hospitalist and surgery.
Patient denies any fever or chills she is afebrile chronically anemic at 9.1 unchanged, white count normal, renal function baseline.
Patient was eval by surgery as per surgery plan for possible I&D of seroma
Chronic conditions affecting care:
Chronic pain chronic' hematoma/seroma' to the right abdomen since procedure and 5 to 7 years ago, chronic pain/A-fib on Eliquis
*Pulse Oximetry
SaO2: 100
Oxygen Mode of Delivery: Room air
Patient hypoxic: no
*Critical Care Note
Total Time (30-74mins, 75-104mins- exclusive of procedures): Not Applicable
Data Reviewed
Review of Other/Old Records Reveals: Labs, Radiology Studies and Discharge Summary
Source: patient and family
ED Attending Note
-
Portions of this chart may have been created with voice recognition software.� Occasional wrong word or��sound alike� substitutions may have occurred due to the inherent limitations of voice recognition software.
Discharge Plan
Departure
Patient Disposition: Admit
Date of Disposition: 10/28/24
Time of Disposition: 17:30
Admit to: Med/Surg
Admit to doctor: hospitalist
Presentation/result/management discussed w/ accepting MD/DO: Hospitalist
Patient with high blood pressure during this ER visit?: No
Condition: Fair
Covid-19: Not Applicable
Discharge Problem:
Pain
Interventions
Interventions:
*Risk Screen - Suicide Last Done: 10/28/24 12:59
*General Assessment Last Done: 10/28/24 12:59
*Neglect/Abuse Screening Last Done: 10/28/24 12:59
*ED- Fall Risk Assessment Last Done: 10/28/24 12:59
*ED COVID-19 Vaccine History Last Done: 10/28/24 12:59
*Nursing Disposition Last Done: 10/28/24 18:06
CC-Agpdbb-Nqvbiwpule Assessment Last Done: 10/28/24 12:59
Discharge Date and Time
Discharge Date/Time: 10/28/24 18:06
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
[2024-10-28] MEDS: ROXICODONE 20 MG PO ×2 (17:09→23:45)
[2024-10-28] MEDS: NEURONTIN 600 MG PO (17:09)
--- NOTE | 2024-10-28 18:01 | CM ---
CM reviewed chart and met with pt and bedside in ED. Lives with , one story home, 3 [address].
Pt needs assistance with ADLs and personal care, ambulates with RW, also has wheelchair.
Uses home Oxygen 4L at night, has concentrator and tanks from [employer], she owns portable concentrator.
Was sleeping in recliner but now mostly sleeps in adjustable bed.
Confirms prescription coverage.
Current with [facility] for RN, SALES [employer], PT and OT, would like to continue services at discharge.
PCP: Mir Estrada
Pharmacy: [facility]
Anticipate discharge home with resumption of [facility], CM will continue to follow for all discharge planning needs.
--- NOTE | 2024-10-28 18:15 | TRANSFER ---
Patient arrived from ED via stretcher on 3 L NC. VSS. Patient complains of RLQ abdominal pain, 5/10 at rest but 10/10 with movement and standing. PRN oxy administered in the ED. Patient presenting to with RLE weakness due to back and abdominal pain.
Skin check completed--prior to admission wounds documented. Wound consult placed. Patient oriented to room. Bed in lowest position. Call fitch and personal belongings within reach.
[2024-10-28] MEDS: PEPCID 20 MG PO (19:58)
[2024-10-28] MEDS: VIBRAMYCIN 100 MG PO (19:58)
[2024-10-28] MEDS: ROXICODONE 10 MG PO (20:21)
[2024-10-28 21:12] LABS: Glucose - Point of Care 142 mg/dl (70-99)
[2024-10-28] MEDS: LIPITOR 80 MG PO (23:43)
[2024-10-29 06:00] VITALS: BMI 33.9
[2024-10-29 07:10] LABS: Hematocrit 26.1 % (37.0-47.0); Hemoglobin 8.4 g/dL (12.0-16.0); Mean Corp Hgb Conc. 32.2 g/dL (33.0-37.0); Mean Corpuscular Volume 94.6 fL (81.0-99.0); Nucleated Red Blood Cells % 0 %; Platelet Count 203 10^3/uL (130-400); Red Cell Dist. Width 13.5 % (11.5-14.5)
[2024-10-29 07:16] LABS: Glucose - Point of Care 90 mg/dl (70-99)
[2024-10-29 07:36] VITALS: BP 125/68
[2024-10-29 07:50] LABS: ALT (SGPT) 15 U/L (0-35); AST (SGOT) 19 U/L (14-36); Albumin 2.6 g/dl (3.5-5.0); Alkaline Phosphatase 77 U/L (38-126); Blood Urea Nitrogen 23 mg/dl (7-17); Calcium 9.2 mg/dl (8.4-10.2); Carbon Dioxide 33 mmol/L (22-30); Chloride 103 mmol/L (98-107); Estimated Creatinine Clearance 32 ml/min; Glucose 90 mg/dl (70-99); Potassium 4.4 mmol/L (3.5-5.1); Sodium 136 mmol/L (135-145); Total Protein 5.1 g/dl (6.3-8.2); eGFR 37.56
--- NOTE | 2024-10-29 08:56 | VNURNOTE ---
Chart reviewed. Patient is current with [facility]. Will continue to follow hospital course and DC plans.
[2024-10-29] MEDS: NOVOLOG FLEXPEN-LOW RESISTANCE SC ×2 (09:18→16:38)
[2024-10-29] MEDS: ROXICODONE 20 MG PO ×3 (09:19→21:24)
[2024-10-29] MEDS: WELLBUTRIN XL (24 hour extended release) 150 MG PO (09:19)
[2024-10-29] MEDS: PROTONIX 40 MG PO (09:20)
[2024-10-29] MEDS: TOPROL XL 50 MG PO (09:20)
[2024-10-29] MEDS: LASIX 40 MG PO (09:20)
[2024-10-29] MEDS: VITAMIN B-12 1000 MCG PO (09:20)
[2024-10-29] MEDS: NEURONTIN 600 MG PO ×2 (09:20→16:49)
[2024-10-29] MEDS: CYMBALTA DELAYED RELEASE 60 MG PO (09:21)
[2024-10-29] MEDS: ASPIR LOW (ENTERIC COATED) 81 MG PO (09:21)
[2024-10-29] MEDS: DESENEX/MITRAZOL/ZEASORB 1 APPLIC TOPICAL ×2 (09:21→20:31)
[2024-10-29] MEDS: LIDOCAINE 4% PATCH 1 PATCH TOPICAL (09:23)
[2024-10-29] MEDS: VIBRAMYCIN 100 MG PO ×2 (09:39→20:30)
[2024-10-29] MEDS: CELLCEPT 500 MG PO (09:40)
--- NOTE | 2024-10-29 09:45 | W.PN.HOSP.TC ---
Today's Communication/Plan
-
See plan
Assessment / Plan
Assessment / Plan
Impression:
Admitted with persistent right lower quadrant pain secondary to right pelvic seroma
Conditions prior to admission
Multivessel CAD
Paroxysmal atrial fibrillation
Anticoagulation with Eliquis
Chronic heart failure preserved EF.
Chronic hypoxic respiratory failure on home O2 at 2 to 4 L.
ILD/COPD/restrictive lung disease baseline obstructive sleep apnea intolerant to BiPAP.
Obesity with BMI of 44.
91-wdas-vvin smoker quit in 2000
CKD stage IIIa
Anemia chronic disease
Essential hypertension
Dyslipidemia
Type 2 diabetes.
Chronic back pain with opiate dependency (spinal stenosis
Prior history of right lower extremity DVT
Bullous pemphigoid
History of basal cell carcinoma status post Mohs procedure.
Osteoporosis
GERD
History of C. difficile infection
Depression
Plan:
Right anterior lateral pelvic wall seroma
Imaging from 10/17/2024 reviewed
Status post aspiration per interventional radiology was negative cultures
Persistent pain, acute on chronic inpatient with chronic opioid dependence. Pain limited activities of daily living.
Surgery consulted with pending plan for intervention. Hopefully low risk procedure with excision, possibly requiring local anesthesia
Hold Eliquis.
Cardiovascular
Chronic CHF preserved EF
CAD with multiple interventions.
Paroxysmal atrial fibrillation
Cardiovascular status stable upon presentation.
Continue metoprolol
Hold Eliquis anticipating surgical intervention.
May need to hold Lasix the day of procedure
Monitor renal function closely.
Cardiovascular clearance for procedure: Anticipate low risk intervention.
RCRI 2 points-8% for moderate to high risk non-vascular intervention with currently compensated CAD/CHF activity level around 4 METS on chronic O2 therapy, currently limited to severe right lower quadrant pain.
Hold Eliquis
Continue beta-lata
May need to hold diuretics on procedure day
Chronic hypoxic respiratory failure secondary to COPD/ILD/obstructive sleep apnea
Stable respiratory status
Continue oxygen supplementation 2-4 L.
Chronic pain.
Spinal stenosis
Opiate dependency
Currently on preadmission regimen including oxycodone/gabapentin.
May need IV opioids for breakthrough pain.
Bullous pemphigoid
Currently inactive.
Maintenance regimen including chronic doxycycline, mycophenolate, Dupixent every 2 weeks
Type 2 diabetes
Current hemoglobin A1c 6.3
Hold metformin acutely.
Basal bolus protocol with serial Accu-Cheks
Depression
Continue bupropion, duloxetine
Full code
DVT prophylaxis chemical while off Eliquis
Anticipated Discharge: 24 - 48 hours
Subjective/Interval History
-
Date of Service: October 29, 2024
Objective Data
-
Labs:
Laboratory Results
10/29/24
06:55
WBC 8.9
Hgb 8.4 L
Hct 26.1 L
Plt Count 203
Sodium 136
Potassium 4.4
Chloride 103
Carbon Dioxide 33 H
BUN 23 H
Creatinine 1.4 H
Glucose 90
Calcium 9.2
Total Bilirubin 0.5
AST 19
ALT 15
Alkaline Phosphatase 77
Vital Signs:
Vital Signs
Temp Pulse Resp BP Pulse Ox
97.8 F 69 17 125/68 98
10/29/24 07:36 10/29/24 07:36 10/29/24 07:36 10/29/24 07:36 10/29/24 07:36
I&O
10/28/24 10/29/24 10/30/24
06:59 06:59 06:59
Intake Total 220 / 220
Balance 220 / 220
Physical Exam
-
General: Well Developed and No Apparent Distress
HEENT: Normocephalic, Atraumatic and Moist Mucous Membranes
Respiratory: Clear to Auscultation
Cardiac: Regular Rhythm and S1/S2; Negative Murmur, Rub or Gallop
GI: Soft, Nontender, Nondistended and Normal Bowel Sounds; Negative Organomegaly
Rectal: Deferred by Provider
Musculoskeletal: No Clubbing, No Cyanosis and No Edema
Skin: Negative Rash
Neuro: Nonfocal/Grossly Intact
[2024-10-29] MEDS: NIZORAL 2% CREAM 1 APPLIC TOPICAL (11:05)
--- NOTE | 2024-10-29 11:06 | CM ---
Following up on patient. Patient is currently sleeping. RN today said that she is not sure what the next steps are medically for this patient.
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
PLAN: If not SNF, home with [facility] services.
[2024-10-29 11:21] LABS: Glucose - Point of Care 163 mg/dl (70-99)
[2024-10-29] MEDS: NOVOLOG FLEXPEN-LOW RESISTANCE 1 UNITS SC (12:43)
[2024-10-29] MEDS: NEURONTIN 300 MG PO (12:45)
[2024-10-29 12:50] VITALS: BMI 33.9
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
[2024-10-29 15:16] VITALS: BP 109/51
[2024-10-29 16:37] LABS: Glucose - Point of Care 126 mg/dl (70-99)
[2024-10-29] MEDS: PEPCID 20 MG PO (16:49)
[2024-10-29] MEDS: REMOVE LIDOCAINE PATCH 1 PATCH REMOVE (20:30)
[2024-10-29 20:58] LABS: Glucose - Point of Care 147 mg/dl (70-99)
[2024-10-29] MEDS: LIPITOR 80 MG PO (21:22)
[2024-10-29 23:11] VITALS: BP 120/54
[2024-10-30] VITALS (7 sets, daily range): BP systolic 102–152; BP diastolic 44–80; BMI 34.6
[2024-10-30 00:13] LABS: Glucose - Point of Care 136 mg/dl (70-99)
[2024-10-30 06:06] LABS: Glucose - Point of Care 94 mg/dl (70-99)
[2024-10-30 08:16] LABS: Hematocrit 30.3 % (37.0-47.0); Hemoglobin 9.5 g/dL (12.0-16.0); Mean Corp Hgb Conc. 31.4 g/dL (33.0-37.0); Mean Corpuscular Volume 94.7 fL (81.0-99.0); Nucleated Red Blood Cells % 0 %; Platelet Count 234 10^3/uL (130-400); Red Cell Dist. Width 13.2 % (11.5-14.5)
[2024-10-30] MEDS: NOVOLOG FLEXPEN-LOW RESISTANCE SC ×3 (08:24→17:24)
[2024-10-30] MEDS: LIDOCAINE 4% PATCH 1 PATCH TOPICAL (08:25)
[2024-10-30] MEDS: TOPROL XL 50 MG PO (08:25)
[2024-10-30] MEDS: NEURONTIN 600 MG PO ×2 (08:25→17:04)
[2024-10-30] MEDS: CELLCEPT 500 MG PO (08:26)
[2024-10-30] MEDS: VIBRAMYCIN 100 MG PO ×2 (08:26→19:36)
[2024-10-30] MEDS: ROXICODONE 20 MG PO ×3 (08:26→21:03)
[2024-10-30] MEDS: VITAMIN B-12 1000 MCG PO (08:27)
[2024-10-30] MEDS: CYMBALTA DELAYED RELEASE 60 MG PO (08:27)
[2024-10-30] MEDS: NIZORAL 2% CREAM 1 APPLIC TOPICAL (08:27)
[2024-10-30] MEDS: PROTONIX 40 MG PO (08:27)
[2024-10-30] MEDS: DESENEX/MITRAZOL/ZEASORB 1 APPLIC TOPICAL ×2 (08:28→19:35)
[2024-10-30] MEDS: LASIX 40 MG PO (08:28)
[2024-10-30] MEDS: ASPIR LOW (ENTERIC COATED) 81 MG PO (08:28)
[2024-10-30] MEDS: WELLBUTRIN XL (24 hour extended release) 150 MG PO (08:29)
--- NOTE | 2024-10-30 09:48 | W.PN.SURGUPD ---
Surgical Update
Surgical Update
Morro Peñaloza (, cell):
--- NOTE | 2024-10-30 09:49 | W.SUR.PREOP ---
Pre-Operative Surgical Note
-
I have examined this patient prior to the performance of the scheduled procedure.
The patient's condition is unchanged from the time of the current History and
Physical and the patient is able to undergo the scheduled procedure.
--- NOTE | 2024-10-30 09:50 | W.PN.GS2 ---
Addendum entered and electronically signed by Zeus Riggs MD 10/30/24 10:06:
Correction: Abx: Clindamycin
Original Note:
Today's Communication / Plan
-
-- Excision of abdominal wall seroma
-- Abx: Ancef
Assessment / Plan
-
Patient is an 84 yo F p/w chronic abdominal wall seroma
The natural history and pathophysiology of seromas was briefly discussed. Options for management including continued watchful waiting, percutaneous drainage with possible sclerotherapy, and surgical excision were considered and discussed. The pros
and cons of all approaches was discussed. She has previously failed a watchful waiting approach as well as percutaneous options. Recommend and plan for surgical excision.
Plan for excision of an abdominal wall seroma. The procedure itself, as well as the risks, benefits, and alternatives was discussed. Specifically, we discussed the risks of bleeding, infection, injury to surrounding structures (muscles, nerves),
wound complications, prolonged wound healing, recurrence, and anesthetic complications. Typical postprocedural recovery including the potential for either drain placement or VAC placement was discussed. We discussed the likelihood of a more
prolonged wound healing process over the course of several weeks that will require diligent care either at home with VNA or at a rehab facility. All questions answered. Consent signed.
-- Excision of abdominal wall seroma
-- NPO, IVF
-- Abx: Ancef
-- Continue to hold Eliquis
Subjective Data
-
Date of Service: October 30, 2024
No new complaints. Continues with some discomfort overlying the RLQ and hip. No history of prior infections necessitating antibiotics or drainage procedures. Recent IR aspiration unsuccessful. No fevers or chills. Over 48 hours since last dose
of Eliquis.
Objective Data
-
Intake and Output
10/29/24 10/30/24 10/31/24
06:59 06:59 06:59
Intake Total 220 / 220 1200 / 1200
Balance 220 / 220 1200 / 1200
Intake:
Oral fluids 220 / 220 1200 / 1200
Other:
Number of approximated MODERATE 1 2
amounts of urine
Number of approximated LARGE 2 1
amounts of urine
Vital Signs
Temp Pulse Resp BP Pulse Ox
97.7 F 59 16 152/67 100
10/30/24 08:15 10/30/24 08:25 10/30/24 08:15 10/30/24 08:25 10/30/24 08:15
Lab Results
10/30/24 06:34
Calcium 9.2 mg/dl (8.4-10.2) 10/29/24 06:55
Total Bilirubin 0.5 mg/dl (0.2-1.3) 10/29/24 06:55
AST 19 U/L (14-36) 10/29/24 06:55
ALT 15 U/L (0-35) 10/29/24 06:55
Alkaline Phosphatase 77 U/L (38-126) 10/29/24 06:55
Total Protein 5.1 g/dl (6.3-8.2) L 10/29/24 06:55
Albumin 2.6 g/dl (3.5-5.0) L 10/29/24 06:55
Physical Exam
-
Gen: NAD
Abd: soft, mild tenderness overlying RLQ, palpable soft tissue mass approximately 10 x 15 cm, no skin changes, no drainage
Patient has a veras catheter: No
Patient has a central line: No
--- NOTE | 2024-10-30 09:55 | PN.CDI ---
CDI
- -
CDI:
Physician Documentation Request
Admit Date: 10/28/24 17:48
Dear Doctor Roxie,
Please review the following and provide your response in the progress notes.
Clinical Indicators:
10/29/24 13:29 - Wound Note
#Wound Location and type/assessment:
#...Bilateral stage 1 buttocks persistent discolored dull red/purple skin
#...(mostly blanchable) with dry dark purple callus L buttocks
#...(unsure is skin open under callus).
#...Sacral/coccyx crease red rash like skin suspect r/t moisture and pressure.
Physician documentation of the type and location of wounds is required for compliant documentation. Based on the above clinical findings and your assessment, please provide the following in your progress note:
Yes, stage 1, pressure injury bilateral buttocks, POA
No, stage 1, pressure injury, bilateral buttocks
Other (please specify)
1. Location of the ulcer/wound, including laterality.
2. Type (etiology) of ulcer/wound:
- Diabetic ulcer
- Arterial (ischemic) ulcer
- Traumatic wound
- Venous stasis ulcer
- Pressure (decubitus) ulcer
3. For a pressure ulcer, please also include the stage* of the ulcer:
- Stage 1 - Skin intact, non-blanchable redness
- Stage 2 - Partial thickness loss of dermis, includes intact or open blister
- Stage 3 - Full thickness tissue not including bone, tendon or muscle
- Stage 4 - Full thickness tissue loss, including exposed bone, tendon or muscle
- Unstageable - Full thickness loss in which the base of the ulcer is covered by slough (yellow, myers, fish, green or brown) and/or eschar (myers, brown or black) in the wound bed.
- Unable to determine
Use of terms such as suspected, likely, concern for, or probable (associated with a specific diagnosis that is being evaluated, monitored, or treated as if it exists) are acceptable and can be coded in the inpatient setting, when documented at the
time of discharge.
Thank you,
Destiny Alves RN BSN CCDS
CDI Specialist
Please contact via tiger text
Please use your independent medical judgment in providing your response.
*Source: National Pressure Ulcer Advisory Panel (NPUAP)
--- NOTE | 2024-10-30 10:28 | CM ---
Addendum entered by Laure Hillman 10/30/24 14:05:
Patient seen bedside with family post OR, requesting patient discharge to SNF upon discharge, requesting referral to [facility] as patient has been there several times in the past. Referral sent via [facility]
Original Note:
CM reviewed chart, reviewed with Nurse, patient off floor at OR. Patient will likely need VN/SNF upon d/c. Patient is current with [facility], will update pending medical progress in hospital. CM will continue to follow for all discharge planning needs.
Plan; OR today, [facility] vs SNF, pending medical progress
[2024-10-30 10:40] LABS: ALT (SGPT) 15 U/L (0-35); AST (SGOT) 18 U/L (14-36); Albumin 2.8 g/dl (3.5-5.0); Alkaline Phosphatase 84 U/L (38-126); Blood Urea Nitrogen 22 mg/dl (7-17); Calcium 8.9 mg/dl (8.4-10.2); Carbon Dioxide 31 mmol/L (22-30); Chloride 102 mmol/L (98-107); Estimated Creatinine Clearance 38 ml/min; Glucose 101 mg/dl (70-99); Potassium 4.3 mmol/L (3.5-5.1); Sodium 137 mmol/L (135-145); Total Protein 5.3 g/dl (6.3-8.2); eGFR 45.19
--- NOTE | 2024-10-30 11:40 | W.IMMPOSTOP ---
Surgical Immed Post Op Note
-
Primary Surgeon: Oneil
Assisting Surgeon: None
Pre-op Diagnosis: Chronic seroma
Post-op Diagnosis: Chronic seroma
Procedure Performed: Excision of abdominal wall seroma
Anesthesia Type: General
Specimen / Cultures:
1. Abdominal wall soft tissue mass
Estimated Blood Loss: 3 cc
Complications: None
Operative Findings:
1. Chronic thickened wall/cavity, excised with intact wall
2. Measurements: 17 x 10 cm
3. Wound closed in multiple layers with 19 Fr LIBYB in soft tissue space
[2024-10-30 11:53] LABS: Glucose - Point of Care 85 mg/dl (70-99)
[2024-10-30 12:54] LABS: Glucose - Point of Care 117 mg/dl (70-99)
[2024-10-30] MEDS: NEURONTIN 300 MG PO (13:05)
--- NOTE | 2024-10-30 15:04 | W.PN.HOSP.TC ---
Today's Communication/Plan
-
Status post excision of abdominal wall seroma today.
Continue holding Eliquis.
Diet has been advanced.
Hold Lasix
Monitor respiratory and volume status close
Assessment / Plan
Assessment / Plan
Impression:
Admitted with persistent right lower quadrant pain secondary to right pelvic seroma
Conditions prior to admission
Multivessel CAD
Paroxysmal atrial fibrillation
Anticoagulation with Eliquis
Chronic heart failure preserved EF.
Chronic hypoxic respiratory failure on home O2 at 2 to 4 L.
ILD/COPD/restrictive lung disease baseline obstructive sleep apnea intolerant to BiPAP.
Obesity with BMI of 44.
19-mvds-xqvl smoker quit in 2000
CKD stage IIIa
Anemia chronic disease
Essential hypertension
Dyslipidemia
Type 2 diabetes.
Chronic back pain with opiate dependency (spinal stenosis
Prior history of right lower extremity DVT
Bullous pemphigoid
History of basal cell carcinoma status post Mohs procedure.
Osteoporosis
GERD
History of C. difficile infection
Depression
Plan:
Right anterior lateral pelvic wall seroma
Imaging from 10/17/2024 reviewed
Status post aspiration per interventional radiology was negative cultures
Persistent pain, acute on chronic inpatient with chronic opioid dependence. Pain limited activities of daily living.
Surgery consulted with pending plan for intervention. Hopefully low risk procedure with excision, possibly requiring local anesthesia
Status post excision of abdominal wall seroma on 10/30
That had been advanced
Hold Eliquis as per surgery
Cardiovascular
Chronic CHF preserved EF
CAD with multiple interventions.
Paroxysmal atrial fibrillation
Cardiovascular status stable upon presentation.
Continue metoprolol
Hold Eliquis anticipating surgical intervention.
May need to hold Lasix the day of procedure
Monitor renal function closely.
Cardiovascular clearance for procedure: Anticipate low risk intervention.
RCRI 2 points-8% for moderate to high risk non-vascular intervention with currently compensated CAD/CHF activity level around 4 METS on chronic O2 therapy, currently limited to severe right lower quadrant pain.
Hold Eliquis
Continue beta-lata
May need to hold diuretics on procedure day
Chronic hypoxic respiratory failure secondary to COPD/ILD/obstructive sleep apnea
Stable respiratory status
Continue oxygen supplementation 2-4 L.
Chronic pain.
Spinal stenosis
Opiate dependency
Currently on preadmission regimen including oxycodone/gabapentin.
May need IV opioids for breakthrough pain.
Bullous pemphigoid
Currently inactive.
Maintenance regimen including chronic doxycycline, mycophenolate, Dupixent every 2 weeks
Type 2 diabetes
Current hemoglobin A1c 6.3
Hold metformin acutely.
Basal bolus protocol with serial Accu-Cheks
Depression
Continue bupropion, duloxetine
Full code
DVT prophylaxis chemical while off Eliquis
Anticipated Discharge: 24 - 48 hours
Subjective/Interval History
-
Date of Service: October 30, 2024
Objective Data
-
Labs:
Laboratory Results
10/30/24
06:34
WBC 10.3
Hgb 9.5 L
Hct 30.3 L
Plt Count 234
Sodium 137
Potassium 4.3
Chloride 102
Carbon Dioxide 31 H
BUN 22 H
Creatinine 1.2 H
Glucose 101 H
Calcium 8.9
Total Bilirubin 0.4
AST 18
ALT 15
Alkaline Phosphatase 84
Vital Signs:
Vital Signs
Temp Pulse Resp BP Pulse Ox
98.6 F 54 20 109/69 98
10/30/24 12:15 10/30/24 12:17 10/30/24 12:17 10/30/24 12:17 10/30/24 12:17
I&O
10/29/24 10/30/2425
06:59 06:59 06:59
Intake Total 220 / 220 1200 / 1200 50 / 50
Balance 220 / 220 1200 / 1200 50 / 50
Physical Exam
-
General: Well Developed and No Apparent Distress
HEENT: Normocephalic, Atraumatic and Moist Mucous Membranes
Respiratory: Clear to Auscultation
Cardiac: Regular Rhythm and S1/S2; Negative Murmur, Rub or Gallop
GI: Soft, Nontender, Nondistended and Normal Bowel Sounds; Negative Organomegaly
Rectal: Deferred by Provider
Musculoskeletal: No Clubbing, No Cyanosis and No Edema
Skin: Negative Rash
Neuro: Nonfocal/Grossly Intact
[2024-10-30] MEDS: PEPCID 20 MG PO (17:08)
[2024-10-30] MEDS: LOVENOX 40 MG SC (17:08)
[2024-10-30 17:19] LABS: Glucose - Point of Care 141 mg/dl (70-99)
[2024-10-30] MEDS: LIPITOR 80 MG PO (21:00)
[2024-10-31 06:00] VITALS: BMI 32.5
[2024-10-31 07:27] LABS: Hematocrit 30.8 % (37.0-47.0); Hemoglobin 9.7 g/dL (12.0-16.0); Mean Corp Hgb Conc. 31.5 g/dL (33.0-37.0); Mean Corpuscular Volume 93.9 fL (81.0-99.0); Nucleated Red Blood Cells % 0 %; Platelet Count 243 10^3/uL (130-400); Red Cell Dist. Width 13.4 % (11.5-14.5)
[2024-10-31 07:36] VITALS: BP 105/45
[2024-10-31 08:00] LABS: Glucose - Point of Care 100 mg/dl (70-99)
--- NOTE | 2024-10-31 08:18 | W.PN.GS2 ---
Addendum entered and electronically signed by Zeus Riggs MD 10/31/24 13:41:
Patient seen and examined.
Continue with RIGHT hip and abdominal discomfort, stable from preoperatively. No fevers or chills.
Gen: NAD
Abd: soft, mild tenderness over RLQ, ND, non-peritoneal, dressing c/d/i, LIBBY serosang
Patient is an 84 yo female presented with chronic abdominal wall seroma POD#1 s/p excision of abdominal wall seroma
Drain output of 20mL of serosanguineous fluid
AVSS
Labs notable for reactive leukocytosis and stable Hb
No postoperative clinical concerns. Maintain LIBBY drain for at least 1 week, will monitor outputs and assess removal as an outpatient. Okay to resume Eliquis 48 hours postop. Discussed use of compression underwear/spanks to minimize seroma
formation.
-- Diet as tolerated
-- Pain control: Tylenol, Toradol
-- OK to resume Eliquis tomorrow (11/01), DVT ppx ordered
-- Will changes outer dressing tomorrow
-- Maintain LIBBY
Original Note:
Today's Communication / Plan
-
Continue to hold Eliquis today. Can restart tomorrow.
Assessment / Plan
-
Patient is an 84 yo female presented with chronic abdominal wall seroma s/p excision with Dr. Riggs on 10/31/24.
Assessment:
POD1 s/p excision of abdominal wall seroma w/ drain placement
Drain output of 20mL of serosanguineous fluid
Hgb 9.7 g/dL
WBC 16.2
Plan:
Continue to hold Eliquis today, restart tomorrow
Subjective Data
-
Date of Service: October 31, 2024
Patient is an 84-year-old female PMH paroxysmal A-fib, multivessel CAD, CHF PEF, chronic hypoxic respiratory failure who presented with a right lower abdominal wall mass. Patient is s/p excision of abdominal wall seroma with Dr. Riggs yesterday.
Patient is feeling okay. Patient ate dinner last night and has ordered breakfast this morning. Patient has not had a bowel movement. Patient is urinating without issue. Patient is still complaining of right lower abdominal pain, although she
thinks its slightly less painful than prior to surgery.
Objective Data
-
Intake and Output
10/30/24 10/31/24 11/01/24
06:59 06:59 06:59
Intake Total 1200 / 1200 50 / 50
Output Total 20 / 20
Balance 1200 / 1200 30 / 30
Intake:
Oral fluids 1200 / 1200
IV fluids (Total) 50 / 50
Normosol 50 / 50
Output:
Drain Output (Total) 20 / 20
Right Middle Abdomen Yaya- 20
Batista
Other:
Number of approximated MODERATE 2
amounts of urine
Number of approximated LARGE 1 1
amounts of urine
Vital Signs
Temp Pulse Resp BP Pulse Ox
98.1 F 64 18 111/80 98
10/30/24 23:46 10/30/24 23:46 10/30/24 23:46 10/30/24 23:46 10/30/24 23:46
Lab Results
10/31/24 06:32
Calcium 8.9 mg/dl (8.4-10.2) 10/30/24 06:34
Total Bilirubin 0.4 mg/dl (0.2-1.3) 10/30/24 06:34
AST 18 U/L (14-36) 10/30/24 06:34
ALT 15 U/L (0-35) 10/30/24 06:34
Alkaline Phosphatase 84 U/L (38-126) 10/30/24 06:34
Total Protein 5.3 g/dl (6.3-8.2) L 10/30/24 06:34
Albumin 2.8 g/dl (3.5-5.0) L 10/30/24 06:34
Physical Exam
-
General: No Apparent Distress
GI: Soft, Nontender, Nondistended. Surgical incision dressed with Steri-Strips gauze and tape. [address] drain [address] Scant serosanguineous fluid present in drain
Neuro: AAOx3
Patient has a veras catheter: No
Patient has a central line: No
[2024-10-31] MEDS: NOVOLOG FLEXPEN-LOW RESISTANCE SC ×3 (08:24→17:01)
[2024-10-31] MEDS: PROTONIX 40 MG PO (08:25)
[2024-10-31] MEDS: CELLCEPT 500 MG PO (08:25)
[2024-10-31] MEDS: CYMBALTA DELAYED RELEASE 60 MG PO (08:25)
[2024-10-31] MEDS: ASPIR LOW (ENTERIC COATED) 81 MG PO (08:26)
[2024-10-31] MEDS: ROXICODONE 20 MG PO ×3 (08:26→21:55)
[2024-10-31] MEDS: VIBRAMYCIN 100 MG PO ×2 (08:26→19:55)
[2024-10-31] MEDS: NEURONTIN 600 MG PO ×2 (08:26→17:02)
[2024-10-31] MEDS: VITAMIN B-12 1000 MCG PO (08:26)
[2024-10-31] MEDS: DESENEX/MITRAZOL/ZEASORB 1 APPLIC TOPICAL ×2 (08:27→19:56)
[2024-10-31] MEDS: NIZORAL 2% CREAM 1 APPLIC TOPICAL (08:28)
[2024-10-31] MEDS: TOPROL XL PO (08:30)
[2024-10-31] MEDS: WELLBUTRIN XL (24 hour extended release) 150 MG PO (08:31)
[2024-10-31 08:32] LABS: ALT (SGPT) 16 U/L (0-35); AST (SGOT) 16 U/L (14-36); Albumin 3.0 g/dl (3.5-5.0); Alkaline Phosphatase 99 U/L (38-126); Blood Urea Nitrogen 25 mg/dl (7-17); Calcium 9.2 mg/dl (8.4-10.2); Carbon Dioxide 30 mmol/L (22-30); Chloride 99 mmol/L (98-107); Estimated Creatinine Clearance 42 ml/min; Glucose 107 mg/dl (70-99); Potassium 4.6 mmol/L (3.5-5.1); Sodium 135 mmol/L (135-145); Total Protein 5.6 g/dl (6.3-8.2); eGFR 50.17
[2024-10-31 10:25] VITALS: BP 101/72; BP 107/54; PULSE 62; O2SAT 94
[2024-10-31 10:28] VITALS: BP 101/74; PULSE 77; O2SAT 90
[2024-10-31] MEDS: TYLENOL 650 MG PO (10:28)
[2024-10-31 11:47] LABS: Glucose - Point of Care 136 mg/dl (70-99)
[2024-10-31] MEDS: NEURONTIN 300 MG PO (11:50)
--- NOTE | 2024-10-31 13:00 | CM ---
CM reviewed chart, patient seen bedside, discussed referral placed to [facility]. Call to patients , Morro, to identify if patient is currently on Dupixent as rehab is asking if medication can be on hold while at SNF. reports patient is
not taking this medication, will relay to [facility]. Patient agreeable to d/c to [facility] pending bed availability/day of discharge. Will continue to follow for all discharge planning needs.
Plan; [facility] pending bed availability, day of discharge
--- NOTE | 2024-10-31 15:12 | W.PN.HOSP.TC ---
Today's Communication/Plan
-
PT assessment pain
Adjust analgesic regimen (patient is currently complaining of pain at the surgical site)
Hold Eliquis as per surgery.
Monitor oral intake
Hold Lasix
Assessment / Plan
Assessment / Plan
Impression:
Admitted with persistent right lower quadrant pain secondary to right pelvic seroma
Conditions prior to admission
Multivessel CAD
Paroxysmal atrial fibrillation
Anticoagulation with Eliquis
Chronic heart failure preserved EF.
Chronic hypoxic respiratory failure on home O2 at 2 to 4 L.
ILD/COPD/restrictive lung disease baseline obstructive sleep apnea intolerant to BiPAP.
Obesity with BMI of 44.
07-jafs-bdez smoker quit in 2000
CKD stage IIIa
Anemia chronic disease
Essential hypertension
Dyslipidemia
Type 2 diabetes.
Chronic back pain with opiate dependency (spinal stenosis
Prior history of right lower extremity DVT
Bullous pemphigoid
History of basal cell carcinoma status post Mohs procedure.
Osteoporosis
GERD
History of C. difficile infection
Depression
Plan:
Right anterior lateral pelvic wall seroma
Imaging from 10/17/2024 reviewed
Status post aspiration per interventional radiology was negative cultures
Persistent pain, acute on chronic inpatient with chronic opioid dependence. Pain limited activities of daily living.
Surgery consulted with pending plan for intervention. Hopefully low risk procedure with excision, possibly requiring local anesthesia
Status post excision of abdominal wall seroma on 10/30
Diet has been advanced
Hold Eliquis as per surgery
Cardiovascular
Chronic CHF preserved EF
CAD with multiple interventions.
Paroxysmal atrial fibrillation
Cardiovascular status stable upon presentation.
Continue metoprolol
Hold Eliquis anticipating surgical intervention.
May need to hold Lasix the day of procedure
Monitor renal function closely.
Cardiovascular clearance for procedure: Anticipate low risk intervention.
RCRI 2 points-8% for moderate to high risk non-vascular intervention with currently compensated CAD/CHF activity level around 4 METS on chronic O2 therapy, currently limited to severe right lower quadrant pain.
Hold Eliquis
Continue beta-lata
May need to hold diuretics on procedure day
Chronic hypoxic respiratory failure secondary to COPD/ILD/obstructive sleep apnea
Stable respiratory status
Continue oxygen supplementation 2-4 L.
Chronic pain.
Spinal stenosis
Opiate dependency
Currently on preadmission regimen including oxycodone/gabapentin.
May need IV opioids for breakthrough pain.
Bullous pemphigoid
Currently inactive.
Maintenance regimen including chronic doxycycline, mycophenolate, Dupixent every 2 weeks
Type 2 diabetes
Current hemoglobin A1c 6.3
Hold metformin acutely.
Basal bolus protocol with serial Accu-Cheks
Depression
Continue bupropion, duloxetine
Full code
DVT prophylaxis chemical while off Eliquis
Anticipated Discharge: 24 - 48 hours
Subjective/Interval History
-
Date of Service: October 31, 2024
Objective Data
-
Labs:
Laboratory Results
10/31/24
06:32
WBC 16.2 H
Hgb 9.7 L
Hct 30.8 L
Plt Count 243
Sodium 135
Potassium 4.6
Chloride 99
Carbon Dioxide 30
BUN 25 H
Creatinine 1.1 H
Glucose 107 H
Calcium 9.2
Total Bilirubin 0.5
AST 16
ALT 16
Alkaline Phosphatase 99
Vital Signs:
Vital Signs
Temp Pulse Resp BP Pulse Ox
99 F 60 18 105/70 98
10/31/24 07:36 10/31/24 08:30 10/31/24 07:36 10/31/24 08:30 10/31/24 12:21
I&O
10/30/24 10/31/2411/01/25
06:59 06:59 06:59
Intake Total 1200 / 1200 50 / 50
Output Total
Balance 1200 / 1200
Physical Exam
-
General: Well Developed and No Apparent Distress
HEENT: Normocephalic, Atraumatic and Moist Mucous Membranes
Respiratory: Clear to Auscultation
Cardiac: Regular Rhythm and S1/S2; Negative Murmur, Rub or Gallop
GI: Soft, Nontender, Nondistended and Normal Bowel Sounds; Negative Organomegaly
Rectal: Deferred by Provider
Musculoskeletal: No Clubbing, No Cyanosis and No Edema
Skin: Negative Rash
Neuro: Nonfocal/Grossly Intact
[2024-10-31 15:56] VITALS: BP 93/55
[2024-10-31 16:54] LABS: Glucose - Point of Care 132 mg/dl (70-99)
[2024-10-31] MEDS: LOVENOX 40 MG SC (17:02)
[2024-10-31] MEDS: PEPCID 20 MG PO (17:03)
[2024-10-31 21:19] LABS: Glucose - Point of Care 141 mg/dl (70-99)
[2024-10-31] MEDS: LIPITOR 80 MG PO (21:55)
[2024-10-31 23:05] VITALS: BP 125/70
[2024-11-01 05:49] VITALS: BMI 34.4
[2024-11-01 06:50] LABS: Hematocrit 29.4 % (37.0-47.0); Hemoglobin 9.0 g/dL (12.0-16.0); Mean Corp Hgb Conc. 30.6 g/dL (33.0-37.0); Mean Corpuscular Volume 93.6 fL (81.0-99.0); Nucleated Red Blood Cells % 0 %; Platelet Count 216 10^3/uL (130-400); Red Cell Dist. Width 13.8 % (11.5-14.5)
--- NOTE | 2024-11-01 07:30 | W.PN.GS2 ---
Today's Communication / Plan
-
-- Wound care instructions updated, maintain LIBBY for at least 1 week will assess removal based on exam and outputs next week
-- OK to resume Eliquis
-- DC instructions updated
-- Call with questions or concerns
Assessment / Plan
-
Patient is an 84 yo F POD#2 s/p excision of chronic abdominal wall seroma
LIBBY with 50 cc of serosanguineous fluid
AVSS
Labs notable for normalized WBC, stable Hb
Recovering well. No signs of postoperative bleeding or significant seroma formation. Continue with LIBBY drain, will reassess potential removal as an outpatient pending outputs and evaluation. Recommend compressive underwear to decrease seroma
formation. Okay to resume Eliquis. All questions answered. DC instructions updated.
Plan:
-- Wound care instructions updated, maintain LIBBY for at least 1 week will assess removal based on exam and outputs next week
-- OK to resume Eliquis
-- DC instructions updated
-- Call with questions or concerns
Subjective Data
-
Date of Service: November 01, 2024
Continued discomfort in RLQ, stable. No fevers or chills.
Objective Data
-
Intake and Output
10/31/24 11/01/24 11/02/24
06:59 06:59 06:59
Intake Total 50 / 50 960 / 960
Output Total /
Balance 30 910 / 910
Intake:
Oral fluids 960 / 960
IV fluids (Total)
Normosol
Output:
Drain Output (Total) /
Right Middle Abdomen Yaya- /
Batista
Other:
Number of approximated MODERATE 1
amounts of urine
Number of approximated LARGE 1 3
amounts of urine
Vital Signs
Temp Pulse Resp BP Pulse Ox
97.9 F 62 18 125/70 99
10/31/24 23:05 10/31/24 23:05 10/31/24 23:05 10/31/24 23:05 10/31/24 23:27
Lab Results
11/01/24 06:16
Calcium Cancelled 11/01/24 06:16
Total Bilirubin 0.5 mg/dl (0.2-1.3) 10/31/24 06:32
AST 16 U/L (14-36) 10/31/24 06:32
ALT 16 U/L (0-35) 10/31/24 06:32
Alkaline Phosphatase 99 U/L (38-126) 10/31/24 06:32
Total Protein 5.6 g/dl (6.3-8.2) L 10/31/24 06:32
Albumin 3.0 g/dl (3.5-5.0) L 10/31/24 06:32
Physical Exam
-
Gen: NAD
Abd: soft, mild tenderness, ND, non-peritoneal, incision c/d/i - no erythema, ecchymosis or drainage, no palpable hematoma or significant seroma, steri-strips in place, LIBBY serosang
Patient has a veras catheter: No
Patient has a central line: No
[2024-11-01 08:11] LABS: Glucose - Point of Care 86 mg/dl (70-99)
[2024-11-01] MEDS: NOVOLOG FLEXPEN-LOW RESISTANCE SC ×2 (08:13→11:53)
[2024-11-01] MEDS: NEURONTIN 600 MG PO (08:20)
[2024-11-01] MEDS: ROXICODONE 20 MG PO (08:20)
[2024-11-01] MEDS: ASPIR LOW (ENTERIC COATED) 81 MG PO (08:20)
[2024-11-01] MEDS: CYMBALTA DELAYED RELEASE 60 MG PO (08:20)
[2024-11-01] MEDS: PROTONIX 40 MG PO (08:20)
[2024-11-01] MEDS: VIBRAMYCIN 100 MG PO (08:20)
[2024-11-01] MEDS: CELLCEPT 500 MG PO (08:20)
[2024-11-01] MEDS: WELLBUTRIN XL (24 hour extended release) 150 MG PO (08:21)
[2024-11-01] MEDS: TOPROL XL 50 MG PO (08:21)
[2024-11-01] MEDS: DESENEX/MITRAZOL/ZEASORB 1 APPLIC TOPICAL (08:23)
[2024-11-01] MEDS: NIZORAL 2% CREAM 1 APPLIC TOPICAL (08:24)
[2024-11-01] MEDS: VITAMIN B-12 1000 MCG PO (08:37)
[2024-11-01 08:42] VITALS: BP 115/59
--- NOTE | 2024-11-01 09:43 | W.DS.TRANS ---
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
-
Discharge Instructions:
Discharge Diagnosis/Procedures Excision of abdominal wall seroma
Multivessel CAD
Paroxysmal atrial fibrillation
Anticoagulation with Eliquis
Chronic heart failure preserved EF.
Chronic hypoxic respiratory failure on home O2
at 2 to 4 L.
ILD/COPD/restrictive lung disease baseline
obstructive sleep apnea intolerant to BiPAP.
Obesity with BMI of 44.
[id number] smoker quit in 2000
CKD stage IIIa
Anemia chronic disease
Essential hypertension
Dyslipidemia
Type 2 diabetes.
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
stenosis
Prior history of right lower extremity DVT
Bullous pemphigoid
History of basal cell carcinoma status post Mohs
procedure.
Osteoporosis
GERD
History of C. difficile infection
Depression
Diet Diabetic, Carb Controlled
Activity No strenuous activity
Additional Activity No strenuous activities that may disrupt your
incision or drain for 2 weeks
Wound Care Keep incision clean and dry. Steri-Strips will
flake off in 2 to 3 weeks. Stitches will
dissolve. Monitor and record LIBBY drain outputs.
Call when outputs are less than 20 cc for 2
consecutive days. Drain to be tentatively
removed and evaluated 1 week post procedure.
Instructions: How to care for a closed suction drain
Stand-Alone Forms:
Changes to Home Medications: No
Discharge Medications:
DC Medications w/original date entered in [facility]
pantoprazole 40 mg tablet,delayed release 40 mg PO DAILY Gastrointestinal issue 02/11/13
aspirin 81 mg tablet,delayed release 81 mg PO DAILY Blood clot prevention/tx 03/25/17
bupropion HCl 150 mg 24 hr tablet, extended release 150 mg PO DAILY Mental Health/Anxiety 03/25/17
duloxetine 60 mg capsule,delayed release 60 mg PO DAILY PAIN 03/25/17
furosemide 40 mg tablet 40 mg PO DAILY Fluid retention/Swelling 03/25/17
metformin 500 mg tablet,extended release 24 hr 500 mg PO DAILY Diabetes 03/25/17
atorvastatin 80 mg tablet 80 mg PO HS High Cholesterol 12/08/23
gabapentin 300 mg capsule 600 mg PO BID@0800,1800 Neurological Condition 12/08/23
famotidine 20 mg tablet 20 mg PO QPM Gastrointestinal Issue 12/19/23
metoprolol succinate 50 mg tablet,extended release 24 hr 50 mg PO DAILY Heart Disease/Condition 12/19/23
apixaban 5 mg tablet (Eliquis) 5 mg PO BID Blood clot prevention/tx #60 tabs 12/28/23
acetaminophen 325 mg tablet (Tylenol) 650 mg PO BID TEMP/PAIN 10/17/24
cholecalciferol (vitamin D3) 25 mcg (1,000 unit) tablet (Vitamin D3) 25 mcg PO DAILY Supplement 10/17/24
cyanocobalamin (vitamin B-12) 1,000 mcg capsule 1,000 mcg PO DAILY Supplement 10/17/24
doxycycline hyclate 100 mg capsule 100 mg PO BID long term acute care registered nurse,skin condition 10/17/24
dupilumab 200 mg/1.14 mL subcutaneous pen injector (Dupixent) 0 mg SC Q2W Autoimmune Disorder 10/17/24
gabapentin 300 mg capsule 300 mg PO DAILY@1200 NEUROPATHIC PAIN 10/17/24
ketoconazole 2 % topical cream 1 applic topical DAILY under b/l breast 10/17/24
mycophenolate mofetil 500 mg tablet 500 mg PO DAILY skin condition 10/17/24
lidocaine 4 % topical patch 1 patch topical DAILY Pain #10 ea 10/22/24
oxycodone 10 mg tablet 20 mg (2 x 10 mg) PO TID severe Pain #30 tabs 11/01/24
polyethylene glycol 3350 17 gram oral powder packet 17 g PO DAILYPRN PRN constipation #30 ea 11/01/24
Home Medication Changes
Pending Results: Yes
Additional Pending Results:
Path from seroma
[2024-11-01] MEDS: ELIQUIS 5 MG PO (10:08)
--- NOTE | 2024-11-01 10:51 | CM ---
CM reviewed chart, reviewed with Hospitalist, patient stable for d/c today. Garrett Linton able to offer patient a bed. Patient seen bedside, agreeable to d/c plan to [facility]. IMM verbally reviewed, provided with copy, placed in chart. Patient
scheduled for 2:00 p.m. ambulance transport. Call to patients spouse, Morro, to provide update. Tari updated with transport time. CM will continue to follow for all discharge planning needs.
Plan; [facility], 2:00 p.m. ambulance transport
Garrett Linton
Report: [phone]
[2024-11-01 11:37] LABS: Blood Urea Nitrogen 28 mg/dl (7-17); Calcium 9.2 mg/dl (8.4-10.2); Carbon Dioxide 31 mmol/L (22-30); Chloride 99 mmol/L (98-107); Estimated Creatinine Clearance 41 ml/min; Glucose 179 mg/dl (70-99); Potassium 4.7 mmol/L (3.5-5.1); Sodium 134 mmol/L (135-145); eGFR 50.17
[2024-11-01 11:40] LABS: Glucose - Point of Care 147 mg/dl (70-99)
[2024-11-01] MEDS: NEURONTIN 300 MG PO (12:03)
[2024-11-01 14:09] VITALS: BP 91/44
== END 2024-11-01 14:25 | DRG 580 ==
LOC: 4 WEST ACU 17:48
PROVIDERS: Clinical Nurse Specialist Family Health; Emergency Medicine; Surgery; ADMITTING PHYSICIAN Hospitalist; ATTENDING PHYSICIAN Internal Medicine; CONSULT PHYSICIAN Surgery; EMERGENCY PHYSICIAN Student in an Organized Health Care Education/Training Program; FAMILY PHYSICIAN Family Medicine
PROC: 0WBF0ZZ Excision of Abdominal Wall, Open Approach (ICD-10-PCS; 2024-10-30)
DX: S30.1XXA Contusion of abdominal wall, initial encounter (principal); F11.20 Opioid dependence, uncomplicated; J96.11 Chronic respiratory failure with hypoxia; I50.32 Chronic diastolic (congestive) heart failure; I13.0 Hypertensive heart and chronic kidney disease with heart failure and stage 1 through stage 4 chronic kidney disease, or unspecified chronic kidney disease; L12.0 Bullous pemphigoid; Z68.41 Body mass index [BMI] 40.0-44.9, adult; J84.9 Interstitial pulmonary disease, unspecified; X58.XXXA Exposure to other specified factors, initial encounter; D63.1 Anemia in chronic kidney disease; N18.31 Chronic kidney disease, stage 3a; G89.4 Chronic pain syndrome; E78.00 Pure hypercholesterolemia, unspecified; K21.9 Gastro-esophageal reflux disease without esophagitis; D50.8 Other iron deficiency anemias; E11.22 Type 2 diabetes mellitus with diabetic chronic kidney disease; G47.33 Obstructive sleep apnea (adult) (pediatric); I48.0 Paroxysmal atrial fibrillation; J44.9 Chronic obstructive pulmonary disease, unspecified; F32.A Depression, unspecified; M54.9 Dorsalgia, unspecified; M81.0 Age-related osteoporosis without current pathological fracture; J98.4 Other disorders of lung; M48.00 Spinal stenosis, site unspecified; E66.812 Obesity, class 2; L89.321 Pressure ulcer of left buttock, stage 1; L89.311 Pressure ulcer of right buttock, stage 1; I25.10 Atherosclerotic heart disease of native coronary artery without angina pectoris; Y93.9 Activity, unspecified; Y92.9 Unspecified place or not applicable; Z99.81 Dependence on supplemental oxygen; Z87.891 Personal history of nicotine dependence; Z86.718 Personal history of other venous thrombosis and embolism; Z95.5 Presence of coronary angioplasty implant and graft; Z90.49 Acquired absence of other specified parts of digestive tract; Z79.01 Long term (current) use of anticoagulants; Z88.0 Allergy status to penicillin; Z79.82 Long term (current) use of aspirin; Z79.84 Long term (current) use of oral hypoglycemic drugs; Z79.624 Long term (current) use of inhibitors of nucleotide synthesis; Z85.828 Personal history of other malignant neoplasm of skin; Z95.1 Presence of aortocoronary bypass graft
CPT/HCPCS: 80048; 80053; 82962; 84484; 85025; 85610; 85730; 88304; 97163; 97167; 99285; C1729

== ENCOUNTER → 2024-11-05 11:34 | Outpatient (REF) | payer MEDICARE, SELFPAY ==
[2024-11-05 12:40] LABS: Hematocrit 25.9 % (37.0-47.0); Hemoglobin 8.4 g/dL (12.0-16.0); Mean Corp Hgb Conc. 32.4 g/dL (33.0-37.0); Mean Corpuscular Volume 91.8 fL (81.0-99.0); Nucleated Red Blood Cells % 0.6 %; Platelet Count 194 10^3/uL (130-400); Red Cell Dist. Width 13.8 % (11.5-14.5)
== END ==
LOC: OLABP 11:34
PROVIDERS: ATTENDING PHYSICIAN Family Medicine
DX: I48.0 Paroxysmal atrial fibrillation (principal); I27.20 Pulmonary hypertension, unspecified; M48.061 Spinal stenosis, lumbar region without neurogenic claudication; N18.32 Chronic kidney disease, stage 3b; D50.9 Iron deficiency anemia, unspecified; E11.59 Type 2 diabetes mellitus with other circulatory complications; Z48.815 Encounter for surgical aftercare following surgery on the digestive system; E78.2 Mixed hyperlipidemia; G47.33 Obstructive sleep apnea (adult) (pediatric)
CPT/HCPCS: 36415; 85025

== ENCOUNTER → 2024-11-06 11:34 | Outpatient (REF) | payer MEDICARE, SELFPAY ==
[2024-11-06 12:55] LABS: Blood Urea Nitrogen 38 mg/dl (7-17); Calcium 9.2 mg/dl (8.4-10.2); Carbon Dioxide 30 mmol/L (22-30); Chloride 101 mmol/L (98-107); Glucose 76 mg/dl (70-99); Potassium 4.6 mmol/L (3.5-5.1); Sodium 133 mmol/L (135-145); eGFR 37.56
== END ==
LOC: OLABP 11:34
PROVIDERS: ATTENDING PHYSICIAN Family Medicine
DX: D50.9 Iron deficiency anemia, unspecified (principal); I48.0 Paroxysmal atrial fibrillation
CPT/HCPCS: 36415; 80048

== ENCOUNTER → 2024-11-09 10:37 | Outpatient (REF) | payer MEDICARE, SELFPAY ==
[2024-11-09 12:01] LABS: Hematocrit 25.1 % (37.0-47.0); Hemoglobin 7.8 g/dL (12.0-16.0); Mean Corp Hgb Conc. 31.1 g/dL (33.0-37.0); Mean Corpuscular Volume 93.3 fL (81.0-99.0); Platelet Count 220 10^3/uL (130-400); Red Cell Dist. Width 13.7 % (11.5-14.5)
== END ==
LOC: OLABP 10:37
PROVIDERS: ATTENDING PHYSICIAN Family Medicine
DX: Z48.815 Encounter for surgical aftercare following surgery on the digestive system (principal); D50.9 Iron deficiency anemia, unspecified; E78.2 Mixed hyperlipidemia; E11.59 Type 2 diabetes mellitus with other circulatory complications; G47.33 Obstructive sleep apnea (adult) (pediatric); I27.20 Pulmonary hypertension, unspecified; I48.0 Paroxysmal atrial fibrillation; M48.061 Spinal stenosis, lumbar region without neurogenic claudication; N18.32 Chronic kidney disease, stage 3b
CPT/HCPCS: 36415; 85027

== ENCOUNTER → 2024-11-10 09:30 | Outpatient (REF) | payer MEDICARE, SELFPAY ==
[2024-11-10 11:44] LABS: Hematocrit 27.9 % (37.0-47.0); Hemoglobin 8.9 g/dL (12.0-16.0); Mean Corp Hgb Conc. 31.9 g/dL (33.0-37.0); Mean Corpuscular Volume 94.3 fL (81.0-99.0); Platelet Count 245 10^3/uL (130-400); Red Cell Dist. Width 13.6 % (11.5-14.5)
== END ==
LOC: OLABP 09:30
PROVIDERS: ATTENDING PHYSICIAN Family Medicine
DX: M48.061 Spinal stenosis, lumbar region without neurogenic claudication (principal); Z48.815 Encounter for surgical aftercare following surgery on the digestive system; D50.9 Iron deficiency anemia, unspecified; E78.2 Mixed hyperlipidemia; E11.59 Type 2 diabetes mellitus with other circulatory complications; G47.33 Obstructive sleep apnea (adult) (pediatric); I27.20 Pulmonary hypertension, unspecified; I48.0 Paroxysmal atrial fibrillation; N18.32 Chronic kidney disease, stage 3b
CPT/HCPCS: 36415; 85027

== ENCOUNTER → 2024-11-12 10:37 | Outpatient (REF) | payer MEDICARE, SELFPAY ==
[2024-11-12 11:11] LABS: Blood Urea Nitrogen 30 mg/dl (7-17); Calcium 9.1 mg/dl (8.4-10.2); Carbon Dioxide 32 mmol/L (22-30); Chloride 100 mmol/L (98-107); Glucose 84 mg/dl (70-99); Potassium 4.3 mmol/L (3.5-5.1); Sodium 135 mmol/L (135-145); eGFR 37.56
== END ==
LOC: OLABP 10:37
PROVIDERS: ATTENDING PHYSICIAN Family Medicine
DX: Z48.815 Encounter for surgical aftercare following surgery on the digestive system (principal); D50.9 Iron deficiency anemia, unspecified; E11.59 Type 2 diabetes mellitus with other circulatory complications; I27.20 Pulmonary hypertension, unspecified; I48.0 Paroxysmal atrial fibrillation; M48.061 Spinal stenosis, lumbar region without neurogenic claudication; N18.32 Chronic kidney disease, stage 3b; E78.2 Mixed hyperlipidemia
CPT/HCPCS: 36415; 80048

== ENCOUNTER → 2024-11-19 11:07 | Outpatient (REF) | payer MEDICARE, SELFPAY ==
[2024-11-19 11:30] LABS: Blood Urea Nitrogen 33 mg/dl (7-17); Calcium 8.8 mg/dl (8.4-10.2); Carbon Dioxide 31 mmol/L (22-30); Chloride 102 mmol/L (98-107); Glucose 81 mg/dl (70-99); Potassium 4.4 mmol/L (3.5-5.1); Sodium 137 mmol/L (135-145); eGFR 41.06
== END ==
LOC: OLABP 11:07
PROVIDERS: ATTENDING PHYSICIAN Family Medicine
DX: M48.061 Spinal stenosis, lumbar region without neurogenic claudication (principal); N18.32 Chronic kidney disease, stage 3b; Z48.815 Encounter for surgical aftercare following surgery on the digestive system; D50.9 Iron deficiency anemia, unspecified; E78.2 Mixed hyperlipidemia; G47.33 Obstructive sleep apnea (adult) (pediatric); I27.20 Pulmonary hypertension, unspecified; I48.0 Paroxysmal atrial fibrillation
CPT/HCPCS: 36415; 80048

== ENCOUNTER 2025-02-10 23:30 | Inpatient (IN) | payer MEDICARE, SELFPAY ==
[2025-02-10] VITALS (8 sets, daily range): BP systolic 95–146; BP diastolic 54–79; BMI 39.4
[2025-02-10] MEDS: VENTOLIN NEBULES 2.5 MG INH (20:40)
[2025-02-10 20:55] LABS: Hematocrit 32.1 % (37.0-47.0); Hemoglobin 9.7 g/dL (12.0-16.0); Mean Corp Hgb Conc. 30.2 g/dL (33.0-37.0); Mean Corpuscular Volume 97.6 fL (81.0-99.0); Nucleated Red Blood Cells % 0 %; Platelet Count 208 10^3/uL (130-400); Red Cell Dist. Width 14.6 % (11.5-14.5)
[2025-02-10 21:11] LABS: ALT (SGPT) 12 U/L (0-35); AST (SGOT) 15 U/L (14-36); Albumin 3.9 g/dl (3.5-5.0); Alkaline Phosphatase 95 U/L (38-126); Blood Urea Nitrogen 16 mg/dl (7-17); Calcium 9.0 mg/dl (8.4-10.2); Carbon Dioxide 25 mmol/L (22-30); Chloride 103 mmol/L (98-107); Glucose 147 mg/dl (70-99); Potassium 4.8 mmol/L (3.5-5.1); Sodium 136 mmol/L (135-145); Total Protein 6.7 g/dl (6.3-8.2); eGFR 44.91
[2025-02-10 21:21] LABS: Troponin I 0.021 ng/ml
[2025-02-10] MEDS: NITROSTAT (SUBLINGUAL) 0.4 MG SL ×3 (21:41→22:01)
--- NOTE | 2025-02-10 22:13 | ED.GENMED ---
History of Present Illness
General
Chief Complaint: Chest Pain
Source: patient
Exam Limitations: none
Time Seen by Provider: 02/10/25 20:38
Nursing documentation reviewed up to this point in time: agreed with
History of Present Illness
History of Present Illness:
Note:
CHIEF COMPLAINT(S)
- Chest pain
- Shortness of breath
HISTORY OF PRESENT ILLNESS
The patient is an 85-year-old female with a history of Chronic Obstructive Pulmonary Disease (COPD) presenting with new onset chest pain and difficulty breathing. The shortness of breath began today, while the chest pain started yesterday. She
describes the chest pain as a 7 out of 10 in severity, radiating from the left side to the back and towards the right upper quadrant, also affecting the right arm. The patient denies experiencing such chest pain in the past and did not routinely
have chest pain before this episode.
She utilizes oxygen therapy at home, using two liters per minute during the day and at night. The patient has been administered 324 mg of aspirin and two doses of nitroglycerin en route, although she did not initially take aspirin herself.
Additionally, she has an ongoing history of chronic pain due to a serious accident many years ago; her baseline pain level is around 5 out of 10. Four months ago, the patient underwent surgery for the removal of a seroma.
She denies having congestive heart failure or fluid overload issues and states she has not experienced fluid restrictions. However, she had a myocardial infarction seven or eight years ago and currently sees a crop nutrition scientist, Dr. Peguero, for care. The
patient is not diabetic and does not use insulin. She quit smoking approximately 30 years ago after many years of use.
PHYSICAL EXAM
General: Alert, no acute distress.
Skin: Warm, dry.
Head: Normocephalic, atraumatic.
Neck: Supple, trachea midline.
Eyes, Ears, Nose, Mouth, and Throat: Oral mucosa moist.
Cardiovascular: Normal peripheral perfusion, No edema.
Respiratory: Respirations are non-labored.
Gastrointestinal: Abdomen nondistended.
Back: Normal range of motion, Normal alignment.
Musculoskeletal: Normal ROM, normal strength.
Neurological: Alert and oriented to person, place, time, and situation, No focal neurological deficit observed.
Psychiatric: Cooperative, appropriate mood & affect.
PROBLEM LIST
Acute Problems:
- Chest pain
- Shortness of breath
Chronic Problems:
- Chronic Obstructive Pulmonary Disease
- Chronic pain
PLAN
- Proceed with chest X-ray to evaluate the underlying cause of the chest pain
- Administer additional nitroglycerin as needed
- Consider hospital admission for further observation and management
DIFFERENTIAL DIAGNOSIS
The Differential Diagnosis includes, in no particular order and is not limited to:
- Angina
- Myocardial infarction
- Pulmonary embolism
- Pneumonia
- Heart failure
- Aortic dissection
- Costochondritis
- Pneumothorax
- Acute exacerbation of COPD
- Gastroesophageal reflux disease (GERD)
Disposition:
SUMMARY OF ENCOUNTER
The patient is an 85-year-old female who presented to the emergency department with shortness of breath. A chest x-ray was performed, which revealed pneumonia. The patient also has an acute exacerbation of Chronic Obstructive Pulmonary Disease
(COPD). She is on supplemental oxygen and has received antibiotics as part of her treatment.
DISPOSITION
Admit
ASSESSMENT
The patients presentation of shortness of breath is attributed to pneumonia and an acute exacerbation of COPD.
EMERGENCY TREATMENTS ADMINISTERED
The patient received antibiotics and supplemental oxygen.
INDEPENDENT REVIEW OF LABS AND INTERPRETATION OF TESTS
My independent interpretation of the chest x-ray indicates pneumonia.
PLAN
The patient is to be admitted to the hospitalist service for further management, including continued antibiotics and monitoring of her respiratory status.
MEDICAL DECISION MAKING
-Complexity of Data Reviewed: Chronic conditions affecting care including Chronic Obstructive Pulmonary Disease (COPD) and pneumonia. Differential diagnosis considered includes pneumonia, acute exacerbation of COPD, and other potential causes of
respiratory distress.
-Data:
Category 1
The chest x-ray was independently reviewed, which indicated pneumonia.
-Risk: Hospital admission was required due to the complexity and risk associated with the patients pneumonia and acute exacerbation of COPD.
DIAGNOSIS
- Pneumonia (ICD-10-CM: J18.9)
- Acute exacerbation of chronic obstructive pulmonary disease (ICD-10-CM: J44.1)
Past History
Past History
ED Past Medical History: CAD, CHF, COPD, GERD, HTN, Hypercholesterolemia, NIDDM, Psychiatric (Depression) and Other (DVT, morbid obesity, sleep apnea, iron deficiency anemia, spinal stenosis)
ED Past Surgical History: Appendectomy, Orthopedic, Tonsilectomy and Other (Cardiac catheterization with femoral arterial complications with both recent catheterization)
Social History
Tobacco: Former smoker
Alcohol: None
Drug: None
Personal:
Living: with family
Employment: Not employed
Phy Exam
Physical Exam
Physical Exam:
.
Scores
Heart Score for Chest Pain Patients
STEMI patient?: No
History: Slightly or Non-Suspicious
ECG: Normal
Age: >/= 65 years
Risk Factors: >/= 3 Risk Factors or History of CAD
Troponin: >1 - <3 x Normal Limit
Heart Score for Chest Pain Patients: 5
Heart Score Risk: 20.3% MACE over next 6 weeks
Course
Orders/Labs/Results
Orders:
Orders
02/10/25 20:11
Electrocardiogram (*1) Urgent
Reason for Study: Chest Pain
Cardiac Monitoring- Treatment ONCE
EKG- Treatment ONCE
IV Insert/Care/Rem.- Treatment PRN
02/10/25 20:40
Albuterol Nebs [Ventolin Nebules] 2.5 mg INH R NOW STA
02/10/25 20:49
Complete Blood Count/With Diff Urgent
Comprehensive Metabolic Panel Urgent
NT-proBNP Urgent
Comment: ADD ON
Troponin I Urgent
02/10/25 21:08
Nitroglycerin Sublingual [Nitrostat (Sublingual)] 0.4 mg SL [id number] PRN
CR Chest - 2 Views Urgent
Comment:
Reason For Exam: cp
02/10/25 21:25
Albuterol Nebs [Ventolin Nebules] 2.5 mg .ROUTE .STK-MED ONE
02/10/25 22:10
Cefepime HCl [Maxipime] 2,000 mg IV NOW STA
02/10/25 22:14
Add On- LAB Urgent
Tests Added?: probnp
02/10/25 22:50
Furosemide [Lasix] 40 mg IV NOW STA
02/10/25 22:55
COVID-19 Antigen Routine
Source: Nasal Swab
Procalcitonin Urgent
If negative, will antibiotics be d/c'd or not started: Yes
Does the patient have renal or hepatic impairment?: No
Any recent (w/in 48 hrs) physiologic stress (CPR, rhabdo): No
Influenza A+B Rapid Molecular Routine
JAMES Source: Nasal Swab
Specimen Description:
02/10/25 23:04
Oxycodone [Roxicodone] 15 mg PO NOW STA
02/10/25 23:08
Admit/Transfer Patient As Directed
Co-Sign Provider:
Level of Care: Inpatient admission
Assign to:: Telemetry
Physician / Group: Leatha, Brady
Diagnosis: pneumonia
Reason for Telemetry: Arrhythmia
Date to Stop Telemetry: 02/13/25
Time to Stop Telemetry: 11:00
Reason for Hospitalization: pneumonia
Expected length of stay greater than two midnights?: Yes
ELOS- Estimated Length of Stay in days: 3
I certify the patient meets the requirements for IP care: Yes
02/10/25 23:09
PRN Pain Medication Management As Directed
May give lesser potent ordered pain med per pt: Yes
preference::
Protocol:: Medication orders for pain may be administered in a
manner that supports deferring to patient preference
when the pt is:
- Requesting an ordered lesser potent pain medication.
Least to most potent pain medications are defined
as: acetaminophen < NSAID < tramadol < opioids
(morphine, oxycodone, hydromorphone).
- Requesting a lesser dose of the same medication IF
ORDERED.
- Requesting a less intrusive route of administration
if both routes are prescribed by the provider (PO <
IV).
02/10/25 23:11
Code Status As Directed
Resuscitation Status: Do not resuscitate
Reached after discussion with pt or family/Healthcare POA: Yes
Decision communicated with: patient and family
DNR Bracelet Application ONCE
02/11/25 00:33
Acetaminophen [Tylenol] 650 mg PO Q4HPRN PRN mild pain/fever >100.4F mild pain/fever >100.4F
Dextrose 50%-Water [Dextrose 50% Syringe] 12.5 grams IV [id number] PRN
Glucagon [GlucaGen] 1 mg IM PRN PRN
02/11/25 00:33
Consult Notification Routine
Specialty to Notify: Pulmonary
HF DIETARY CONSULT Routine
HF EDUCATOR CONSULT Routine
Comment:
PULMONARY CONSULT Routine
Consulting Provider: Vic Shabazz
Was physician already notified: No
Reason for consult: PNA
Respiratory Culture/Gram Stain Urgent
JAMES Source: Sputum
Specimen Description:
Activity As Directed
Activity Level: As Tolerated
Bedside Glucose Monitoring As Directed
Frequency: AC&HS
Additional Instructions:: Change to q6h if pt on TPN, tube feeding or not eating
INT (Intravenous Needle Therapy) As Directed
Comment: maintain peripheral IV access
Intake/ Output As Directed
Frequency: Per unit guidelines
Patient Education As Directed
Type: CHF folder
Comment: give on admission. Document in Interdisciplinary Education record
Sleep Apnea Assessment by RN As Directed
Comment:
Physician Instructions:
Vital Signs As Directed
Frequency: q4h
Weight As Directed
Frequency: Daily
Type of Scale: Standing Scale
Comment: Daily morning weight. If unable to stand, use balanced bed scale.
Weight As Directed
Frequency: Once
Type of Scale: Standing Scale
Comment: Upon Admission. If unable to stand, use balanced bed scale.
Copd Education [RESP] Routine
O2 Therapy [RESP] Routine
Titrate/Wean O2 to maintain O2 sat greater than (%): 93
Special Instructions: adjust, if necessary, to avoid hyperoxia in CO2 retainers.
Use High Flow O2 if necessary
Pulse Ox/cont/shift [RESP] Routine
Quantity: 1
Special Instructions: Daily pulse oximetry at rest. If greater than 92% at rest also obtain pulse oximetry
while ambulating as tolerated.
02/11/25 00:43
Troponin I Q3H
Comment: at admit & Q3H for 3 total including ED draws, obtain ECG with each level
Legionella Urinary Antigen Routine
JAMES Source: Urine
Specimen Description:
Strep pneumoniae Antigen Routine
JAMES Source: Urine
Specimen Description:
02/11/25 03:33
Troponin I Q3H
Comment: at admit & Q3H for 3 total including ED draws, obtain ECG with each level
02/11/25 Breakfast
1800 calorie (15 carb) Diabetic
At Your Request: Full Participation
Basic Metabolic Panel IN AM
Cardiovascular Evaluation IN AM
Complete Blood Count/No Diff IN AM
Cefepime HCl [Maxipime] 1,000 mg IV Q8H
02/11/25 06:33
Troponin I Q3H
Comment: at admit & Q3H for 3 total including ED draws, obtain ECG with each level
02/11/25 07:30
Insulin Aspart Corrective Low [Novolog Flexpen-Low Resistance] See Protocol SC AC
02/11/25 08:00
Apixaban [Eliquis] 5 mg PO BID
Aspirin Low Dose EC [Aspir Low (Enteric Coated)] 81 mg PO DAILY
Bupropion(24Hr)Extended Releas [WELLBUTRIN XL (24 hour extended release)] 150 mg PO DAILY
Doxycycline [Vibramycin] 100 mg PO BID
Duloxetine Delayed Release [Cymbalta Delayed Release] 60 mg PO DAILY
Furosemide [Lasix] 40 mg PO DAILY
Gabapentin [Neurontin] 600 mg PO TID
Metoprolol Xl [Toprol Xl] 50 mg PO DAILY
Midodrine [ProAmatine] 2.5 mg PO TID
Oxycodone [Roxicodone] 15 mg PO TID
02/11/25 18:00
Famotidine [Pepcid] 20 mg PO QPM
02/11/25 22:00
Atorvastatin [Lipitor] 80 mg PO HS
02/13/25 11:00
DC Protocol for Telemetry ONCE
Abnormal Lab Results
02/10/25
20:49
WBC 13.6 H 10^3/uL
(4.8-10.8)
RBC 3.29 L 10^6/uL
(4.20-5.40)
Hgb 9.7 L g/dL
(12.0-16.0)
Hct 32.1 L %
(37.0-47.0)
MCHC 30.2 L g/dL
(33.0-37.0)
RDW 14.6 H %
(11.5-14.5)
Absolute Neuts (auto) 11.4 H 10^3/uL
(1.4-6.5)
Absolute Monos (auto) 0.8 H 10^3/uL
(0.1-0.6)
Neutrophils % 83.7 H %
(42.2-75.2)
Lymphocytes % 9.6 L %
(20.5-51.1)
Creatinine 1.2 H mg/dL
(0.6-1.0)
Glucose 147 H mg/dl
(70-99)
02/10/25 20:49
02/10/25 20:49
Vital Signs
Initial and Last Documented VS:
Initial Vital Signs
Temp Pulse Resp BP
98.8 F 106 24 123/79
02/10/25 20:17 02/10/25 20:17 02/10/25 20:17 02/10/25 20:17
Last Documented Vital Signs
Temp Pulse Resp BP Pulse Ox
98.9 F 81 23 99/58 93
02/11/25 00:54 02/11/25 01:45 02/11/25 01:45 02/11/25 01:00 02/11/25 01:45
*Radiology
Radiology exam reviewed: preliminary read by ED provider (Pneumonia)
*Pulse Oximetry
SaO2: 98
Oxygen Mode of Delivery: Partial rebreather mask
Patient hypoxic: no
*Critical Care Note
Total Time (30-74mins, 75-104mins- exclusive of procedures): Not Applicable
ED Attending Note
-
Portions of this chart may have been created with voice recognition software.� Occasional wrong word or��sound alike� substitutions may have occurred due to the inherent limitations of voice recognition software.
Discharge Plan
Departure
Patient Disposition: Admit
Date of Disposition: 02/10/25
Time of Disposition: 22:13
Admit to: Telemetry
Presentation/result/management discussed w/ accepting MD/DO: Hospitalist
Discharge Problem:
Pneumonia, COPD (chronic obstructive pulmonary disease), Chronic pain syndrome
Interventions
Interventions:
*General Assessment Last Done: 02/10/25 21:37
*Neglect/Abuse Screening Last Done: 02/10/25 20:20
*ED COVID-19 Vaccine History Last Done: 02/10/25 21:37
*ED Influenza Vaccine History Last Done: 02/10/25 21:37
[facility] Fall Risk Assessment Tool Last Done: 02/10/25 21:34
*Risk Screen - Suicide (C-SSRS) Last Done: 02/10/25 20:20
ED- Cardiac Assessment Last Done: 02/10/25 20:40
--- NOTE | 2025-02-10 22:19 | HPS.HSE ---
Family Physician
-
Family Physician: Mir Estrada
Chief Complaint
-
chest pain
History of Present Illness
Patient is a 85-year-old female with past medical history significant for hypertension, hyperlipidemia, CAD, type 2 diabetes, GERD, paroxysmal A-fib on Eliquis, depression and HFpEF who presented to [facility] ED for evaluation of chest pain. Patient
reports midsternal chest pain that radiates to back and is reproducible with palpation and coughing. She endorses productive cough and increased shortness of breath. All symptoms starting this evening. Patient notes that she was started on
Levofloxacin and Macrobid for suspected UTI last week. Denies fevers, nausea, vomiting, constipation, dairrhea or urinary symptoms.
Medical History
Past Medical History
Past Medical History: Reports Other
Additional Past Medical History:
hypertension
hyperlipidemia
CAD/cardiac stents/CABG
type 2 diabetes
GERD
paroxysmal A-fib on Eliquis
depression
HFpEF
chronic pain due to spinal stenosis on chronic oral opiates
former smoker
Hx DVT
bullous pemphigoid with chronic pigmentations bilateral lower legs left greater than right
sleep apnea
iron deficiency anemia
class II obesity
Past Surgical History: Reports Other
Additional Past Surgical History:
appendectomy
cardiac cath with stent
CABG
tonsillectomy
MOHS
laminectomy
hemorrhoidectomy
D & C
bilateral cataract extraction
Social History
Tobacco: Former Smoker (Quit 35 years ago)
Alcohol: None
Drug: None
Personal:
Living: With Family
Family History
Family History: Not pertinent
Allergies / Home Medications
Allergies reflects when Allergies were last updated in [facility].
Home Medications with original date entered in [facility]
Allergy/Medication List:
Allergies
Allergy/AdvReac Type Severity Reaction Status Date / Time
Penicillins Allergy face Verified 10/17/24 11:21
swells,
pruritis,
difficulty,
anaphylaxis
Home Medications
pantoprazole 40 mg tablet,delayed release 40 mg PO DAILY Gastrointestinal issue 02/11/13
aspirin 81 mg tablet,delayed release 81 mg PO DAILY Blood clot prevention/tx 03/25/17
bupropion HCl 150 mg 24 hr tablet, extended release 150 mg PO DAILY Mental Health/Anxiety 03/25/17
duloxetine 60 mg capsule,delayed release 60 mg PO DAILY PAIN 03/25/17
furosemide 40 mg tablet 40 mg PO DAILY Fluid retention/Swelling 03/25/17
metformin 500 mg tablet,extended release 24 hr 500 mg PO DAILY Diabetes 03/25/17
atorvastatin 80 mg tablet 80 mg PO HS High Cholesterol 12/08/23
gabapentin 300 mg capsule 600 mg PO TID Neurological Condition 12/08/23
famotidine 20 mg tablet 20 mg PO QPM Gastrointestinal Issue 12/19/23
metoprolol succinate 50 mg tablet,extended release 24 hr 50 mg PO DAILY Heart Disease/Condition 12/19/23
apixaban 5 mg tablet (Eliquis) 5 mg PO BID Blood clot prevention/tx #60 tabs 12/28/23
acetaminophen 325 mg tablet (Tylenol) 650 mg PO BID TEMP/PAIN 10/17/24
cholecalciferol (vitamin D3) 25 mcg (1,000 unit) tablet (Vitamin D3) 25 mcg PO DAILY Supplement 10/17/24
cyanocobalamin (vitamin B-12) 1,000 mcg capsule 1,000 mcg PO DAILY Supplement 10/17/24
dupilumab 200 mg/1.14 mL subcutaneous pen injector (Dupixent) 0 mg SC Q2W Autoimmune Disorder 10/17/24
polyethylene glycol 3350 17 gram oral powder packet 17 g PO DAILYPRN PRN constipation #30 ea 11/01/24
midodrine 2.5 mg tablet 2.5 mg PO TID 02/10/25
oxycodone 10 mg tablet 15 mg PO TID severe Pain 02/10/25
Review of Systems
-
History Source: Patient and Family
Constitutional: Denies Fever or Chills
EENT: Denies Sore Throat
Respiratory: Reports Cough and Trouble Breathing
Cardiac: Reports Chest Pain; Denies Diaphoresis, Palpitations or Syncope
Abdomen/GI: Denies Abdominal Pain, Nausea, Vomiting or Diarrhea
: Denies Dysuria, Frequency or Urgency
Musculoskeletal: Denies Joint Pain
Skin: Denies Rash
Neurological: Denies Dizzy, Headache, Weakness or Numbness
Physical Exam
Vital Signs
Vital Signs
Temp Pulse Resp BP Pulse Ox
98.8 F 96 28 126/72 98
02/10/25 20:17 02/10/25 21:15 02/10/25 21:15 02/10/25 22:01 02/10/25 22:14
Physical Exam
General: Well Developed, Well Nourished, Conversant and Obese
HEENT: NormoCephalic, PERRLA, Nose Appears Normal and Ears Appear Normal
Respiratory: Rales (bilateral bases ), Decreased Breath Sounds and Other (O2 in place with NRB mask)
Cardiac: Regular Rhythm and Peripheral Edema (trace BLLE ); No Tachycardia or Murmur
GI: Soft, Non Tender, Non Distended and Normal Bowel Sounds
Musculoskeletal: No Clubbing and No Cyanosis
Skin: Warm and IV/Catheter Site
Neuro: Awake and Alert
Psych: Calm
Laboratory Results
-
02/10/25 20:49
02/10/25 20:49
Laboratory Results
Total Bilirubin 0.3 mg/dl (0.2-1.3) 02/10/25 20:49
AST 15 U/L (14-36) 02/10/25 20:49
ALT 12 U/L (0-35) 02/10/25 20:49
Alkaline Phosphatase 95 U/L (38-126) 02/10/25 20:49
Troponin I 0.021 ng/ml 02/10/25 20:49
Data Reviewed
-
Diagnostic Radiology: Report Reviewed by me (CXR; Small loculated bilateral pleural effusions. New Findings concerning for lower lobe pneumonia. Mild. New. Mild cardiomegaly. New)
Medical Tests (Nuc Med, Echo, EKG etc): Report Reviewed by me (EKG; SINUS TACHYCARDIA CANNOT RULE OUT ANTERIOR INFARCT (CITED ON OR BEFORE 18-Jan-2017) ST and T WAVE ABNORMALITY, CONSIDER INFERIOR ISCHEMIA)
Lab Data: Labs Reviewed by me (WBC 13.6, hgb 9.7, hct 32.1, neut 83.7, creat 1.2, eGFR 44.91 )
Impression/Plan
-
IMPRESSION/PLAN:
#chest pain with associated dyspnea and productive cough 2/2 ACS vs. unstable angina vs. PNA
starting this evening patient reports midsternal chest pain that radiates to back and is reproducible with palpation and coughing, endorses productive cough and increased shortness of breath
WBC 13.6, hgb 9.7, hct 32.1, neut 83.7, creat 1.2, eGFR 44.91
EKG: SINUS TACHYCARDIA
CANNOT RULE OUT ANTERIOR INFARCT (CITED ON OR BEFORE 18-Jan-2017)
ST and T WAVE ABNORMALITY, CONSIDER INFERIOR ISCHEMIA
CXR: Small loculated bilateral pleural effusions. New
Findings concerning for lower lobe pneumonia. Mild. New.
Mild cardiomegaly. New
- Admit to telemetry
- Consult Pulmonary
- IV Cefepime and PO Doxycycline
- supportive care
#hypotension
- continue midodrine
#hyperlipidemia
- continue atorvastatin
#CAD
s/p cardiac stents/CABG
- continue aspirin
#type 2 diabetes
- AccuCheck AC & HS
- SSI
- hold metformin while acutely ill
#GERD
- continue famotidine
- hold PPI
#paroxysmal A-fib
- continue Eliquis and metoprolol
#depression
- continue bupropion and duloxetine
#HFpEF
- daily weights
- I & Os
- continue furosemide
#chronic pain
- continue gabapentin and oxycodone
Code status: DNR
DVT prophylaxis: Eliquis
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
[2025-02-10] MEDS: MAXIPIME 2000 MG IV (22:45)
[2025-02-10] MEDS: LASIX 40 MG IV (23:21)
[2025-02-10] MEDS: ROXICODONE 15 MG PO (23:22)
[2025-02-10 23:25] LABS: COVID-19 Antigen Negative (Negative)
[2025-02-10 23:41] LABS: Procalcitonin 0.11 ng/ml (0.0-0.25)
[2025-02-11] VITALS (11 sets, daily range): BP systolic 96–119; BP diastolic 44–72; PULSE 72; O2SAT 95; BMI 39.4; BMI 38.1
[2025-02-11 01:34] LABS: Troponin I 0.022 ng/ml
[2025-02-11 04:57] LABS: Troponin I 0.027 ng/ml
--- NOTE | 2025-02-11 05:09 | PTCARENOTE ---
PT admitted to 2130 from ED at approx. 03:20. PT transferred from stretcher to bed with max assist. PT oriented to room, call fitch, place of care discussed. PT is AAOX3 and able to participate in admission questions. Tele monitor #30 placed
and reading in the mid 90's. Bed alarm placed for PT safety. Assessment as documented.
[2025-02-11] MEDS: MAXIPIME 1000 MG IV (06:18)
[2025-02-11] MEDS: STERILE WATER FOR INJECTION 10 ML IV ×2 (06:18→11:33)
[2025-02-11] MEDS: TYLENOL 650 MG PO (06:37)
[2025-02-11 07:39] LABS: Glucose - Point of Care 132 mg/dl (70-99)
[2025-02-11] MEDS: NEURONTIN 600 MG PO ×3 (08:44→20:59)
[2025-02-11] MEDS: CYMBALTA DELAYED RELEASE 60 MG PO (08:44)
[2025-02-11] MEDS: ASPIR LOW (ENTERIC COATED) 81 MG PO (08:44)
[2025-02-11] MEDS: WELLBUTRIN XL (24 hour extended release) 150 MG PO (08:44)
[2025-02-11] MEDS: ELIQUIS 5 MG PO ×2 (08:44→19:33)
[2025-02-11] MEDS: LASIX 40 MG PO (08:44)
[2025-02-11] MEDS: VIBRAMYCIN 100 MG PO ×2 (08:44→19:33)
[2025-02-11] MEDS: TOPROL XL 50 MG PO (08:44)
[2025-02-11] MEDS: ROXICODONE 15 MG PO ×3 (08:44→21:01)
[2025-02-11 09:38] LABS: Hematocrit 28.7 % (37.0-47.0); Hemoglobin 8.7 g/dL (12.0-16.0); Mean Corp Hgb Conc. 30.3 g/dL (33.0-37.0); Mean Corpuscular Volume 95.0 fL (81.0-99.0); Platelet Count 175 10^3/uL (130-400); Red Cell Dist. Width 14.6 % (11.5-14.5)
--- NOTE | 2025-02-11 09:49 | CON.PUL ---
Consultation
Consultation Request
Date/Time Consultation Requested: 02/11/2025-8 AM
Date/Time Consultation Performed: 02/11-8:30 AM
Requesting Provider: hospitalist
Performing Provider: Dr. Can
Reason for Consultation: Shortness of breath
Medical History
-
Chief Complaint: Shortness of breath
History of Present Illness:
85-year-old former smoking obese female with underlying hypertension, hyperlipidemia, CAD, diabetes, GERD, heart failure preserved EF who quit smoking 35 years ago and presents with increasing shortness of breath-admitted with atypical chest pain
and pneumonia-pulmonary consulted for shortness of breath and possible pneumonia 02/11/2025. Patient states that she is feeling improved. She continues to have some chest congestion, mild productive cough, no chest pain, chest tightness, pleurisy,
mopped assist, abdominal pain, increased leg swelling or focal weakness.
Past Medical History
Past Medical History: None (Hypertension. Hyperlipidemia. CAD/stent/CABG. Diabetes. GERD. Obesity. PAF on Eliquis. Depression. Heart failure preserved EF. History of DVT. Chronic pain/spinal stenosis/chronic opiates. Bullous pemphigus.
KEVAN.)
Past Surgical History: None (Appendectomy. CABG. Tonsillectomy. Mohs surgery. Laminectomy. Hemorrhoidectomy. D&C. Bilateral cataract.)
Social History
Tobacco: Former Smoker (Quit 2000)
Alcohol: None
Drug: None
Personal:
Living: With Family
Occupational Exposures: No known asbestos exposure
Environmental Exposures: No known tuberculosis exposure
Family History
Family History: Reviewed & Not Pertinent
Allergies / Home Medications
Allergies
Allergy/AdvReac Type Severity Reaction Status Date / Time
Penicillins Allergy face Verified 10/17/24 11:21
swells,
pruritis,
difficulty,
anaphylaxis
Home Medications
�Medication �Instructions �Recorded �Confirmed �Last Taken �Type
pantoprazole 40 mg tablet,delayed 40 mg PO DAILY Gastrointestinal 02/11/13 02/10/25 02/10/25 History
release issue
aspirin 81 mg tablet,delayed 81 mg PO DAILY Blood clot 03/25/17 02/10/25 02/10/25 History
release prevention/tx
bupropion HCl 150 mg 24 hr tablet, 150 mg PO DAILY Mental 03/25/17 02/10/25 02/10/25 History
extended release Health/Anxiety
duloxetine 60 mg capsule,delayed 60 mg PO DAILY PAIN 03/25/17 02/10/25 02/10/25 History
release
furosemide 40 mg tablet 40 mg PO DAILY Fluid 03/25/17 02/10/25 02/10/25 History
retention/Swelling
metformin 500 mg tablet,extended 500 mg PO DAILY Diabetes 03/25/17 02/10/25 02/10/25 History
release 24 hr
atorvastatin 80 mg tablet 80 mg PO HS High Cholesterol 12/08/23 02/10/25 02/09/25 History
gabapentin 300 mg capsule 600 mg PO TID Neurological 12/08/23 02/10/25 02/10/25 History
Condition
famotidine 20 mg tablet 20 mg PO QPM Gastrointestinal Issue 12/19/23 02/10/25 02/09/25 History
metoprolol succinate 50 mg 50 mg PO DAILY Heart 12/19/23 02/10/25 02/10/25 History
tablet,extended release 24 hr Disease/Condition
apixaban 5 mg tablet (Eliquis) 5 mg PO BID Blood clot 12/28/23 02/10/25 02/10/25 Rx
prevention/tx #60 tabs
acetaminophen 325 mg tablet 650 mg PO BID TEMP/PAIN 10/17/24 02/10/25 02/10/25 History
(Tylenol)
cholecalciferol (vitamin D3) 25 25 mcg PO DAILY Supplement 10/17/24 02/10/25 02/10/25 History
mcg (1,000 unit) tablet (Vitamin
D3)
cyanocobalamin (vitamin B-12) 1,000 mcg PO DAILY Supplement 10/17/24 02/10/25 02/10/25 History
1,000 mcg capsule
dupilumab 200 mg/1.14 mL 0 mg SC Q2W Autoimmune Disorder 10/17/24 02/10/25 Unknown History
subcutaneous pen injector
(Dupixent)
polyethylene glycol 3350 17 gram 17 g PO DAILYPRN PRN constipation 11/01/24 02/10/25 02/10/25 Rx
oral powder packet #30 ea
midodrine 2.5 mg tablet 2.5 mg PO TID 02/10/25 02/10/25 02/10/25 History
oxycodone 10 mg tablet 15 mg PO TID severe Pain 02/10/25 02/10/25 02/10/25 History
Review of Systems
-
Unable to Obtain full review of systems at this time due to: Other (Per HPI)
Vitals / Labs / Diagnostic Testing
Vital Signs
Temp Pulse Resp BP Pulse Ox
99.5 F 99 16 116/72 91
02/11/25 08:43 02/11/25 08:44 02/11/25 08:43 02/11/25 08:44 02/11/25 08:43
Lab Data
02/11/25 08:52
Microbiology
02/11/25 00:43 Urine Legionella Urinary Antigen - Final
Negative for Legionella pneumophila Serogroup 1 antigen.
A negative result does not rule out the possiblity of
Legionella infection due to other serogroups or species of
Legionella. Clinical correlation is recommended.
02/11/25 00:43 Urine Streptococcus pneumoniae Antigen (M - Final
Negative for Streptococcus pneumoniae antigen.
A negative result does not exclude infection with
Streptococcus pneumoniae. Clinical correlation is
recommended.
02/10/25 22:55 Nasal Swab Influenza Types A & B (MATHEW) - Final
Negative for Influenza A & B, NAAT
Negative results must be combined with clinical observations
and patient history.
Nucleic Acid Amplification test (NAAT)performed on the
[facility] [employer] platform.
Diagnostic Testing:
Physical Exam
-
Exam:
Well-nourished and well-developed in no apparent distress
HEENT-atraumatic, normocephalic
Neck-supple, no JVD, no bruit
Heart-regular rate and rhythm-no murmurs, rubs or gallops
Chest with diminished breath sounds, prolonged expiratory time, rare right leg greater than left basilar crackles, no wheezing
Back-no tenderness
Abdomen-soft, nontender, nondistended, no hepatosplenomegaly
Extremities-no cyanosis, clubbing, trace lower extremity edema
Integument-intact, no rashes, lesions or ecchymosis
Neurology-alert and oriented, nonfocal motor and sensory exam
Assessment
-
85-year-old former smoking obese female with underlying hypertension, hyperlipidemia, CAD, diabetes, GERD, heart failure preserved EF who quit smoking 35 years ago and presents with increasing shortness of breath-admitted with atypical chest pain
and pneumonia-pulmonary consulted for shortness of breath and possible pneumonia 02/11/2025.
Atypical chest pain
Pneumonia
Heart failure, preserved EF
Chronic hypotension
Leukocytosis
Ndzzdt-afsrbyclov-obqbtrbwpu 8.7
Hyperglycemia
Conditions present prior to admission:
Hypertension.
Hyperlipidemia.
CAD/stent/CABG.
Diabetes.
GERD.
Obesity.
PAF on Eliquis.
Depression.
Heart failure preserved EF.
History of DVT.
Chronic pain/spinal stenosis/chronic opiates.
Bullous pemphigus.
KEVAN-CPAP intolerant-adamant about not getting retested
Pulmonary hypertension.
COPD.
Former [id number]-year-quit 2000
Interstitial lung disease
Pulmonary nodule-stable from 2006 through 2017
Chronic fatigue.
Chronic diastolic CHF
Appendectomy. CABG. Tonsillectomy. Mohs surgery. Laminectomy. Hemorrhoidectomy. D&C. Bilateral cataract.
Plan
Respiratory decompensation, likely multifactorial including underlying COPD/pneumonia and heart failure.
Supplemental oxygen as needed
Excessive discharge. Supplemental she needs prior to discharge.
Nebulizers.
Steroids.
Mucolytic.
Mucus clearing devices.
Check cultures.
Urine Legionella and streptococcal antigen negative.
Influenza negative.
Sputum culture pending
Empiric antibiotics-ceftriaxone and doxycycline
Follow leukocytosis
Diuresis as tolerated.
Cardiology evaluation.
Last echocardiogram summarized below.
Monitor intake, output, renal function, lower extremity edema and weight
DVT prophylaxis-Eliquis
GI prophylaxis-on famotidine.
Nutrition
Early mobilization
Reviewed with nursing
Patient follows with Dr Smith-Last seen 10/04/24 and canceled 01/16/25-maintained on 4 L oxygen at night, 2 L daytime, Symbicort 80/4.5 and Albuterol
Diagnostic data:
Chest x-ray 02/10/2025-small loculated bilateral pleural effusions which are new, findings concerning for left lower lobe pneumonia
CT chest 02/02/18 reveals mild scar image 31 which may be improved when compared to prior studies. It is in the right lower lobe. Otherwise, there is no other abnormality noted.
CT of the abdomen from 04/29/2017 reveals no active disease in the lung.
CT chest abdomen and pelvis 05/09/2024-dependent atelectasis, focal area ground glass opacification likely small airway pneumonitis, slight increase in interstitial markings in the peripheral lungs possibly chronic changes of congestive heart failure
Echocardiogram 12/20/2023-EF 50%, mild mitral digitation, PA systolic 25-30
Spirometry 10/04/24- FVC 1.89 or 85%, FEV1 1.33 or 81%, Ratio 70
PFT 10/12/21: FVC 2.36/96%, FEV1 1.55/85%, ratio 67. DLCO 8.71/46%. Saturation decreased to 87%, lung volumes not completed. When compared to 2017, spirometry and diffusion capacity is stable
6MW test 10/04/24- RA 96%, HR 67 bpm Ambulated 150 feet and maintained 91-96% on RA. Hr increased to 127bpm
Data Reviewed
-
PFT: Report reviewed by me
EKG: Report reviewed by me
Radiology: Image personally visualized and interpreted and Report reviewed by me
CT Scan: Image personally visualized and interpreted and Report reviewed by me
Medical Tests (Nuc Med, Echo etc): Report reviewed by me
Labs: Labs reviewed by me
Old Records: Reviewed
Total Time Spent with Patient (in minutes): 65
[2025-02-11 09:59] LABS: Troponin I 0.030 ng/ml
[2025-02-11 10:17] LABS: Blood Urea Nitrogen 17 mg/dl (7-17); Calcium 9.2 mg/dl (8.4-10.2); Carbon Dioxide 30 mmol/L (22-30); Chloride 99 mmol/L (98-107); Estimated Creatinine Clearance 41 ml/min; Glucose 152 mg/dl (70-99); HDL Cholesterol 50 mg/dl; LDL Cholesterol, Calculated 42 mg/dl; Potassium 4.4 mmol/L (3.5-5.1); Sodium 135 mmol/L (135-145); Very Low Density Lipoprotein 13 mg/dl (0-30); eGFR 49.86
--- NOTE | 2025-02-11 10:26 | W.PN.HOSP.TC ---
Today's Communication/Plan
-
Continue antibiotics
IV Lasix
PT/OT
Cardiology consult
Assessment / Plan
Assessment / Plan
Gen-AAOx3, NAD, obese
HEENT-NC, AT, anicteric, clear oral mm
Neck-supple
CV-reg, no M, +S1/S2
Lungs-clear B/L
Abd-soft, NT, ND
Ext-bilateral lower extremity edema
Musculoskeletal-no cyanosis, clubbing
Skin-warm and dry
Neuro-grossly non-focal
Psych-calm, cooperative
Acute on chronic hypoxic respiratory failure -suspect multifactorial etiology including acute heart failure exacerbation, possible pneumonia.
Baseline uses 4 L oxygen via nasal cannula at home. Currently stable on 4 L.
Admission two-view chest x-ray with small loculated bilateral pleural effusions, possible lower lobe pneumonia.
Community-acquired pneumonia -Will change to ceftriaxone, doxycycline. COVID and influenza negative. Urinary Legionella, pneumococcus antigens negative.
Patient started with cough several days ago. Her son had a cough initially prior to onset of patient's cough.
Mild leukocytosis present on admission, afebrile. Sputum culture pending.
Acute on chronic heart failure with preserved EF exacerbation -BNP 15,200, chest x-ray findings noted. Weight gain noted.
Will change Lasix to IV. Consult cardiology.
CAD/CABG -stable. Presentation with chest pain and shortness of breath. Troponins negative.
Paroxysmal atrial fibrillation -continue Eliquis.
ILD/COPD/restrictive lung disease
Essential hypertension -stable.
Hyperlipidemia -atorvastatin.
DM 2 without hyperglycemia -hemoglobin A1c pending. Glucose 152 this morning. At home she is on metformin 500 mg daily.
Currently on aspart low resistance corrective scale.
Chronic pain syndrome/chronic opiate dependence
Bullous pemphigoid
Chronic anemia normocytic. Hemoglobin at baseline. -
KEVAN -intolerant of BiPAP.
GERD
Osteoporosis
History of CDAD
Morbid obesity due to excess calories
DNR
Anticipated Discharge: > 48 hours
Subjective/Interval History
-
Date of Service: February 11, 2025
Patient seen and examined. No new complaints.
Objective Data
-
Labs:
Laboratory Results
02/11/25
08:52
WBC 10.5
Hgb 8.7 L
Hct 28.7 L
Plt Count 175
Sodium 135
Potassium 4.4
Chloride 99
Carbon Dioxide 30
BUN 17
Creatinine 1.1 H
Glucose 152 H
Calcium 9.2
Vital Signs:
Vital Signs
Temp Pulse Resp BP Pulse Ox
99.5 F 99 16 116/72 91
02/11/25 08:43 02/11/25 08:44 02/11/25 08:43 02/11/25 08:44 02/11/25 10:15
I&O
02/10/25 02/11/25 02/12/25
06:59 06:59 06:59
Intake Total 240 / 240
Output Total 1924 / 1924
Balance -1684 / -1684
Review of Systems
-
History Source: Patient
All other systems: Reviewed and negative
--- NOTE | 2025-02-11 10:39 | VNURNOTE ---
Chart reviewed. Patient is current with [facility]. Will continue to follow hospital course and DC plans.
[2025-02-11 11:22] LABS: Glycohemoglobin (HgbA1c) 5.5 % (4.0-5.9)
[2025-02-11] MEDS: ROCEPHIN 1000 MG IV (11:33)
[2025-02-11] MEDS: LASIX 40 MG IV (11:38)
[2025-02-11 11:46] LABS: Glucose - Point of Care 143 mg/dl (70-99)
--- NOTE | 2025-02-11 12:40 | CM ---
Patient seen at bedside with physician on . Patient stated that she was recently discharged from [facility] last week and that she does not want to go to a SNF. Patient on 4 liter O2 at SNF. Patient was being seen at home by [facility]. Patient
PCP is Dr. Estrada and patient has a walker, wheelchair, home O2 prior to admission. Patient lives with her and son at home in a 1 story home. CM will continue to follow for discharge planning needs.
Plan;home with VN vs SNF; pending medical treatment plan.
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
[2025-02-11 17:17] LABS: Glucose - Point of Care 130 mg/dl (70-99)
[2025-02-11] MEDS: PEPCID 20 MG PO (17:18)
[2025-02-11] MEDS: LIPITOR 80 MG PO (21:01)
[2025-02-11 21:23] LABS: Glucose - Point of Care 109 mg/dl (70-99)
[2025-02-12] VITALS (7 sets, daily range): BP systolic 91–124; BP diastolic 54–74; PULSE 79; O2SAT 97; BMI 37.4
[2025-02-12 07:25] LABS: Hematocrit 29.1 % (37.0-47.0); Hemoglobin 9.1 g/dL (12.0-16.0); Mean Corp Hgb Conc. 31.3 g/dL (33.0-37.0); Mean Corpuscular Volume 94.5 fL (81.0-99.0); Nucleated Red Blood Cells % 0 %; Platelet Count 164 10^3/uL (130-400); Red Cell Dist. Width 14.6 % (11.5-14.5)
[2025-02-12 07:43] LABS: Glucose - Point of Care 119 mg/dl (70-99)
[2025-02-12 07:50] LABS: Blood Urea Nitrogen 19 mg/dl (7-17); Calcium 9.2 mg/dl (8.4-10.2); Carbon Dioxide 33 mmol/L (22-30); Chloride 99 mmol/L (98-107); Estimated Creatinine Clearance 35 ml/min; Glucose 112 mg/dl (70-99); Potassium 4.6 mmol/L (3.5-5.1); Sodium 136 mmol/L (135-145); eGFR 40.80
[2025-02-12] MEDS: CYMBALTA DELAYED RELEASE 60 MG PO (08:00)
[2025-02-12] MEDS: WELLBUTRIN XL (24 hour extended release) 150 MG PO (08:00)
[2025-02-12] MEDS: ASPIR LOW (ENTERIC COATED) 81 MG PO (08:01)
[2025-02-12] MEDS: VIBRAMYCIN 100 MG PO ×2 (08:01→20:18)
[2025-02-12] MEDS: ELIQUIS 5 MG PO ×2 (08:01→20:18)
[2025-02-12] MEDS: NEURONTIN 600 MG PO ×3 (08:01→22:18)
[2025-02-12] MEDS: LASIX 40 MG IV (08:01)
[2025-02-12] MEDS: TOPROL XL 50 MG PO (08:01)
[2025-02-12] MEDS: ROXICODONE 15 MG PO ×3 (08:02→22:18)
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
--- NOTE | 2025-02-12 10:08 | W.PN.PUL.V3 ---
Today's Communication / Plan
-
Wean oxygen.
Diuresis.
Finding course of antibiotics.
Nebulizers if needed.
Observe off steroids
Assessment
-
85-year-old former smoking obese female with underlying hypertension, hyperlipidemia, CAD, diabetes, GERD, heart failure preserved EF who quit smoking 35 years ago and presents with increasing shortness of breath-admitted with atypical chest pain
and pneumonia-pulmonary consulted for shortness of breath and possible pneumonia 02/11/2025.
Atypical chest pain
Pneumonia
Heart failure, preserved EF
Chronic hypotension
Leukocytosis
Xlqyzm-obbtgpjqoa-knonrutjjp 8.7
Hyperglycemia
Conditions present prior to admission:
Hypertension.
Hyperlipidemia.
CAD/stent/CABG.
Diabetes.
GERD.
Obesity.
PAF on Eliquis.
Depression.
Heart failure preserved EF.
History of DVT.
Chronic pain/spinal stenosis/chronic opiates.
Bullous pemphigus.
KEVAN-CPAP intolerant-adamant about not getting retested
Pulmonary hypertension.
COPD.
Former [id number]-year-quit 2000
Interstitial lung disease
Pulmonary nodule-stable from 2006 through 2018
Chronic fatigue.
Chronic diastolic CHF
Appendectomy. CABG. Tonsillectomy. Mohs surgery. Laminectomy. Hemorrhoidectomy. D&C. Bilateral cataract.
Plan
Respiratory decompensation, likely multifactorial including underlying COPD/pneumonia and heart failure.
Supplemental oxygen as needed-currently on 4 L-96% saturation.
Has home oxygen-nocturnal . 4 L and 2 L during the daytime
Excessive discharge supplemental she needs prior to discharge.
Nebulizers As needed-currently without wheezing
Steroids on hold
Mucolytic.
Mucus clearing devices.
Cultures reviewed
Urine Legionella and streptococcal antigen negative.
Influenza negative.
Sputum culture -usual respiratory singh
Empiric antibiotics-ceftriaxone and doxycycline
Follow leukocytosis
Diuresis as tolerated.
Cardiology evaluation . Ongoing-correspondence reviewed
Last echocardiogram summarized below...
Echocardiogram 02/12/25-EF 55-60%, mild to moderate mitral regurgitation, PA systolic 50
Heart failure education
Monitor intake, output, renal function, lower extremity edema and weight
DVT prophylaxis-Eliquis
GI prophylaxis-on famotidine.
Nutrition
Early mobilization
Reviewed with nursing
Patient follows with Dr Smith-Last seen 10/04/24 and canceled 01/16/25-maintained on 4 L oxygen at night, 2 L daytime, Symbicort 80/4.5 and Albuterol
Diagnostic data:
Chest x-ray 02/10/2025-small loculated bilateral pleural effusions which are new, findings concerning for left lower lobe pneumonia
CT chest 02/02/18 reveals mild scar image 31 which may be improved when compared to prior studies. It is in the right lower lobe. Otherwise, there is no other abnormality noted.
CT of the abdomen from 04/29/2017 reveals no active disease in the lung.
CT chest abdomen and pelvis 05/09/2024-dependent atelectasis, focal area ground glass opacification likely small airway pneumonitis, slight increase in interstitial markings in the peripheral lungs possibly chronic changes of congestive heart failure
Echocardiogram 12/20/2023-EF 50%, mild mitral digitation, PA systolic 25-30
Spirometry 10/04/24- FVC 1.89 or 85%, FEV1 1.33 or 81%, Ratio 70
PFT 10/12/21: FVC 2.36/96%, FEV1 1.55/85%, ratio 67. DLCO 8.71/46%. Saturation decreased to 87%, lung volumes not completed. When compared to 2017, spirometry and diffusion capacity is stable
6MW test 10/04/24- RA 96%, HR 67 bpm Ambulated 150 feet and maintained 91-96% on RA. Hr increased to 127bpm
Subjective Data
-
Date of Service:
Date of Service: February 12, 2025
Chief Complaint: Pulmonary Follow Up and Dyspnea Follow Up
Subjective:
Feels better, less short of breath, less dyspnea on exertion, currently on 4 L, no chest pain, productive cough, or abdominal pain
Review of Systems
General: Other ( per HPI)
Objective Data
Data Reviewed
Vital Signs / I&O:
Vital Signs
Temp Pulse Resp BP Pulse Ox
98.5 F 88 16 120/74 96
02/12/25 07:20 02/12/25 08:03 02/12/25 07:20 02/12/25 08:03 02/12/25 08:50
Intake and Output
02/11/25 02/12/25 02/13/25
06:59 06:59 06:59
Intake Total 240 / 240 740 / 740
Output Total 1925 / 1925 100 / 100
Balance -1685 / -1685 640 / 640
SaO2: 96
Nasal Cannula flow liters per minute: 4
Physical Exam
General: Respiratory Distress (n) and Comfortable
HEENT: Normocephalic and Moist Mucous Membranes
Cardiovascular: Regular Rhythm and Murmur
Respiratory: Wheeze (n), Crackles ( few basilar), Rhonchi (n), Non-Labored Respirations, Accessory Resp Muscle Use (n) and Stridor (n)
GI: Soft, Non Distended and Non Tender
Neurology: Awake, Alert and No Motor Deficits
Skin: Good Color, Cyanosis (n), Jaundice (n) and Rash (n)
Labs/Micro/Reports
Lab Data
02/12/25 07:03
02/12/25 07:03
Microbiology
02/11/25 09:32 Sputum Respiratory Culture - Preliminary
Usual Respiratory Singh
02/11/25 09:32 Sputum Gram Stain - Preliminary
02/11/25 00:43 Urine Legionella Urinary Antigen - Final
Negative for Legionella pneumophila Serogroup 1 antigen.
A negative result does not rule out the possiblity of
Legionella infection due to other serogroups or species of
Legionella. Clinical correlation is recommended.
02/11/25 00:43 Urine Streptococcus pneumoniae Antigen (M - Final
Negative for Streptococcus pneumoniae antigen.
A negative result does not exclude infection with
Streptococcus pneumoniae. Clinical correlation is
recommended.
02/10/25 22:55 Nasal Swab Influenza Types A & B (MATHEW) - Final
Negative for Influenza A & B, NAAT
Negative results must be combined with clinical observations
and patient history.
Nucleic Acid Amplification test (NAAT)performed on the
[employer] platform.
[2025-02-12] MEDS: ROCEPHIN 1000 MG IV (12:11)
[2025-02-12] MEDS: STERILE WATER FOR INJECTION 10 ML IV (12:11)
[2025-02-12 12:18] LABS: Glucose - Point of Care 128 mg/dl (70-99)
--- NOTE | 2025-02-12 13:17 | W.PN.HOSP.TC ---
Today's Communication/Plan
-
Continue current care
Assessment / Plan
Assessment / Plan
Gen-AAOx3, NAD, obese
HEENT-NC, AT, anicteric, clear oral mm
Neck-supple
CV-reg, no M, +S1/S2
Lungs-clear B/L
Abd-soft, NT, ND
Ext-bilateral lower extremity edema, erythema
Musculoskeletal-no cyanosis, clubbing
Skin-warm and dry
Neuro-grossly non-focal
Psych-calm, cooperative
Acute on chronic hypoxic respiratory failure -suspect multifactorial etiology including acute heart failure exacerbation, possible pneumonia.
Baseline uses 4 L oxygen via nasal cannula at home. Currently stable on 4 L.
Admission two-view chest x-ray with small loculated bilateral pleural effusions, possible lower lobe pneumonia.
Community-acquired pneumonia -improving, continue ceftriaxone, doxycycline. COVID and influenza negative. Urinary Legionella, pneumococcus antigens negative.
Patient started with cough several days ago. Her son had a cough initially prior to onset of patient's cough.
Mild leukocytosis present on admission, afebrile. Sputum culture pending.
Acute on chronic heart failure with preserved EF exacerbation -BNP 15,200, chest x-ray findings noted. Weight gain noted.
Continue IV Lasix. Cardiology following.
Echocardiogram shows LVEF 55 to 60%, mild to moderate MR, mild to moderate TR. Pulmonary artery pressure 50 mmHg.
CAD/CABG -stable. Presentation with chest pain and shortness of breath. Troponins negative.
Paroxysmal atrial fibrillation -continue Eliquis.
ILD/COPD/restrictive lung disease
Essential hypertension -stable.
Hyperlipidemia -atorvastatin.
DM 2 without hyperglycemia -hemoglobin A1c 5.5%. Glucose 112 this morning. At home she is on metformin 500 mg daily.
Currently on aspart low resistance corrective scale.
Bilateral lower extremity venous stasis dermatitis -compression therapy ordered. Keep legs elevated.
Urge incontinence -will refer to urogynecology as an outpatient, Dr. Slaughter.
Chronic pain syndrome/chronic opiate dependence
Bullous pemphigoid
Chronic anemia normocytic - Hemoglobin at baseline.
KEVAN -intolerant of BiPAP.
GERD
Osteoporosis
History of CDAD
Morbid obesity due to excess calories
DNR
Anticipated Discharge: 24 - 48 hours
Subjective/Interval History
-
Date of Service: February 12, 2025
Patient seen and examined, states her breathing is improved. No complaints.
Objective Data
-
Labs:
Laboratory Results
02/12/25
07:03
WBC 6.0
Hgb 9.1 L
Hct 29.1 L
Plt Count 164
Sodium 136
Potassium 4.6
Chloride 99
Carbon Dioxide 33 H
BUN 19 H
Creatinine 1.3 H
Glucose 112 H
Calcium 9.2
Vital Signs:
Vital Signs
Temp Pulse Resp BP Pulse Ox
97.9 F 68 18 115/58 94
02/12/25 11:49 02/12/25 11:49 02/12/25 11:49 02/12/25 11:49 02/12/25 11:49
I&O
02/11/25 02/12/25 02/13/25
06:59 06:59 06:59
Intake Total 240 / 240 740 / 740
Output Total 1925 / 1925 100 / 100 300 / 300
Balance -1685 / -1685 640 / 640 -300 / -300
Review of Systems
-
History Source: Patient
All other systems: Reviewed and negative
--- NOTE | 2025-02-12 15:40 | CM ---
Patient seen at bedside in [address] [place] [address]. Patient plan is for home with VN. Patient continues to want to follow [facility]. CM will continue to follow for discharge planning needs.
Plan; home with [facility]
[2025-02-12 16:25] LABS: Glucose - Point of Care 120 mg/dl (70-99)
[2025-02-12] MEDS: PEPCID 20 MG PO (17:20)
[2025-02-12 21:16] LABS: Glucose - Point of Care 143 mg/dl (70-99)
[2025-02-12] MEDS: LIPITOR 80 MG PO (22:18)
[2025-02-13] VITALS (8 sets, daily range): BP systolic 82–115; BP diastolic 43–68; PULSE 68; O2SAT 96; BMI 36.9
[2025-02-13 08:01] LABS: Glucose - Point of Care 120 mg/dl (70-99)
[2025-02-13] MEDS: WELLBUTRIN XL (24 hour extended release) 150 MG PO (08:30)
[2025-02-13] MEDS: ASPIR LOW (ENTERIC COATED) 81 MG PO (08:30)
[2025-02-13] MEDS: ELIQUIS 5 MG PO ×2 (08:30→19:24)
[2025-02-13] MEDS: NEURONTIN 600 MG PO ×3 (08:30→21:20)
[2025-02-13] MEDS: VIBRAMYCIN 100 MG PO ×2 (08:30→19:25)
[2025-02-13] MEDS: CYMBALTA DELAYED RELEASE 60 MG PO (08:30)
[2025-02-13] MEDS: LASIX 40 MG IV (08:31)
[2025-02-13] MEDS: ROXICODONE 15 MG PO ×3 (08:31→21:20)
[2025-02-13] MEDS: TOPROL XL 50 MG PO (08:32)
--- NOTE | 2025-02-13 08:55 | W.PN.HOSP.TC ---
Today's Communication/Plan
-
Compression therapy
Continue current care
Assessment / Plan
Assessment / Plan
Gen-AAOx3, NAD, obese
HEENT-NC, AT, anicteric, clear oral mm
Neck-supple
CV-reg, no M, +S1/S2
Lungs-clear B/L
Abd-soft, NT, ND
Ext-bilateral lower extremity edema, erythema
Musculoskeletal-no cyanosis, clubbing
Skin-warm and dry
Neuro-grossly non-focal
Psych-calm, cooperative
Acute on chronic hypoxic respiratory failure -suspect multifactorial etiology including acute heart failure exacerbation, possible pneumonia.
Baseline uses 4 L oxygen via nasal cannula at home. Currently stable on 4 L.
Admission two-view chest x-ray with small loculated bilateral pleural effusions, possible lower lobe pneumonia.
Community-acquired pneumonia -improving, continue ceftriaxone, doxycycline, day 4 of antibiotics.
COVID and influenza negative. Urinary Legionella, pneumococcus antigens negative.
Patient started with cough several days ago. Her son had a cough initially prior to onset of patient's cough.
Mild leukocytosis present on admission, afebrile. Sputum culture pending.
Acute on chronic heart failure with preserved EF exacerbation -BNP 15,200, chest x-ray findings noted. Weight down 6 kg since admission.
Continue IV Lasix. Cardiology following.
Echocardiogram shows LVEF 55 to 60%, mild to moderate MR, mild to moderate TR. Pulmonary artery pressure 50 mmHg.
CAD/CABG -stable. Presentation with chest pain and shortness of breath. Troponins negative.
Paroxysmal atrial fibrillation -continue Eliquis.
ILD/COPD/restrictive lung disease
Essential hypertension -stable.
Hyperlipidemia -atorvastatin.
DM 2 without hyperglycemia -hemoglobin A1c 5.5%. Glucose 120 this morning. At home she is on metformin 500 mg daily.
Currently on aspart low resistance corrective scale.
Bilateral lower extremity venous stasis dermatitis -compression therapy ordered. Keep legs elevated.
Urge incontinence -will refer to urogynecology as an outpatient, Dr. Slaughter.
Chronic pain syndrome/chronic opiate dependence
Bullous pemphigoid
Chronic anemia normocytic - Hemoglobin at baseline.
KEVAN -intolerant of BiPAP.
GERD
Osteoporosis
History of CDAD
Morbid obesity due to excess calories
DNR
Anticipated Discharge: Within 24 hours
Subjective/Interval History
-
Date of Service: February 13, 2025
Patient seen and examined. No complaints.
Objective Data
-
Labs:
Laboratory Results
02/13/25
08:03
Sodium Pending
Potassium Pending
Chloride Pending
Carbon Dioxide Pending
BUN Pending
Creatinine Pending
Glucose Pending
Calcium Pending
Vital Signs:
Vital Signs
Temp Pulse Resp BP Pulse Ox
97.8 F 63 18 115/64 97
02/13/25 07:39 02/13/25 08:30 02/13/25 07:39 02/13/25 08:30 02/13/25 07:39
I&O
02/12/25 02/13/25 02/14/25
06:59 06:59 06:59
Intake Total 740 / 740 860 / 860
Output Total 100 / 100 300 / 300
Balance 640 / 640 560 / 560
Review of Systems
-
History Source: Patient
All other systems: Reviewed and negative
[2025-02-13 09:31] LABS: Blood Urea Nitrogen 23 mg/dl (7-17); Calcium 9.2 mg/dl (8.4-10.2); Carbon Dioxide 32 mmol/L (22-30); Chloride 98 mmol/L (98-107); Estimated Creatinine Clearance 35 ml/min; Glucose 119 mg/dl (70-99); Potassium 4.6 mmol/L (3.5-5.1); Sodium 137 mmol/L (135-145); eGFR 40.80
--- NOTE | 2025-02-13 09:45 | W.PN.PUL3 ---
Today's Communication / Plan
-
Wean oxygen as tolerated
Diuresis and maintain net negative fluid balance; trend UOP, I/O and sCr
Finite course of antibiotics
Nebulizers if needed.
Observe off steroids
Assessment
-
85-year-old former smoking obese female with underlying hypertension, hyperlipidemia, CAD, diabetes, GERD, heart failure preserved EF who quit smoking 35 years ago and presents with increasing shortness of breath-admitted with atypical chest pain
and pneumonia-pulmonary consulted for shortness of breath and possible pneumonia 02/11/2025.
Atypical chest pain
Possible left lower lobe pneumonia
Acute HFpEF exacerbation
Chronic hypotension on midodrine
Leukocytosis
Anemia
Hyperglycemia
Conditions present prior to admission:
Hypertension.
Hyperlipidemia.
CAD/stent/CABG.
Diabetes.
GERD.
Obesity.
PAF on Eliquis.
Depression.
Heart failure preserved EF.
History of DVT.
Chronic pain/spinal stenosis/chronic opiates.
Bullous pemphigus.
KEVAN-CPAP intolerant-adamant about not getting retested
Pulmonary hypertension.
COPD.
Former [id number]-[id number]-year-quit 2000
Interstitial lung disease
Pulmonary nodule-stable from 2006 through 2018
Chronic fatigue.
Chronic diastolic CHF
Appendectomy. CABG. Tonsillectomy. Mohs surgery. Laminectomy. Hemorrhoidectomy. D&C. Bilateral cataract.
Plan
Respiratory decompensation, likely multifactorial including underlying COPD/pneumonia and heart failure.
Supplemental oxygen as needed-currently on 4 L-97% saturation.
Has home oxygen-nocturnal . 4 L and 2 L during the daytime
Home O2 assessment prior to discharge
Nebulizers As needed-currently without wheezing
Steroids on hold
Mucolytics
Mucus clearing devices.
Cultures reviewed
Urine Legionella and streptococcal antigen negative.
Influenza negative.
Sputum culture -usual respiratory singh
Empiric antibiotics-ceftriaxone and doxycycline
Trend WBC and monitor temperature curve
Diuresis as tolerated -currently on lasix 40 mg IV daily
Cardiology evaluation - correspondence reviewed
Last echocardiogram summarized below...
Echocardiogram 02/12/25-EF 55-60%, mild to moderate mitral regurgitation, PA systolic 50
Heart failure education
Monitor intake, output, renal function, lower extremity edema and weight
DVT prophylaxis-Eliquis
GI prophylaxis-on famotidine.
Nutrition
Early mobilization
Reviewed with nursing
Patient follows with Dr Smith-Last seen 10/04/24 and canceled 01/16/25-maintained on 4 L oxygen at night, 2 L daytime, Symbicort 80/4.5 and Albuterol
Diagnostic data:
Chest x-ray 02/10/2025-small loculated bilateral pleural effusions which are new, findings concerning for left lower lobe pneumonia
CT chest 02/02/18 reveals mild scar image 31 which may be improved when compared to prior studies. It is in the right lower lobe. Otherwise, there is no other abnormality noted.
CT of the abdomen from 04/29/2017 reveals no active disease in the lung.
CT chest abdomen and pelvis 05/09/2024-dependent atelectasis, focal area ground glass opacification likely small airway pneumonitis, slight increase in interstitial markings in the peripheral lungs possibly chronic changes of congestive heart failure
Echocardiogram 12/20/2023-EF 50%, mild mitral digitation, PA systolic 25-30
Spirometry 10/04/24- FVC 1.89 or 85%, FEV1 1.33 or 81%, Ratio 70
PFT 10/12/21: FVC 2.36/96%, FEV1 1.55/85%, ratio 67. DLCO 8.71/46%. Saturation decreased to 87%, lung volumes not completed. When compared to 2017, spirometry and diffusion capacity is stable
6MW test 10/04/24- RA 96%, HR 67 bpm Ambulated 150 feet and maintained 91-96% on RA. Hr increased to 127bpm
Total time spent today was 41 minutes for this encounter. Time includes reviewing laboratory test/imaging results, reviewing pertinent medical records, obtaining and reviewing medical history, performing an appropriate exam, ordering medications,
tests and procedures. Time also includes documentation of this encounter, coordinating patient care and communicating with other healthcare professionals. Total time does not include separately billed tests performed on this date of service.
Subjective Data
-
Date of Service:
Date of Service: February 13, 2025
Chief Complaint: Pulmonary Follow Up and Dyspnea Follow Up
Subjective:
Patient seen and evaluated today at bedside. Currently on 4 L/min nasal cannula. No acute events reported from overnight.
Review of Systems
General: Other (Negative unless mentioned above)
Objective Data
Data Reviewed
Vital Signs / I&O / Oxygen:
Vital Signs
Temp Pulse Resp BP Pulse Ox
97.8 F 63 18 115/64 97
02/13/25 07:39 02/13/25 08:30 02/13/25 07:39 02/13/25 08:30 02/13/25 07:39
Intake and Output
02/12/25 02/13/25 02/14/25
06:59 06:59 06:59
Intake Total 740 / 740 860 / 860
Output Total 100 / 100 300 / 300
Balance 640 / 640 560 / 560
SaO2 97
Nasal Cannula flow liters per 4
minute
Physical Exam
General: Respiratory Distress (n) and Comfortable
HEENT: Normocephalic and Moist Mucous Membranes
Cardiovascular: S1-S2 and Rub (n)
Respiratory: Wheeze (n), Crackles ( few basilar), Rhonchi (n), Non-Labored Respirations, Accessory Resp Muscle Use (n) and Stridor (n)
GI: Soft, Non Distended and Non Tender
Neurology: Awake, Alert and Tremors (n)
Skin: Warm, Dry, Cyanosis (n), Jaundice (n) and Rash (n)
Labs/Micro/Reports
Lab Data
02/12/25 07:03
02/13/25 08:03
Microbiology
02/11/25 09:32 Sputum Respiratory Culture - Preliminary
Usual Respiratory Singh
02/11/25 09:32 Sputum Gram Stain - Preliminary
02/11/25 00:43 Urine Legionella Urinary Antigen - Final
Negative for Legionella pneumophila Serogroup 1 antigen.
A negative result does not rule out the possiblity of
Legionella infection due to other serogroups or species of
Legionella. Clinical correlation is recommended.
02/11/25 00:43 Urine Streptococcus pneumoniae Antigen (M - Final
Negative for Streptococcus pneumoniae antigen.
A negative result does not exclude infection with
Streptococcus pneumoniae. Clinical correlation is
recommended.
02/10/25 22:55 Nasal Swab Influenza Types A & B (MATHEW) - Final
Negative for Influenza A & B, NAAT
Negative results must be combined with clinical observations
and patient history.
Nucleic Acid Amplification test (NAAT)performed on the
[employer] platform.
[2025-02-13] MEDS: ROCEPHIN 1000 MG IV (11:28)
[2025-02-13] MEDS: STERILE WATER FOR INJECTION 10 ML IV (11:29)
--- NOTE | 2025-02-13 11:30 | WOUNDNOTE ---
[facility] RN Note: Patient seen for HAPI report for buttocks DTI's. Patient does not have buttocks DTI's. Bilateral buttocks with blanchable dull purple skin with dry/chafed skin (not open), appears chronic. Patient confirmed her buttocks skin has been
this way for awhile prior to admission. Calazime ointment being used and applied. Patient can turn self in bed. Patient instructed pressure injury prevention measures and heel elevation. Heels off bed with pillow. Patient pulled up in bed turned to
R semi side lying position with help from TREY Terrazas. Patient has an air chair cushion. Patient has a good appetite. Instructed patient to take air chair cushion when discharged.
--- NOTE | 2025-02-13 12:07 | VNURNOTE ---
PM [facility] Resumption referral placed in [facility].
[2025-02-13 12:17] LABS: Glucose - Point of Care 131 mg/dl (70-99)
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
[2025-02-13] MEDS: PEPCID 20 MG PO (16:44)
[2025-02-13 17:39] LABS: Glucose - Point of Care 141 mg/dl (70-99)
[2025-02-13 21:07] LABS: Glucose - Point of Care 148 mg/dl (70-99)
[2025-02-13] MEDS: LIPITOR 80 MG PO (21:20)
[2025-02-14] VITALS (8 sets, daily range): BP systolic 88–127; BP diastolic 44–79; BMI 37.1
[2025-02-14 07:47] LABS: Blood Urea Nitrogen 24 mg/dl (7-17); Calcium 8.9 mg/dl (8.4-10.2); Carbon Dioxide 33 mmol/L (22-30); Chloride 98 mmol/L (98-107); Estimated Creatinine Clearance 41 ml/min; Glucose 109 mg/dl (70-99); Potassium 4.5 mmol/L (3.5-5.1); Sodium 136 mmol/L (135-145); eGFR 49.86
[2025-02-14] MEDS: ASPIR LOW (ENTERIC COATED) 81 MG PO (08:07)
[2025-02-14] MEDS: CYMBALTA DELAYED RELEASE 60 MG PO (08:07)
[2025-02-14] MEDS: NEURONTIN 600 MG PO ×3 (08:07→21:24)
[2025-02-14] MEDS: VIBRAMYCIN 100 MG PO ×2 (08:07→20:13)
[2025-02-14] MEDS: WELLBUTRIN XL (24 hour extended release) 150 MG PO (08:07)
[2025-02-14] MEDS: ROXICODONE 15 MG PO ×3 (08:07→21:25)
[2025-02-14] MEDS: LASIX 40 MG IV (08:08)
[2025-02-14] MEDS: TOPROL XL 50 MG PO (08:08)
[2025-02-14] MEDS: ELIQUIS 5 MG PO ×2 (08:08→20:12)
[2025-02-14 08:12] LABS: Glucose - Point of Care 125 mg/dl (70-99)
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
--- NOTE | 2025-02-14 11:55 | W.PN.HOSP.TC ---
Today's Communication/Plan
-
Continue current care
Assessment / Plan
Assessment / Plan
Gen-AAOx3, NAD, obese
HEENT-NC, AT, anicteric, clear oral mm
Neck-supple
CV-reg, no M, +S1/S2
Lungs-clear B/L
Abd-soft, NT, ND
Ext-bilateral lower extremity edema, erythema
Musculoskeletal-no cyanosis, clubbing
Skin-warm and dry
Neuro-grossly non-focal
Psych-calm, cooperative
Acute on chronic hypoxic respiratory failure -suspect multifactorial etiology including acute heart failure exacerbation, possible pneumonia.
Baseline at home uses 4 L of nocturnal oxygen, 2 L during the day. Currently stable on 4 L.
Admission two-view chest x-ray with small loculated bilateral pleural effusions, possible lower lobe pneumonia.
Community-acquired pneumonia -improving, continue ceftriaxone, doxycycline, day 5 of antibiotics.
COVID and influenza negative. Urinary Legionella, pneumococcus antigens negative.
Patient started with cough several days ago. Her son had a cough initially prior to onset of patient's cough.
Mild leukocytosis present on admission, afebrile. Sputum culture pending.
Acute on chronic heart failure with preserved EF exacerbation -BNP 15,200, chest x-ray findings noted. Weight down 6 kg since admission.
Continue IV Lasix. Cardiology following.
Echocardiogram shows LVEF 55 to 60%, mild to moderate MR, mild to moderate TR. Pulmonary artery pressure 50 mmHg.
CAD/CABG -stable. Presentation with chest pain and shortness of breath. Troponins negative.
Paroxysmal atrial fibrillation -continue Eliquis.
ILD/COPD/restrictive lung disease
Essential hypertension -stable.
Hyperlipidemia -atorvastatin.
DM 2 without hyperglycemia -hemoglobin A1c 5.5%. Glucose 109 this morning. At home she is on metformin 500 mg daily.
Currently on aspart low resistance corrective scale.
Bilateral lower extremity venous stasis dermatitis -compression therapy ordered. Keep legs elevated.
Urge incontinence -will refer to urogynecology as an outpatient, Dr. Slaughter.
Chronic pain syndrome/chronic opiate dependence
Bullous pemphigoid
Chronic anemia normocytic - Hemoglobin at baseline.
KEVAN -intolerant of BiPAP.
GERD
Osteoporosis
History of CDAD
Morbid obesity due to excess calories
DNR
Anticipated Discharge: 24 - 48 hours
Subjective/Interval History
-
Date of Service: February 14, 2025
Patient seen and examined, no complaints. Feels better.
Objective Data
-
Labs:
Laboratory Results
02/14/25
07:02
Sodium 136
Potassium 4.5
Chloride 98
Carbon Dioxide 33 H
BUN 24 H
Creatinine 1.1 H
Glucose 109 H
Calcium 8.9
Vital Signs:
Vital Signs
Temp Pulse Resp BP Pulse Ox
98.6 F 63 16 92/51 94
02/14/25 07:31 02/14/25 10:50 02/14/25 07:31 02/14/25 10:50 02/14/25 07:31
I&O
02/13/25 02/14/25 02/15/25
06:59 06:59 06:59
Intake Total 860 / 860 720 / 720
Output Total 300 / 300
Balance 560 / 560 720 / 720
Review of Systems
-
History Source: Patient
All other systems: Reviewed and negative
[2025-02-14 12:39] LABS: Glucose - Point of Care 136 mg/dl (70-99)
[2025-02-14] MEDS: STERILE WATER FOR INJECTION 10 ML IV (13:39)
[2025-02-14] MEDS: ROCEPHIN 1000 MG IV (13:39)
--- NOTE | 2025-02-14 14:30 | W.PN.PUL3 ---
Today's Communication / Plan
-
Can complete antibiotics tomorrow.
IV diuretics per cardiology
Oxygen supplementation at baseline
Will follow
Assessment
-
85-year-old former smoking obese female with underlying hypertension, hyperlipidemia, CAD, diabetes, GERD, heart failure preserved EF who quit smoking 35 years ago and presents with increasing shortness of breath-admitted with atypical chest pain
and pneumonia-pulmonary consulted for shortness of breath and possible pneumonia 02/11/2025.
Atypical chest pain
Possible left lower lobe pneumonia
Acute HFpEF exacerbation
Chronic hypotension on midodrine
Leukocytosis
Anemia
Hyperglycemia
Conditions present prior to admission:
Hypertension.
Hyperlipidemia.
CAD/stent/CABG.
Diabetes.
GERD.
Obesity.
PAF on Eliquis.
Depression.
Heart failure preserved EF.
History of DVT.
Chronic pain/spinal stenosis/chronic opiates.
Bullous pemphigus.
KEVAN-CPAP intolerant-adamant about not getting retested
Pulmonary hypertension.
COPD.
Former [id number]-year-quit 2000
Interstitial lung disease
Pulmonary nodule-stable from 2006 through 2018
Chronic fatigue.
Chronic diastolic CHF
Appendectomy. CABG. Tonsillectomy. Mohs surgery. Laminectomy. Hemorrhoidectomy. D&C. Bilateral cataract.
Plan
Respiratory decompensation, likely multifactorial including underlying COPD/pneumonia and heart failure.
Supplemental oxygen as needed-currently on 4 L- with adequate oxygenation.
Has home oxygen-nocturnal . 4 L and 2 L during the daytime
Nebulizers As needed-currently without wheezing
Continue to hold systemic corticosteroids-not bronchospastic on exam.
Mucus clearing devices.
Cultures reviewed
Urine Legionella and streptococcal antigen negative.
Influenza negative.
Sputum culture -usual respiratory singh
Empiric antibiotics-ceftriaxone and doxycycline-day 5. Can complete antibiotics tomorrow.
Patient is afebrile/leukocytosis resolved.
Diuresis as tolerated -remains on IV Lasix per cardiology.
Cardiology evaluation - correspondence reviewed
Last echocardiogram summarized below...
Echocardiogram 02/12/25-EF 55-60%, mild to moderate mitral regurgitation, PA systolic 50
Weight trending lower.
DVT prophylaxis-Eliquis
GI prophylaxis-on famotidine.
Reviewed with nursing
Patient follows with Dr Smith-Last seen 10/04/24 and canceled 01/16/25-maintained on 4 L oxygen at night, 2 L daytime, Symbicort 80/4.5 and Albuterol
Diagnostic data:
Chest x-ray 02/10/2025-small loculated bilateral pleural effusions which are new, findings concerning for left lower lobe pneumonia
CT chest 02/02/18 reveals mild scar image 31 which may be improved when compared to prior studies. It is in the right lower lobe. Otherwise, there is no other abnormality noted.
CT of the abdomen from 04/29/2017 reveals no active disease in the lung.
CT chest abdomen and pelvis 05/09/2024-dependent atelectasis, focal area ground glass opacification likely small airway pneumonitis, slight increase in interstitial markings in the peripheral lungs possibly chronic changes of congestive heart failure
Echocardiogram 12/20/2023-EF 50%, mild mitral digitation, PA systolic 25-30
Spirometry 10/04/24- FVC 1.89 or 85%, FEV1 1.33 or 81%, Ratio 70
PFT 10/12/21: FVC 2.36/96%, FEV1 1.55/85%, ratio 67. DLCO 8.71/46%. Saturation decreased to 87%, lung volumes not completed. When compared to 2017, spirometry and diffusion capacity is stable
6MW test 10/04/24- RA 96%, HR 67 bpm Ambulated 150 feet and maintained 91-96% on RA. Hr increased to 127bpm
Subjective Data
-
Date of Service:
Date of Service: February 14, 2025
Chief Complaint: Pulmonary Follow Up and Dyspnea Follow Up
Subjective:
Patient feels better
Denies significant phlegm production or hemoptysis
Weight is trending lower.
Review of Systems
Cardiopulmonary: Dyspnea (n), Cough, Sputum Production (n) and Wheezing (n)
Objective Data
Data Reviewed
Vital Signs / I&O / Oxygen:
Vital Signs
Temp Pulse Resp BP Pulse Ox
98.5 F 64 16 89/54 98
02/14/25 11:58 02/14/25 11:58 02/14/25 11:58 02/14/25 13:55 02/14/25 11:58
Intake and Output
02/13/25 02/14/25 02/15/25
06:59 06:59 06:59
Intake Total 860 / 860 720 / 720
Output Total 300 / 300
Balance 560 / 560 720 / 720
SaO2 98
Nasal Cannula flow liters per 4
minute
Physical Exam
General: Respiratory Distress (n) and Comfortable
HEENT: Normocephalic and Moist Mucous Membranes
Cardiovascular: S1-S2 and Rub (n)
Respiratory: Wheeze (n), Crackles ( few basilar), Rhonchi (n), Non-Labored Respirations, Accessory Resp Muscle Use (n) and Stridor (n)
GI: Soft, Non Distended and Non Tender
Neurology: Awake, Alert and Tremors (n)
Skin: Warm, Dry, Cyanosis (n), Jaundice (n) and Rash (n)
Labs/Micro/Reports
Lab Data
02/12/25 07:03
02/14/25 07:02
Microbiology
02/11/25 09:32 Sputum Respiratory Culture - Final
Usual Respiratory Singh
02/11/25 09:32 Sputum Gram Stain - Final
[2025-02-14 17:54] LABS: Glucose - Point of Care 133 mg/dl (70-99)
[2025-02-14] MEDS: PEPCID 20 MG PO (18:48)
[2025-02-14] MEDS: LIPITOR 80 MG PO (21:25)
[2025-02-14 22:14] LABS: Glucose - Point of Care 124 mg/dl (70-99)
[2025-02-15 03:17] VITALS: BP 124/60
[2025-02-15 06:00] VITALS: BMI 37.1
[2025-02-15 07:15] VITALS: BP 103/59
[2025-02-15 07:28] LABS: Glucose - Point of Care 107 mg/dl (70-99)
[2025-02-15] MEDS: WELLBUTRIN XL (24 hour extended release) 150 MG PO (07:38)
[2025-02-15] MEDS: ASPIR LOW (ENTERIC COATED) 81 MG PO (07:38)
[2025-02-15] MEDS: VIBRAMYCIN 100 MG PO (07:38)
[2025-02-15] MEDS: ROXICODONE 15 MG PO (07:38)
[2025-02-15] MEDS: ELIQUIS 5 MG PO (07:38)
[2025-02-15] MEDS: CYMBALTA DELAYED RELEASE 60 MG PO (07:38)
[2025-02-15] MEDS: NEURONTIN 600 MG PO (07:38)
[2025-02-15] MEDS: TOPROL XL 50 MG PO (07:40)
[2025-02-15] MEDS: LASIX 40 MG IV (07:40)
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
[2025-02-15 09:33] LABS: Blood Urea Nitrogen 24 mg/dl (7-17); Calcium 9.4 mg/dl (8.4-10.2); Carbon Dioxide 34 mmol/L (22-30); Chloride 95 mmol/L (98-107); Estimated Creatinine Clearance 35 ml/min; Glucose 106 mg/dl (70-99); Potassium 4.6 mmol/L (3.5-5.1); Sodium 137 mmol/L (135-145); eGFR 40.80
[2025-02-15 11:32] LABS: Glucose - Point of Care 135 mg/dl (70-99)
[2025-02-15 11:40] VITALS: BP 123/52
--- NOTE | 2025-02-15 11:47 | W.PN.PUL3 ---
Today's Communication / Plan
-
Complete antibiotics today
Defer diuresis to cardiology
Oxygen supplementation at baseline
Pt being prepared for discharge home. No additional recommendations at this time. Pulmonary service will now sign off. Please reconsult if there are any additional questions/concerns, or if patient's respiratory status deteriorates.
Assessment
-
85-year-old former smoking obese female with underlying hypertension, hyperlipidemia, CAD, diabetes, GERD, heart failure preserved EF who quit smoking 35 years ago and presents with increasing shortness of breath-admitted with atypical chest pain
and pneumonia-pulmonary consulted for shortness of breath and possible pneumonia 02/11/2025.
Atypical chest pain
Possible left lower lobe pneumonia
Acute HFpEF exacerbation
Chronic hypotension on midodrine
Leukocytosis
Anemia
Hyperglycemia
Conditions present prior to admission:
Hypertension.
Hyperlipidemia.
CAD/stent/CABG.
Diabetes.
GERD.
Obesity.
PAF on Eliquis.
Depression.
Heart failure preserved EF.
History of DVT.
Chronic pain/spinal stenosis/chronic opiates.
Bullous pemphigus.
KEVAN-CPAP intolerant-adamant about not getting retested
Pulmonary hypertension.
COPD.
Former [id number]-quit 2000
Interstitial lung disease
Pulmonary nodule-stable from 2006 through 2018
Chronic fatigue.
Chronic diastolic CHF
Appendectomy. CABG. Tonsillectomy. Mohs surgery. Laminectomy. Hemorrhoidectomy. D&C. Bilateral cataract.
Plan
Respiratory decompensation, likely multifactorial including underlying COPD/pneumonia and heart failure.
Supplemental oxygen as needed-currently on 4 L- with adequate oxygenation.
Has home oxygen-nocturnal . 4 L and 2 L during the daytime
Nebulizers As needed-currently without wheezing
Continue to hold systemic corticosteroids-not bronchospastic on exam.
Mucus clearing devices.
Cultures reviewed
Urine Legionella and streptococcal antigen negative.
Influenza negative.
Sputum culture -usual respiratory singh
Empiric antibiotics-ceftriaxone and doxycycline-day 5. Can complete antibiotics today.
Patient is afebrile/leukocytosis resolved.
Diuresis as tolerated -remains on IV Lasix per cardiology.
Cardiology evaluation - correspondence reviewed
Last echocardiogram summarized below...
Echocardiogram 02/12/25-EF 55-60%, mild to moderate mitral regurgitation, PA systolic 50
Weight trending lower.
DVT prophylaxis-Eliquis
GI prophylaxis-on famotidine.
Reviewed with nursing
Patient follows with Dr Smith-Last seen 10/04/24 and canceled 01/16/25-maintained on 4 L oxygen at night, 2 L daytime, Symbicort 80/4.5 and Albuterol
Pt being prepared for discharge home. No additional recommendations at this time. Pulmonary service will now sign off. Thank you for allowing us to be involved in the care of this patient. Please reconsult if there are any additional
questions/concerns, or if patient's respiratory status deteriorates.
Diagnostic data:
Chest x-ray 02/10/2025-small loculated bilateral pleural effusions which are new, findings concerning for left lower lobe pneumonia
CT chest 02/02/18 reveals mild scar image 31 which may be improved when compared to prior studies. It is in the right lower lobe. Otherwise, there is no other abnormality noted.
CT of the abdomen from 04/29/2017 reveals no active disease in the lung.
CT chest abdomen and pelvis 05/09/2024-dependent atelectasis, focal area ground glass opacification likely small airway pneumonitis, slight increase in interstitial markings in the peripheral lungs possibly chronic changes of congestive heart failure
Echocardiogram 12/20/2023-EF 50%, mild mitral digitation, PA systolic 25-30
Spirometry 10/04/24- FVC 1.89 or 85%, FEV1 1.33 or 81%, Ratio 70
PFT 10/12/21: FVC 2.36/96%, FEV1 1.55/85%, ratio 67. DLCO 8.71/46%. Saturation decreased to 87%, lung volumes not completed. When compared to 2017, spirometry and diffusion capacity is stable
6MW test 10/04/24- RA 96%, HR 67 bpm Ambulated 150 feet and maintained 91-96% on RA. Hr increased to 127bpm
Total time spent today was 38 minutes for this encounter. Time includes reviewing laboratory test/imaging results, reviewing pertinent medical records, obtaining and reviewing medical history, performing an appropriate exam, ordering medications,
tests and procedures. Time also includes documentation of this encounter, coordinating patient care and communicating with other healthcare professionals. Total time does not include separately billed tests performed on this date of service.
Subjective Data
-
Date of Service:
Date of Service: February 15, 2025
Chief Complaint: Pulmonary Follow Up and Dyspnea Follow Up
Subjective:
Pt seen and evaluated this AM. No events reported from overnight. Being prepared for discharge today.
Review of Systems
General: Other (Negative unless mentioned above)
Objective Data
Data Reviewed
Vital Signs / I&O / Oxygen:
Vital Signs
Temp Pulse Resp BP Pulse Ox
98.3 F 62 16 103/59 97
02/15/25 07:15 02/15/25 07:40 02/15/25 07:15 02/15/25 07:40 02/15/25 07:15
Intake and Output
02/14/25 02/15/25 02/16/25
06:59 06:59 06:59
Intake Total 720 / 720 240 / 240
Balance 720 / 720 240 / 240
SaO2 97
Nasal Cannula flow liters per 4
minute
Physical Exam
General: Respiratory Distress (n) and Comfortable
HEENT: Normocephalic and Moist Mucous Membranes
Cardiovascular: S1-S2 and Rub (n)
Respiratory: Wheeze (n), Crackles ( few basilar), Rhonchi (n), Non-Labored Respirations, Accessory Resp Muscle Use (n) and Stridor (n)
GI: Soft, Non Distended and Non Tender
Neurology: Awake, Alert and Tremors (n)
Skin: Warm, Dry, Cyanosis (n), Jaundice (n) and Rash (n)
Labs/Micro/Reports
Lab Data
02/12/25 07:03
02/15/25 08:18
Microbiology
02/11/25 09:32 Sputum Respiratory Culture - Final
Usual Respiratory Singh
02/11/25 09:32 Sputum Gram Stain - Final
--- NOTE | 2025-02-15 12:08 | W.PN.HOSP.TC ---
Today's Communication/Plan
-
Discharge
Assessment / Plan
Assessment / Plan
Gen-AAOx3, NAD, obese
HEENT-NC, AT, anicteric, clear oral mm
Neck-supple
CV-reg, no M, +S1/S2
Lungs-clear B/L
Abd-soft, NT, ND
Ext-bilateral lower extremity edema, erythema
Musculoskeletal-no cyanosis, clubbing
Skin-warm and dry
Neuro-grossly non-focal
Psych-calm, cooperative
Acute on chronic hypoxic respiratory failure -suspect multifactorial etiology including acute heart failure exacerbation, possible pneumonia.
Baseline at home uses 4 L of nocturnal oxygen, 2 L during the day. Currently stable on 4 L.
Admission two-view chest x-ray with small loculated bilateral pleural effusions, possible lower lobe pneumonia.
Community-acquired pneumonia -improving, continue ceftriaxone, doxycycline, day 5/5 of antibiotics.
COVID and influenza negative. Urinary Legionella, pneumococcus antigens negative.
Patient started with cough several days ago. Her son had a cough initially prior to onset of patient's cough.
Mild leukocytosis present on admission, afebrile. Sputum culture pending.
Acute on chronic heart failure with preserved EF exacerbation -BNP 15,200, chest x-ray findings noted. Weight down 6 kg since admission.
Echocardiogram shows LVEF 55 to 60%, mild to moderate MR, mild to moderate TR. Pulmonary artery pressure 50 mmHg.
Transitioned to Lasix 60 mg p.o. daily by cardiology.
CAD/CABG -stable. Presentation with chest pain and shortness of breath. Troponins negative.
Paroxysmal atrial fibrillation -continue Eliquis.
ILD/COPD/restrictive lung disease
Essential hypertension -stable.
Hyperlipidemia -atorvastatin.
DM 2 without hyperglycemia -hemoglobin A1c 5.5%. Glucose 109 this morning. At home she was on metformin 500 mg daily, will not resume on discharge given renal insufficiency.
Currently on aspart low resistance corrective scale.
Bilateral lower extremity venous stasis dermatitis -compression therapy ordered. Keep legs elevated.
Urge incontinence -will refer to urogynecology as an outpatient, Dr. Slaughter.
Chronic pain syndrome/chronic opiate dependence
Bullous pemphigoid
Chronic anemia normocytic - Hemoglobin at baseline.
KEVAN -intolerant of BiPAP.
GERD
Osteoporosis
History of CDAD
Morbid obesity due to excess calories
DNR
Dispo -medically stable for discharge today. Discussed with cardiology. Outpatient follow-up. Updated case management.
32 minutes spent in discharge process.
Anticipated Discharge: Today
Subjective/Interval History
-
Date of Service: February 15, 2025
Patient seen and examined. No complaints.
Objective Data
-
Labs:
Laboratory Results
02/15/25
08:18
Sodium 137
Potassium 4.6
Chloride 95 L
Carbon Dioxide 34 H
BUN 24 H
Creatinine 1.3 H
Glucose 106 H
Calcium 9.4
Vital Signs:
Vital Signs
Temp Pulse Resp BP Pulse Ox
98.3 F 62 16 103/59 97
02/15/25 07:15 02/15/25 07:40 02/15/25 07:15 02/15/25 07:40 02/15/25 07:15
I&O
02/14/25 02/15/25 02/16/25
06:59 06:59 06:59
Intake Total 720 / 720 240 / 240
Balance 720 / 720 240 / 240
Review of Systems
-
History Source: Patient
All other systems: Reviewed and negative
--- NOTE | 2025-02-15 12:10 | W.DS.TRANS ---
DC Summary - Research Clerk
-
Discharge Instructions:
Discharge Diagnosis/Procedures Pneumonia, heart failure exacerbation
Diet Diabetic, Carb Controlled
Activity As tolerated
Driving Restrictions As prior to admission
Bathing Restrictions None
Blood Work BMP in 1 week with your PCP
Instructions:
Stand-Alone Forms:
Changes to Home Medications: No
Discharge Medications:
DC Medications w/original date entered in [facility]
pantoprazole 40 mg tablet,delayed release 40 mg PO DAILY Gastrointestinal issue 02/11/13
aspirin 81 mg tablet,delayed release 81 mg PO DAILY Blood clot prevention/tx 03/25/17
bupropion HCl 150 mg 24 hr tablet, extended release 150 mg PO DAILY Mental Health/Anxiety 03/25/17
duloxetine 60 mg capsule,delayed release 60 mg PO DAILY PAIN 03/25/17
atorvastatin 80 mg tablet 80 mg PO HS High Cholesterol 12/08/23
gabapentin 300 mg capsule 600 mg PO TID Neurological Condition 12/08/23
famotidine 20 mg tablet 20 mg PO QPM Gastrointestinal Issue 12/19/23
metoprolol succinate 50 mg tablet,extended release 24 hr 50 mg PO DAILY Heart Disease/Condition 12/19/23
apixaban 5 mg tablet (Eliquis) 5 mg PO BID Blood clot prevention/tx #60 tabs 12/28/23
acetaminophen 325 mg tablet (Tylenol) 650 mg PO BID TEMP/PAIN 10/17/24
cholecalciferol (vitamin D3) 25 mcg (1,000 unit) tablet (Vitamin D3) 25 mcg PO DAILY Supplement 10/17/24
cyanocobalamin (vitamin B-12) 1,000 mcg capsule 1,000 mcg PO DAILY Supplement 10/17/24
dupilumab 200 mg/1.14 mL subcutaneous pen injector (Dupixent) 0 mg SC Q2W Autoimmune Disorder 10/17/24
polyethylene glycol 3350 17 gram oral powder packet 17 g PO DAILYPRN PRN constipation #30 ea 11/01/24
midodrine 2.5 mg tablet 2.5 mg PO TID 02/10/25
oxycodone 10 mg tablet 15 mg PO TID severe Pain 02/10/25
furosemide 20 mg tablet 60 mg (3 x 20 mg) PO DAILY #90 tabs 02/15/25
Home Medication Changes
Pending Results: No
--- NOTE | 2025-02-15 12:24 | CM ---
Addendum entered by Mary Tineo 02/15/25 13:04:
CM called to patient and he is enroute. Patient stated patient doesn't need O2 as they are only 5 min away.
Original Note:
Patient seen at bedside on [address]. Patient plan is for discharge home with family and [facility] to follow. Patient for discharge home today, IMM completed and signed form placed on chart. CM will continue to follow for discharge planning needs.
Plan; home with [facility]; pending family transport/home O2
[2025-02-15] MEDS: ROCEPHIN 1000 MG IV (13:05)
[2025-02-15] MEDS: STERILE WATER FOR INJECTION 10 ML IV (13:05)
== END 2025-02-15 15:08 | disposition home health service (06) | DRG 291 ==
LOC: 2 NORTH 23:30
PROVIDERS: Nurse Practitioner Family; ADMITTING PHYSICIAN Internal Medicine; ATTENDING PHYSICIAN Hospitalist; CONSULT PHYSICIAN Internal Medicine Cardiovascular Disease; EMERGENCY PHYSICIAN Student in an Organized Health Care Education/Training Program; FAMILY PHYSICIAN Family Medicine; OTHER PHYSICIAN Internal Medicine Critical Care Medicine
DX: I13.0 Hypertensive heart and chronic kidney disease with heart failure and stage 1 through stage 4 chronic kidney disease, or unspecified chronic kidney disease (principal); I50.33 Acute on chronic diastolic (congestive) heart failure; J96.22 Acute and chronic respiratory failure with hypercapnia; J18.9 Pneumonia, unspecified organism; J96.21 Acute and chronic respiratory failure with hypoxia; L12.0 Bullous pemphigoid; Z68.41 Body mass index [BMI] 40.0-44.9, adult; J44.0 Chronic obstructive pulmonary disease with (acute) lower respiratory infection; F11.20 Opioid dependence, uncomplicated; I48.0 Paroxysmal atrial fibrillation; I25.10 Atherosclerotic heart disease of native coronary artery without angina pectoris; Z95.5 Presence of coronary angioplasty implant and graft; E78.00 Pure hypercholesterolemia, unspecified; E11.22 Type 2 diabetes mellitus with diabetic chronic kidney disease; N18.31 Chronic kidney disease, stage 3a; K21.9 Gastro-esophageal reflux disease without esophagitis; F32.A Depression, unspecified; G89.4 Chronic pain syndrome; M48.00 Spinal stenosis, site unspecified; Z87.891 Personal history of nicotine dependence; Z86.718 Personal history of other venous thrombosis and embolism; G47.33 Obstructive sleep apnea (adult) (pediatric); D50.9 Iron deficiency anemia, unspecified; E66.812 Obesity, class 2; Z95.1 Presence of aortocoronary bypass graft; Z98.41 Cataract extraction status, right eye; Z98.42 Cataract extraction status, left eye; Z88.0 Allergy status to penicillin; Z79.01 Long term (current) use of anticoagulants; Z79.82 Long term (current) use of aspirin; Z79.84 Long term (current) use of oral hypoglycemic drugs; E66.01 Morbid (severe) obesity due to excess calories; Z85.828 Personal history of other malignant neoplasm of skin; Z99.81 Dependence on supplemental oxygen; J98.4 Other disorders of lung; M81.0 Age-related osteoporosis without current pathological fracture; Z66 Do not resuscitate; D63.1 Anemia in chronic kidney disease; I89.0 Lymphedema, not elsewhere classified; I95.89 Other hypotension; Z79.899 Other long term (current) drug therapy; Z11.52 Encounter for screening for COVID-19
CPT/HCPCS: 71046; 80048; 80053; 80061; 82962; 83036; 83880; 84145; 84484; 85025; 85027; 87070; 87205; 87449; 87502; 87811; 87899; 93005; 93306; 94640; 96374; 97116; 97162; 97167; 97530; 99285